=== PATIENT | female | born 1960 | race African-American/Black ===

== ENCOUNTER 2018-02-16 00:44 | Inpatient (IN) ==
--- NOTE | 2018-02-16 01:40 | ED ---
HPI General Chief Complaint: Psychiatric Symptoms Stated Complaint: psych eval Time Seen by Provider: 02/16/18 00:48 Source: patient and police Mode of arrival: ambulatory Limitations: no limitations History of Present Illness HPI Narrative: 57-year-old black female presents emergency department under Summers act by PD. According to the Summers act the patient has not been taking her medications for the past 15 days. The patient allegedly had been laying out in the yard. The patient states that family members had refused to allow her to come back in the house. She did not want to lay on the porch because someone had defecated on the porch earlier as well as there is been history of bedbugs. The patient states that she has received several insect bites to arms and legs from being outside. She states that she has been outside for several days. Patient is very reluctant to answer questions. She is very reserved. She does deny suicidal or homicidal ideation. Patient is uncooperative and refusing to answer other questions. She states that she is angry at her family. Related Data Home Medications Medication Instructions Recorded Confirmed No Known Home Medications 02/16/18 02/16/18 Allergies Allergy/AdvReac Type Severity Reaction Status Date / Time acetaminophen Allergy Severe rash Unverified 01/11/17 15:56 oxycodone Allergy Severe rash Unverified 01/11/17 15:56 aspirin AdvReac Severe SEIZURES Unverified 01/11/17 15:56 codeine AdvReac Severe SEIZURES Unverified 01/11/17 15:56 Review of Systems ROS Unobtainable ROS Unobtainable: unobtainable due to mental status [facility] Medical History Medical History Mitral valve prolapse (Acute) Mitral valve prolapse (Acute) Seizures (Acute) Social History Social History Substance History: Unable to Obtain Smoking Status: Refused to answer How Often Do You Have a Drink Containing Alcohol: Monthly or less Recent Travel in [place] within the Last 8 Weeks: No Recent Out of Country Travel within the Last 8 Weeks: No Immunization History Tetanus Immunization: Unsure Hx Influenza Vaccine This Season: No Exam Narrative Exam Narrative: GENERAL: Well-nourished, well-developed patient. SKIN: Warm and dry. HEAD: Normocephalic and atraumatic. EYES: No scleral icterus. No injection or drainage. ENT: No nasal drainage noted. Mucous membranes pink. Airway patent. NECK: Supple, trachea midline. Moves head freely without obvious discomfort. CARDIOVASCULAR: Regular rate and rhythm without murmurs, gallops, or rubs. RESPIRATORY: Breath sounds equal bilaterally. No accessory muscle use. GASTROINTESTINAL: Abdomen soft, non-tender, nondistended. EXTREMITIES: No cyanosis or edema. BACK: Nontender without obvious deformity. No CVA tenderness. NEURO: Patient is alert and oriented. no sensorimotor deficits. Nonfocal. Normal speech. PSYCH: Patient is uncooperative. Unable to fully assess. No auditory or visual hallucinations. Course Initial Documented Vital Signs Temperature 98.0 F 02/16/18 00:48 Pulse Rate 75 02/16/18 00:48 Respiratory Rate 18 02/16/18 00:48 Blood Pressure 119/60 02/16/18 00:48 Last Documented Vital Signs Temperature 96.1 F L 02/18/18 18:16 Pulse Rate 78 02/18/18 18:16 Respiratory Rate 16 02/18/18 18:16 Blood Pressure 96/62 L 02/18/18 18:16 Pulse Oximetry 98 02/18/18 18:16 Medical Decision Making MDM Narrative Medical decision making narrative: We will perform routine laboratory testing for medical clearance. Patient will be given Zyprexa 10 mg IM and Ativan 2 mg IM. The patient has refused her Zyprexa and Ativan. She has also refused her potassium. Unfortunately I cannot medically clear this patient with a potassium of 2.9. I was advised by the nursing staff that we cannot force the patient to take her medications. The patient will have to be evaluated by a psychiatrist to determine if she has a capacity to refuse. We will determine medical clearance after the patient has been evaluated by the psychiatrist under her Summers act. Medical Screen Exam Complete: Yes Emergency Medical Condition: Yes Differential Diagnosis Differential Diagnosis: MDM: High Differential diagnoses: Schizophrenia, schizoaffective disorder, bipolar, anxiety, depression, adjustment reaction, mood disorder NOS, ODD, depressive disorder NOS, dementia, dementia with agitation, psychosis NOS, substance induced mood disorder, DMDD, Asperger syndrome, infection,electrolyte abnormality, malingering. Mental health screening discussed with the patient. Psychiatric screen ordered. Lab Data Result diagrams: 02/16/18 01:40 02/18/18 06:40 POC Results POC Urine Results Negative Lab Results 02/16/18 02/16/18 02/16/18 Range/Units 01:25 01:40 01:40 WBC 5.7 (4.0-11.0) th/mm3 RBC 4.38 (4.00-5.30) mil/mm3 Hgb 12.3 (11.6-15.3) gm/dL Hct 38.0 (35.0-46.0) % MCV 86.7 (80.0-100.0) fL MCH 28.1 (27.0-34.0) pg MCHC 32.4 (32.0-36.0) % RDW 14.7 (11.6-17.2) % Plt Count 209 (150-450) th/mm3 MPV 7.9 (7.0-11.0) fL Neut % (Auto) 41.2 (16.0-70.0) % Lymph % (Auto) 45.5 H (9.0-44.0) % [place] % (Auto) 8.4 H (0.0-8.0) % Eos % (Auto) 3.8 (0.0-4.0) % Baso % (Auto) 1.1 (0.0-2.0) % Neut # (Auto) 2.4 (1.8-7.7) th/mm3 Lymph # (Auto) 2.6 (1.0-4.8) th/mm3 [place] # (Auto) 0.5 (0.0-0.9) th/mm3 Eos # (Auto) 0.2 (0.0-0.4) th/mm3 Baso # (Auto) 0.1 (0.0-0.2) th/mm3 WBC Differential . Differential Comment Auto diff final Sodium 135 L (136-145) meq/L Potassium 2.9 L* (3.5-5.1) meq/L Chloride 99 (98-107) meq/L Carbon Dioxide 26.2 (21.0-32.0) meq/L Anion Gap 10 (5-15) meq/L BUN 17 (7-18) mg/dL Creatinine 1.52 H (0.50-1.00) mg/dL Estimated GFR 43 L (>89) mL/min Random Glucose 84 (74-106) mg/dL Hemoglobin A1c (4.3-6.0) % Calcium 8.5 (8.5-10.1) mg/dL Phosphorus (2.5-4.9) mg/dL Magnesium (1.5-2.5) mg/dL Total Bilirubin 0.5 (0.2-1.0) mg/dL AST 30 (15-37) U/L ALT 14 (10-53) U/L Alkaline Phosphatase 74 (45-117) U/L Total Protein 6.9 (6.4-8.2) g/dL Albumin 3.4 (3.4-5.0) g/dL Triglycerides (42-150) mg/dL Cholesterol (120-200) mg/dL LDL Cholesterol, Calc (0-99) mg/dL HDL Cholesterol (40.0-60.0) mg/dL Cholesterol/HDL Ratio Ratio TSH 0.647 (0.358-3.740) uIU/mL Free T4 (0.76-1.46) ng/dL Urine Opiates Screen Neg (Neg) Ur Barbiturates Screen Neg (Neg) Phenytoin Less than 0.4 L (10.0-20.0) mcg/mL Valproic Acid Less than 3 L (50-100) mcg/mL Ur Amphetamines Screen Neg (Neg) U Benzodiazepines Scrn Neg (Neg) Urine Cocaine Screen Neg (Neg) U Cannabinoids Screen Neg (Neg) Serum Alcohol Less than 3 (0-5) mg/dL 02/18/18 02/18/18 02/18/18 Range/Units 06:40 06:40 06:40 WBC (4.0-11.0) th/mm3 RBC (4.00-5.30) mil/mm3 Hgb (11.6-15.3) gm/dL Hct (35.0-46.0) % MCV (80.0-100.0) fL MCH (27.0-34.0) pg MCHC (32.0-36.0) % RDW (11.6-17.2) % Plt Count (150-450) th/mm3 MPV (7.0-11.0) fL Neut % (Auto) (16.0-70.0) % Lymph % (Auto) (9.0-44.0) % [place] % (Auto) (0.0-8.0) % Eos % (Auto) (0.0-4.0) % Baso % (Auto) (0.0-2.0) % Neut # (Auto) (1.8-7.7) th/mm3 Lymph # (Auto) (1.0-4.8) th/mm3 [place] # (Auto) (0.0-0.9) th/mm3 Eos # (Auto) (0.0-0.4) th/mm3 Baso # (Auto) (0.0-0.2) th/mm3 WBC Differential Differential Comment Sodium 142 (136-145) meq/L Potassium 3.4 L (3.5-5.1) meq/L Chloride 107 (98-107) meq/L Carbon Dioxide 27.3 (21.0-32.0) meq/L Anion Gap 8 (5-15) meq/L BUN 13 (7-18) mg/dL Creatinine 0.99 (0.50-1.00) mg/dL Estimated GFR 70 L (>89) mL/min Random Glucose 96 (74-106) mg/dL Hemoglobin A1c 6.2 H (4.3-6.0) % Calcium 8.2 L (8.5-10.1) mg/dL Phosphorus 2.3 L (2.5-4.9) mg/dL Magnesium 1.8 (1.5-2.5) mg/dL Total Bilirubin 0.4 (0.2-1.0) mg/dL AST 24 (15-37) U/L ALT 12 (10-53) U/L Alkaline Phosphatase 66 (45-117) U/L Total Protein 6.3 L D (6.4-8.2) g/dL Albumin 3.0 L (3.4-5.0) g/dL Triglycerides 77 (42-150) mg/dL Cholesterol 162 (120-200) mg/dL LDL Cholesterol, Calc 92 (0-99) mg/dL HDL Cholesterol 54.8 (40.0-60.0) mg/dL Cholesterol/HDL Ratio 2.95 Ratio TSH 0.172 L (0.358-3.740) uIU/mL Free T4 1.23 (0.76-1.46) ng/dL Urine Opiates Screen (Neg) Ur Barbiturates Screen (Neg) Phenytoin (10.0-20.0) mcg/mL Valproic Acid (50-100) mcg/mL Ur Amphetamines Screen (Neg) U Benzodiazepines Scrn (Neg) Urine Cocaine Screen (Neg) U Cannabinoids Screen (Neg) Serum Alcohol (0-5) mg/dL Discharge Plan Discharge Disposition Patient Disposition: 30 Still Patient Discharge Condition Condition: Stable Physicians Team ED Provider: Shreya Griffith Primary Care Provider: Primary Care Angie Ferrer Attending Provider: Noel Cespedes Other Providers: Noel Cespedes ; Utilizer,[facility] ; Oj Pleitez Status ED Status: Left Department Discharge Information Discharge Date/Time: 02/16/18 14:47
[2018-02-16 01:55] LABS: Baso # (Auto) 0.1 th/mm3 (0.0-0.2); Baso % (Auto) 1.1 % (0.0-2.0); Eos # (Auto) 0.2 th/mm3 (0.0-0.4); Eos % (Auto) 3.8 % (0.0-4.0); Hemoglobin 12.3 gm/dL (11.6-15.3); Lymph # (Auto) 2.6 th/mm3 (1.0-4.8); Lymph % (Auto) 45.5 % (9.0-44.0); Mean Corpuscular HGB Conc 32.4 % (32.0-36.0); Mean Corpuscular Hemoglobin 28.1 pg (27.0-34.0); Mean Corpuscular Volume 86.7 fL (80.0-100.0); Mean Platelet Volume 7.9 fL (7.0-11.0); Mono # (Auto) 0.5 th/mm3 (0.0-0.9); Mono % (Auto) 8.4 % (0.0-8.0); Neut # (Auto) 2.4 th/mm3 (1.8-7.7); Neut % (Auto) 41.2 % (16.0-70.0); Platelet Count 209 th/mm3 (150-450); Red Blood Count 4.38 mil/mm3 (4.00-5.30); Red Cell Distribution Width 14.7 % (11.6-17.2); White Blood Count 5.7 th/mm3 (4.0-11.0)
[2018-02-16 02:02] LABS: Amphetamine Screen,Urine Neg (Neg); Barbiturate Screen,Urine Neg (Neg); Cannabinoid Screen,Urine Neg (Neg); Cocaine Screen,Urine Neg (Neg)
[2018-02-16 02:03] LABS: Opiate Screen,Urine Neg (Neg)
[2018-02-16 02:27] LABS: Alanine Aminotransferase 14 U/L (10-53); Albumin 3.4 g/dL (3.4-5.0); Alkaline Phosphatase 74 U/L (45-117); Anion Gap 10 meq/L (5-15); Aspartate Aminotransferase 30 U/L (15-37); Blood Urea Nitrogen 17 mg/dL (7-18); Calcium 8.5 mg/dL (8.5-10.1); Carbon Dioxide 26.2 meq/L (21.0-32.0); Chloride 99 meq/L (98-107); Glomerular Filtration Rate 43 mL/min (>89); Glucose,Random 84 mg/dL (74-106); Sodium 135 meq/L (136-145); Thyroid Stimulating Hormone 0.647 uIU/mL (0.358-3.740); Total Protein 6.9 g/dL (6.4-8.2)
[2018-02-16 02:29] LABS: Potassium 2.9 meq/L (3.5-5.1)
[2018-02-16] MEDS ORDERED: Aluminum/Magnesium/Simethacone Susp 30 ML UDC PO PRN (10:53)
[2018-02-16] MEDS ORDERED: Bisacodyl 10 MG Supp RECTAL PRN (10:53)
--- NOTE | 2018-02-16 14:26 | P.HPPSY ---
Provisional Diagnosis Admission Date: February 16, 2018 00:44 [place] I.: Unspecified psychosis Competence Certification of Person's Competence To Provide Express and Informed Consent I have personally examined Marilyn Alberto, a person being served at [facility] on, February 16, 2018 1423. Express and informed consent means consent voluntarily given in writing, by a competent person, after sufficient explanation and disclosure of the subject matter involved to enable the person to make a knowing and willful decision without any element of force, fraud, deceit, duress, or other form of constraint or coercion. This person is 18 years of age or older, is not now known to be incompetent to consent to treatment with a guardian advocate, and does not have a health care surrogate or proxy currently making medical treatment decisions. I have found this person to be one of the following: [] Competent to provide express and informed consent, as defined above, for voluntary admission to this facility and is competent to provide express and informed consent for treatment. He/she has the consistent capacity to make well reasoned, willful, and knowing decisions concerning his or her medical or mental health treatment. The person fully and consistently understands the purpose of the admission for examination/placement and is fully capable of personally exercising all rights [place] [x] Incompetent to provide express and informed consent to voluntary admission, and this is incompetent to provide express and informed consent to treatment. The person must be transferred to involuntary status and a petition for a guardian advocate filed with the Circuit Court. [] Refusing to provide express and informed consent to voluntary admission but is competent to provide express and informed consent for treatment. The person must be discharged or transferred to involuntary status. Form shall be completed within 24 hours of a person's arrival at the receiving facility and filed in the clinical record of each person: 1. Admitted on a voluntary basis 2. Permitted to provide express and informed consent to his/her own treatment 3. Allowed to transfer from involuntary to voluntary status 4. Prior to permitting a person to consent to his or her own treatment after having been previously found incompetent to consent to treatment. History of Present Illness Capacity: Lacks capacity History of Present Illness: The patient is a 57-year-old woman, domiciled alone, , unemployed, past psychiatric history of psychosis, 1 previous psychiatric hospitalization in [place] in 2017, documentation review, also admitted in 2010 under the care of Dr. Medley, both time with a very similar presentation in which the patient refused to eat and to talk, this time she is brought under [place] act by PD. According to the Summers act the patient has not been taking her medications for the past 15 days. The patient allegedly had been laying out in the yard. The patient states that family members had refused to allow her to come back in the house. She did not want to lay on the porch because someone had defecated on the porch earlier as well as there is been history of bedbugs. The patient states that she has received several insect bites to arms and legs from being outside. She states that she has been outside for several days. Patient is very reluctant to answer questions. At some point the patient refuses to talk to me. In spite of my insistence the patient does not open her mouth. The patient has been isolated in the ER, not talking with the nurses, she has refused her food. She also has refused medications. Past psychiatric history: The patient denies any history of psychiatric illness. She denies any history of psychiatric admissions or suicide attempts. Family history: The patient denies any family history of mental illness. Chemical dependency history: The patient denies any history of abuse of drugs or alcohol. Social history: The patient reports that she lives alone. She is . She has 3 sons. She is reportedly college-educated. She does not work and is on disability for epilepsy. She denies any or legal history other than the legal history prior to her presentation here. She denies any access to guns or firearms. [facility] - History History Provided By: Patient - Medical History Medical History: Medical History (Last Reviewed 02/16/18 @ 01:38 by CARLOS Pearl) Mitral valve prolapse Mitral valve prolapse Seizures - Tobacco History Smoking Status: Refused to answer - Alcohol History How Often Do You Have a Drink Containing Alcohol: Monthly or less - Substance Use History Substance History: Unable to Obtain - Travel History Recent Travel in the [facility] Within the Last 8 Weeks: No Recent Travel Out of the Country Within the Last 8 Weeks: No - Immunization History Tetanus Immunization: Unsure Hx Influenza Vaccine This Season: No Medications and Allergies Active Medications: Active Medications Al Hydrox/Mg Hydrox/Simethicone (Mag-Al Plus Susp Liq) 30 ml PO Q6H PRN PRN Reason: DYSPEPSIA Al Hydroxide/Mg Hydroxide (Milk Of Magnesia Liq) 30 ml PO Q12H PRN PRN Reason: Mild Constipation Bisacodyl (Dulcolax Supp) 10 mg RECTAL DAILY PRN PRN Reason: SEVERE CONSITIPATION Lactulose (Lactulose Liq) 30 ml PO DAILY PRN PRN Reason: SEVERE CONSITIPATION Potassium Chloride (K-Dur) 20 meq PO BID MALICK Last Admin: 02/16/18 10:15 Dose: Not Given Senna/Docusate Sodium (Lidia-Colace) 1 tab PO BID [facility] Sennosides (Senokot) 17.2 mg PO Q12H PRN PRN Reason: Moderate Constipation Allergies Allergy/AdvReac Type Severity Reaction Status Date / Time acetaminophen Allergy Severe rash Unverified 01/11/17 15:56 oxycodone Allergy Severe rash Unverified 01/11/17 15:56 aspirin AdvReac Severe SEIZURES Unverified 01/11/17 15:56 codeine AdvReac Severe SEIZURES Unverified 01/11/17 15:56 Home Medications Medication Instructions Recorded Confirmed Type No Known Home Medications 02/16/18 02/16/18 History Results - Labs CBC & Chem 7: 02/16/18 01:40 02/16/18 01:40 Labs: Laboratory Results - last 24 hr 02/16/18 02/16/18 02/16/18 01:25 01:40 01:40 WBC 5.7 RBC 4.38 Hgb 12.3 Hct 38.0 MCV 86.7 MCH 28.1 MCHC 32.4 RDW 14.7 Plt Count 209 MPV 7.9 Neut % (Auto) 41.2 Lymph % (Auto) 45.5 H [place] % (Auto) 8.4 H Eos % (Auto) 3.8 Baso % (Auto) 1.1 Neut # (Auto) 2.4 Lymph # (Auto) 2.6 [place] # (Auto) 0.5 Eos # (Auto) 0.2 Baso # (Auto) 0.1 WBC Differential . Differential Comment Auto diff final Sodium 135 L Potassium 2.9 L* Chloride 99 Carbon Dioxide 26.2 Anion Gap 10 BUN 17 Creatinine 1.52 H Estimated GFR 43 L Random Glucose 84 Calcium 8.5 Total Bilirubin 0.5 AST 30 ALT 14 Alkaline Phosphatase 74 Total Protein 6.9 Albumin 3.4 TSH 0.647 Urine Opiates Screen Neg Ur Barbiturates Screen Neg Phenytoin Less than 0.4 L Valproic Acid Less than 3 L Ur Amphetamines Screen Neg U Benzodiazepines Scrn Neg Urine Cocaine Screen Neg U Cannabinoids Screen Neg Serum Alcohol Less than 3 Exam Vital signs: Vital Signs 02/16/18 00:48 Temperature 98.0 F Pulse Rate 75 Respiratory Rate 18 Blood Pressure 119/60 Intake & Output 02/15/18 02/16/18 02/16/18 18:59 06:59 18:59 Weight 63.503 kg Narrative: Patient is hyperactive, hyperverbal, laying in her bed, refusing to cooperate with examination - Constitutional no acute distress Mental Status Examination Appearance: Disheveled Consciousness: Alert Orientation: Person Speech: Other (Selectively mute) Suicidal Ideation: No Suicidal Plan: No Suicidal Intention: No Homicidal Ideation: No Homicidal Plan: No Homicidal Intention: No (MSE is limited due to lack of cooperation and mutism) Insight: Poor Judgment: Poor Assessment and Plan - Assessment (1) Unspecified psychosis Code(s): F29 - Unspecified psychosis not due to a substance or known physiological condition Status: Acute - Plan Plan: Estimated LOS: [] days The patient is selectively mute, refusing to cooperate with a psychiatric assessment, internally preoccupied, psychosis is likely. He has history of similar behaviors in the past, she has been found psychotic, self neglecting herself. As per police report, the patient was found laying down in the driveway, under disarmed, no responsive reluctant to cooperate. Given the level of self-care impairment, the patient will be admitted in psychiatry for stabilization and safety. I have no starting an antipsychotic at this moment, we will continue the longitudinal observation try to reach collateral information to complete the psychiatric assessment. Transfer the patient to 4 E. patient has low potassium level, as well as low sodium level, I will consult medicine to address this. Justification for Continued Inpatient Stay: Patient is for psychiatric admission
[2018-02-16] MEDS: Senna/Docusate Sodium 8.6/50 MG Tablet PO SCH (21:09)
[2018-02-17] MEDS: Senna/Docusate Sodium 8.6/50 MG Tablet PO SCH (09:45)
--- NOTE | 2018-02-17 12:36 | P.CONPSY ---
Provisional Diagnosis Admission Date: February 16, 2018 14:13 [place] I.: 1. Schizophrenia, paranoid type, acute exacerbation [place] II.: Deferred History of Present Illness Service: Psychiatry Consult date: 02/17/18 Requesting Physician: Santi Rivas Reason for Consult: Second opinion for involuntary psychiatric hospitalization Primary Care Provider: No Primary Care Physician History of Present Illness: From Dr. Rvias's H&P: The patient is a 57-year-old woman, domiciled alone, , unemployed, past psychiatric history of psychosis, 1 previous psychiatric hospitalization in [place] in 2017, documentation review, also admitted in 2009 under the care of Dr. Medley, both time with a very similar presentation in which the patient refused to eat and to talk, this time she is brought under Summers act by PD. According to the Summers act the patient has not been taking her medications for the past 15 days. The patient allegedly had been laying out in the yard. The patient states that family members had refused to allow her to come back in the house. She did not want to lay on the porch because someone had defecated on the porch earlier as well as there is been history of bedbugs. The patient states that she has received several insect bites to arms and legs from being outside. She states that she has been outside for several days. Patient is very reluctant to answer questions. At some point the patient refuses to talk to me. In spite of my insistence the patient does not open her mouth. The patient has been isolated in the ER, not talking with the nurses, she has refused her food. She also has refused medications. Past psychiatric history: The patient denies any history of psychiatric illness. She denies any history of psychiatric admissions or suicide attempts. Family history: The patient denies any family history of mental illness. Chemical dependency history: The patient denies any history of abuse of drugs or alcohol. Social history: The patient reports that she lives alone. She is . She has 3 sons. She is reportedly college-educated. She does not work and is on disability for epilepsy. She denies any or legal history other than the legal history prior to her presentation here. She denies any access to guns or firearms. On my examination today, 02/17: Patient seen and examined with nurse. Chart reviewed. I note that the patient was hospitalized [place] [address] Rivas and was stabilized on a combination of Depakote, Geodon and Celexa. Case discussed with nursing staff who reports patient has been refusing food and has been huddled in her room with her covers over her head. She was reportedly covered with bug bites as she had been found laying in the driveway prior to coming into the hospital per nursing staff. On my examination today, I find the patient in bed with the covers pulled over her head. She refuses to uncover her head and refuses to conduct the interview with her head covered. When we endeavor to uncover her head to conduct the interview, the patient becomes irate and screams "leave me alone!" She then pulls the covers over her head again. She is disheveled and appears internally stimulated and paranoid. She is quite negativistic. Psychiatric interview is limited because of the patient's degree of psychiatric impairment. No acute physical complaints. Her lunch is untouched at her bedside. Given the patient's degree of psychiatric impairment I spoke with her son, Lukas Sewell at [phone]. He is agreeable to serving as healthcare surrogate. He provides consent for medications as detailed below. We discuss possibly switching antipsychotics to an agent with available WAGNER but agree that given patient's food refusal it is better to start with an agent with a history of proven efficacy. Review of Systems unobtainable due to mental condition PMFSH - History History Provided By: Patient - Medical History Medical History: Medical History (Last Reviewed 02/16/18 @ 01:38 by CARLOS Pearl) Mitral valve prolapse Mitral valve prolapse Seizures - Tobacco History Smoking Status: Refused to answer - Alcohol History How Often Do You Have a Drink Containing Alcohol: Monthly or less - Substance Use History Substance History: Unable to Obtain - Travel History Recent Travel in the [place] Within the Last 8 Weeks: No Recent Travel Out of the Country Within the Last 8 Weeks: No - Immunization History Tetanus Immunization: Unsure Hx Influenza Vaccine This Season: No Medications and Allergies Active Medications: Active Medications Al Hydrox/Mg Hydrox/Simethicone (Mag-Al Plus Susp Liq) 30 ml PO Q6H PRN PRN Reason: DYSPEPSIA Al Hydroxide/Mg Hydroxide (Milk Of Magnesia Liq) 30 ml PO Q12H PRN PRN Reason: Mild Constipation Bisacodyl (Dulcolax Supp) 10 mg RECTAL DAILY PRN PRN Reason: SEVERE CONSITIPATION Lactulose (Lactulose Liq) 30 ml PO DAILY PRN PRN Reason: SEVERE CONSITIPATION Potassium Chloride (K-Dur) 20 meq PO BID [facility] Last Admin: 02/17/18 09:45 Dose: Not Given Senna/Docusate Sodium (Lidia-Colace) 1 tab PO BID [facility] Last Admin: 02/17/18 09:45 Dose: Not Given Sennosides (Senokot) 17.2 mg PO Q12H PRN PRN Reason: Moderate Constipation Allergies Allergy/AdvReac Type Severity Reaction Status Date / Time acetaminophen Allergy Severe rash Unverified 01/11/17 15:56 oxycodone Allergy Severe rash Unverified 01/11/17 15:56 aspirin AdvReac Severe SEIZURES Unverified 01/11/17 15:56 codeine AdvReac Severe SEIZURES Unverified 01/11/17 15:56 Home Medications Medication Instructions Recorded Confirmed Type No Known Home Medications 02/16/18 02/16/18 History Exam Vital signs: Intake & Output 02/16/18 02/17/18 02/17/18 18:59 06:59 18:59 Intake Total 0 / 0 Balance 0 / 0 Intake: Oral 0 / 0 Narrative: Physical examination completed by ED provider. On my examination today, the patient appears to be in no acute physical distress. She does appear extremely disheveled and negativistic. No posturing or stereotypies or other signs of catatonia. Labs and vital signs reviewed. Laboratory Tests 02/16/18 02/16/18 02/16/18 01:25 01:40 01:40 WBC 5.7 RBC 4.38 Hgb 12.3 Hct 38.0 MCV 86.7 MCH 28.1 MCHC 32.4 RDW 14.7 Plt Count 209 MPV 7.9 Neut % (Auto) 41.2 Lymph % (Auto) 45.5 H Pettis % (Auto) 8.4 H Eos % (Auto) 3.8 Baso % (Auto) 1.1 Neut # (Auto) 2.4 Lymph # (Auto) 2.6 Pettis # (Auto) 0.5 Eos # (Auto) 0.2 Baso # (Auto) 0.1 WBC Differential . Differential Comment Auto diff final Sodium 135 L Potassium 2.9 L* Chloride 99 Carbon Dioxide 26.2 Anion Gap 10 BUN 17 Creatinine 1.52 H Estimated GFR 43 L Random Glucose 84 Calcium 8.5 Total Bilirubin 0.5 AST 30 ALT 14 Alkaline Phosphatase 74 Total Protein 6.9 Albumin 3.4 TSH 0.647 Urine Opiates Screen Neg Ur Barbiturates Screen Neg Phenytoin Less than 0.4 L Valproic Acid Less than 3 L Ur Amphetamines Screen Neg U Benzodiazepines Scrn Neg Urine Cocaine Screen Neg U Cannabinoids Screen Neg Serum Alcohol Less than 3 Labs reviewed. Patient has been refusing potassium supplement. Mental Status Examination Appearance: Dirty, Disheveled Consciousness: Alert Orientation: Person Motor Activity: Other (Motor exam as above) Speech: Other (Limited sample, selectively mute) Language: Other (Limited sample) Fund of Knowledge: Inadequate Attention and Concentration: Easily distracted Mood: Angry, Oppositional Affect: Irritable, Labile Thought Process & Associations: Other (Limited sample) Thought Content: Delusional Hallucination Type: Other (Appears internally stimulated) Delusion Type: Paranoid Suicidal Ideation: No (No SI voiced) Homicidal Ideation: No (No HI voiced) Insight: Poor Judgment: Poor Assessment and Plan - Assessment (1) Paranoid type schizophrenia, chronic state with acute exacerbation Code(s): F20.0 - Paranoid schizophrenia Status: Acute - Plan Plan: Given the circumstances of the patient's presentation here and her presentation on my examination today, I concur with Dr. Rivas that the patient meets criteria for involuntary psychiatric hospitalization under the Summers act. I have completed the second opinion paperwork. I will be assuming care of the case. I will resume the patient's Geodon 40 mg twice daily with IM backup as well as Depakote 500 mg twice daily with plans to check a level after the appropriate interval. Check EKG for QTC. Dietitian and hospitalist consult secondary to poor oral intake. Physical therapy consultation. Continue to monitor on the medical psychiatric unit. Continue other medications and care as ordered. Justification for Continued Inpatient Stay: Impairment in self-care. Impairment in reality construction. High risk for decompensation in less restrictive environment. Discharge Planning: Pending psychiatric stabilization Request Healthcare Surrogate/Guardian Advocate?: Yes
[2018-02-17] MEDS ORDERED: Sod Chloride 0.9% Inj 1,000 ML IV.CONT SCH (14:15)
--- NOTE | 2018-02-17 16:00 | P.DIET ---
Nutritional Evaluation Type of nutrition evaluation: initial Nutrition consult regarding: Diet Evaluation Nutrition screening: [facility] [place] Screening comments: 02/17/18 [facility] [place] Poor PO Intake Subjective Barriers to Nutrition: Refuses to eat at times Subjective Comments: TIFF Farmer reports pt is refusing po intake, meds and pt care. Pt is known to me from a previous admission here and medical history during that admission included DM and gastric bypass 2002 Objective - Diagnosis Psychosis - Objective [place] body weight: 47.7 kg % IBW: 133 Body Weight Used for Calculations: IBW (47.7kg) Energy Needs - Lower Range (kCal/kg): 28 Energy Needs - Upper Range (kCal/kg): 33 Lower Limit kCal/kg (kCals): 1,336 Upper Limit kCal/kg (kCals): 1,574 Lower Limit Protein Factor (Grams per Kg): 1.2 Upper Limit Protein Factor (Grams per Kg): 1.5 Lower Protein Needs (Protein): 57 Upper Protein Needs (Protein): 72 Dietitian Reviewed in Medical Record: Current diet, Curent medications, Intake & Output, Labs, Medical history Diet Order: Regular Oral Diet Intake Amount: Poor <50% Objective Comments: PMH: MVP, Seizure Glucose 84, Creatinine 1.52, estGFR 43 Meds Include: Álvaro Beck Assessment Assessment: Pt is at nutritional risk r/t refusal to have po intake. Plan to monitor po intake. Send Glucerna Shakes TID(= 220 kcal and 10g Protein per serving). Dietitian will follow. Recommendations: 1. Plan to monitor po intake 2. Send Glucerna Shakes TID 3. Dietitian will follow Dietitian to Monitor: Lab values, Electrolytes, Renal labs, Glucose level, Supplement acceptance, Intake & Output, Diet tolerance, Weight change, PO Intake , Medical course
--- NOTE | 2018-02-17 16:55 | P.CONIM ---
History of Present Illness Service: [facility] Consult date: 02/18/18 Reason for Consult: medical management Primary Care Provider: No Primary Care Physician Chief Complaint: refusal with care/ pt stated "leave me alone" History of Present Illness: This patient is a 57 years old -[place] female with past medical history of mitral valve prolapse, seizure, AKA, hyponatremia, new onset diabetes mellitus, low TSH, paranoid schizophrenia, psychosis and previous psychiatric hospitalization in 2017 with a very similar presentation in which the patient refused to eat, refused to talk and was brought under the Summers act. According to the Summers act patient has been not taking her medication for the past 15 days. Patient was allegedly laying out in the yard and refuses to come back in the house according to the family. In the emergency room patient is refusing to eat or drink refusing blood work and refusing medications. Patient was admitted in the psychiatry for evaluation and treatment of paranoid type schizophrenia in a chronic state with acute exacerbation. Medicine team is consulted for medical management. Patient is seen in his room with a nurse at bedside, however unable to evaluate due to to patient, bring with a blanket and refused to come out of the blanket. Patient also refuses to answer questions and stated does not need anything, patient also stated "leave me alone". Nurse reported patient refused to eat states that that we are trying to poison her. Nurse also reported that the patient is refusing to take her medications. Nurse reported that the patient has been covered with a blanket since she got there and refused undo her blanket. Most of the information from the H&P was obtained from previous records. Unable to examine patient due to patient refusal despite good communication and information given to the patient. Patient very uncooperative. When I tried to under her blanket she finally opened the blanket and screamed "leave me alone" with combativeness. Patient is an -[place] looks like frail, seems malnourished, however strong, and moving all extremities. Patient's nurse present in the room during the examination. Explained to the patient the need for medication for treatment, need to eat and drink, and needs to be treated. Patient had quiet response. Unable to do review of systems due to patient uncooperativeness and refusal to answer questions. PMFSH - History History Provided By: Patient - Medical History Medical History: Medical History (Last Reviewed 02/16/18 @ 01:38 by CARLOS Pearl) Mitral valve prolapse Mitral valve prolapse Seizures - Tobacco History Smoking Status: Refused to answer - Alcohol History How Often Do You Have a Drink Containing Alcohol: Monthly or less - Substance Use History Substance History: Unable to Obtain - Travel History Recent Travel in the [place] Within the Last 8 Weeks: No Recent Travel Out of the Country Within the Last 8 Weeks: No - Immunization History Tetanus Immunization: Unsure Hx Influenza Vaccine This Season: No Medications and Allergies Active Medications: Active Medications Al Hydrox/Mg Hydrox/Simethicone (Mag-Al Plus Susp Liq) 30 ml PO Q6H PRN PRN Reason: DYSPEPSIA Al Hydroxide/Mg Hydroxide (Milk Of Magnesia Liq) 30 ml PO Q12H PRN PRN Reason: Mild Constipation Divalproex Sodium (Depakote Dr) 500 mg PO BID [facility] Hydroxyzine HCl (Atarax) 50 mg PO Q6H PRN PRN Reason: ANXIETY Dextrose/Sodium Chloride (D5w/Normal Saline Inj) 1,000 mls @ 100 mls/hr IV.CONT .Q10H [facility] Melatonin (Melatonin) 5 mg PO HS PRN PRN Reason: INSOMNIA Potassium Chloride (K-Dur) 20 meq PO BID [facility] Last Admin: 02/17/18 09:45 Dose: Not Given Sodium Chloride (Ns Flush) 2 ml IV.FLUSH BID [facility] Sodium Chloride (Ns Flush) 2 ml IV.FLUSH PRN PRN PRN Reason: FLUSH AFTER USING IV ACCESS Ziprasidone (Geodon) 40 mg PO BIDPC [facility] Ziprasidone (Geodon Inj) 10 mg IM BIDPC PRN PRN Reason: Refuses PO Geodon Allergies Allergy/AdvReac Type Severity Reaction Status Date / Time acetaminophen Allergy Severe rash Unverified 01/11/17 15:56 oxycodone Allergy Severe rash Unverified 01/11/17 15:56 aspirin AdvReac Severe SEIZURES Unverified 01/11/17 15:56 codeine AdvReac Severe SEIZURES Unverified 01/11/17 15:56 Home Medications Medication Instructions Recorded Confirmed Type No Known Home Medications 02/16/18 02/16/18 History Exam Vital signs: Intake & Output 02/16/18 02/17/18 02/17/18 18:59 06:59 18:59 Intake Total 600 / 600 Output Total 2 / 2 Balance 598 / 598 Intake: Oral 600 / 600 Output: Urine 2 / 2 Other: # Bowel Movements 0 Narrative: Unable to perform complete examine patient due to patient refusal despite good communication and information given to the patient. Patient very uncooperative. When I tried to under her blanket she finally opened the blanket and screamed "leave me alone" with combativeness. Patient is an -[place] looks like frail, seems malnourished, however strong, and moving all extremities. Patient is very uncooperative. Patient's nurse present in the room during the examination. Results - Labs CBC & Chem 7: 02/16/18 01:40 02/16/18 01:40 Assessment and Plan - Assessment (1) Unspecified psychosis Code(s): F29 - Unspecified psychosis not due to a substance or known physiological condition (2) Paranoid type schizophrenia, chronic state with acute exacerbation Code(s): F20.0 - Paranoid schizophrenia Status: Acute (3) Hypertension Code(s): I10 - Essential (primary) hypertension Status: Acute (4) Seizure disorder Code(s): G40.909 - Epilepsy, unspecified, not intractable, without status epilepticus Status: Acute (5) Diabetes mellitus Code(s): E11.9 - Type 2 diabetes mellitus without complications Status: Acute (6) Acute renal insufficiency Code(s): N28.9 - Disorder of kidney and ureter, unspecified Status: Acute - Plan This patient is a 57 years old -[place] female with past medical history of hypertension, mitral valve prolapse, seizure, AKA, hyponatremia, new onset diabetes mellitus, low TSH, paranoid schizophrenia, psychosis and previous psychiatric hospitalization in 2017 with a very similar presentation in which the patient refused to eat, refused to talk and was brought under the Summers act. According to the Summers act patient has not been taking her medication for the past 15 days. Patient was allegedly laying out in the yard and refuses to come back in the house according to the family. In the emergency room patient is refusing to eat or drink, refusing blood work and refusing medications. Patient was admitted in the psychiatry for evaluation and treatment of paranoid type schizophrenia in a chronic state with acute exacerbation. Medicine team is consulted for medical management. Acute Renal Insufficiency/hypokalemia/hyponatremia -likely secondary to dehydration and patients refusal to eat -Creatinine 1.52, K level 2.9, Na 135 -patient refused IVF and KCL replacements in the ED and currently refusing PO medications, IV start, Food and drinks -IV Fluids for hydration, patient refusing -monitor BMP Possible Metabolic Acidosis -likely due to dehydration -IVF for hydration Hypertension - patient has not been taking medication for the past 15 days per report -patient has been very uncooperative and refusing nursing care -monitor BP Hx Seizure disorder/Epilepsy, unspecified, not intractable, without status epilepticus -patient noncompliance in taking medications -monitor Hx low TSH -current TSH level unremarkable -monitor signs and symptoms Diabetes mellitus/Type 2 diabetes mellitus without complications -recently diagnosed in 2017, however unknown of patients compliance with medication treatment -blood glucose on admission has been unremarkable at 84 -will consider monitor blood sugar with Accu Checks AC and HS and cover with insulin sliding scale, when patient more cooperative -monitor HGB A1C Paranoid type schizophrenia, chronic state with acute exacerbation/unspecified Psychosis -Management with the Psychiatry Team Patient currently non-compliance with treatments, medications, labs, food and drinks. Patient will more likely cooperate with treatment after initial treatment with psychiatric medication. Another option will be to restraint the patient as necessary to Hydrate and replace her electrolytes if continues to be uncooperative. DVT Prophylaxis: Increase ambulation ( Discussed Condition With: patient and nurse
[2018-02-17] MEDS: Dextrose 5%/NaCl 0.9% Inj 1,000 ML IV.CONT SCH (17:15)
[2018-02-17] MEDS: Divalproex 500 MG DR Tablet PO SCH (21:29)
[2018-02-18 08:03] LABS: Alanine Aminotransferase 12 U/L (10-53); Alkaline Phosphatase 66 U/L (45-117); Anion Gap 8 meq/L (5-15); Aspartate Aminotransferase 24 U/L (15-37); Blood Urea Nitrogen 13 mg/dL (7-18); Calcium 8.2 mg/dL (8.5-10.1); Carbon Dioxide 27.3 meq/L (21.0-32.0); Chloride 107 meq/L (98-107); Chol/HDL Ratio 2.95 Ratio; Cholesterol 162 mg/dL (120-200); Free T4 (Free Thyroxine) 1.23 ng/dL (0.76-1.46); Glomerular Filtration Rate 70 mL/min (>89); Glucose,Random 96 mg/dL (74-106); HDL Cholesterol 54.8 mg/dL (40.0-60.0); LDL Cholesterol,Calculated 92 mg/dL (0-99); Magnesium 1.8 mg/dL (1.5-2.5); Phosphorus 2.3 mg/dL (2.5-4.9); Potassium 3.4 meq/L (3.5-5.1); Sodium 142 meq/L (136-145); Total Protein 6.3 g/dL (6.4-8.2); Triglycerides 77 mg/dL (42-150)
[2018-02-18] MEDS: Divalproex 500 MG DR Tablet PO SCH ×2 (09:32→21:34)
[2018-02-18] MEDS: Dextrose 5%/NaCl 0.9% Inj 1,000 ML IV.CONT SCH ×3 (09:46→22:10)
[2018-02-18 11:40] LABS: Hemoglobin A1c 6.2 % (4.3-6.0)
--- NOTE | 2018-02-18 12:20 | P.PNIM ---
Subjective Interval history: Follow-up hypertension, hypokalemia, renal insufficiency, hyponatremia, new onset diabetes mellitus, paranoid schizophrenia, and noncompliance. Patient seen and examined more alert and oriented today and more cooperative. Patient answers to questions appropriately with some irritable illness. Patient complained of left shoulder pain and left wrist pain, stated from people picking her up. Patient rates the pain at 8 out of 10 scale worse with movement relieved with rest. Patient complained of itchiness on left elbow and right arm, patient stated it is from bug bite from her laying outside due to the people and her house does not want to let her inside the house. Nurse reported that she was able to give her a shower last night placed the IV and have the patient take her medication p.o. Patient denies any headache or dizziness dizziness denies any chest pain or shortness of breath, denies any nausea or vomiting, denies any diarrhea or constipation. Patient denies any fever or chills. Physical Exam Vital signs: Vital Signs 02/17/18 20:00 Respiratory Rate 20 Intake & Output 02/17/18 02/18/18 02/18/18 18:59 06:59 18:59 Intake Total 600 / 600 1000 / 1000 Output Total 2 / 2 Balance 598 / 598 1000 / 1000 Intake: IV 1000 / 1000 D5W/Normal Saline Inj 1,000 ML 1000 / 1000 @ 100 mls/hr IV.CONT .Q10H [facility] Rx#:[id number] Oral 600 / 600 0 / 0 Output: Urine 2 / 2 Other: # Voids 1 Date of Last Bowel Movement 02/17/18 # Bowel Movements 0 Narrative: GENERAL: Frail looking -[place] lady, looks malnourished, alert and oriented 3, hard of hearing, with no apparent distress SKIN: Warm and dry. Left elbow with multiple lesion/rash/bug bite-like HEAD: Atraumatic. Normocephalic. EYES: Pupils equal and round. No scleral icterus. No injection or drainage. ENT: No nasal bleeding or discharge. Mucous membranes pink and moist. NECK: Trachea midline. No JVD. CARDIOVASCULAR: Regular rate and rhythm. RESPIRATORY: No accessory muscle use. Clear to auscultation. Breath sounds equal bilaterally. GASTROINTESTINAL: Abdomen flat soft, non-tender, nondistended. Hepatic and splenic margins not palpable. MUSCULOSKELETAL: Extremities without clubbing, cyanosis, or edema. No obvious deformities. NEUROLOGICAL: Awake and alert. No obvious cranial nerve deficits. Motor grossly within normal limits. Five out of 5 muscle strength in the arms and legs. Normal speech. PSYCHIATRIC: Appropriate mood and affect; insight and judgment normal. Results - Labs CBC & Chem 7: 02/16/18 01:40 02/18/18 06:40 Laboratory Results - last 24 hr 02/18/18 02/18/18 06:40 06:40 Sodium 142 Potassium 3.4 L Chloride 107 Carbon Dioxide 27.3 Anion Gap 8 BUN 13 Creatinine 0.99 Estimated GFR 70 L Random Glucose 96 Calcium 8.2 L Phosphorus 2.3 L Magnesium 1.8 Total Bilirubin 0.4 AST 24 ALT 12 Alkaline Phosphatase 66 Total Protein 6.3 L D Albumin 3.0 L Triglycerides 77 Cholesterol 162 LDL Cholesterol, Calc 92 HDL Cholesterol 54.8 Cholesterol/HDL Ratio 2.95 TSH 0.172 L Free T4 1.23 Assessment and Plan - Assessment (1) Unspecified psychosis Code(s): F29 - Unspecified psychosis not due to a substance or known physiological condition (2) Paranoid type schizophrenia, chronic state with acute exacerbation Code(s): F20.0 - Paranoid schizophrenia Status: Acute (3) Hypertension Code(s): I10 - Essential (primary) hypertension Status: Acute (4) Seizure disorder Code(s): G40.909 - Epilepsy, unspecified, not intractable, without status epilepticus Status: Acute (5) Diabetes mellitus Code(s): E11.9 - Type 2 diabetes mellitus without complications Status: Acute (6) Acute renal insufficiency Code(s): N28.9 - Disorder of kidney and ureter, unspecified Status: Acute - Plan This patient is a 57 years old -[place] female with past medical history of hypertension, mitral valve prolapse, seizure, AKA, hyponatremia, new onset diabetes mellitus, low TSH, paranoid schizophrenia, psychosis and previous psychiatric hospitalization in 2017 with a very similar presentation in which the patient refused to eat, refused to talk and was brought under the Summers act. According to the Summers act patient has not been taking her medication for the past 15 days. Patient was allegedly laying out in the yard and refuses to come back in the house according to the family. In the emergency room patient is refusing to eat or drink, refusing blood work and refusing medications. Patient was admitted in the psychiatry for evaluation and treatment of paranoid type schizophrenia in a chronic state with acute exacerbation. Medicine team is consulted for medical management. Acute Renal Insufficiency/hypokalemia/hyponatremia/slight hypocalcemia -likely secondary to dehydration and patients refusal to eat -Creatinine improved to 0.99, Potassium level improved to 3.4, Na improved to 142 -patient receiving IVF and KCL replacements , previously refused in the ED -Continue IV Fluids for hydration, encourage p.o. intake patient is now taking meals, food and drink -monitor BMP, repeat in am labs Possible Metabolic Acidosis -likely due to dehydration -IVF for hydration Hypertension - patient has not been taking medication for the past 15 days per report -patient has been very uncooperative and refusing nursing care -monitor BP Hx Seizure disorder/Epilepsy, unspecified, not intractable, without status epilepticus -patient noncompliance in taking medications -monitor low TSH with previous history of low TSH/patient noncompliance with medication at home -patient with unknown family medical history of hypo-or hyperthyroidism -TSH level 0.647, T4 1.23, -monitor signs and symptoms Diabetes mellitus/Type 2 diabetes mellitus without complications -recently diagnosed in 2017, however unknown of patients compliance with medication treatment -blood glucose has been unremarkable 94 today -will consider monitor blood sugar with Accu Checks AC and HS and cover with insulin sliding scale, when patient more cooperative -monitor HGB A1C Paranoid type schizophrenia, chronic state with acute exacerbation/unspecified Psychosis -Management with the Psychiatry Team Patient is now compliant with the treatment with some selective refusal for nursing care. DVT Prophylaxis: Increase ambulation ( Code Status: Full code Discussed Condition With: patient and nurse
--- NOTE | 2018-02-18 13:23 | P.PNPSY ---
Subjective Remarks: The patient was seen today for psychiatric reevaluation. The case was widely discussed with nurse in charge. On psychiatric evaluation today the patient refused to talk to me. She is very resistant and oppositional. She put her head under the blanket and did not look at me. In spite of multiple attempts, the patient did not answer any of my questions. As per nurse, the patient has been paranoid, a little bit disorganized, but she has been compliant with her medications. No agitation or aggressive behavior present at the moment. Mental Status Examination Appearance: Dirty, Disheveled Consciousness: Alert Orientation: Person Motor Activity: Other (Motor exam as above) Speech: Other (Limited sample, selectively mute) Language: Other (Limited sample) Fund of Knowledge: Inadequate Attention and Concentration: Easily distracted Mood: Angry, Oppositional Affect: Irritable, Labile Thought Process & Associations: Other (Limited sample) Thought Content: Delusional Hallucination Type: Other (Appears internally stimulated) Delusion Type: Paranoid Suicidal Ideation: No (No SI voiced) Suicidal Plan: No Suicidal Intention: No Homicidal Ideation: No (No HI voiced) Homicidal Plan: No Homicidal Intention: No (MSE is limited due to lack of cooperation and mutism) Insight: Poor Judgment: Poor Assessment and Plan - Assessment (1) Paranoid type schizophrenia, chronic state with acute exacerbation Code(s): F20.0 - Paranoid schizophrenia Status: Acute - Plan Plan: Continue current psychotropic regimen. Continue to engage medication and taking her medications, also in talking with staff Justification for Continued Inpatient Stay: She is acutely psychotic. Request Healthcare Surrogate/Guardian Advocate?: Yes
[2018-02-19 08:02] LABS: Hematocrit 40.2 % (35.0-46.0); Hemoglobin 12.9 gm/dL (11.6-15.3); Mean Corpuscular HGB Conc 32.1 % (32.0-36.0); Mean Corpuscular Hemoglobin 27.8 pg (27.0-34.0); Mean Corpuscular Volume 86.7 fL (80.0-100.0); Mean Platelet Volume 8.1 fL (7.0-11.0); Platelet Count 170 th/mm3 (150-450); Red Blood Count 4.64 mil/mm3 (4.00-5.30); Red Cell Distribution Width 14.5 % (11.6-17.2); White Blood Count 4.5 th/mm3 (4.0-11.0)
[2018-02-19] MEDS: Dextrose 5%/NaCl 0.9% Inj 1,000 ML IV.CONT SCH ×2 (08:07→18:00)
[2018-02-19 08:08] LABS: Anion Gap 11 meq/L (5-15); Blood Urea Nitrogen 10 mg/dL (7-18); Calcium 7.4 mg/dL (8.5-10.1); Carbon Dioxide 22.7 meq/L (21.0-32.0); Chloride 112 meq/L (98-107); Glomerular Filtration Rate Greater Than 89 mL/min (>89); Glucose,Random 67 mg/dL (74-106); Potassium 3.6 meq/L (3.5-5.1)
[2018-02-19 08:09] LABS: Sodium 146 meq/L (136-145)
[2018-02-19] MEDS: Divalproex 500 MG DR Tablet PO SCH ×2 (08:09→21:07)
[2018-02-19 08:40] LABS: Calcium-Albumin Corrected 7.8 mg/dL (8.5-10.1); Total Protein 6.3 g/dL (6.4-8.2)
--- NOTE | 2018-02-19 15:11 | P.PNIM ---
Subjective Interval history: Follow-up hypertension, hypokalemia, renal insufficiency, hyponatremia, new onset diabetes mellitus, paranoid schizophrenia, and noncompliance. Patient seen and examined lying in bed under the cover, sleeping, does not want to be bothered. Patient was irritable and uncooperative with assessment. Patient complains of pain on the left shoulder but does not want to rate the pain or does not want to describe it patient does not want to give any verbal response at this time. Patient stated "pain when you touch it." Patient did not respond to any other questions. Nurse reported patient is less cooperative at this time. But states that she is doing better. And denies any other complaints. Physical Exam Vital signs: Vital Signs 02/18/18 18:16 02/18/18 20:00 02/19/18 05:51 Temperature 96.1 F L 98.5 F Pulse Rate 78 65 Respiratory Rate 16 16 16 Blood Pressure 96/62 L 115/74 Pulse Oximetry 98 94 L 02/19/18 09:02 Temperature Pulse Rate Respiratory Rate 16 Blood Pressure Pulse Oximetry Intake & Output 02/18/18 02/19/18 02/19/18 18:59 06:59 18:59 Intake Total 1480 / 1480 3248 / 3248 1000 / 1000 Balance 1480 / 1480 3248 / 3248 1000 / 1000 Intake: IV 1000 / 1000 1000 / 1000 1000 / 1000 D5W/Normal Saline Inj 1,000 ML 1000 / 1000 1000 / 1000 1000 / 1000 @ 100 mls/hr IV.CONT .Q10H [facility] Rx#:[id number] Oral 480 / 480 480 / 480 Other 1768 / 1768 Other: Other Intake Source Saline Solution # Voids 2 Date of Last Bowel Movement 02/17/18 Narrative: GENERAL: Frail looking -[place] lady, looks malnourished, alert and oriented 3, hard of hearing, with no apparent distress SKIN: Warm and dry. Left elbow with multiple lesion/rash/bug bite-like HEAD: Atraumatic. Normocephalic. EYES: Pupils equal and round. No scleral icterus. No injection or drainage. ENT: No nasal bleeding or discharge. Mucous membranes pink and moist. NECK: Trachea midline. No JVD. CARDIOVASCULAR: Regular rate and rhythm. RESPIRATORY: No accessory muscle use. Clear to auscultation. Breath sounds equal bilaterally. GASTROINTESTINAL: Abdomen flat soft, non-tender, nondistended. Hepatic and splenic margins not palpable. MUSCULOSKELETAL: Extremities without clubbing, cyanosis, or edema. No obvious deformities. NEUROLOGICAL: Awake and alert. No obvious cranial nerve deficits. Motor grossly within normal limits. Five out of 5 muscle strength in the arms and legs. Normal speech. PSYCHIATRIC: Irritable mood and affect; insight and judgment unreliable, uncooperative Results - Labs CBC & Chem 7: 02/19/18 07:22 02/19/18 07:22 Laboratory Results - last 24 hr 02/19/18 02/19/18 07:22 07:22 WBC 4.5 RBC 4.64 Hgb 12.9 Hct 40.2 MCV 86.7 MCH 27.8 MCHC 32.1 RDW 14.5 Plt Count 170 MPV 8.1 Hematology Comments Sodium 146 H Potassium 3.6 Chloride 112 H Carbon Dioxide 22.7 Anion Gap 11 BUN 10 Creatinine 0.78 Estimated GFR Greater than 89 Random Glucose 67 L Calcium 7.4 L* D Prot Corrected Calcium 7.8 L Total Protein 6.3 L Assessment and Plan - Assessment (1) Unspecified psychosis Code(s): F29 - Unspecified psychosis not due to a substance or known physiological condition (2) Paranoid type schizophrenia, chronic state with acute exacerbation Code(s): F20.0 - Paranoid schizophrenia Status: Acute (3) Hypertension Code(s): I10 - Essential (primary) hypertension Status: Acute (4) Seizure disorder Code(s): G40.909 - Epilepsy, unspecified, not intractable, without status epilepticus Status: Acute (5) Diabetes mellitus Code(s): E11.9 - Type 2 diabetes mellitus without complications Status: Acute (6) Acute renal insufficiency Code(s): N28.9 - Disorder of kidney and ureter, unspecified Status: Acute - Plan This patient is a 57 years old -[place] female with past medical history of hypertension, mitral valve prolapse, seizure, AKA, hyponatremia, new onset diabetes mellitus, low TSH, paranoid schizophrenia, psychosis and previous psychiatric hospitalization in 2017 with a very similar presentation in which the patient refused to eat, refused to talk and was brought under the Summers act. According to the Summers act patient has not been taking her medication for the past 15 days. Patient was allegedly laying out in the yard and refuses to come back in the house according to the family. In the emergency room patient is refusing to eat or drink, refusing blood work and refusing medications. Patient was admitted in the psychiatry for evaluation and treatment of paranoid type schizophrenia in a chronic state with acute exacerbation. Medicine team is consulted for medical management. Acute Renal Insufficiency/hypokalemia/hyponatremia/ hypocalcemia -likely secondary to dehydration and patients refusal to eat -Creatinine improved, Potassium level improved, Na improved -patient receiving IVF and KCL replacements , previously refused in the ED -Continue IV Fluids for hydration, encourage p.o. intake patient is now taking meals, food and drink -monitor BMP, repeat in am labs Hypocalcemia -likely r/t kidney disease, dehydration/acid base disturbance -check for PTH, Vit D -replace calcium and magnesium -monitor BMP Possible Metabolic Acidosis -likely due to dehydration -IVF for hydration Hypertension - patient has not been taking medication for the past 15 days per report -patient has been very uncooperative and refusing nursing care -monitor BP Hx Seizure disorder/Epilepsy, unspecified, not intractable, without status epilepticus -patient noncompliance in taking medications -monitor Low TSH with previous history of low TSH/patient noncompliance with medication at home -patient with unknown family medical history of hypo-or hyperthyroidism -TSH level 0.172, Free T4 1.23, -monitor signs and symptoms Diabetes mellitus/Type 2 diabetes mellitus without complications -recently diagnosed in 2017, however unknown of patients compliance with medication treatment -Random blood glucose has been unremarkable -will consider monitor blood sugar with Accu Checks AC and HS and cover with insulin sliding scale, when patient more cooperative -HGB A1C 6.2 Paranoid type schizophrenia, chronic state with acute exacerbation/unspecified Psychosis -Management with the Psychiatry Team Patient is now more compliant, but irritable and uncooperative with the treatment and some selective refusal for nursing care. DVT Prophylaxis: Increase ambulation ( Code Status: Full code Discussed Condition With: Patient and nurse
--- NOTE | 2018-02-19 16:33 | P.PNPSY ---
Subjective Remarks: Pt seen and discussed with staff. She was admitted for exacerbation of schizophrenia. She has been refusing care and medications but today she did allow lab draw and had been taking medications today. She has been cooperative with care today and has been interacting with staff and peers today and has been less isolative. Mental Status Examination Appearance: Dirty, Disheveled Consciousness: Alert Orientation: Person Motor Activity: Other (Motor exam as above) Speech: Other (Limited sample, selectively mute) Language: Other (Limited sample) Fund of Knowledge: Inadequate Attention and Concentration: Easily distracted Mood: Other (calm) Affect: Other (constricted) Thought Process & Associations: Other (concrete) Thought Content: Delusional Hallucination Type: Other (Appears internally stimulated) Delusion Type: Paranoid Suicidal Ideation: No (denies) Suicidal Plan: No Suicidal Intention: No Homicidal Ideation: No (denies) Homicidal Plan: No Homicidal Intention: No Insight: Poor Judgment: Poor Assessment and Plan - Assessment (1) Paranoid type schizophrenia, chronic state with acute exacerbation Code(s): F20.0 - Paranoid schizophrenia Status: Acute - Plan Plan: Continue current tx plan. Justification for Continued Inpatient Stay: impairments in reality testing Request Healthcare Surrogate/Guardian Advocate?: Yes
[2018-02-19] MEDS: Calcium Carbonate 500 MG Tablet PO SCH (21:09)
[2018-02-20] MEDS: Magnesium Oxide 400 MG Tablet PO SCH ×3 (01:46→22:00)
[2018-02-20 08:03] LABS: Albumin 3.2 g/dL (3.4-5.0); Anion Gap 6 meq/L (5-15); Aspartate Aminotransferase 25 U/L (15-37); Blood Urea Nitrogen 7 mg/dL (7-18); Calcium 8.2 mg/dL (8.5-10.1); Carbon Dioxide 27.2 meq/L (21.0-32.0); Chloride 108 meq/L (98-107); Glomerular Filtration Rate Greater Than 89 mL/min (>89); Glucose,Random 78 mg/dL (74-106); Potassium 3.9 meq/L (3.5-5.1); Sodium 141 meq/L (136-145)
[2018-02-20 08:04] LABS: Alanine Aminotransferase 13 U/L (10-53)
[2018-02-20 08:06] LABS: Alkaline Phosphatase 75 U/L (45-117); Total Protein 6.8 g/dL (6.4-8.2)
[2018-02-20] MEDS: Calcium Carbonate 500 MG Tablet PO SCH ×2 (08:17→20:32)
[2018-02-20] MEDS: Divalproex 500 MG DR Tablet PO SCH ×2 (08:17→20:32)
--- NOTE | 2018-02-20 12:14 | P.PNPSY ---
Subjective Remarks: Patient seen and examined with nurse. Chart reviewed. Case discussed with nursing staff who reports the patient is considerably more compliant and interactive versus before the weekend. On my examination today, I find the patient sitting in bed. Her head is uncovered today and she is watching television. She does remain somewhat guarded and her eye contact is poor. She denies any SI, HI or AVH. She says that she went off of her psychotropic medications because her doctor told her to stay off of them for a month to see if she really needed them. Although she denies side effects from medications, she does seem somewhat ambivalent about taking them now. No physical complaints. Vital Signs Temp Pulse Resp BP Pulse Ox 02/20/18 05:54 98 F 75 15 139/71 97 02/19/18 20:00 18 02/19/18 17:26 96.7 F L 86 15 128/77 100 Intake and Output 02/20/18 02/20/18 02/20/18 06:59 14:59 22:59 Intake Total 2550 / 2550 1440 / 1440 Balance 2550 / 2550 1440 / 1440 Intake: IV 2190 / 2190 D5W/Normal Saline Inj 1,000 ML 2190 / 2190 @ 100 mls/hr IV.CONT .Q10H [facility] Rx#:[id number] Oral 360 / 360 1440 / 1440 Other: # Voids 1 Weight 58.8 kg Laboratory Tests 02/18/18 02/18/18 02/19/18 06:40 06:40 07:22 WBC 4.5 Hgb 12.9 Plt Count 170 Sodium Potassium Chloride Carbon Dioxide BUN Creatinine Estimated GFR Calcium AST ALT Alkaline Phosphatase TSH 0.172 L Free T4 1.23 Beta HCG, Quant PTH Intact 02/19/18 02/20/18 02/20/18 07:22 07:18 07:18 WBC Hgb Plt Count Sodium 141 Potassium 3.9 Chloride 108 H Carbon Dioxide 27.2 BUN 7 Creatinine 0.77 Estimated GFR Greater than 89 Calcium 8.2 L D AST 25 ALT 13 Alkaline Phosphatase 75 TSH Free T4 Beta HCG, Quant 5 PTH Intact 119.2 H Labs reviewed. Elevated PTH noted. Review of Systems All other systems reviewed negative except as stated in HPI Mental Status Examination Appearance: Disheveled (Improved versus before the weekend) Consciousness: Alert Orientation: Person Motor Activity: Other (No motor abnormalities noted) Speech: Unremarkable Language: Adequate Fund of Knowledge: Inadequate Attention and Concentration: Other (Fair) Mood: Other (calm) Affect: Blunt Thought Process & Associations: Other (concrete) Thought Content: Delusional Hallucination Type: None Delusion Type: Paranoid Suicidal Ideation: No Homicidal Ideation: No Insight: Poor Judgment: Poor Assessment and Plan - Assessment (1) Paranoid type schizophrenia, chronic state with acute exacerbation Code(s): F20.0 - Paranoid schizophrenia Status: Acute - Plan Plan: Titrate Geodon to 60 mg twice a day with meals to target residual psychotic symptoms. Continue Depakote as ordered and plan to check a Depakote level after appropriate interval. Nurse to have hospitalist follow up on laboratory abnormalities. Continue to monitor on the medical psychiatric unit. Continue other medications and care as ordered. Justification for Continued Inpatient Stay: Medication changes. Impairment in reality construction. Complicating conditions, namely hypocalcemia and possible parathyroid abnormality. High risk for decompensation in less restrictive environment. Discharge Planning: Pending psychiatric stabilization. Request Healthcare Surrogate/Guardian Advocate?: Yes
[2018-02-20] MEDS: Dextrose 5%/NaCl 0.9% Inj 1,000 ML IV.CONT SCH (15:00)
--- NOTE | 2018-02-20 16:20 | P.PNIM ---
Subjective Interval history: Follow-up hypertension, hypokalemia, renal insufficiency, hyponatremia, new onset diabetes mellitus, paranoid schizophrenia, and noncompliance. Patient seen and examined awake in bed, smiling, with head uncovered and more cooperative. Patient alert and oriented x3, responds to questions appropriately , however reliable for the information's. Patient complains of right hip pain in the left shoulder pain, patient states that she had a seizure and had a fall at home couple of weeks ago, patient also stated that she was laying in the ground outside the house as her family does not want to let her inside the house. However patient stated was able to move around or walk around. No redness, no edema, no bruising on the side. When asked about the possibility of , patient stated that she is and confirmed that she was 7 months , however patient states that she "had 4 in there". Inquired about her patient stated she was from her a few years ago and never seen him, however he is seeing someone recently for quite a while. Patient states that he has 2 boys with age of 37 and 35. When he inquired about her last. Patient stated he was in 1984, unsure if this is reliable, however she said she got after that. Patient stated she had her tubes tied but it was taken out. So with the conversation I told her if her period stops on 1984 that it is not possible for her to get this time. However she said oh no "I am ". Discussed told her we will get a sample of the urine to check for and if it is positive confirmation we will do an ultrasound, patient agreed with the plan. Discussed the plan with the nurse. Patient denies any headache or dizziness denies any chest pain or shortness of breath denies any nausea or vomiting denies any abdominal pain. constipation, or diarrhea. Patient denies any fever or chills Physical Exam Vital signs: Vital Signs 02/19/18 17:26 02/19/18 20:00 02/20/18 05:54 Temperature 96.7 F L 98 F Pulse Rate 86 75 Respiratory Rate 15 18 15 Blood Pressure 128/77 139/71 Pulse Oximetry 100 97 Intake & Output 02/19/18 02/20/18 02/20/18 18:59 06:59 18:59 Intake Total 3000 / 3000 3390 / 3390 1440 / 1440 Balance 3000 / 3000 3390 / 3390 1440 / 1440 Weight 58.8 kg Intake: IV 1999 D5W/Normal Saline Inj 1,000 ML 1999 @ 100 mls/hr IV.CONT .Q10H [facility] Rx#:[id number] Oral 1000 / 1000 1200 / 1200 1440 / 1440 Other: # Voids 2 1 Narrative: GENERAL: Frail looking -[place] lady, looks malnourished, alert and oriented 3, hard of hearing, with no apparent distress SKIN: Warm and dry. Left elbow with multiple lesion/rash/bug bite-like HEAD: Atraumatic. Normocephalic. EYES: Pupils equal and round. No scleral icterus. No injection or drainage. ENT: No nasal bleeding or discharge. Mucous membranes pink and moist. NECK: Trachea midline. No JVD. CARDIOVASCULAR: Regular rate and rhythm. RESPIRATORY: No accessory muscle use. Clear to auscultation. Breath sounds equal bilaterally. GASTROINTESTINAL: Abdomen flat soft, non-tender, nondistended. Hepatic and splenic margins not palpable. MUSCULOSKELETAL: Extremities without clubbing, cyanosis, or edema. No obvious deformities. NEUROLOGICAL: Awake and alert. No obvious cranial nerve deficits. Motor grossly within normal limits. Five out of 5 muscle strength in the arms and legs. Normal speech. PSYCHIATRIC: Irritable mood and affect; insight and judgment unreliable, uncooperative Results - Labs CBC & Chem 7: 02/19/18 07:22 02/20/18 07:18 Laboratory Results - last 24 hr 02/20/18 02/20/18 07:18 07:18 Sodium 141 Potassium 3.9 Chloride 108 H Carbon Dioxide 27.2 Anion Gap 6 BUN 7 Creatinine 0.77 Estimated GFR Greater than 89 Random Glucose 78 Calcium 8.2 L D Total Bilirubin 0.3 AST 25 ALT 13 Alkaline Phosphatase 75 Total Protein 6.8 Albumin 3.2 L PTH Intact 119.2 H Assessment and Plan - Assessment (1) Unspecified psychosis Code(s): F29 - Unspecified psychosis not due to a substance or known physiological condition (2) Paranoid type schizophrenia, chronic state with acute exacerbation Code(s): F20.0 - Paranoid schizophrenia Status: Acute (3) Hypertension Code(s): I10 - Essential (primary) hypertension Status: Acute (4) Seizure disorder Code(s): G40.909 - Epilepsy, unspecified, not intractable, without status epilepticus Status: Acute (5) Diabetes mellitus Code(s): E11.9 - Type 2 diabetes mellitus without complications Status: Acute (6) Acute renal insufficiency Code(s): N28.9 - Disorder of kidney and ureter, unspecified Status: Acute - Plan This patient is a 57 years old -[place] female with past medical history of hypertension, mitral valve prolapse, seizure, AKA, hyponatremia, new onset diabetes mellitus, low TSH, paranoid schizophrenia, psychosis and previous psychiatric hospitalization in 2017 with a very similar presentation in which the patient refused to eat, refused to talk and was brought under the Summers act. According to the Summers act patient has not been taking her medication for the past 15 days. Patient was allegedly laying out in the yard and refuses to come back in the house according to the family. In the emergency room patient is refusing to eat or drink, refusing blood work and refusing medications. Patient was admitted in the psychiatry for evaluation and treatment of paranoid type schizophrenia in a chronic state with acute exacerbation. Medicine team is consulted for medical management. Acute Renal Insufficiency/hypokalemia/hyponatremia/ hypocalcemia -likely secondary to dehydration and patients refusal to eat -Creatinine improved, Potassium level improved, Na improved -patient receiving IVF and KCL replacements , previously refused in the ED -Continue IV Fluids for hydration, encourage p.o. intake patient is now taking meals, food and drink -monitor BMP, repeat in am labs Hypocalcemia/hypophosphatemia/elevated PTH/ likely primary hyperparathyroidism -likely r/t kidney disease, dehydration/acid base disturbance -PTH elevated likely in response to low calcium level or vice versa - Vit D pending -replace calcium and magnesium -will consider consult nephrology if not corrected with IVF and replacements -monitor BMP Possible Metabolic Acidosis -likely due to dehydration -IVF for hydration Hypertension - patient has not been taking medication for the past 15 days per report -patient has been very uncooperative and refusing nursing care -monitor BP Hx Seizure disorder/Epilepsy, unspecified, not intractable, without status epilepticus -patient noncompliance in taking medications -monitor Low TSH with previous history of low TSH/patient noncompliance with medication at home -patient with unknown family medical history of hypo-or hyperthyroidism -TSH level 0.172, Free T4 1.23, likely subclinical -monitor signs and symptoms Diabetes mellitus/Type 2 diabetes mellitus without complications -recently diagnosed in 2017, however unknown of patients compliance with medication treatment -Random blood glucose has been unremarkable -will consider monitor blood sugar with Accu Checks AC and HS and cover with insulin sliding scale, when patient more cooperative -HGB A1C 6.2 slightly Elevated HCG,Quant/Patient statement that she is -patient presenting with distended round abdomen -recheck HCG Quant, if tested positive then plan to to have a vaginal ultrasound to confirm Paranoid type schizophrenia, chronic state with acute exacerbation/unspecified Psychosis -Management with the Psychiatry Team Patient is now more compliant, but irritable and uncooperative with the treatment and some selective refusal for nursing care. DVT Prophylaxis: Increase ambulation ( Code Status: full code Discussed Condition With: patient and nurse
[2018-02-20 19:02] LABS: CKMB Percent 0.9 % (0.0-4.0); Creatine Kinase MB 1.8 ng/mL (0.5-3.6)
[2018-02-21] MEDS: Dextrose 5%/NaCl 0.9% Inj 1,000 ML IV.CONT SCH ×2 (01:05→11:13)
[2018-02-21 07:32] LABS: Anion Gap 9 meq/L (5-15); Blood Urea Nitrogen 8 mg/dL (7-18); Calcium 8.2 mg/dL (8.5-10.1); Carbon Dioxide 27.2 meq/L (21.0-32.0); Chloride 107 meq/L (98-107); Glomerular Filtration Rate Greater Than 89 mL/min (>89); Glucose,Random 59 mg/dL (74-106); Potassium 4.8 meq/L (3.5-5.1); Sodium 143 meq/L (136-145)
[2018-02-21] MEDS: Calcium Carbonate 500 MG Tablet PO SCH ×2 (08:31→21:13)
[2018-02-21] MEDS: Divalproex 500 MG DR Tablet PO SCH ×2 (08:32→21:13)
[2018-02-21] MEDS: Magnesium Oxide 400 MG Tablet PO SCH (11:13)
--- NOTE | 2018-02-21 11:45 | P.PNPSY ---
Subjective Remarks: Patient seen and examined with nurse. Chart reviewed. Case discussed with nursing staff who reports that the patient has been much more pleasant and cooperative with staff although she has been noted to have its and hanging up on people over the telephone, possibly her family. Case discussed in treatment team. I do see in the hospitalist solar sales consultant note that there was concern for possibility of , but repeat beta hCG is negative and is no longer suspected. On my examination today, the patient insists that she has been for 7 months. She says that she gave to septuplets a year ago. She told nursing that she has not had a menstrual period since 1984. She remains a little bit watchful, although her affect is more reactive. No side effects from medications. No physical complaints. Vital Signs Temp Pulse Resp BP Pulse Ox 02/21/18 06:00 162/81 H 02/21/18 05:24 97.8 F 84 16 100 02/20/18 18:11 97.9 F 88 17 117/68 97 Intake and Output 02/20/18 02/21/18 02/21/18 22:59 06:59 14:59 Intake Total 1680 / 1680 3040 / 3040 1600 / 1600 Balance 1680 / 1680 3040 / 3040 1600 / 1600 Intake: IV 1000 / 1000 1000 / 1000 D5W/Normal Saline Inj 1,000 ML 1000 / 1000 1000 / 1000 @ 100 mls/hr IV.CONT .Q10H [facility] Rx#:[id number] Oral 1680 / 1680 2040 / 2040 600 / 600 Other: # Voids 2 Laboratory Results - last 24 hr 02/20/18 02/20/18 02/21/18 07:18 07:18 06:56 Sodium 143 Potassium 4.8 D Chloride 107 Carbon Dioxide 27.2 Anion Gap 9 BUN 8 Creatinine 0.67 Estimated GFR Greater than 89 Random Glucose 59 L Calcium 8.2 L Total Creatine Kinase 202 H CK-MB (CK-2) 1.8 CK-MB (CK-2) % 0.9 Beta HCG, Quant 4 Labs reviewed. Review of Systems All other systems reviewed negative except as stated in HPI Mental Status Examination Appearance: Appropriate (Fair) Consciousness: Alert Orientation: Person Motor Activity: Other (No motoric abnormalities noted) Speech: Unremarkable Language: Adequate Fund of Knowledge: Inadequate Attention and Concentration: Other (Fair) Mood: Other (calm) Affect: Blunt Thought Process & Associations: Intact Thought Content: Delusional Hallucination Type: None Delusion Type: Somatic (?pseudocyesis), Other (Watchful, guarded) Suicidal Ideation: No Homicidal Ideation: No Insight: Poor Judgment: Poor Assessment and Plan - Assessment (1) Paranoid type schizophrenia, chronic state with acute exacerbation Code(s): F20.0 - Paranoid schizophrenia Status: Acute - Plan Plan: Titrate Geodon to 80mg BIDPC to target residual psychotic symptoms. Continue Depakote as ordered. Plan to check a Depakote level morning. Check EKG to ensure QTc is not prolonging with antipsychotic therapy. Continue to monitor on the inpatient unit. Hospitalist input appreciated. Continue other care as ordered. Justification for Continued Inpatient Stay: Medication changes. Impairment in reality construction. High risk for decompensation in less restrictive environment. Discharge Planning: Pending psychiatric stabilization. Request Healthcare Surrogate/Guardian Advocate?: Yes
--- NOTE | 2018-02-21 13:14 | P.PN ---
Subjective Interval history: awake and alert, oriented x 3 pleasant and cooperative, no complains of pain or diarrhea states ate well up and ambulating Physical Exam Vital signs: Vital Signs 02/20/18 18:11 02/21/18 05:24 02/21/18 06:00 Temperature 97.9 F 97.8 F Pulse Rate 88 84 Respiratory Rate 17 16 Blood Pressure 117/68 162/81 H Pulse Oximetry 97 100 Intake & Output 02/20/18 02/21/18 02/21/18 18:59 06:59 18:59 Intake Total 3120 / 3120 3040 / 3040 1600 / 1600 Balance 3120 / 3120 3040 / 3040 1600 / 1600 Intake: IV 1000 / 1000 1000 / 1000 D5W/Normal Saline Inj 1,000 ML 1000 / 1000 1000 / 1000 @ 100 mls/hr IV.CONT .Q10H [facility] Rx#:[id number] Oral 3120 / 3120 2040 / 2040 600 / 600 Other: # Voids 2 Narrative: GENERAL: alert and oriented 3, hard of hearing, with no apparent distress SKIN: Warm and dry. Left elbow with multiple lesion/rash/bug bite-like HEAD:Normocephalic. EYES: Pupils equal and round. No scleral icterus. No injection or drainage. ENT: No nasal bleeding or discharge. Mucous membranes pink and moist. NECK: Trachea midline. No JVD. CARDIOVASCULAR: Regular rate and rhythm. RESPIRATORY: No accessory muscle use. Clear to auscultation. Breath sounds equal bilaterally. GASTROINTESTINAL: Abdomen flat soft, non-tender,good bowel sounds, no guarding MUSCULOSKELETAL: Extremities without clubbing, cyanosis, or edema. No obvious deformities. NEUROLOGICAL: Awake and alert. No obvious cranial nerve deficits. Motor grossly within normal limits. Five out of 5 muscle strength in the arms and legs. Normal speech. gait steady PSYCHIATRIC: pleasant and cooperative and smiling on exam Results - Labs CBC & Chem 7: 02/19/18 07:22 02/21/18 06:56 Laboratory Results - last 24 hr 02/20/18 02/20/18 02/21/18 07:18 07:18 06:56 Sodium 143 Potassium 4.8 D Chloride 107 Carbon Dioxide 27.2 Anion Gap 9 BUN 8 Creatinine 0.67 Estimated GFR Greater than 89 Random Glucose 59 L Calcium 8.2 L Total Creatine Kinase 202 H CK-MB (CK-2) 1.8 CK-MB (CK-2) % 0.9 Beta HCG, Quant 4 Assessment and Plan - Assessment (1) Unspecified psychosis Code(s): F29 - Unspecified psychosis not due to a substance or known physiological condition (2) Paranoid type schizophrenia, chronic state with acute exacerbation Code(s): F20.0 - Paranoid schizophrenia Status: Acute (3) Hypertension Code(s): I10 - Essential (primary) hypertension Status: Acute (4) Seizure disorder Code(s): G40.909 - Epilepsy, unspecified, not intractable, without status epilepticus Status: Acute (5) Diabetes mellitus Code(s): E11.9 - Type 2 diabetes mellitus without complications Status: Acute (6) Acute renal insufficiency Code(s): N28.9 - Disorder of kidney and ureter, unspecified Status: Acute - Plan This patient is a 57 years old -[place] female with past medical history of hypertension, mitral valve prolapse, seizure, AKA, hyponatremia, new onset diabetes mellitus, low TSH, paranoid schizophrenia, psychosis and previous psychiatric hospitalization in 2017 with a very similar presentation in which the patient refused to eat, refused to talk and was brought under the [employer] act. According to the Summers act patient has not been taking her medication for the past 15 days. Patient was allegedly laying out in the yard and refuses to come back in the house according to the family. In the emergency room patient is refusing to eat or drink, refusing blood work and refusing medications. Patient was admitted in the psychiatry for evaluation and treatment of paranoid type schizophrenia in a chronic state with acute exacerbation. Medicine team is consulted for medical management. Acute Renal Insufficiency/hypokalemia/hyponatremia/ hypocalcemia/Hypomagnesemia= - ResOlved -likely secondary to dehydration and patients - now with good po -Heplock IVF now and monitor labs - continue on KCL - change to once daily 20 meq , Ib7aobl 400 mg po daily - recheck labs in am Hypocalcemia/hypophosphatemia/elevated PTH/ likely primary hyperparathyroidism -likely r/t kidney disease, dehydration/acid base disturbance -PTH elevated likely in response to low calcium level or vice versa - Vit D pending -replace calcium and magnesium -monitor BMP Metabolic Acidosis- resolved -likely due to dehydration -heplock IVF today - ff BMP in am Hypertension - patient has not been taking medication for the past 15 days per report -patient has been very uncooperative and refusing nursing care -monitor BP Hx Seizure disorder/Epilepsy, unspecified, not intractable, without status epilepticus -patient noncompliance in taking medications -monitor Low TSH with previous history of low TSH/patient noncompliance with medication at home -patient with unknown family medical history of hypo-or hyperthyroidism -TSH level 0.172, Free T4 1.23, likely subclinical -monitor signs and symptoms Diabetes mellitus/Type 2 diabetes mellitus without complications -recently diagnosed in 2017, however unknown of patients compliance with medication treatment -Random blood glucose has been unremarkable -will consider monitor blood sugar with Accu Checks AC and HS and cover with insulin sliding scale, when patient more cooperative -HGB A1C 6.2 slightly Elevated HCG,Quant/Patient statement that she is -patient presenting with distended round abdomen -rechecked HCG Quant normal Paranoid type schizophrenia, chronic state with acute exacerbation/unspecified Psychosis -Management with the Psychiatry Team Patient is now more compliant, pleasant and cooperative during exam today DVT Prophylaxis: Increase ambulation ( Code Status:
--- NOTE | 2018-02-21 22:35 | ECG ---
Date Performed: 02/21/2018 Time Performed: 15:50:26 PTAGE: 57 years EKG: Sinus rhythm NORMAL ECG PREVIOUS TRACING : 07/21/2010 23.11 Since the previous tracing, no significant change noted DOCTOR: Mario Membreno Interpretating Date/Time 02/21/2018 22:33:59
[2018-02-22 07:42] LABS: Anion Gap 5 meq/L (5-15); Blood Urea Nitrogen 12 mg/dL (7-18); Calcium 9.2 mg/dL (8.5-10.1); Carbon Dioxide 32.4 meq/L (21.0-32.0); Chloride 101 meq/L (98-107); Glomerular Filtration Rate Greater Than 89 mL/min (>89); Glucose,Random 61 mg/dL (74-106); Magnesium 1.7 mg/dL (1.5-2.5); Potassium 5.1 meq/L (3.5-5.1); Sodium 138 meq/L (136-145)
[2018-02-22] MEDS: Magnesium Oxide 400 MG Tablet PO SCH ×2 (07:46→14:32)
--- NOTE | 2018-02-22 08:02 | P.TTN ---
- Patient Problems Problems: 1. Discharge planning 2. Medication compliance 3. Knowledge deficit 4. Lack of coping skills - Progress Toward Goals Provider Present: Dr. Jeffry Cespedes Provider Input: 02/21/2018; Patient's are being titrated Nurse Input: 02/21/2018; Patient is eating meals and taking medication, require coaching and prompting Psychiatric Counselors Present: Laina Mo [facility] Psychiatric Therapist Input: 02/22/2018; counselor will be contacting patient's NOK to discuss propriate dc planning patient's son Tyson and patient's sister Marla Sewell Group Spec/RT/OT/NAIK Present: Juan Guajardo OT Group Spec/RT/OT/NAIK Input: 02/21/2018; patient has not participate with groups or activities - Documentation Teaching Recipient: Patient
[2018-02-22] MEDS: Calcium Carbonate 500 MG Tablet PO SCH ×2 (10:45→20:50)
[2018-02-22] MEDS: Divalproex 500 MG DR Tablet PO SCH ×2 (10:45→20:50)
--- NOTE | 2018-02-22 11:53 | P.PNPSY ---
Subjective Remarks: Patient seen and examined with nurse. Chart reviewed. Case discussed with nursing staff. Case discussed with counselor who reports that she has been in contact with patient's sister who will be out to visit the patient over the weekend to see if she is improved enough to take back with her to [place] where she might assist the patient and provide housing for her. On my examination today, the patient presents as somewhat irritable. She says that the only reason she came into the hospital is because her aunt and son would not let her in the house and so she slept on the driveway. She wants to be discharged so she can go stay with her research attorney, although she cannot give any address for this. Insight into mental illness is poor and the patient insists that she does not struggle with any sort of mental illness. Denies side effects from medications. No physical complaints. Vital Signs Temp Pulse Resp BP Pulse Ox 02/22/18 04:02 98.2 F 91 H 17 162/91 H 98 02/21/18 17:37 98.2 F 73 16 123/75 100 Intake and Output 02/22/18 02/22/18 02/22/18 06:59 14:59 22:59 Intake Total 2200 / 2200 Balance 2200 / 2200 Intake: IV 1000 / 1000 D5W/Normal Saline Inj 1,000 ML 1000 / 1000 @ 100 mls/hr IV.CONT .Q10H [facility] Rx#:[id number] Oral 1200 / 1200 Other: # Voids 2 # Bowel Movements 0 Laboratory Results - last 24 hr 02/21/18 02/22/18 02/22/18 16:47 06:57 08:07 Sodium 138 Potassium 5.1 Chloride 101 Carbon Dioxide 32.4 H Anion Gap 5 BUN 12 Creatinine 0.76 Estimated GFR Greater than 89 POC Glucose 74 62 L Random Glucose 61 L Calcium 9.2 D Magnesium 1.7 02/22/18 10:33 Sodium Potassium Chloride Carbon Dioxide Anion Gap BUN Creatinine Estimated GFR POC Glucose 98 Random Glucose Calcium Magnesium Labs reviewed. Review of Systems All other systems reviewed negative except as stated in HPI (Limitation: Poor historian) Mental Status Examination Appearance: Appropriate (Fair) Consciousness: Alert Orientation: Person Motor Activity: Other (No abnormal motor movements noted) Speech: Unremarkable Language: Adequate Fund of Knowledge: Inadequate Attention and Concentration: Other (Fair) Mood: Irritable (Mild) Affect: Irritable Thought Process & Associations: Intact Thought Content: Delusional Hallucination Type: None Delusion Type: Somatic (?pseudocyesis), Other (Remains guarded) Suicidal Ideation: No Suicidal Plan: No Suicidal Intention: No Homicidal Ideation: No Homicidal Plan: No Homicidal Intention: No Insight: Poor Judgment: Poor Assessment and Plan - Assessment (1) Paranoid type schizophrenia, chronic state with acute exacerbation Code(s): F20.0 - Paranoid schizophrenia Status: Acute - Plan Plan: Continue current dose of Geodon as ordered but to consider further titration of this agent. Continue Depakote as ordered and plan to obtain a Depakote level tomorrow. Hospitalist input appreciated. Continue other medications and care as ordered. Justification for Continued Inpatient Stay: Risk for decompensation in less restrictive environment. Discharge Planning: Summers act court tomorrow. Request Healthcare Surrogate/Guardian Advocate?: Yes
[2018-02-22] MEDS: Dextrose 5%/NaCl 0.9% Inj 1,000 ML IV.CONT SCH ×3 (14:44→15:34)
--- NOTE | 2018-02-22 16:18 | P.PN ---
Subjective Interval history: The patient is in bed he is she appears sleepy. However not in acute distress. Says she is not eating much she has no appetite. Encourage p.o. intake and ambulation. Patient denies having any chest pain or shortness of breath. No nausea vomiting no abdominal pain. Physical Exam Vital signs: Vital Signs 02/21/18 17:37 02/22/18 04:02 Temperature 98.2 F 98.2 F Pulse Rate 73 91 H Respiratory Rate 16 17 Blood Pressure 123/75 162/91 H Pulse Oximetry 100 98 Intake & Output 02/21/18 02/22/18 02/22/18 18:59 06:59 18:59 Intake Total 2680 / 2680 480 / 480 2200 / 2200 Balance 2680 / 2680 480 / 480 2200 / 2200 Intake: IV 1000 / 1000 1000 / 1000 D5W/Normal Saline Inj 1,000 ML 1000 / 1000 1000 / 1000 @ 100 mls/hr IV.CONT .Q10H [facility]ICK Rx#:[id number] Oral 1680 / 1680 480 / 480 1200 / 1200 Other: # Voids 2 2 2 Date of Last Bowel Movement 02/17/18 # Bowel Movements 0 Narrative: GENERAL: Pleasant AA female, alert and oriented 3, hard of hearing, in no apparent distress SKIN: Warm and dry. Left elbow with multiple lesion/rash/bug bite-like CARDIOVASCULAR: Regular rate and rhythm. RESPIRATORY: No accessory muscle use. Clear to auscultation. Breath sounds equal bilaterally. GASTROINTESTINAL: Abdomen flat soft, non-tender, + bowel sounds, no guarding MUSCULOSKELETAL: Extremities without clubbing, cyanosis, or edema. No obvious deformities. NEUROLOGICAL: Awake and alert. No obvious cranial nerve deficits. Motor grossly within normal limits. Five out of 5 muscle strength in the arms and legs. Normal speech. gait steady PSYCHIATRIC: pleasant and cooperative Results - Labs CBC & Chem 7: 02/19/18 07:22 02/22/18 06:57 Laboratory Results - last 24 hr 02/20/18 02/21/18 02/22/18 07:18 16:47 06:57 Sodium 138 Potassium 5.1 Chloride 101 Carbon Dioxide 32.4 H Anion Gap 5 BUN 12 Creatinine 0.76 Estimated GFR Greater than 89 POC Glucose 74 Random Glucose 61 L Calcium 9.2 D Magnesium 1.7 Vit D 1,25-Dihydroxy 32 02/22/18 02/22/18 08:07 10:33 Sodium Potassium Chloride Carbon Dioxide Anion Gap BUN Creatinine Estimated GFR POC Glucose 62 L 98 Random Glucose Calcium Magnesium Vit D 1,25-Dihydroxy Assessment and Plan - Assessment (1) Unspecified psychosis Code(s): F29 - Unspecified psychosis not due to a substance or known physiological condition (2) Paranoid type schizophrenia, chronic state with acute exacerbation Code(s): F20.0 - Paranoid schizophrenia Status: Acute (3) Hypertension Code(s): I10 - Essential (primary) hypertension Status: Acute (4) Seizure disorder Code(s): G40.909 - Epilepsy, unspecified, not intractable, without status epilepticus Status: Acute (5) Diabetes mellitus Code(s): E11.9 - Type 2 diabetes mellitus without complications Status: Acute (6) Acute renal insufficiency Code(s): N28.9 - Disorder of kidney and ureter, unspecified Status: Acute - Plan This patient is a 57 years old -[place] female with past medical history of hypertension, mitral valve prolapse, seizure, AKA, hyponatremia, new onset diabetes mellitus, low TSH, paranoid schizophrenia, psychosis and previous psychiatric hospitalization in 2017 with a very similar presentation in which the patient refused to eat, refused to talk and was brought under the [employer] act. According to the [employer] act patient has not been taking her medication for the past 15 days. Patient was allegedly laying out in the yard and refuses to come back in the house according to the family. In the emergency room patient is refusing to eat or drink, refusing blood work and refusing medications. Patient was admitted in the psychiatry for evaluation and treatment of paranoid type schizophrenia in a chronic state with acute exacerbation. Medicine team is consulted for medical management. Acute Renal Insufficiency/hypokalemia/hyponatremia/ hypocalcemia/Hypomagnesemia= - Resolved -likely secondary to dehydration and patients - now with good po -Heplock IVF now and monitor labs - continue on KCL - change to once daily 20 meq , [id number] 400 mg po daily - recheck labs in am Hypocalcemia/hypophosphatemia/elevated PTH/ likely primary hyperparathyroidism -likely r/t kidney disease, dehydration/acid base disturbance -PTH elevated likely in response to low calcium level or vice versa - Vit D pending -replace calcium and magnesium -monitor BMP Metabolic Acidosis- resolved -likely due to dehydration -heplock IVF today - ff BMP in am Hypertension - patient has not been taking medication for the past 15 days per report -patient has been very uncooperative and refusing nursing care -monitor BP Hx Seizure disorder/Epilepsy, unspecified, not intractable, without status epilepticus -patient noncompliance in taking medications -monitor Low TSH with previous history of low TSH/patient noncompliance with medication at home -patient with unknown family medical history of hypo-or hyperthyroidism -TSH level 0.172, Free T4 1.23, likely subclinical -monitor signs and symptoms Diabetes mellitus/Type 2 diabetes mellitus without complications -recently diagnosed in 2017, however unknown of patients compliance with medication treatment -Random blood glucose has been unremarkable -will consider monitor blood sugar with Accu Checks AC and HS and cover with insulin sliding scale, when patient more cooperative -HGB A1C 6.2 Slightly Elevated HCG, Quant/Patient statement that she is -patient presenting with distended round abdomen -rechecked HCG Quant normal Paranoid type schizophrenia, chronic state with acute exacerbation/unspecified Psychosis -Management with the Psychiatry Team DVT Prophylaxis: Increase ambulation
[2018-02-23] MEDS: Magnesium Oxide 400 MG Tablet PO SCH ×3 (00:49→23:00)
[2018-02-23] MEDS: Dextrose 5%/NaCl 0.9% Inj 1,000 ML IV.CONT SCH ×3 (00:55→21:46)
[2018-02-23] MEDS: Calcium Carbonate 500 MG Tablet PO SCH ×2 (08:29→21:40)
[2018-02-23] MEDS: Divalproex 500 MG DR Tablet PO SCH (08:29)
--- NOTE | 2018-02-23 10:29 | P.PNPSY ---
Subjective Remarks: Patient seen and case discussed with nursing staff. Chart reviewed. For me today, the patient remained somewhat paranoid. It is emphatically that she does not wish to live with her sister in [place], although alternative disposition location is unclear. She believes that her son Lukas has tried repeatedly to visit her in the hospital and has been turned away by staff, although this is not the case. 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 Affect is somewhat irritable. No side effects from medications. No physical complaints. Vital Signs Temp Pulse Resp BP Pulse Ox 02/23/18 05:37 97.9 F 72 17 161/73 H 98 02/22/18 18:40 99 F 113 H 18 148/82 H 97 Intake and Output 02/23/18 02/23/18 02/23/18 06:59 14:59 22:59 Intake Total 480 / 480 2560 / 2560 Balance 480 / 480 2560 / 2560 Intake: IV 800 / 800 D5W/Normal Saline Inj 1,000 ML 800 / 800 @ 100 mls/hr IV.CONT .Q10H [facility] Rx#:[id number] Oral 480 / 480 960 / 960 Other 800 / 800 Other: Other Intake Source Saline Solution # Voids 3 Date of Last Bowel Movement 02/17/18 Laboratory Results - last 24 hr 02/23/18 02/23/18 07:37 07:37 Ammonia 47 H Valproic Acid Less than 3 L Labs reviewed. Depakote level undetectable suggesting possible covert nonadherence. Ammonia level slightly elevated without signs of hyperammonemic encephalopathy. Review of Systems other (Limited ROS today) Mental Status Examination Appearance: Appropriate (Fair) Consciousness: Alert Orientation: Person Motor Activity: Other (No motoric abnormalities noted) Speech: Unremarkable Language: Adequate Fund of Knowledge: Inadequate Attention and Concentration: Other (Fair) Mood: Irritable Affect: Irritable Thought Process & Associations: Intact Thought Content: Delusional Hallucination Type: None Delusion Type: Paranoid, Other (Grandiose) Suicidal Ideation: No Homicidal Ideation: No Insight: Poor Judgment: Poor Assessment and Plan - Assessment (1) Paranoid type schizophrenia, chronic state with acute exacerbation Code(s): F20.0 - Paranoid schizophrenia Status: Acute - Plan Plan: Change Depakote to Depakene liquid and plan to check a follow-up level over the weekend. I have instructed nursing staff to perform thorough mouth checks. I will continue the patient's Geodon as ordered. Patient's ongoing psychosis would suggest a higher dose might be indicated, but I first want to ensure that the patient has been receiving the current dose and has not been covertly nonadherent to avoid inadvertently overmedicating the patient. Continue to monitor on the inpatient unit. Hospitalist and dietitian input appreciated. Continue other medications and care as ordered. Patient's case was presented to the [employer] act court and placed in continuance for 2 weeks with son to serve as health care surrogate. Justification for Continued Inpatient Stay: Medication changes. Impairment in reality construction. High risk for decompensation in less restrictive environment. Discharge Planning: Pending psychiatric stabilization Request Healthcare Surrogate/Guardian Advocate?: Yes
--- NOTE | 2018-02-23 13:28 | P.PN ---
Subjective Interval history: In bed appears in nad. She is eating very well. Ambulating without any problems. Feels much better. Vital signs are stable. With hyperkalemia. Discontinue potassium supplement as the patient is eating well. Discussed with the nurse and with the patient. Physical Exam Vital signs: Vital Signs 02/22/18 18:40 02/23/18 05:37 Temperature 99 F 97.9 F Pulse Rate 113 H 72 Respiratory Rate 18 17 Blood Pressure 148/82 H 161/73 H Pulse Oximetry 97 98 Intake & Output 02/22/18 02/23/18 02/23/18 18:59 06:59 18:59 Intake Total 3080 / 3080 1440 / 1440 2079 Output Total 0 / 0 Balance 3080 / 3080 1440 / 1440 2079 Intake: IV 1000 / 1000 800 / 800 D5W/Normal Saline Inj 1,000 ML 1000 / 1000 800 / 800 @ 100 mls/hr IV.CONT .Q10H [facility] Rx#:[id number] Oral 1680 / 1680 1440 / 1440 480 / 480 Other 400 / 400 800 / 800 Output: Urine 0 / 0 Other: Other Intake Source Saline Solution Saline Solution # Voids 2 3 Date of Last Bowel Movement 02/17/18 02/17/18 # Bowel Movements 0 Narrative: GENERAL: Pleasant AA female, alert and oriented 3, hard of hearing, in no apparent distress SKIN: Warm and dry. Left elbow with multiple lesion/rash/bug bite-like CARDIOVASCULAR: Regular rate and rhythm. RESPIRATORY: No accessory muscle use. Clear to auscultation. Breath sounds equal bilaterally. GASTROINTESTINAL: Abdomen flat soft, non-tender, + bowel sounds, no guarding MUSCULOSKELETAL: Extremities without clubbing, cyanosis, or edema. No obvious deformities. NEUROLOGICAL: Awake and alert. No obvious cranial nerve deficits. Motor grossly within normal limits. Five out of 5 muscle strength in the arms and legs. Normal speech. gait steady PSYCHIATRIC: pleasant and cooperative Results - Labs CBC & Chem 7: 02/19/18 07:22 02/22/18 06:57 Laboratory Results - last 24 hr 02/20/18 02/23/18 02/23/18 07:18 07:37 07:37 Ammonia 47 H Vit D 1,25-Dihydroxy 32 Valproic Acid Less than 3 L Assessment and Plan - Assessment (1) Unspecified psychosis Code(s): F29 - Unspecified psychosis not due to a substance or known physiological condition (2) Paranoid type schizophrenia, chronic state with acute exacerbation Code(s): F20.0 - Paranoid schizophrenia Status: Acute (3) Hypertension Code(s): I10 - Essential (primary) hypertension Status: Acute (4) Seizure disorder Code(s): G40.909 - Epilepsy, unspecified, not intractable, without status epilepticus Status: Acute (5) Diabetes mellitus Code(s): E11.9 - Type 2 diabetes mellitus without complications Status: Acute (6) Acute renal insufficiency Code(s): N28.9 - Disorder of kidney and ureter, unspecified Status: Acute - Plan This patient is a 57 years old -Citizen Of [place] female with past medical history of hypertension, mitral valve prolapse, seizure, AKA, hyponatremia, new onset diabetes mellitus, low TSH, paranoid schizophrenia, psychosis and previous psychiatric hospitalization in 2017 with a very similar presentation in which the patient refused to eat, refused to talk and was brought under the [employer] act. According to the [employer] act patient has not been taking her medication for the past 15 days. Patient was allegedly laying out in the yard and refuses to come back in the house according to the family. In the emergency room patient is refusing to eat or drink, refusing blood work and refusing medications. Patient was admitted in the psychiatry for evaluation and treatment of paranoid type schizophrenia in a chronic state with acute exacerbation. Medicine team is consulted for medical management. Acute Renal Insufficiency/hypokalemia/hyponatremia/ hypocalcemia/Hypomagnesemia= - Resolved -likely secondary to dehydration and patients - now with good po -Heplock IVF now and monitor labs - continue on KCL - change to once daily 20 meq , [id number] 400 mg po daily - recheck labs in am Hypocalcemia/hypophosphatemia/elevated PTH/ likely primary hyperparathyroidism -likely r/t kidney disease, dehydration/acid base disturbance -PTH elevated likely in response to low calcium level or vice versa - Vit D pending -replace calcium and magnesium -monitor BMP Hyperkalemia. Discontinue potassium supplement. Patient is eating appropriately. Monitor lites. Metabolic Acidosis- resolved -likely due to dehydration -heplock IVF today - ff BMP in am Hypertension - patient has not been taking medication for the past 15 days per report -patient has been very uncooperative and refusing nursing care -monitor BP Hx Seizure disorder/Epilepsy, unspecified, not intractable, without status epilepticus -patient noncompliance in taking medications -monitor Low TSH with previous history of low TSH/patient noncompliance with medication at home -patient with unknown family medical history of hypo-or hyperthyroidism -TSH level 0.172, Free T4 1.23, likely subclinical -monitor signs and symptoms Diabetes mellitus/Type 2 diabetes mellitus without complications -recently diagnosed in 2017, however unknown of patients compliance with medication treatment -Random blood glucose has been unremarkable -will consider monitor blood sugar with Accu Checks AC and HS and cover with insulin sliding scale, when patient more cooperative -HGB A1C 6.2 Slightly Elevated HCG, Quant/Patient statement that she is -patient presenting with distended round abdomen -rechecked HCG Quant normal Paranoid type schizophrenia, chronic state with acute exacerbation/unspecified Psychosis -Management with the Psychiatry Team DVT Prophylaxis: Increase ambulation
--- NOTE | 2018-02-23 14:21 | P.DIET ---
Nutritional Evaluation Type of nutrition evaluation: follow-up Nutrition consult regarding: Diet Evaluation Nutrition screening: [facility] [place] 02/17/18 [facility] [place] Poor PO Intake Subjective Subjective Comments: Pt sleeping and opened her eyes and said "no" when asked if she is drinking the Glucerna Shake; pt fell back to sleep. Nursing staff reports pt w/100% po intake for breakfast and lunch today and pt is drinking the Glucerna Shakes. Previous admission here and medical history during that admission included DM and gastric bypass 2002 Objective - Diagnosis Psychosis - Objective [place] body weight: 47.7 kg % IBW: 133 Body Weight Used for Calculations: IBW (47.7kg) Energy Needs - Lower Range (kCal/kg): 28 Energy Needs - Upper Range (kCal/kg): 33 Lower Limit kCal/kg (kCals): 1,336 Upper Limit kCal/kg (kCals): 1,574 Lower Limit Protein Factor (Grams per Kg): 1.2 Upper Limit Protein Factor (Grams per Kg): 1.5 Lower Protein Needs (Protein): 57 Upper Protein Needs (Protein): 72 Dietitian Reviewed in Medical Record: Current diet, Curent medications, Intake & Output, Labs, Medical history Diet Order: Regular Oral Diet Intake Amount: Poor <50% Objective Comments: PMH: MVP, Seizure Glucose 61(02/22), POC Glucose 98(02/22) Meds Include: Depakote, Geodon, Atarax, Oscal Feeding - Current PO Supplement Current Supplement: Glucerna Shake Current Frequency of Supplement: Three times a day Current kCals Provided by Supplement: 220 Current Protein Provided by Supplement: 10 Assessment Assessment: Nutrition follow-up for pt refusal to have po intake. Pt is tolerating diet w/ Adequate PO intake now 50% and greater for most meals here. Continue Glucerna Shakes TID. Wt changes noted. Dietitian to follow as needed. Recommendations: 1. Continue Glucerna Shakes TID 2. Dietitian to follow as needed
[2018-02-24] MEDS: Dextrose 5%/NaCl 0.9% Inj 1,000 ML IV.CONT SCH ×2 (05:29→17:47)
[2018-02-24 08:12] LABS: Calcium 9.1 mg/dL (8.5-10.1); Carbon Dioxide 30.8 meq/L (21.0-32.0); Potassium 4.9 meq/L (3.5-5.1)
[2018-02-24] MEDS: Calcium Carbonate 500 MG Tablet PO SCH ×2 (08:47→21:04)
[2018-02-24] MEDS: Magnesium Oxide 400 MG Tablet PO SCH ×2 (11:36→21:28)
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
--- NOTE | 2018-02-24 16:23 | P.PN ---
Subjective Interval history: The patient is in bed she complains of rash on her back. Will give Benadryl cream. Otherwise no complaints she says she is eating better. No nausea vomiting no diarrhea constipation. Less depressed. No suicidal ideation. Physical Exam Vital signs: Vital Signs 02/23/18 18:00 02/24/18 06:16 Temperature 98.4 F 98.4 F Pulse Rate 84 72 Respiratory Rate 18 18 Blood Pressure 149/83 H 140/76 Pulse Oximetry 99 99 Intake & Output 02/23/18 02/24/18 02/24/18 18:59 06:59 18:59 Intake Total 4240 / 4240 1320 / 1320 360 / 360 Balance 4240 / 4240 1320 / 1320 360 / 360 Intake: IV 800 / 800 D5W/Normal Saline Inj 1,000 ML 800 / 800 @ 100 mls/hr IV.CONT .Q10H MALICK Rx#:[id number] Oral 2640 / 2640 1320 / 1320 360 / 360 Other 800 / 800 Other: Other Intake Source Saline Solution # Voids 3 2 Date of Last Bowel Movement 02/17/18 02/23/18 Narrative: GENERAL: Pleasant AA female, alert and oriented 3, hard of hearing, in no apparent distress SKIN: Warm and dry. Left elbow with multiple lesion/rash/bug bite-like. Rash on her back CARDIOVASCULAR: Regular rate and rhythm. RESPIRATORY: No accessory muscle use. Clear to auscultation. Breath sounds equal bilaterally. GASTROINTESTINAL: Abdomen flat soft, non-tender, + bowel sounds, no guarding MUSCULOSKELETAL: Extremities without clubbing, cyanosis, or edema. No obvious deformities. NEUROLOGICAL: Awake and alert. No obvious cranial nerve deficits. Motor grossly within normal limits. Five out of 5 muscle strength in the arms and legs. Normal speech. gait steady PSYCHIATRIC: pleasant and cooperative Results - Labs CBC & Chem 7: 02/19/18 07:22 02/24/18 07:34 Laboratory Results - last 24 hr 02/24/18 07:34 Sodium 135 L Potassium 4.9 Chloride 99 Carbon Dioxide 30.8 Anion Gap 5 BUN 13 Creatinine 0.82 Estimated GFR 88 L Random Glucose 70 L Calcium 9.1 Assessment and Plan - Assessment (1) Unspecified psychosis Code(s): F29 - Unspecified psychosis not due to a substance or known physiological condition (2) Paranoid type schizophrenia, chronic state with acute exacerbation Code(s): F20.0 - Paranoid schizophrenia Status: Acute (3) Hypertension Code(s): I10 - Essential (primary) hypertension Status: Acute (4) Seizure disorder Code(s): G40.909 - Epilepsy, unspecified, not intractable, without status epilepticus Status: Acute (5) Diabetes mellitus Code(s): E11.9 - Type 2 diabetes mellitus without complications Status: Acute (6) Acute renal insufficiency Code(s): N28.9 - Disorder of kidney and ureter, unspecified Status: Acute - Plan This patient is a 57 years old -Maldivian female with past medical history of hypertension, mitral valve prolapse, seizure, AKA, hyponatremia, new onset diabetes mellitus, low TSH, paranoid schizophrenia, psychosis and previous psychiatric hospitalization in 2017 with a very similar presentation in which the patient refused to eat, refused to talk and was brought under the [employer] act. According to the [employer] act patient has not been taking her medication for the past 15 days. Patient was allegedly laying out in the yard and refuses to come back in the house according to the family. In the emergency room patient is refusing to eat or drink, refusing blood work and refusing medications. Patient was admitted in the psychiatry for evaluation and treatment of paranoid type schizophrenia in a chronic state with acute exacerbation. Medicine team is consulted for medical management. Acute Renal Insufficiency/hypokalemia/hyponatremia/ hypocalcemia/Hypomagnesemia= - Resolved -likely secondary to dehydration and patients - now with good po -Heplock IVF now and monitor labs - continue on KCL - change to once daily 20 meq , [id number] 400 mg po daily - recheck labs in am Hypocalcemia/hypophosphatemia/elevated PTH/ likely primary hyperparathyroidism -likely r/t kidney disease, dehydration/acid base disturbance -PTH elevated likely in response to low calcium level or vice versa - Vit D pending -replace calcium and magnesium -monitor BMP Hyperkalemia. Discontinue potassium supplement. Patient is eating appropriately. Monitor lites. Metabolic Acidosis- resolved -likely due to dehydration -heplock IVF today - ff BMP in am Hypertension - patient has not been taking medication for the past 15 days per report -patient has been very uncooperative and refusing nursing care -monitor BP Hx Seizure disorder/Epilepsy, unspecified, not intractable, without status epilepticus -patient noncompliance in taking medications -monitor Low TSH with previous history of low TSH/patient noncompliance with medication at home -patient with unknown family medical history of hypo-or hyperthyroidism -TSH level 0.172, Free T4 1.23, likely subclinical -monitor signs and symptoms Diabetes mellitus/Type 2 diabetes mellitus without complications -recently diagnosed in 2017, however unknown of patients compliance with medication treatment -Random blood glucose has been unremarkable -will consider monitor blood sugar with Accu Checks AC and HS and cover with insulin sliding scale, when patient more cooperative -HGB A1C 6.2 Slightly Elevated HCG, Quant/Patient statement that she is -patient presenting with distended round abdomen -rechecked HCG Quant normal Paranoid type schizophrenia, chronic state with acute exacerbation/unspecified Psychosis -Management with the Psychiatry Team Rash: on her back Benadryl cream prn DVT Prophylaxis: Increase ambulation Discussed with the patient, nurse.
[2018-02-24] MEDS: diphenhydrAMINE 2%/Zinc Cream 30 GM Tube TOPICAL PRN (21:13)
[2018-02-25] MEDS: Dextrose 5%/NaCl 0.9% Inj 1,000 ML IV.CONT SCH ×2 (02:30→13:23)
[2018-02-25 08:13] LABS: Calcium 8.9 mg/dL (8.5-10.1); Potassium 5.1 meq/L (3.5-5.1)
[2018-02-25] MEDS: Calcium Carbonate 500 MG Tablet PO SCH (08:30)
[2018-02-25] MEDS: diphenhydrAMINE 2%/Zinc Cream 30 GM Tube TOPICAL PRN ×2 (09:00→17:14)
[2018-02-25] MEDS: Magnesium Oxide 400 MG Tablet PO SCH ×2 (11:04→21:00)
--- NOTE | 2018-02-25 16:17 | P.PNPSY ---
Subjective Remarks: Patient was seen and case discussed with nursing. Patient is pleasant and cooperative with exam. She is compliant with medications and behaving well on the unit. She has not had any outbursts. Insight is poor Mental Status Examination Appearance: Appropriate Consciousness: Alert Orientation: Person, Place Motor Activity: Other (No abnormal motor movements noted) Speech: Unremarkable Language: Adequate Fund of Knowledge: Inadequate Attention and Concentration: Other (Fair) Mood: Appropriate Affect: Blunt Thought Process & Associations: Intact Thought Content: Appropriate Hallucination Type: None Delusion Type: None Suicidal Ideation: No Suicidal Plan: No Suicidal Intention: No Homicidal Ideation: No Homicidal Plan: No Homicidal Intention: No Insight: Poor Judgment: Poor Assessment and Plan - Assessment (1) Paranoid type schizophrenia, chronic state with acute exacerbation Code(s): F20.0 - Paranoid schizophrenia Status: Acute - Plan Plan: Continue current treatment plan Justification for Continued Inpatient Stay: Patient would decompensate in a less restrictive setting Request Healthcare Surrogate/Guardian Advocate?: Yes
--- NOTE | 2018-02-25 16:25 | P.PN ---
Subjective Interval history: Patient in nad Says she has some pain in her hand No fever or chills No n/v/d/c. Physical Exam Vital signs: Vital Signs 02/24/18 18:13 02/25/18 05:38 Temperature 98.5 F 98.2 F Pulse Rate 85 86 Respiratory Rate 17 Blood Pressure 137/75 118/62 Pulse Oximetry 97 97 Intake & Output 02/24/18 02/25/18 02/25/18 18:59 06:59 18:59 Intake Total 720 / 720 1320 / 1320 1440 / 1440 Balance 720 / 720 1320 / 1320 1440 / 1440 Intake: Oral 720 / 720 1320 / 1320 1440 / 1440 Other: # Voids 2 Date of Last Bowel Movement 02/23/18 02/24/18 # Bowel Movements 1 Narrative: GENERAL: Pleasant AA female, alert and oriented 3, hard of hearing, in no apparent distress SKIN: Warm and dry. Left elbow with multiple lesion/rash/bug bite-like. Rash on her back CARDIOVASCULAR: Regular rate and rhythm. RESPIRATORY: No accessory muscle use. Clear to auscultation. Breath sounds equal bilaterally. GASTROINTESTINAL: Abdomen flat soft, non-tender, + bowel sounds, no guarding MUSCULOSKELETAL: Extremities without clubbing, cyanosis, or edema. No obvious deformities. NEUROLOGICAL: Awake and alert. No obvious cranial nerve deficits. Motor grossly within normal limits. Five out of 5 muscle strength in the arms and legs. Normal speech. gait steady PSYCHIATRIC: pleasant and cooperative Results - Labs CBC & Chem 7: 02/19/18 07:22 02/25/18 07:08 Laboratory Results - last 24 hr 02/25/18 07:08 Sodium 138 Potassium 5.1 Chloride 100 Carbon Dioxide 31.0 Anion Gap 7 BUN 17 Creatinine 0.82 Estimated GFR 88 L Random Glucose 84 Calcium 8.9 Assessment and Plan - Assessment (1) Unspecified psychosis Code(s): F29 - Unspecified psychosis not due to a substance or known physiological condition (2) Paranoid type schizophrenia, chronic state with acute exacerbation Code(s): F20.0 - Paranoid schizophrenia Status: Acute (3) Hypertension Code(s): I10 - Essential (primary) hypertension Status: Acute (4) Seizure disorder Code(s): G40.909 - Epilepsy, unspecified, not intractable, without status epilepticus Status: Acute (5) Diabetes mellitus Code(s): E11.9 - Type 2 diabetes mellitus without complications Status: Acute (6) Acute renal insufficiency Code(s): N28.9 - Disorder of kidney and ureter, unspecified Status: Acute - Plan This patient is a 57 years old -[place] female with past medical history of hypertension, mitral valve prolapse, seizure, AKA, hyponatremia, new onset diabetes mellitus, low TSH, paranoid schizophrenia, psychosis and previous psychiatric hospitalization in 2017 with a very similar presentation in which the patient refused to eat, refused to talk and was brought under the Summers act. According to the Summers act patient has not been taking her medication for the past 15 days. Patient was allegedly laying out in the yard and refuses to come back in the house according to the family. In the emergency room patient is refusing to eat or drink, refusing blood work and refusing medications. Patient was admitted in the psychiatry for evaluation and treatment of paranoid type schizophrenia in a chronic state with acute exacerbation. Medicine team is consulted for medical management. Acute Renal Insufficiency/hypokalemia/hyponatremia/ hypocalcemia/Hypomagnesemia= - Resolved -likely secondary to dehydration and patients - now with good po -Heplock IVF now and monitor labs - continue on KCL - change to once daily 20 meq , [id number] 400 mg po daily - recheck labs in am Hypocalcemia/hypophosphatemia/elevated PTH/ likely primary hyperparathyroidism -likely r/t kidney disease, dehydration/acid base disturbance -PTH elevated likely in response to low calcium level or vice versa - Vit D pending -replace calcium and magnesium -monitor BMP Hyperkalemia. Discontinue potassium supplement. Patient is eating appropriately. Monitor lites. Metabolic Acidosis- resolved -likely due to dehydration -heplock IVF today - ff BMP in am Hypertension - patient has not been taking medication for the past 15 days per report -patient has been very uncooperative and refusing nursing care -monitor BP Hx Seizure disorder/Epilepsy, unspecified, not intractable, without status epilepticus -patient noncompliance in taking medications -monitor Low TSH with previous history of low TSH/patient noncompliance with medication at home -patient with unknown family medical history of hypo-or hyperthyroidism -TSH level 0.172, Free T4 1.23, likely subclinical -monitor signs and symptoms Diabetes mellitus/Type 2 diabetes mellitus without complications -recently diagnosed in 2017, however unknown of patients compliance with medication treatment -Random blood glucose has been unremarkable -will consider monitor blood sugar with Accu Checks AC and HS and cover with insulin sliding scale, when patient more cooperative -HGB A1C 6.2 Slightly Elevated HCG, Quant/Patient statement that she is -patient presenting with distended round abdomen -rechecked HCG Quant normal Paranoid type schizophrenia, chronic state with acute exacerbation/unspecified Psychosis -Management with the Psychiatry Team Rash: on her back Benadryl cream prn DVT Prophylaxis: Increase ambulation Discussed with the patient, nurse.
[2018-02-26] MEDS: Dextrose 5%/NaCl 0.9% Inj 1,000 ML IV.CONT SCH ×3 (06:40→18:28)
[2018-02-26] MEDS: Calcium Carbonate 500 MG Tablet PO SCH ×3 (06:42→21:43)
[2018-02-26 07:24] LABS: Anion Gap 8 meq/L (5-15); Blood Urea Nitrogen 16 mg/dL (7-18); Calcium 8.9 mg/dL (8.5-10.1); Carbon Dioxide 28.3 meq/L (21.0-32.0); Chloride 98 meq/L (98-107); Glomerular Filtration Rate Greater Than 89 mL/min (>89); Glucose,Random 72 mg/dL (74-106); Magnesium 2.1 mg/dL (1.5-2.5); Potassium 4.9 meq/L (3.5-5.1); Sodium 134 meq/L (136-145)
[2018-02-26 07:50] LABS: Valproic Acid 96 mcg/mL (50-100); Vitamin B12 1085 pg/mL (193-986)
[2018-02-26] MEDS: diphenhydrAMINE 2%/Zinc Cream 30 GM Tube TOPICAL PRN (09:22)
[2018-02-26] MEDS: Ibuprofen 400 MG Tablet PO PRN ×2 (09:25→21:46)
[2018-02-26] MEDS: Magnesium Oxide 400 MG Tablet PO SCH ×2 (13:38→22:10)
--- NOTE | 2018-02-26 13:59 | P.PNPSY ---
Subjective Remarks: Patient was seen and case discussed with nursing. Today patient is minimally engaged during the interview. She says she feels tired this afternoon after receiving her medication. Per nursing, she has been quite demanding this morning. However, there is been no agitation and she has not needed any. She does deny delusional content Mental Status Examination Appearance: Appropriate Consciousness: Somnolent Orientation: Person, Place Motor Activity: Other (No abnormal motor movements noted) Speech: Unremarkable Language: Adequate Fund of Knowledge: Inadequate Attention and Concentration: Other (Fair) Mood: Appropriate Affect: Flat Thought Process & Associations: Intact Thought Content: Appropriate Hallucination Type: None Delusion Type: None Suicidal Ideation: No Suicidal Plan: No Suicidal Intention: No Homicidal Ideation: No Homicidal Plan: No Homicidal Intention: No Insight: Poor Judgment: Poor Assessment and Plan - Assessment (1) Paranoid type schizophrenia, chronic state with acute exacerbation Code(s): F20.0 - Paranoid schizophrenia Status: Acute - Plan Plan: Continue current treatment plan Justification for Continued Inpatient Stay: Patient would decompensate in a less restrictive setting Request Healthcare Surrogate/Guardian Advocate?: Yes
--- NOTE | 2018-02-26 14:55 | P.PN ---
Subjective Interval history: No events overnight Sleepy. Appears in nad. Physical Exam Vital signs: Vital Signs 02/25/18 18:02 02/26/18 06:00 Temperature 98.5 F 98.6 F Pulse Rate 82 81 Respiratory Rate 16 15 Blood Pressure 137/82 109/76 Pulse Oximetry 100 97 Intake & Output 02/25/18 02/26/18 02/26/18 18:59 06:59 18:59 Intake Total 2400 / 2400 1200 / 1200 720 / 720 Balance 2400 / 2400 1200 / 1200 720 / 720 Intake: Oral 2400 / 2400 1200 / 1200 720 / 720 Other: # Voids 2 2 Date of Last Bowel Movement 02/24/18 Narrative: GENERAL: Pleasant AA female, alert and oriented 3, hard of hearing, in no apparent distress SKIN: Warm and dry. Left elbow with multiple lesion/rash/bug bite-like. Rash on her back CARDIOVASCULAR: Regular rate and rhythm. RESPIRATORY: No accessory muscle use. Clear to auscultation. Breath sounds equal bilaterally. GASTROINTESTINAL: Abdomen flat soft, non-tender, + bowel sounds, no guarding MUSCULOSKELETAL: Extremities without clubbing, cyanosis, or edema. No obvious deformities. NEUROLOGICAL: Awake and alert. No obvious cranial nerve deficits. Motor grossly within normal limits. Five out of 5 muscle strength in the arms and legs. Normal speech. gait steady PSYCHIATRIC: pleasant and cooperative Results - Labs CBC & Chem 7: 02/19/18 07:22 02/26/18 06:40 Laboratory Results - last 24 hr 02/26/18 02/26/18 06:40 06:40 Sodium 134 L Potassium 4.9 Chloride 98 Carbon Dioxide 28.3 Anion Gap 8 BUN 16 Creatinine 0.79 Estimated GFR Greater than 89 Random Glucose 72 L Calcium 8.9 Magnesium 2.1 Ammonia 43 H Vitamin B12 1085 H Valproic Acid 96 Assessment and Plan - Assessment (1) Unspecified psychosis Code(s): F29 - Unspecified psychosis not due to a substance or known physiological condition (2) Paranoid type schizophrenia, chronic state with acute exacerbation Code(s): F20.0 - Paranoid schizophrenia Status: Acute (3) Hypertension Code(s): I10 - Essential (primary) hypertension Status: Acute (4) Seizure disorder Code(s): G40.909 - Epilepsy, unspecified, not intractable, without status epilepticus Status: Acute (5) Diabetes mellitus Code(s): E11.9 - Type 2 diabetes mellitus without complications Status: Acute (6) Acute renal insufficiency Code(s): N28.9 - Disorder of kidney and ureter, unspecified Status: Acute - Plan This patient is a 57 years old -[place] female with past medical history of hypertension, mitral valve prolapse, seizure, AKA, hyponatremia, new onset diabetes mellitus, low TSH, paranoid schizophrenia, psychosis and previous psychiatric hospitalization in 2017 with a very similar presentation in which the patient refused to eat, refused to talk and was brought under the Summers act. According to the Summers act patient has not been taking her medication for the past 15 days. Patient was allegedly laying out in the yard and refuses to come back in the house according to the family. In the emergency room patient is refusing to eat or drink, refusing blood work and refusing medications. Patient was admitted in the psychiatry for evaluation and treatment of paranoid type schizophrenia in a chronic state with acute exacerbation. Medicine team is consulted for medical management. Acute Renal Insufficiency/hypokalemia/hyponatremia/ hypocalcemia/ Hypomagnesemia. Resolved -likely secondary to dehydration and patients - now with good po -Heplock IVF now and monitor labs - continue on KCL - change to once daily 20 meq , [id number] 400 mg po daily - recheck labs in am Hypocalcemia/hypophosphatemia/elevated PTH/ likely primary hyperparathyroidism -likely r/t kidney disease, dehydration/acid base disturbance -PTH elevated likely in response to low calcium level or vice versa - Vit D pending -replace calcium and magnesium -monitor BMP Hyperkalemia. Discontinue potassium supplement. Patient is eating appropriately. Monitor lites. Metabolic Acidosis- resolved -likely due to dehydration -heplock IVF today - ff BMP in am Hypertension - patient has not been taking medication for the past 15 days per report -patient has been very uncooperative and refusing nursing care -monitor BP Hx Seizure disorder/Epilepsy, unspecified, not intractable, without status epilepticus -patient noncompliance in taking medications -monitor Low TSH with previous history of low TSH/patient noncompliance with medication at home -patient with unknown family medical history of hypo-or hyperthyroidism -TSH level 0.172, Free T4 1.23, likely subclinical -monitor signs and symptoms Diabetes mellitus/Type 2 diabetes mellitus without complications -recently diagnosed in 2017, however unknown of patients compliance with medication treatment -Random blood glucose has been unremarkable -will consider monitor blood sugar with Accu Checks AC and HS and cover with insulin sliding scale, when patient more cooperative -HGB A1C 6.2 Slightly Elevated HCG, Quant/Patient statement that she is -patient presenting with distended round abdomen -rechecked HCG Quant normal Paranoid type schizophrenia, chronic state with acute exacerbation/unspecified Psychosis -Management with the Psychiatry Team Rash: on her back Benadryl cream prn DVT Prophylaxis: Increase ambulation Discussed with the patient, nurse.
[2018-02-27] MEDS: Ibuprofen 400 MG Tablet PO PRN ×2 (03:57→12:12)
[2018-02-27 08:36] LABS: Anion Gap 7 meq/L (5-15); Blood Urea Nitrogen 15 mg/dL (7-18); Calcium 8.5 mg/dL (8.5-10.1); Carbon Dioxide 26.9 meq/L (21.0-32.0); Chloride 95 meq/L (98-107); Glomerular Filtration Rate Greater Than 89 mL/min (>89); Glucose,Random 73 mg/dL (74-106); Potassium 4.9 meq/L (3.5-5.1); Sodium 129 meq/L (136-145)
[2018-02-27] MEDS: Calcium Carbonate 500 MG Tablet PO SCH ×2 (08:47→20:53)
--- NOTE | 2018-02-27 10:28 | P.PNPSY ---
Subjective Remarks: Patient seen and examined with nurse. Chart reviewed. Case discussed with nursing staff. Patient noted to be medication compliant and no behavioral problem. Case discussed with counselor who reports that the patient's sister visited over the weekend and reported back that the patient may not stay with sister. On my exam, patient presents as mildly oppositional. She denies SI/ HI. Denies AVH. Reports that she refused visitation from her sister. Denies side effects from medications. No acute physical complaints. Vital Signs Temp Pulse Resp BP Pulse Ox 02/27/18 06:00 97.6 F 71 15 119/71 97 02/26/18 18:05 98.3 F 84 135/82 99 Intake and Output 02/27/18 02/27/18 02/27/18 06:59 14:59 22:59 Intake Total 120 / 120 1320 / 1320 Balance 120 / 120 1320 / 1320 Intake: Oral 120 / 120 1320 / 1320 Other: # Voids 1 2 # Bowel Movements 0 Weight 58.5 kg Laboratory Results - last 24 hr 02/27/18 07:55 Sodium 129 L Potassium 4.9 Chloride 95 L Carbon Dioxide 26.9 Anion Gap 7 BUN 15 Creatinine 0.69 Estimated GFR Greater than 89 Random Glucose 73 L Calcium 8.5 Labs reviewed. Mild hyponatremia noted. Depakote level now therapeutic. Review of Systems All other systems reviewed negative except as stated in HPI Mental Status Examination Appearance: Appropriate Consciousness: Alert Orientation: Person, Place (At least) Motor Activity: Other (No motoric abnormalities noted) Speech: Unremarkable Language: Adequate Fund of Knowledge: Inadequate Attention and Concentration: Other (Fair) Memory: Unremarkable Mood: Oppositional Affect: Blunt Thought Process & Associations: Intact Thought Content: Appropriate Hallucination Type: None Delusion Type: None, Other (Somewhat guarded) Suicidal Ideation: No Suicidal Plan: No Suicidal Intention: No Homicidal Ideation: No Homicidal Plan: No Homicidal Intention: No Insight: Poor Judgment: Poor Assessment and Plan - Assessment (1) Paranoid type schizophrenia, chronic state with acute exacerbation Code(s): F20.0 - Paranoid schizophrenia Status: Acute - Plan Plan: Continue current psychotropic medications as ordered. Hospitalist input noted and appreciated. Check BMP in the morning to follow-up hyponatremia. Continue other medications and care as ordered. Justification for Continued Inpatient Stay: High risk for decompensation in less restrictive environment. Discharge Planning: According to counselor, there is presently no safe discharge plan for this patient. I will initiate a state psychiatric hospital referral in case a safe discharge plan cannot be assembled, although counselor continues to work on this. Request Healthcare Surrogate/Guardian Advocate?: Yes
[2018-02-27] MEDS: Magnesium Oxide 400 MG Tablet PO SCH (11:14)
--- NOTE | 2018-02-27 13:03 | P.PN ---
Subjective Interval history: Pt seen and examined. Only complaint is itching over her back and legs. Denies shortness of breath, abdominal pain, nausea, vomiting. No CP or SOB. Reports feeling tired. Physical Exam Vital signs: Vital Signs 02/26/18 18:05 02/27/18 06:00 Temperature 98.3 F 97.6 F Pulse Rate 84 71 Respiratory Rate 15 Blood Pressure 135/82 119/71 Pulse Oximetry 99 97 Intake & Output 02/26/18 02/27/18 02/27/18 18:59 06:59 18:59 Intake Total 720 / 720 460 / 460 360 / 360 Balance 720 / 720 460 / 460 360 / 360 Weight 58.5 kg Intake: Oral 720 / 720 360 / 360 360 / 360 Oral Supplement 100 / 100 Other: # Voids 2 1 Date of Last Bowel Movement 02/24/18 Narrative: GENERAL: WN, WD AA female resting in bed in NAD. SKIN: Warm and dry. Papular rash over back. HEENT: AT/NC. Pupils equal and round. MMM. HEART: RRR no m/r/g. LUNGS: CTAB without wheezes or crackles. ABDOMEN: +BS, soft, NT, ND. EXTREMITIES: No LE edema. 2+ pedal pulses. No rash over legs. NEURO: Awake and alert. Results - Labs CBC & Chem 7: 02/19/18 07:22 02/27/18 07:55 Laboratory Results - last 24 hr 02/27/18 07:55 Sodium 129 L Potassium 4.9 Chloride 95 L Carbon Dioxide 26.9 Anion Gap 7 BUN 15 Creatinine 0.69 Estimated GFR Greater than 89 Random Glucose 73 L Calcium 8.5 Assessment and Plan - Assessment (1) Unspecified psychosis Code(s): F29 - Unspecified psychosis not due to a substance or known physiological condition (2) Paranoid type schizophrenia, chronic state with acute exacerbation Code(s): F20.0 - Paranoid schizophrenia Status: Acute (3) Hypertension Code(s): I10 - Essential (primary) hypertension Status: Acute (4) Seizure disorder Code(s): G40.909 - Epilepsy, unspecified, not intractable, without status epilepticus Status: Acute (5) Diabetes mellitus Code(s): E11.9 - Type 2 diabetes mellitus without complications Status: Acute (6) Acute renal insufficiency Code(s): N28.9 - Disorder of kidney and ureter, unspecified Status: Acute - Plan 57 year old AA female with history of HTN, MV prolapse, seizure disorder, and schizophrenia admitted under Summers Act for refusal to take her medications and bizarre behavior. Medicine team is consulted for medical management. 1. PILY, resolved Creatinine on admission 1.52 likely secondary to refusal to eat or drink and dehydration Creatinine now remains under 1 Periodically monitor Encourage PO intake 2. Hyponatremia Sodium 129 Patient reportedly with chronic hyponatremia Continue to monitor and if necessary may need to fluid restrict 3. HTN BPs have remained stable despite not being on any antihypertensive therapy Will continue to monitor 4. Seizures Patient has been noncompliant with medications Not on any antiepileptic drugs at this time Continue to closely monitor 5. Diabetes mellitus Supposedly diagnosed in 2017 with questionable compliance to medication treatment Fasting blood glucoses have been unremarkable A1c 6.2 Can be followed as an outpatient 6. Paranoid schizophrenia Management per psychiatry 7. Pruritus, rash of back, xerosis Benadryl PRN Lac-hydrin BID DVT Prophylaxis: encourage ambulation Discharge Planning: Medically clear when psych deems appropriate for discharge
[2018-02-27] MEDS: Lactic Acid (Ammonium Lactate) 12% Lotion 225 GM Bottle TOPICAL SCH (20:53)
[2018-02-28] MEDS: Magnesium Oxide 400 MG Tablet PO SCH ×2 (00:03→11:27)
[2018-02-28] MEDS: Ibuprofen 400 MG Tablet PO PRN ×3 (00:30→17:19)
[2018-02-28] MEDS: Lactic Acid (Ammonium Lactate) 12% Lotion 225 GM Bottle TOPICAL SCH ×2 (08:38→21:20)
[2018-02-28] MEDS: Calcium Carbonate 500 MG Tablet PO SCH ×2 (08:39→21:21)
[2018-02-28 08:40] LABS: Anion Gap 8 meq/L (5-15); Calcium 8.9 mg/dL (8.5-10.1); Carbon Dioxide 27.1 meq/L (21.0-32.0); Chloride 96 meq/L (98-107); Glomerular Filtration Rate Greater Than 89 mL/min (>89); Glucose,Random 162 mg/dL (74-106); Potassium 5.2 meq/L (3.5-5.1); Sodium 131 meq/L (136-145)
[2018-02-28 08:46] LABS: Blood Urea Nitrogen 15 mg/dL (7-18)
[2018-02-28] MEDS: Dextrose 5%/NaCl 0.9% Inj 1,000 ML IV.CONT SCH (09:23)
--- NOTE | 2018-02-28 11:49 | P.PN ---
Subjective Interval history: Pt seen and examined. AFVSS. No acute events. Patient with no concerns. Denies CP, SOB, abdominal pain, N/V. Physical Exam Vital signs: Vital Signs 02/28/18 05:20 Temperature 97.5 F L Pulse Rate 73 Respiratory Rate 16 Blood Pressure 98/71 L Pulse Oximetry 96 Intake & Output 02/27/18 02/28/18 02/28/18 18:59 06:59 18:59 Intake Total 1320 / 1320 1200 / 1200 Balance 1320 / 1320 1200 / 1200 Intake: Oral 1320 / 1320 1200 / 1200 Other: # Voids 2 1 Date of Last Bowel Movement 02/27/18 02/27/18 # Bowel Movements 0 0 Narrative: GENERAL: WN, WD AA female resting in bed in NAD. SKIN: Warm and dry. Papular rash over back. HEENT: AT/NC. Pupils equal and round. MMM. HEART: RRR no m/r/g. LUNGS: CTAB without wheezes or crackles. ABDOMEN: +BS, soft, NT, ND. EXTREMITIES: No LE edema. 2+ pedal pulses. No rash over legs. NEURO: Awake and alert. Results - Labs CBC & Chem 7: 02/19/18 07:22 02/28/18 08:15 Laboratory Results - last 24 hr 02/28/18 08:15 Sodium 131 L Potassium 5.2 H Chloride 96 L Carbon Dioxide 27.1 Anion Gap 8 BUN 15 Creatinine 0.76 Estimated GFR Greater than 89 Random Glucose 162 H Calcium 8.9 Assessment and Plan - Assessment (1) Unspecified psychosis Code(s): F29 - Unspecified psychosis not due to a substance or known physiological condition (2) Paranoid type schizophrenia, chronic state with acute exacerbation Code(s): F20.0 - Paranoid schizophrenia Status: Acute (3) Hypertension Code(s): I10 - Essential (primary) hypertension Status: Acute (4) Seizure disorder Code(s): G40.909 - Epilepsy, unspecified, not intractable, without status epilepticus Status: Acute (5) Diabetes mellitus Code(s): E11.9 - Type 2 diabetes mellitus without complications Status: Acute (6) Acute renal insufficiency Code(s): N28.9 - Disorder of kidney and ureter, unspecified Status: Acute - Plan 57 year old AA female with history of HTN, MV prolapse, seizure disorder, and schizophrenia admitted under Summers Act for refusal to take her medications and bizarre behavior. Medicine team is consulted for medical management. 1. Hyperkalemia - Potassium noted to be mildly elevated at 5.2 this AM - Will recheck again this afternoon - If continues to be high then will treat - Not taking any potassium sparing meds 2. Hyponatremia Sodium 131 this AM, improved from 129 Patient reportedly with chronic hyponatremia Continue to monitor and if necessary may need to fluid restrict 3. PILY, resolved Creatinine on admission 1.52 likely secondary to refusal to eat or drink and dehydration Creatinine now remains under 1 Periodically monitor Encourage PO intake 4. Hyponatremia Sodium 131 this AM, improved from 129 Patient reportedly with chronic hyponatremia Continue to monitor and if necessary may need to fluid restrict 5. HTN BPs have remained stable despite not being on any antihypertensive therapy Will continue to monitor 6. Seizures Patient has been noncompliant with medications Not on any antiepileptic drugs at this time Continue to closely monitor 7. Diabetes mellitus Supposedly diagnosed in 2017 with questionable compliance to medication treatment Fasting blood glucoses have been unremarkable A1c 6.2 Can be followed as an outpatient 8. Paranoid schizophrenia Management per psychiatry 9. Pruritus, rash of back, xerosis Benadryl PRN Lac-hydrin BID DVT Prophylaxis: encourage ambulation Discharge Planning: Rechecking potassium today but otherwise medically stable
--- NOTE | 2018-02-28 12:01 | P.PNPSY ---
Subjective Remarks: Reviewed electronic medical records and discussed case with staff. Follow-up was conducted in the patient's room. Patient was found lying quietly in her bed awake. She states that she feels fine has been sleeping good and has good appetite. VPA level noted to be 96. Mental Status Examination Appearance: Appropriate Consciousness: Alert Orientation: Person, Place (At least) Motor Activity: Other (No motoric abnormalities noted) Speech: Unremarkable Language: Adequate Fund of Knowledge: Inadequate Attention and Concentration: Other (Fair) Memory: Unremarkable Mood: Oppositional Affect: Blunt Thought Process & Associations: Intact Thought Content: Appropriate Hallucination Type: None Delusion Type: None, Other (Somewhat guarded) Suicidal Ideation: No Suicidal Plan: No Suicidal Intention: No Homicidal Ideation: No Homicidal Plan: No Homicidal Intention: No Insight: Poor Judgment: Poor Assessment and Plan - Assessment (1) Paranoid type schizophrenia, chronic state with acute exacerbation Code(s): F20.0 - Paranoid schizophrenia Status: Acute - Plan Plan: Patient will be reevaluated tomorrow by the attending psychiatrist. Continue with current treatment plan. Justification for Continued Inpatient Stay: Moving this patient to a less restrictive environment would likely result in decompensation. Request Healthcare Surrogate/Guardian Advocate?: Yes
[2018-03-01] MEDS: Ibuprofen 400 MG Tablet PO PRN (01:45)
--- NOTE | 2018-03-01 07:48 | P.PN ---
Subjective Interval history: awake and alert, bryan any pain, nausea or vomiting no headaches Physical Exam Vital signs: Vital Signs 02/28/18 18:00 03/01/18 06:00 Temperature 96.8 F L 98.2 F Pulse Rate 86 69 Respiratory Rate 18 16 Blood Pressure 114/66 129/82 Pulse Oximetry 97 Intake & Output 02/28/18 03/01/18 03/01/18 18:59 06:59 18:59 Intake Total 2700 / 2700 480 / 480 Balance 2700 / 2700 480 / 480 Intake: IV 1000 / 1000 Oral 1700 / 1700 480 / 480 Other 0 / 0 Other: Other Intake Source Saline Solution # Voids 4 # Incontinent Voids 2 Date of Last Bowel Movement 02/27/18 Narrative: GENERAL: no acute distress SKIN: Warm and dry. Papular rash over back. HEENT: AT/NC. Pupils equal and round. MMM. HEART: RRR no m/r/g. LUNGS: CTAB without wheezes or crackles. ABDOMEN: +BS, soft, NT, ND. EXTREMITIES: No LE edema. 2+ pedal pulses. No rash over legs. NEURO: Awake and alert. Results - Labs CBC & Chem 7: 02/19/18 07:22 02/28/18 12:52 Laboratory Results - last 24 hr 02/28/18 02/28/18 08:15 12:52 Sodium 131 L Potassium 5.2 H 4.7 Chloride 96 L Carbon Dioxide 27.1 Anion Gap 8 BUN 15 Creatinine 0.76 Estimated GFR Greater than 89 Random Glucose 162 H Calcium 8.9 Assessment and Plan - Assessment (1) Unspecified psychosis Code(s): F29 - Unspecified psychosis not due to a substance or known physiological condition (2) Paranoid type schizophrenia, chronic state with acute exacerbation Code(s): F20.0 - Paranoid schizophrenia Status: Acute (3) Hypertension Code(s): I10 - Essential (primary) hypertension Status: Acute (4) Seizure disorder Code(s): G40.909 - Epilepsy, unspecified, not intractable, without status epilepticus Status: Acute (5) Diabetes mellitus Code(s): E11.9 - Type 2 diabetes mellitus without complications Status: Acute (6) Acute renal insufficiency Code(s): N28.9 - Disorder of kidney and ureter, unspecified Status: Acute - Plan This patient is a 57 years old -[place] female with past medical history of hypertension, mitral valve prolapse, seizure, AKA, hyponatremia, new onset diabetes mellitus, low TSH, paranoid schizophrenia, psychosis and previous psychiatric hospitalization in 2017 with a very similar presentation in which the patient refused to eat, refused to talk and was brought under the Summers act. According to the Summers act patient has not been taking her medication for the past 15 days. Patient was allegedly laying out in the yard and refuses to come back in the house according to the family. In the emergency room patient is refusing to eat or drink, refusing blood work and refusing medications. Patient was admitted in the psychiatry for evaluation and treatment of paranoid type schizophrenia in a chronic state with acute exacerbation. Medicine team is consulted for medical management. Acute Renal Insufficiency/hypokalemia/hyponatremia/ hypocalcemia/Hypomagnesemia= - ResOlved -likely secondary to dehydration and patients - now with good po - continue on KCL - change to once daily 20 meq , Gd7nxhg 400 mg po daily - ff labs Hypocalcemia/hypophosphatemia/elevated PTH/ likely primary hyperparathyroidism -likely r/t kidney disease, dehydration/acid base disturbance -PTH elevated likely in response to low calcium level or vice versa Metabolic Acidosis- resolved -likely due to dehydration -heplock IVF today - ff BMP in am Hypertension - patient has not been taking medication for the past 15 days per report -patient has been very uncooperative and refusing nursing care -monitor BP Hx Seizure disorder/Epilepsy, unspecified, not intractable, without status epilepticus -patient noncompliance in taking medications -monitor Low TSH with previous history of low TSH/patient noncompliance with medication at home -patient with unknown family medical history of hypo-or hyperthyroidism -TSH level 0.172, Free T4 1.23, likely subclinical -monitor signs and symptoms Diabetes mellitus/Type 2 diabetes mellitus without complications -recently diagnosed in 2017, however unknown of patients compliance with medication treatment -Random blood glucose has been unremarkable -will consider monitor blood sugar with Accu Checks AC and HS and cover with insulin sliding scale -HGB A1C 6.2 slightly Elevated HCG,Quant/Patient statement that she is -rechecked HCG Quant normal Paranoid type schizophrenia, chronic state with acute exacerbation/unspecified Psychosis -Management with the Psychiatry Team DVT Prophylaxis: patient up and ambulating ( Code Status:
[2018-03-01] MEDS: Lactic Acid (Ammonium Lactate) 12% Lotion 225 GM Bottle TOPICAL SCH ×2 (08:37→22:49)
[2018-03-01] MEDS: Calcium Carbonate 500 MG Tablet PO SCH ×2 (08:37→21:00)
--- NOTE | 2018-03-01 12:08 | P.PNPSY ---
Subjective Remarks: Patient seen and examined with nurse. Chart reviewed. Case discussed with nursing staff. Case discussed with counselor, with particular focus on discharge planning. On my examination today, patient remains delusional. She believes that staff are keeping people from visiting her, although nurse indicates that besides her sister over the weekend no one has endeavored to visit with patient. She denies SI/HI. Denies AVH. No side effects from medications. No acute physical complaints. Vital Signs Temp Pulse Resp BP Pulse Ox 03/01/18 06:00 98.2 F 69 16 129/82 02/28/18 18:00 96.8 F L 86 18 114/66 97 Intake and Output 02/28/18 03/01/18 03/01/18 22:59 06:59 14:59 Intake Total 1700 / 1700 480 / 480 720 / 720 Balance 1700 / 1700 480 / 480 720 / 720 Intake: Oral 1700 / 1700 480 / 480 720 / 720 Other: # Voids 4 # Incontinent Voids 2 Date of Last Bowel Movement 03/01/18 Labs reviewed. Review of Systems All other systems reviewed negative except as stated in HPI (Limitation: Psychosis) Mental Status Examination Appearance: Appropriate Consciousness: Alert Orientation: Person, Place (At least) Motor Activity: Other (No abnormal motor movements noted) Speech: Unremarkable Language: Adequate Fund of Knowledge: Inadequate Attention and Concentration: Other (Fair) Memory: Unremarkable Mood: Oppositional, Irritable (Mild) Affect: Blunt Thought Process & Associations: Intact Thought Content: Appropriate Hallucination Type: None Delusion Type: Paranoid Suicidal Ideation: No Suicidal Plan: No Suicidal Intention: No Homicidal Ideation: No Homicidal Plan: No Homicidal Intention: No Insight: Poor Judgment: Poor Assessment and Plan - Assessment (1) Paranoid type schizophrenia, chronic state with acute exacerbation Code(s): F20.0 - Paranoid schizophrenia Status: Acute - Plan Plan: Titrate Geodon to 100 mg twice daily to target residual psychotic symptoms. Continue Depakote as ordered. Hospitalist input noted and appreciated. It appears that the patient is medically stabilizing, and I will leave an order for the patient to be transferred to the general psychiatric unit once cleared to do so by the hospitalist. Continue other medications and care as ordered. Justification for Continued Inpatient Stay: Medication changes. Impairment in reality construction. High risk for decompensation in less restrictive environment. Discharge Planning: Per the counselor, no safe discharge plan presently exists since the patient has refused to go stay with her sister. [facility] psychiatric hospital referral has been initiated. Request Healthcare Surrogate/Guardian Advocate?: Yes
[2018-03-02] MEDS: Calcium Carbonate 500 MG Tablet PO SCH ×2 (08:34→21:46)
[2018-03-02] MEDS: Lactic Acid (Ammonium Lactate) 12% Lotion 225 GM Bottle TOPICAL SCH ×2 (08:35→21:46)
--- NOTE | 2018-03-02 12:25 | P.PNPSY ---
Subjective Remarks: Patient seen and examined. Chart reviewed. Case discussed with nursing staff. Patient noted to be somewhat demanding and irritable when wants are not immediately met but otherwise no real behavioral problem. Case discussed with counselor. On my examination today, the patient presents as somewhat irritable and dysphoric. She is not interested in extended interview today. She denies any hallucinations. Complains of some mild tiredness from medications but no other side effects. No acute physical complaints. Vital Signs Temp Pulse Resp BP Pulse Ox 03/02/18 06:00 98.4 F 77 15 121/77 03/01/18 18:00 98.6 F 96 H 16 118/69 96 Intake and Output 03/02/18 03/02/18 03/02/18 06:59 14:59 22:59 Intake Total 480 / 480 360 / 360 980 / 980 Balance 480 / 480 360 / 360 980 / 980 Intake: Oral 480 / 480 360 / 360 980 / 980 Other: # Voids 1 2 Date of Last Bowel Movement 03/01/18 # Bowel Movements 0 Weight 57.1 kg Labs reviewed. No new labs. Review of Systems All other systems reviewed negative except as stated in HPI Mental Status Examination Appearance: Appropriate Consciousness: Alert Orientation: Person, Place (At least) Motor Activity: Other (No motoric abnormalities noted) Speech: Unremarkable Language: Adequate Fund of Knowledge: Inadequate Attention and Concentration: Other (Fair) Memory: Unremarkable Mood: Oppositional, Irritable (Mild) Affect: Blunt Thought Process & Associations: Intact Thought Content: Appropriate Hallucination Type: None Delusion Type: None Suicidal Ideation: No Homicidal Ideation: No Insight: Poor Judgment: Poor Assessment and Plan - Assessment (1) Paranoid type schizophrenia, chronic state with acute exacerbation Code(s): F20.0 - Paranoid schizophrenia Status: Acute - Plan Plan: Continue current psychotropic medications as ordered to allow patient to acclimate to current doses. Continue to monitor on the inpatient unit. Hospitalist input noted and appreciated. Continue other medications and care as ordered. Justification for Continued Inpatient Stay: Risk for decompensation in less restrictive environment. Discharge Planning: Pending safe discharge plan. Case discussed with counselor. State hospitalization is a backup plan. Request Healthcare Surrogate/Guardian Advocate?: Yes
--- NOTE | 2018-03-02 13:36 | P.PN ---
Subjective Interval history: Follow-up for hypertension, diabetes, hyponatremia: Patient awakes to voice, oriented x2. Cooperative. Complains of pain to left wrist, indicates she had an injury several months ago. No chest pain, no shortness of breath, no nausea , no vomiting, no diarrhea. No acute changes overnight. Physical Exam Vital signs: Vital Signs 03/01/18 18:00 03/02/18 06:00 Temperature 98.6 F 98.4 F Pulse Rate 96 H 77 Respiratory Rate 16 15 Blood Pressure 118/69 121/77 Pulse Oximetry 96 Intake & Output 03/01/18 03/02/18 03/02/18 18:59 06:59 18:59 Intake Total 1440 / 1440 1680 / 1680 360 / 360 Balance 1440 / 1440 1680 / 1680 360 / 360 Weight 57.1 kg Intake: Oral 1440 / 1440 1680 / 1680 360 / 360 Other: # Voids 2 1 Date of Last Bowel Movement 03/01/18 03/01/18 # Bowel Movements 0 Narrative: GENERAL: 57-year-old well-developed well-nourished female. No acute distress SKIN: Warm and dry. Papular rash over back. HEENT: AT/NC. Pupils equal and round. MMM. HEART: RRR no m/r/g. LUNGS: CTAB without wheezes or crackles. ABDOMEN: +BS, soft, NT, ND. EXTREMITIES: No LE edema. 2+ pedal pulses. No rash over legs. Mild swelling noted to left wrist. NEURO: Awakes to voice, oriented x2. No focal deficits. Results - Labs CBC & Chem 7: 02/19/18 07:22 02/28/18 12:52 Assessment and Plan - Assessment (1) Unspecified psychosis Code(s): F29 - Unspecified psychosis not due to a substance or known physiological condition (2) Paranoid type schizophrenia, chronic state with acute exacerbation Code(s): F20.0 - Paranoid schizophrenia Status: Acute (3) Hypertension Code(s): I10 - Essential (primary) hypertension Status: Acute (4) Seizure disorder Code(s): G40.909 - Epilepsy, unspecified, not intractable, without status epilepticus Status: Acute (5) Diabetes mellitus Code(s): E11.9 - Type 2 diabetes mellitus without complications Status: Acute (6) Acute renal insufficiency Code(s): N28.9 - Disorder of kidney and ureter, unspecified Status: Acute - Plan This patient is a 57 years old -[place] female with past medical history of hypertension, mitral valve prolapse, seizure, AKA, hyponatremia, new onset diabetes mellitus, low TSH, paranoid schizophrenia, psychosis and previous psychiatric hospitalization in 2017 with a very similar presentation in which the patient refused to eat, refused to talk and was brought under the Summers act. According to the Summers act patient has not been taking her medication for the past 15 days. Patient was allegedly laying out in the yard and refuses to come back in the house according to the family. In the emergency room patient is refusing to eat or drink, refusing blood work and refusing medications. Patient was admitted in the psychiatry for evaluation and treatment of paranoid type schizophrenia in a chronic state with acute exacerbation. Medicine team is consulted for medical management. Acute Renal Insufficiency/hypokalemia/hyponatremia/ hypocalcemia/Hypomagnesemia= - Resolved likely secondary to dehydration - now with good po intake. -BMP in am -K okay 4.7 -Na 131 Hypocalcemia/hypophosphatemia/elevated PTH/ likely primary hyperparathyroidism -likely r/t kidney disease, dehydration/acid base disturbance -PTH elevated likely in response to low calcium level or vice versa Metabolic Acidosis- resolved likely due to dehydration -BMP in am Hypertension - patient has not been taking medication for the past 15 days per report -patient has been very uncooperative and refusing nursing care -monitor BP Hx Seizure disorder/Epilepsy, unspecified, not intractable, without status epilepticus -patient noncompliance in taking medications -monitor Low TSH with previous history of low TSH/patient noncompliance with medication at home -patient with unknown family medical history of hypo-or hyperthyroidism -TSH level 0.172, Free T4 1.23, likely subclinical -monitor signs and symptoms Diabetes mellitus/Type 2 diabetes mellitus without complications -recently diagnosed in 2017, however unknown of patients compliance with medication treatment -Random blood glucose has been unremarkable -will consider monitor blood sugar with Accu Checks AC and HS and cover with insulin sliding scale -HGB A1C 6.2 slightly Elevated HCG,Quant/Patient statement that she is -rechecked HCG Quant --normal Paranoid type schizophrenia, chronic state with acute exacerbation/unspecified Psychosis -Management with the Psychiatry Team DVT Prophylaxis: patient up and ambulating BMP in am Code Status: Full code Discussed Condition With: RN, pt. Discharge Planning: Per psych team
[2018-03-03 08:32] LABS: Anion Gap 7 meq/L (5-15); Blood Urea Nitrogen 15 mg/dL (7-18); Calcium 9.2 mg/dL (8.5-10.1); Chloride 96 meq/L (98-107); Glomerular Filtration Rate Greater Than 89 mL/min (>89); Glucose,Random 72 mg/dL (74-106); Potassium 4.8 meq/L (3.5-5.1); Sodium 133 meq/L (136-145)
[2018-03-03] MEDS: Lactic Acid (Ammonium Lactate) 12% Lotion 225 GM Bottle TOPICAL SCH ×2 (08:35→21:10)
[2018-03-03] MEDS: Calcium Carbonate 500 MG Tablet PO SCH ×2 (08:35→21:10)
--- NOTE | 2018-03-03 11:49 | P.PNPSY ---
Subjective Remarks: Patient seen and examined. Chart reviewed. Case discussed with nursing staff. Case also discussed in treatment team. Counselor notes that patient has no funding and no family willing to accept patient (other than sister, with whom patient has flatly refused to stay). Consequently, state hospitalization is our only discharge plan at present. On my exam, patient remains irritable and dysphoric. She continues to believe that she is . She says that she had a "rough night" last night because the staff refused to bring her any water. In point of fact, I do see several water glasses at her bedside. No side effects from medications. No physical complaints. Vital Signs Temp Pulse Resp BP Pulse Ox 03/03/18 06:00 98.3 F 71 18 129/78 98 03/02/18 18:00 97.9 F 89 18 133/75 99 Intake and Output 03/02/18 03/03/18 03/03/18 22:59 06:59 14:59 Intake Total 1220 / 1220 120 / 120 480 / 480 Balance 1220 / 1220 120 / 120 480 / 480 Intake: Oral 1220 / 1220 120 / 120 480 / 480 Other: # Voids 1 2 Date of Last Bowel Movement 03/02/18 # Bowel Movements 0 Laboratory Results - last 24 hr 03/03/18 07:49 Sodium 133 L Potassium 4.8 Chloride 96 L Carbon Dioxide 30.0 Anion Gap 7 BUN 15 Creatinine 0.73 Estimated GFR Greater than 89 Random Glucose 72 L Calcium 9.2 Labs reviewed. Review of Systems All other systems reviewed negative except as stated in HPI (Limitation: Psychosis) Mental Status Examination Appearance: Appropriate Consciousness: Alert Orientation: Person, Place (At least) Motor Activity: Other (No abnormal motor movements noted) Speech: Unremarkable Language: Adequate Fund of Knowledge: Inadequate Attention and Concentration: Other (Fair) Memory: Unremarkable Mood: Oppositional, Irritable (Mild) Affect: Blunt Thought Process & Associations: Intact Thought Content: Appropriate Hallucination Type: None Delusion Type: Paranoid, Somatic Suicidal Ideation: No Suicidal Plan: No Suicidal Intention: No Homicidal Ideation: No Homicidal Plan: No Homicidal Intention: No Insight: Poor Judgment: Poor Assessment and Plan - Assessment (1) Paranoid type schizophrenia, chronic state with acute exacerbation Code(s): F20.0 - Paranoid schizophrenia Status: Acute - Plan Plan: Continue Geodon and Depakote as ordered. To consider further titration of patient's Geodon to target residual psychotic symptoms. Continue to monitor on the inpatient unit. We will transfer the patient to the general psychiatric unit as the hospitalist has signed off and the patient appears to be medically stable. Continue other medications and care as ordered. Justification for Continued Inpatient Stay: Impairment in reality construction. High risk for decompensation in less restrictive environment. Discharge Planning: State hospitalization seems to be the most likely disposition for reasons noted above. Request Healthcare Surrogate/Guardian Advocate?: Yes
[2018-03-03] MEDS: Lidocaine 5% Patch T-DERMAL SCH (12:27)
--- NOTE | 2018-03-03 12:44 | P.TTN ---
- Patient Problems Problems: 1. Discharge planning 2. Medication compliance 3. Knowledge deficit 4. Lack of coping skills - Progress Toward Goals Provider Present: Dr. Jeffry Cespedes Provider Input: 03/03/18: Pt exhibiting no behaviors, she remains isolative, [facility] 02/21/2018; Patient's are being titrated Nurse Input: 02/21/2018; Patient is eating meals and taking medication, require coaching and prompting Psychiatric Counselors Present: Marbin Clancy Jr., [facility], Laina Mo, [facility] Psychiatric Therapist Input: . As of 03/04/18: counselor is completing state packet is being completed relative limited options for this pt. 02/22/2018; counselor will be contacting patient's NOK to discuss propriate dc planning patient's son Tyson and patient's sister Marla Sewell Group Spec/RT/OT/NAIK Present: GUMARO Burger, Juan Guajardo, OT Group Spec/RT/OT/NAIK Input: 02/21/2018;this is continuing as of 03/03/18; lack of pt attendance or participation. patient has not participate with groups or activities Other Clinican Input: State packet initiated per MD, counselor as this is pt's best option. - Documentation Teaching Recipient: Patient
--- NOTE | 2018-03-03 13:12 | P.PN ---
Subjective Interval history: Follow-up for hypertension, diabetes, hyponatremia: Patient awakes to voice, oriented x2. Cooperative. States she had a rough night, has some pain to the left wrist, states it is an old injury. Eating well, no nausea, no vomiting. Physical Exam Vital signs: Vital Signs 03/02/18 18:00 03/03/18 06:00 Temperature 97.9 F 98.3 F Pulse Rate 89 71 Respiratory Rate 18 18 Blood Pressure 133/75 129/78 Pulse Oximetry 99 98 Intake & Output 03/02/18 03/03/18 03/03/18 18:59 06:59 18:59 Intake Total 1340 / 1340 360 / 360 480 / 480 Balance 1340 / 1340 360 / 360 480 / 480 Intake: Oral 1340 / 1340 360 / 360 480 / 480 Other: # Voids 2 2 Date of Last Bowel Movement 03/01/18 03/02/18 # Bowel Movements 0 Narrative: GENERAL: 57-year-old well-developed well-nourished female. No acute distress SKIN: Warm and dry. Papular rash over back. HEENT: AT/NC. Pupils equal and round. MMM. HEART: RRR no m/r/g. LUNGS: CTAB without wheezes or crackles. ABDOMEN: +BS, soft, NT, ND. EXTREMITIES: No LE edema. 2+ pedal pulses. No rash over legs. Mild swelling noted to left wrist. NEURO: Awakes to voice, oriented x2. No focal deficits. Results - Labs CBC & Chem 7: 02/19/18 07:22 03/03/18 07:49 Laboratory Results - last 24 hr 03/03/18 07:49 Sodium 133 L Potassium 4.8 Chloride 96 L Carbon Dioxide 30.0 Anion Gap 7 BUN 15 Creatinine 0.73 Estimated GFR Greater than 89 Random Glucose 72 L Calcium 9.2 Assessment and Plan - Assessment (1) Unspecified psychosis Code(s): F29 - Unspecified psychosis not due to a substance or known physiological condition (2) Paranoid type schizophrenia, chronic state with acute exacerbation Code(s): F20.0 - Paranoid schizophrenia Status: Acute (3) Hypertension Code(s): I10 - Essential (primary) hypertension Status: Acute (4) Seizure disorder Code(s): G40.909 - Epilepsy, unspecified, not intractable, without status epilepticus Status: Acute (5) Diabetes mellitus Code(s): E11.9 - Type 2 diabetes mellitus without complications Status: Acute (6) Acute renal insufficiency Code(s): N28.9 - Disorder of kidney and ureter, unspecified Status: Acute - Plan This patient is a 57 years old -[place] female with past medical history of hypertension, mitral valve prolapse, seizure, AKA, hyponatremia, new onset diabetes mellitus, low TSH, paranoid schizophrenia, psychosis and previous psychiatric hospitalization in 2017 with a very similar presentation in which the patient refused to eat, refused to talk and was brought under the Summers act. According to the Summers act patient has not been taking her medication for the past 15 days. Patient was allegedly laying out in the yard and refuses to come back in the house according to the family. In the emergency room patient is refusing to eat or drink, refusing blood work and refusing medications. Patient was admitted in the psychiatry for evaluation and treatment of paranoid type schizophrenia in a chronic state with acute exacerbation. Medicine team is consulted for medical management. Acute Renal Insufficiency/hypokalemia/hyponatremia/ hypocalcemia/Hypomagnesemia= - Resolved likely secondary to dehydration - now with good po intake. -Renal function and electrolytes stable, continue to encourage p.o. intake. Hypocalcemia/hypophosphatemia/elevated PTH/ likely primary hyperparathyroidism -likely r/t kidney disease, dehydration/acid base disturbance -PTH elevated likely in response to low calcium level or vice versa Metabolic Acidosis- resolved likely due to dehydration -BMP reviewed, renal function stable. Hypertension - patient has not been taking medication for the past 15 days per report -patient has been very uncooperative and refusing nursing care -monitor BP Hx Seizure disorder/Epilepsy, unspecified, not intractable, without status epilepticus -patient noncompliance in taking medications -monitor Low TSH with previous history of low TSH/patient noncompliance with medication at home -patient with unknown family medical history of hypo-or hyperthyroidism -TSH level 0.172, Free T4 1.23, likely subclinical -monitor signs and symptoms Diabetes mellitus/Type 2 diabetes mellitus without complications -recently diagnosed in 2017, however unknown of patients compliance with medication treatment -Random blood glucose has been unremarkable -will consider monitor blood sugar with Accu Checks AC and HS and cover with insulin sliding scale -HGB A1C 6.2 slightly Elevated HCG,Quant/Patient statement that she is -rechecked HCG Quant --normal Paranoid type schizophrenia, chronic state with acute exacerbation/unspecified Psychosis -Management with the Psychiatry Team Left wrist pain, has an old injury. Intact range of motion -Will order Tylenol as needed DVT Prophylaxis: patient up and ambulating Will sign off for now, reconsult if needed Code Status: Full code Discussed Condition With: Discussed with RN, patient Discharge Planning: Per psych team
[2018-03-04] MEDS: Calcium Carbonate 500 MG Tablet PO SCH ×2 (09:01→21:28)
--- NOTE | 2018-03-04 11:14 | P.PNPSY ---
Subjective Remarks: Reviewed electronic medical records and discussed case with staff. Follow-up was conducted in the day room. Alcon RN reports patient's been alert and oriented x3. He advises that date night caregiver reported patient was bizarre and uncooperative last night. She is so far today she is been okay to somewhat seclusive. Patient states she is sleeping well has good appetite. Reports that she feels "all right". When advised that she would not see the doctor until Tuesday she became somewhat irritated shaking her head mumbling to herself. Mental Status Examination Appearance: Appropriate Consciousness: Alert Orientation: Person, Place (At least) Motor Activity: Other (No abnormal motor movements noted) Speech: Unremarkable Language: Adequate Fund of Knowledge: Inadequate Attention and Concentration: Other (Fair) Memory: Unremarkable Mood: Oppositional, Irritable (Mild) Affect: Blunt Thought Process & Associations: Intact Thought Content: Appropriate Hallucination Type: None Delusion Type: Paranoid, Somatic Suicidal Ideation: No Suicidal Plan: No Suicidal Intention: No Homicidal Ideation: No Homicidal Plan: No Homicidal Intention: No Insight: Poor Judgment: Poor Assessment and Plan - Assessment (1) Paranoid type schizophrenia, chronic state with acute exacerbation Code(s): F20.0 - Paranoid schizophrenia Status: Acute - Plan Plan: Patient will be reevaluated Tuesday by the attending psychiatrist. Continue with current treatment plan. Justification for Continued Inpatient Stay: Moving this patient to a less restrictive environment would likely result in decompensation. Request Healthcare Surrogate/Guardian Advocate?: Yes
[2018-03-04] MEDS: Lidocaine 5% Patch T-DERMAL SCH (11:18)
[2018-03-04] MEDS: Lactic Acid (Ammonium Lactate) 12% Lotion 225 GM Bottle TOPICAL SCH ×2 (11:24→21:31)
[2018-03-05] MEDS: Calcium Carbonate 500 MG Tablet PO SCH ×2 (09:24→21:35)
[2018-03-05 10:07] LABS: Calcium 9.2 mg/dL (8.5-10.1); Carbon Dioxide 25.2 meq/L (21.0-32.0); Potassium 4.3 meq/L (3.5-5.1)
[2018-03-05] MEDS: Lidocaine 5% Patch T-DERMAL SCH (11:47)
[2018-03-05] MEDS: Lactic Acid (Ammonium Lactate) 12% Lotion 225 GM Bottle TOPICAL SCH ×2 (11:48→23:54)
--- NOTE | 2018-03-05 12:30 | P.PNPSY ---
Subjective Remarks: Reviewed electronic medical records and discussed case with staff. Follow-up was conducted in the day room. Patient is irritable this morning after a run in with the [employer]. Apparently, she ran to the food cart and began hoping herself to trays and when asked to wait she became irritable. She reports that she did not sleep well but she has a good appetite. Her nurse reports that she had an altercation with the nighttime nurse as well. Mental Status Examination Appearance: Appropriate Consciousness: Alert Orientation: Person, Place (At least) Motor Activity: Other (No abnormal motor movements noted) Speech: Unremarkable Language: Adequate Fund of Knowledge: Inadequate Attention and Concentration: Other (Fair) Memory: Unremarkable Mood: Oppositional, Irritable (Mild) Affect: Blunt Thought Process & Associations: Intact Thought Content: Appropriate Hallucination Type: None Delusion Type: Paranoid, Somatic Suicidal Ideation: No Suicidal Plan: No Suicidal Intention: No Homicidal Ideation: No Homicidal Plan: No Homicidal Intention: No Insight: Poor Judgment: Poor Assessment and Plan - Assessment (1) Paranoid type schizophrenia, chronic state with acute exacerbation Code(s): F20.0 - Paranoid schizophrenia Status: Acute - Plan Plan: Patient will be reevaluated Tuesday by the attending psychiatrist. Continue with current treatment plan. Justification for Continued Inpatient Stay: Moving this patient to a less restrictive environment would likely result in decompensation. Request Healthcare Surrogate/Guardian Advocate?: Yes
[2018-03-06] MEDS: Calcium Carbonate 500 MG Tablet PO SCH ×2 (08:32→20:19)
[2018-03-06] MEDS: Lidocaine 5% Patch T-DERMAL SCH (08:33)
[2018-03-06] MEDS: Lactic Acid (Ammonium Lactate) 12% Lotion 225 GM Bottle TOPICAL SCH (10:26)
--- NOTE | 2018-03-06 12:32 | P.PNPSY ---
Subjective Remarks: Patient seen and examined with nurse. Chart reviewed. Case discussed with nursing staff who reports patient has periodic episodes of loud verbal outbursts at night but otherwise has presented no behavioral problem. On my examination today, the patient is seclusive to room. She is somewhat irritable and negativistic. She denies any SI or HI. Denies any AVH. Remains somewhat paranoid. She continues to insist that her brush clearing laborer, Ms. Lazo, will take her in and further insists that Ms. Lazo is in the waiting room right now to pick her up. I did go into the waiting room, but there were no females waiting there. Denies side effects from medications. No physical complaints. Vital Signs Temp Pulse Resp BP Pulse Ox 03/06/18 05:57 98.5 F 79 16 148/74 H 93 L 03/05/18 17:51 98.9 F 84 18 132/68 93 L Intake and Output 03/05/18 03/06/18 03/06/18 22:59 06:59 14:59 Intake Total 1540 / 1540 Balance 1540 / 1540 Intake: Oral 1440 / 1440 Oral Supplement 100 / 100 Other: # Voids 3 2 Date of Last Bowel Movement 03/02/18 Weight 56.3 kg Laboratory Results - last 48 hr 03/05/18 08:50 Sodium 133 L Potassium 4.3 Chloride 97 L Carbon Dioxide 25.2 Anion Gap 11 BUN 19 H Creatinine 0.81 Estimated GFR 89 Random Glucose 114 H Calcium 9.2 Labs reviewed. Sodium level steady. Review of Systems All other systems reviewed negative except as stated in HPI (Limitation: Psychosis) Mental Status Examination Appearance: Appropriate Consciousness: Alert Orientation: Person, Place (At least) Motor Activity: Other (No motor abnormalities noted) Speech: Unremarkable Language: Adequate Fund of Knowledge: Inadequate Attention and Concentration: Other (Fair) Memory: Unremarkable Mood: Oppositional, Irritable Affect: Irritable Thought Process & Associations: Intact Thought Content: Appropriate Hallucination Type: None Delusion Type: Paranoid Suicidal Ideation: No Suicidal Plan: No Suicidal Intention: No Homicidal Ideation: No Homicidal Plan: No Homicidal Intention: No Insight: Poor Judgment: Poor Assessment and Plan - Assessment (1) Paranoid type schizophrenia, chronic state with acute exacerbation Code(s): F20.0 - Paranoid schizophrenia Status: Acute - Plan Plan: Titrate Geodon to 120 mg twice daily with meals to target residual psychotic symptoms. If the patient remains symptomatic after dose titration, to consider augmenting with a second antipsychotic versus replacing with a different antipsychotic. Continue Depakote as ordered. Continue to monitor on the inpatient unit. Periodic monitoring of electrolytes to continue. Continue other care as ordered. Justification for Continued Inpatient Stay: Medication changes. Impairment in reality construction. High risk for decompensation in less restrictive environment. Discharge Planning: State hospitalization versus placement. Request Healthcare Surrogate/Guardian Advocate?: Yes
[2018-03-07] MEDS: Lactic Acid (Ammonium Lactate) 12% Lotion 225 GM Bottle TOPICAL SCH ×4 (02:44→20:13)
[2018-03-07] MEDS: Calcium Carbonate 500 MG Tablet PO SCH ×2 (08:42→20:10)
[2018-03-07] MEDS: Lidocaine 5% Patch T-DERMAL SCH ×2 (09:00→09:34)
--- NOTE | 2018-03-07 10:27 | P.PNPSY ---
Subjective Remarks: Reviewed electronic medical records and discussed case with staff. Follow-up was conducted in the patient's room. She was found lying in bed. Her nurse reports that she has been in a bad mood all morning. Patient reports that she is "not doing good". Her affect is extremely irritable that she has seems somewhat depressed. When asked what the problem is she states "they are not feeding the right". She then declines to answer any further questions. Mental Status Examination Appearance: Appropriate Consciousness: Alert Orientation: Person, Place (At least) Motor Activity: Other (No motor abnormalities noted) Speech: Unremarkable Language: Adequate Fund of Knowledge: Inadequate Attention and Concentration: Other (Fair) Memory: Unremarkable Mood: Oppositional, Irritable Affect: Irritable Thought Process & Associations: Intact Thought Content: Appropriate Hallucination Type: None Delusion Type: Paranoid Suicidal Ideation: No Suicidal Plan: No Suicidal Intention: No Homicidal Ideation: No Homicidal Plan: No Homicidal Intention: No Insight: Poor Judgment: Poor Assessment and Plan - Assessment (1) Paranoid type schizophrenia, chronic state with acute exacerbation Code(s): F20.0 - Paranoid schizophrenia Status: Acute - Plan Plan: Patient will be reevaluated Tuesday by the attending psychiatrist. Continue with current treatment plan. Justification for Continued Inpatient Stay: Moving this patient to a less restrictive environment would likely result in decompensation. Request Healthcare Surrogate/Guardian Advocate?: Yes
[2018-03-08] MEDS: Lactic Acid (Ammonium Lactate) 12% Lotion 225 GM Bottle TOPICAL SCH ×2 (09:00→20:18)
[2018-03-08] MEDS: Lidocaine 5% Patch T-DERMAL SCH (09:00)
[2018-03-08] MEDS: Calcium Carbonate 500 MG Tablet PO SCH ×2 (09:04→20:18)
--- NOTE | 2018-03-08 11:47 | P.PNPSY ---
Subjective Remarks: Seen in her room with nurse Chichi, chart reviewed, patient compliant medications. Refusing to make eye contact with me responses are brief somewhat irritable but goal oriented. She denies suicidality or voices with me at this time for delusions persist though she has unwilling to really discuss those. I did share with her her court date for tomorrow with [facility] and appears she is ready to talk to the salt manager related to that. For now continue treatment patient is scheduled for [facility] tomorrow Review of Systems All other systems reviewed negative except as stated in HPI Mental Status Examination Appearance: Appropriate Consciousness: Alert Orientation: Person, Place (At least) Motor Activity: Other (No motor abnormalities noted) Speech: Unremarkable Language: Adequate Fund of Knowledge: Inadequate Attention and Concentration: Other (Fair) Memory: Unremarkable Mood: Oppositional, Irritable Affect: Irritable Thought Process & Associations: Intact Thought Content: Appropriate Hallucination Type: None Delusion Type: Paranoid Suicidal Ideation: No Suicidal Plan: No Suicidal Intention: No Homicidal Ideation: No Homicidal Plan: No Homicidal Intention: No Insight: Poor Judgment: Poor Assessment and Plan - Assessment (1) Paranoid type schizophrenia, chronic state with acute exacerbation Code(s): F20.0 - Paranoid schizophrenia Status: Acute - Plan Plan: Patient remained psychotic and delusional, low compliant medication. Patient no behavior problems with me. Scheduled for [facility] tomorrow Justification for Continued Inpatient Stay: At this time patient would decompensate a place to a lower level of care Discharge Planning: To be determined Request Healthcare Surrogate/Guardian Advocate?: Yes
[2018-03-09] MEDS: Calcium Carbonate 500 MG Tablet PO SCH ×2 (08:48→20:49)
[2018-03-09] MEDS: Lactic Acid (Ammonium Lactate) 12% Lotion 225 GM Bottle TOPICAL SCH ×2 (08:49→21:37)
[2018-03-09] MEDS: Lidocaine 5% Patch T-DERMAL SCH (09:13)
--- NOTE | 2018-03-09 11:40 | P.PNPSY ---
Subjective Remarks: Patient seen and case discussed with nursing staff. Chart reviewed. For me today, patient remains somewhat irritable and oppositional. Ongoing delusional material noted. No side effects from medications. No physical complaints. Vital Signs Temp Pulse Resp BP Pulse Ox 03/09/18 05:26 98.8 F 69 16 104/57 L 92 L 03/08/18 17:46 99.1 F 106 H 17 125/86 92 L Intake and Output 03/09/18 03/09/18 03/09/18 06:59 14:59 22:59 Intake Total 240 / 240 Balance 240 / 240 Intake: Oral 240 / 240 Other: # Voids 2 Labs reviewed. No new labs. Review of Systems other (Limited ROS today) Mental Status Examination Appearance: Appropriate Consciousness: Alert Orientation: Person, Place (At least) Motor Activity: Other (No abnormal motor movements noted) Speech: Unremarkable Language: Adequate Fund of Knowledge: Inadequate Attention and Concentration: Other (Fair) Memory: Unremarkable Mood: Irritable (Mild) Affect: Irritable Thought Process & Associations: Intact Thought Content: Appropriate Hallucination Type: None Delusion Type: Paranoid Suicidal Ideation: No Homicidal Ideation: No Insight: Poor Judgment: Poor Assessment and Plan - Assessment (1) Paranoid type schizophrenia, chronic state with acute exacerbation Code(s): F20.0 - Paranoid schizophrenia Status: Acute - Plan Plan: Continue current psychotropic medications as ordered. Continue to monitor on the inpatient unit. Continue other medications and care as ordered. Patient's case was presented to the [place], and the patient was retained on the unit by the taffy puller with son to serve as guardian advocate. Justification for Continued Inpatient Stay: Impairment in reality construction. High risk for decompensation in less restrictive environment. Discharge Planning: State hospital referral versus placement. Request Healthcare Surrogate/Guardian Advocate?: Yes
[2018-03-10] MEDS: Lidocaine 5% Patch T-DERMAL SCH (09:06)
[2018-03-10] MEDS: Lactic Acid (Ammonium Lactate) 12% Lotion 225 GM Bottle TOPICAL SCH ×2 (09:06→21:12)
[2018-03-10] MEDS: Calcium Carbonate 500 MG Tablet PO SCH ×2 (09:07→21:00)
--- NOTE | 2018-03-10 12:46 | P.PNPSY ---
Subjective Remarks: Patient seen and examined with nurse. Chart reviewed. Case discussed with nursing staff who reports patient was articulating some delusions of but otherwise has been no behavioral issue. Case discussed in treatment team. Counselor reports that patient likely lost her disability benefits secondary to stay in present. On my examination today, the patient presents as somewhat irritable. 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 She denies any SI or HI. Denies any hallucinations. No side effects from medications. Not interested in extended interview today. No physical complaints. Vital Signs Temp Pulse Resp BP Pulse Ox 03/10/18 05:49 99.2 F 77 17 107/53 L 95 03/09/18 18:14 99.1 F 94 H 17 122/78 94 L 03/09/18 16:15 96 Intake and Output 03/09/18 03/10/18 03/10/18 22:59 06:59 14:59 Intake Total 1420 / 1420 Balance 1420 / 1420 Intake: Oral 1320 / 1320 Oral Supplement 100 / 100 Other: # Voids 1 Date of Last Bowel Movement 03/02/18 03/02/18 # Bowel Movements 0 Labs reviewed. No new labs. Review of Systems All other systems reviewed negative except as stated in HPI Mental Status Examination Appearance: Appropriate Consciousness: Alert Orientation: Person, Place (At least) Motor Activity: Other (No motor abnormalities noted) Speech: Unremarkable Language: Adequate Fund of Knowledge: Inadequate Attention and Concentration: Other (Fair) Memory: Unremarkable Mood: Irritable Affect: Irritable Thought Process & Associations: Intact Thought Content: Appropriate Hallucination Type: None Delusion Type: Paranoid Suicidal Ideation: No Suicidal Plan: No Suicidal Intention: No Homicidal Ideation: No Homicidal Plan: No Homicidal Intention: No Insight: Poor Judgment: Poor Assessment and Plan - Assessment (1) Paranoid type schizophrenia, chronic state with acute exacerbation Code(s): F20.0 - Paranoid schizophrenia Status: Acute - Plan Plan: Inadequate response to current therapy. Ongoing psychotic symptoms noted. I have discussed pharmacotherapeutic options with patient's son/guardian advocate at length this afternoon, and we agreed that a cross taper to a different antipsychotic is reasonable at this juncture. I obtain guardian advocate's consent for Risperdal. Initiate Risperdal M tab 0.5 mg twice daily to target psychosis. I will taper the patient's Geodon to 100 mg twice daily with meals. Please consider advancing the cross taper from Geodon to Risperdal over the weekend. Continue to monitor on the inpatient unit. Continue other medications and care as ordered. Justification for Continued Inpatient Stay: Medication changes. High risk for decompensation in less restrictive environment. Impairment in reality construction. Discharge Planning: Pending psychiatric stabilization. Request Healthcare Surrogate/Guardian Advocate?: Yes
[2018-03-10] MEDS: risperiDONE 0.5 MG ODT PO SCH (21:00)
[2018-03-11] MEDS: risperiDONE 0.5 MG ODT PO SCH (08:06)
[2018-03-11] MEDS: Calcium Carbonate 500 MG Tablet PO SCH ×2 (08:06→21:16)
[2018-03-11] MEDS: Lidocaine 5% Patch T-DERMAL SCH (08:07)
[2018-03-11] MEDS: Lactic Acid (Ammonium Lactate) 12% Lotion 225 GM Bottle TOPICAL SCH ×2 (08:08→21:31)
--- NOTE | 2018-03-11 11:05 | P.PNPSY ---
Subjective Remarks: Reviewed electronic medical records and discussed case with staff. Follow-up was conducted in the patient's room where she was found lying in bed sleeping soundly. She woke to physical stimuli. She does seem somewhat brighter today reporting that she feels "all right". States that she did not sleep very well last night that her appetite is been good. She smiled at this provider at one point. Only when the subjective discharge came up did she fall back into her irritability. I continue the cross taper by decreasing her Geodon to 80 mg twice a day and increasing her risperidone to 1 mg twice a day per Dr. Cespedes recommendation. Mental Status Examination Appearance: Appropriate Consciousness: Alert Orientation: Person, Place (At least) Motor Activity: Other (No motor abnormalities noted) Speech: Unremarkable Language: Adequate Fund of Knowledge: Inadequate Attention and Concentration: Other (Fair) Memory: Unremarkable Mood: Irritable Affect: Irritable Thought Process & Associations: Intact Thought Content: Appropriate Hallucination Type: None Delusion Type: Paranoid Suicidal Ideation: No Suicidal Plan: No Suicidal Intention: No Homicidal Ideation: No Homicidal Plan: No Homicidal Intention: No Insight: Poor Judgment: Poor Assessment and Plan - Assessment (1) Paranoid type schizophrenia, chronic state with acute exacerbation Code(s): F20.0 - Paranoid schizophrenia Status: Acute - Plan Plan: Patient will be reevaluated Tuesday by the attending psychiatrist. Continue with current treatment plan. Justification for Continued Inpatient Stay: Moving this patient to a less restrictive environment would likely result in decompensation. Request Healthcare Surrogate/Guardian Advocate?: Yes
[2018-03-11] MEDS: risperiDONE 1 MG ODT PO SCH (21:16)
--- NOTE | 2018-03-12 08:28 | P.PNPSY ---
Subjective Remarks: Reviewed electronic medical records and discussed case with staff. Follow-up was conducted in the day room, patient is eating breakfast. Yesterday Geodon was decreased to 80 mg bid and Risperidone was decreased to 1 mg bid. Patient states that she is feeling better. She denies any auditory or visual hallucinations. States that she slept well and is eating breakfast. She is preoccupied with discharge. She is irritable and states that she is not happy that she is still in the hospital. Review of Systems All other systems reviewed negative except as stated in HPI Mental Status Examination Appearance: Appropriate Consciousness: Alert Orientation: Person, Place (At least) Motor Activity: Other (No motor abnormalities noted) Speech: Unremarkable Language: Adequate Fund of Knowledge: Inadequate Attention and Concentration: Other (Fair) Memory: Unremarkable Mood: Irritable Affect: Irritable Thought Process & Associations: Intact Thought Content: Appropriate Hallucination Type: None Delusion Type: Paranoid Suicidal Ideation: No Suicidal Plan: No Suicidal Intention: No Homicidal Ideation: No Homicidal Plan: No Homicidal Intention: No Insight: Poor Judgment: Poor Assessment and Plan - Assessment (1) Paranoid type schizophrenia, chronic state with acute exacerbation Code(s): F20.0 - Paranoid schizophrenia Status: Acute - Plan Plan: Patient will be reevaluated Tuesday by the attending psychiatrist. Continue with current treatment plan. Justification for Continued Inpatient Stay: Moving patient to a less restrictive environment may result in her decompensation. Request Healthcare Surrogate/Guardian Advocate?: Yes
[2018-03-12] MEDS: Calcium Carbonate 500 MG Tablet PO SCH ×2 (08:38→21:35)
[2018-03-12] MEDS: risperiDONE 1 MG ODT PO SCH ×2 (08:39→21:36)
[2018-03-12] MEDS: Lidocaine 5% Patch T-DERMAL SCH ×3 (08:42→15:07)
[2018-03-12] MEDS: Lactic Acid (Ammonium Lactate) 12% Lotion 225 GM Bottle TOPICAL SCH ×3 (08:42→21:45)
[2018-03-13] MEDS: risperiDONE 1 MG ODT PO SCH ×2 (09:01→21:40)
[2018-03-13] MEDS: Lidocaine 5% Patch T-DERMAL SCH (09:01)
[2018-03-13] MEDS: Calcium Carbonate 500 MG Tablet PO SCH ×2 (09:01→21:40)
[2018-03-13] MEDS: Lactic Acid (Ammonium Lactate) 12% Lotion 225 GM Bottle TOPICAL SCH (09:01)
[2018-03-13] MEDS ORDERED: Benztropine Inj 2 MG/2 ML Ampul IM PRN (10:24)
--- NOTE | 2018-03-13 10:29 | P.PNPSY ---
Subjective Remarks: Patient seen and examined in day area per patient preference. Chart reviewed. Case discussed with nursing staff who reports patient is somewhat irritable and believes that she is with 5 children. On my examination today, the patient is calmer and more conversant than in our previous interactions. She denies any SI, HI or AVH. She does not verbalize any delusional material for me. She does exhibit a mild resting tremor and has some slight cogwheeling on exam. No other side effects from medications. We review medication changes. No physical complaints. Vital Signs Temp Pulse Resp BP Pulse Ox 03/13/18 08:02 67 113/76 03/13/18 06:00 98.9 F 77 16 97/57 L 94 L 03/12/18 17:49 99.0 F 90 17 112/77 94 L Intake and Output 03/12/18 03/13/18 03/13/18 22:59 06:59 14:59 Intake Total 260 / 260 Balance 260 / 260 Intake: Oral 260 / 260 Oral Supplement 0 / 0 Other: # Voids 1 Weight 58.2 kg Labs reviewed. No new labs. Review of Systems All other systems reviewed negative except as stated in HPI Mental Status Examination Appearance: Appropriate Consciousness: Alert Orientation: Person, Place (At least) Motor Activity: Other (Mild resting tremor and mild cogwheeling. No other motor abnormalities.) Speech: Unremarkable Language: Adequate Fund of Knowledge: Inadequate Attention and Concentration: Other (Fair) Memory: Unremarkable Mood: Appropriate Affect: Blunt Thought Process & Associations: Intact Thought Content: Appropriate Hallucination Type: None Delusion Type: Paranoid, Somatic Suicidal Ideation: No Suicidal Plan: No Suicidal Intention: No Homicidal Ideation: No Homicidal Plan: No Homicidal Intention: No Insight: Poor Judgment: Poor Assessment and Plan - Assessment (1) Paranoid type schizophrenia, chronic state with acute exacerbation Code(s): F20.0 - Paranoid schizophrenia Status: Acute - Plan Plan: Patient appears to be having some mild EPS. Prior to further titration of Risperdal to target residual psychiatric symptoms I will taper the Geodon to 60 mg twice daily to try to manage this side effect without adding a scheduled anticholinergic if possible. I will make Cogentin available on an as-needed basis. I will also check a Depakote level to ensure that the tremor is not related to Depakote toxicity, although she has no other signs or symptoms of this. Continue to monitor on the inpatient unit. Continue other medications and care as ordered. Justification for Continued Inpatient Stay: Complicating condition. Medication changes. Impairment in reality construction. High risk for decompensation in less restrictive environment. Discharge Planning: [facility] hospital referral if no alternative placement can be found. Request Healthcare Surrogate/Guardian Advocate?: Yes
[2018-03-14] MEDS: Lactic Acid (Ammonium Lactate) 12% Lotion 225 GM Bottle TOPICAL SCH ×3 (01:31→21:30)
--- NOTE | 2018-03-14 09:53 | P.TTN ---
- Patient Problems Problems: 1. Discharge planning 2. Medication compliance 3. Knowledge deficit 4. Lack of coping skills - Progress Toward Goals Provider Present: Dr. Jeffry Cespedes Provider Input: 03/14/2018; per doctor, although patient is a State referral, her medications are being adjusted to address patient's behavior. 03/03/18: Pt exhibiting no behaviors, she remains isolative, [facility]. 02/21/2018; Patient's are being titrated Nurse(s) Present: RN Nurse Input: 03/14/2018; patient require coaching with medication and redirection with mood due to aggressive behavior, he is taking his meds and eating meals. 02/21/2018; Patient is eating meals and taking medication, require coaching and prompting Psychiatric Counselors Present: Marbin Clancy Jr., [facility], Laina Mo, [facility] Psychiatric Therapist Input: 03/14/2018; counselor will staff transfer to [facility] with cotton gin yard supervisor to continue state wait. As of 03/04/18: counselor is completing state packet is being completed relative limited options for this pt. 2017; counselor will be contacting patient's NOK to discuss propriate dc planning patient's son Tyson and patient's sister Marla Sewell Group Spec/RT/OT/NAIK Present: GUMARO Burger, Juan Guajardo, OT Group Spec/RT/OT/NAIK Input: 03/14/2018; patient lacks the emotional ability to appropriately participate with groups. 02/21/2018;this is continuing as of 03/03; lack of pt attendance or participation. patient has not participate with groups or activities Other Clinican Input: State packet initiated per MD, counselor as this is pt's best option. - Documentation Teaching Recipient: Patient
[2018-03-14] MEDS: Lidocaine 5% Patch T-DERMAL SCH (09:58)
[2018-03-14] MEDS: Calcium Carbonate 500 MG Tablet PO SCH ×2 (09:58→21:07)
[2018-03-14] MEDS: risperiDONE 1 MG ODT PO SCH ×2 (09:58→21:07)
--- NOTE | 2018-03-14 10:52 | P.PNPSY ---
Subjective Remarks: Patient seen and examined in day area per patient preference. Chart reviewed. Case discussed in treatment team. Case discussed with nursing staff who reports that the patient threw a small bottle of shampoo at staff yesterday evening. On my exam, patient presents as irritable. She complains of poor sleep and says that her roommate was talking into the wee hours of the morning. She denies throwing the shampoo at staff, saying that "I was trying to give it to her, and she wouldn't take it back." Patient says that she threw the shampoo but was not aiming at staff. No side effects from medications. I note that resting tremor has been eliminated, and the patient has no cogwheeling or other signs of EPS on exam. No physical complaints. Intake and Output 03/13/18 03/14/18 03/14/18 22:59 06:59 14:59 Intake Total 960 / 960 Balance 960 / 960 Intake: Oral 960 / 960 Oral Supplement 0 / 0 Other: # Voids 4 3 Laboratory Results - last 24 hr 03/14/18 06:01 Valproic Acid 92 Labs reviewed. Depakote level remains within the therapeutic range. Review of Systems All other systems reviewed negative except as stated in HPI (Limitation: Psychosis) Mental Status Examination Appearance: Appropriate Consciousness: Alert Orientation: Person, Place (At least) Motor Activity: Other (No hand tremor, no cogwheeling, no other motor abnormalities noted.) Speech: Unremarkable Language: Adequate Fund of Knowledge: Inadequate Attention and Concentration: Other (Fair) Memory: Unremarkable Mood: Irritable Affect: Irritable Thought Process & Associations: Intact Thought Content: Appropriate Hallucination Type: None Delusion Type: Paranoid Suicidal Ideation: No Homicidal Ideation: No Insight: Poor Judgment: Poor Assessment and Plan - Assessment (1) Paranoid type schizophrenia, chronic state with acute exacerbation Code(s): F20.0 - Paranoid schizophrenia Status: Acute - Plan Plan: Titrate Risperdal to 2 mg twice daily to target residual psychiatric symptoms and taper Geodon to 40 mg twice daily. Continue Depakote as ordered. Continue to monitor on the inpatient unit. Continue other medications and care as ordered. Justification for Continued Inpatient Stay: Medication changes. Impairment in reality construction. Risk for decompensation in less restrictive environment. [facility] Request Healthcare Surrogate/Guardian Advocate?: Yes
[2018-03-15] MEDS: risperiDONE 1 MG ODT PO SCH ×2 (08:50→20:37)
[2018-03-15] MEDS: Calcium Carbonate 500 MG Tablet PO SCH ×2 (08:50→20:37)
[2018-03-15] MEDS: Lactic Acid (Ammonium Lactate) 12% Lotion 225 GM Bottle TOPICAL SCH ×2 (08:51→20:41)
[2018-03-15] MEDS: Lidocaine 5% Patch T-DERMAL SCH (08:51)
--- NOTE | 2018-03-15 12:06 | P.PNPSY ---
Subjective Remarks: Patient seen and examined. Chart reviewed. Case discussed with nursing staff who reports patient is less irritable. She continues to articulate delusions of . Nurse notes scaly rash on back of patient's neck. On my examination today, the patient does indeed seem less irritable. She complains of poor sleep, which she attributes to her roommate making noises. I did discuss with the nurse trying to move the patient to a different room. She does not verbalize any psychotic material for me. She denies side effects from medications. No physical complaints. Intake and Output 03/14/18 03/15/18 03/15/18 22:59 06:59 14:59 Intake Total 240 / 240 1920 / 1920 Balance 240 / 240 192 / 0 Intake: Oral 240 / 240 1919 / 1920 Oral Supplement 0 / 0 Other: # Voids 2 2 Date of Last Bowel Movement 03/02/18 Labs reviewed. No new labs. Review of Systems All other systems reviewed negative except as stated in HPI Mental Status Examination Appearance: Appropriate Consciousness: Alert Orientation: Person, Place (At least) Motor Activity: Other (No abnormal motor movements noted. No signs of EPS.) Speech: Unremarkable Language: Adequate Fund of Knowledge: Inadequate Attention and Concentration: Other (Fair) Memory: Unremarkable Mood: Appropriate Affect: Blunt Thought Process & Associations: Intact Thought Content: Appropriate Hallucination Type: None Delusion Type: None (None for me but delusions of for nurse) Suicidal Ideation: No Suicidal Plan: No Suicidal Intention: No Homicidal Ideation: No Homicidal Plan: No Homicidal Intention: No Insight: Poor Judgment: Poor Assessment and Plan - Assessment (1) Paranoid type schizophrenia, chronic state with acute exacerbation Code(s): F20.0 - Paranoid schizophrenia Status: Acute - Plan Plan: Perhaps some improvement with transition from Geodon to Risperdal. I will continue psychotropics as ordered for now with plan for further cross taper in succeeding days. Continue other psychotropics as ordered. Hospitalist consult for report of rash on neck. Continue other medications and care as ordered. Justification for Continued Inpatient Stay: Risk for decompensation in less restrictive environment. Discharge Planning: [facility] referral Request Healthcare Surrogate/Guardian Advocate?: Yes
[2018-03-16] MEDS: Calcium Carbonate 500 MG Tablet PO SCH ×2 (08:32→20:41)
[2018-03-16] MEDS: risperiDONE 1 MG ODT PO SCH (08:32)
[2018-03-16] MEDS: Lidocaine 5% Patch T-DERMAL SCH (08:33)
[2018-03-16] MEDS: Lactic Acid (Ammonium Lactate) 12% Lotion 225 GM Bottle TOPICAL SCH ×2 (08:33→20:44)
--- NOTE | 2018-03-16 09:28 | P.PNPSY ---
Subjective Remarks: Patient seen and examined in day area. Chart reviewed. Case discussed with nursing staff. Patient remains somewhat irritable and psychotic. She denies SI or HI. Denies AVH. Denies side effects from medications. No acute physical complaints. Plaque rash noted on back of neck, and we are awaiting hospitalist consultation for this. Vital Signs Temp Pulse Resp BP Pulse Ox 03/16/18 06:53 98.6 F 16 94/50 L 03/15/18 18:17 97.4 F L 100 H 16 116/73 98 03/15/18 17:43 97.4 F L 100 H 16 116/73 98 Intake and Output 03/16/18 03/16/18 03/16/18 06:59 14:59 22:59 Intake Total 0 / 0 720 / 720 Balance 0 / 0 720 / 720 Intake: Oral 0 / 0 720 / 720 Oral Supplement 0 / 0 Other: # Voids 1 # Bowel Movements 0 Weight 59.1 kg Labs reviewed. Review of Systems All other systems reviewed negative except as stated in HPI Mental Status Examination Appearance: Appropriate Consciousness: Alert Orientation: Person, Place (At least) Motor Activity: Other (No motor abnormalities noted) Speech: Unremarkable Language: Adequate Fund of Knowledge: Inadequate Attention and Concentration: Other (Fair) Memory: Unremarkable Mood: Irritable (Mild) Affect: Irritable Thought Process & Associations: Intact Thought Content: Appropriate Hallucination Type: None Delusion Type: Paranoid Suicidal Ideation: No Suicidal Plan: No Suicidal Intention: No Homicidal Ideation: No Homicidal Plan: No Homicidal Intention: No Insight: Poor Judgment: Poor Assessment and Plan - Assessment (1) Paranoid type schizophrenia, chronic state with acute exacerbation Code(s): F20.0 - Paranoid schizophrenia Status: Acute - Plan Plan: Complete cross taper from Geodon to Risperdal by discontinuing the Geodon and titrating the Risperdal to 3 mg twice daily. Continue Depakote as ordered. Continue to monitor on the inpatient unit. Continue other medications and care as ordered. Justification for Continued Inpatient Stay: Medication changes. Impairment in reality construction. High risk for decompensation in less restrictive environment. Discharge Planning: [facility] referral. Request Healthcare Surrogate/Guardian Advocate?: Yes
--- NOTE | 2018-03-16 17:51 | P.PNIM ---
Subjective Interval history: Follow-up for skin rash hypertension, diabetes, hyponatremia. Medicine team was reconsulted for the complaint of skin rash on the back of her neck. Patient seen and examined laying in bed, complaint of rash on her back, complaint is getting worse. Patient stated there was a "cream applied but is not getting better. Patient complains of slight itchiness, dry scaliness of the skin. Patient also complained of rash on both back of the knees. Denies any rash on any part of the body. Patient denies any pain, chest pain, or shortness of breath. Denies any abdominal pain, nausea or vomiting, diarrhea or constipation. Patient denies any fever or chills. Patient stated eating well and sleeping well. Patient stated wanted to go home. Physical Exam Vital signs: Vital Signs 03/15/18 17:43 03/15/18 18:17 03/16/18 06:53 Temperature 97.4 F L 97.4 F L 98.6 F Pulse Rate 100 H 100 H Respiratory Rate 16 16 16 Blood Pressure 116/73 116/73 94/50 L Pulse Oximetry 98 98 Intake & Output 03/15/18 03/16/18 03/16/18 18:59 06:59 18:59 Intake Total 2640 / 2640 0 / 0 720 / 720 Balance 2640 / 2640 0 / 0 720 / 720 Weight 59.1 kg Intake: Oral 2640 / 2640 0 / 0 720 / 720 Oral Supplement 0 / 0 Other: # Voids 1 Date of Last Bowel Movement 03/02/18 03/02/18 # Bowel Movements 0 Narrative: GENERAL: Well-developed, well-nourished, -Indian female in no acute distress SKIN: Warm and dry. Dry scaly skin on the back of the neck, and upper back. Bilateral back of the knee rash with skin peeling HEAD: Atraumatic. Normocephalic. EYES: Pupils equal and round. No scleral icterus. No injection or drainage. ENT: No nasal bleeding or discharge. Mucous membranes pink and moist. NECK: Trachea midline. No JVD. CARDIOVASCULAR: Regular rate and rhythm. RESPIRATORY: No accessory muscle use. Clear to auscultation. Breath sounds equal bilaterally. GASTROINTESTINAL: Abdomen round soft, non-tender, nondistended. Hepatic and splenic margins not palpable. MUSCULOSKELETAL: Extremities without clubbing, cyanosis, or edema. No obvious deformities. NEUROLOGICAL: Awake and alert. No obvious cranial nerve deficits. Motor grossly within normal limits. Five out of 5 muscle strength in the arms and legs. Normal speech. PSYCHIATRIC: Appropriate mood and affect; insight and judgment unreliable Results - Labs CBC & Chem 7: 02/19/18 07:22 03/05/18 08:50 Assessment and Plan - Assessment (1) Unspecified psychosis Code(s): F29 - Unspecified psychosis not due to a substance or known physiological condition (2) Paranoid type schizophrenia, chronic state with acute exacerbation Code(s): F20.0 - Paranoid schizophrenia Status: Acute (3) Hypertension Code(s): I10 - Essential (primary) hypertension Status: Acute (4) Seizure disorder Code(s): G40.909 - Epilepsy, unspecified, not intractable, without status epilepticus Status: Acute (5) Diabetes mellitus Code(s): E11.9 - Type 2 diabetes mellitus without complications Status: Acute (6) Acute renal insufficiency Code(s): N28.9 - Disorder of kidney and ureter, unspecified Status: Acute - Plan This patient is a 57 years old -Indian female with past medical history of hypertension, mitral valve prolapse, seizure, AKA, hyponatremia, new onset diabetes mellitus, low TSH, paranoid schizophrenia, psychosis and previous psychiatric hospitalization in 2017 with a very similar presentation in which the patient refused to eat, refused to talk and was brought under the [employer] act. According to the [employer] act patient has not been taking her medication for the past 15 days. Patient was allegedly laying out in the yard and refuses to come back in the house according to the family. In the emergency room patient is refusing to eat or drink, refusing blood work and refusing medications. Patient was admitted in the psychiatry for evaluation and treatment of paranoid type schizophrenia in a chronic state with acute exacerbation. Medicine team is consulted for medical management. Acute Renal Insufficiency/hypokalemia/hyponatremia/ hypocalcemia likely secondary to dehydration and patients refusal to eat on admission -Status post IV fluid administration -Patient have better p.o. intake this time -Monitor renal function Hypocalcemia/hypophosphatemia/elevated PTH/ likely primary hyperparathyroidism -likely r/t kidney disease, dehydration/acid base disturbance -PTH elevated likely in response to low calcium level or vice versa - Vit D unremarkable -replaced calcium and magnesium -monitor BMP Hypertension -Blood pressure in the low side -Not on any blood pressure medications -Encourage increase fluid intake -Asymptomatic Hx Seizure disorder/Epilepsy, unspecified, not intractable, without status epilepticus -patient previously noncompliance in taking medications -Continue valproic acid -monitor valproic level, monitor signs and symptoms Low TSH with previous history of low TSH/patient noncompliance with medication at home -patient with unknown family medical history of hypo-or hyperthyroidism -TSH level 0.172, Free T4 1.23, likely subclinical -monitor signs and symptoms Diabetes mellitus/Type 2 diabetes mellitus without complications -recently diagnosed in 2017, however unknown of patients compliance with medication treatment -Random blood glucose has been unremarkable -will consider monitor blood sugar with Accu Checks AC and HS and cover with insulin sliding scale if needed -HGB A1C 6.2 Paranoid type schizophrenia, chronic state with acute exacerbation unspecified Psychosis -Management with the Psychiatry Team Skin rash/dry scaly skin Likely fungus -Start clotrimazole/betamethasone cream -Monitor response Patient is now more compliant, and cooperative with the treatment DVT Prophylaxis: Patient ambulatory Code Status: Full code Discussed Condition With: Patient and nurse
[2018-03-16] MEDS: risperiDONE 3 MG ODT PO SCH (20:42)
[2018-03-17] MEDS: Lidocaine 5% Patch T-DERMAL SCH (08:12)
[2018-03-17] MEDS: Calcium Carbonate 500 MG Tablet PO SCH ×2 (08:13→21:15)
[2018-03-17] MEDS: risperiDONE 3 MG ODT PO SCH ×2 (08:14→21:15)
[2018-03-17] MEDS: Lactic Acid (Ammonium Lactate) 12% Lotion 225 GM Bottle TOPICAL SCH ×2 (08:14→21:15)
[2018-03-17 09:04] LABS: Anion Gap 7 meq/L (5-15); Blood Urea Nitrogen 19 mg/dL (7-18); Calcium 9.1 mg/dL (8.5-10.1); Carbon Dioxide 30.1 meq/L (21.0-32.0); Chloride 95 meq/L (98-107); Glomerular Filtration Rate Greater Than 89 mL/min (>89); Glucose,Random 101 mg/dL (74-106); Potassium 4.5 meq/L (3.5-5.1); Sodium 132 meq/L (136-145)
--- NOTE | 2018-03-17 09:43 | P.PNPSY ---
Subjective Remarks: Patient seen and examined. Chart reviewed. Case discussed with nursing staff who reports patient slept well but remains somewhat irritable. Case discussed in treatment team. On my examination today, the patient says that she slept poorly. She believes that the night nurse slipped something in her drink to make her sleep poorly. She denies any SI or HI. Eye contact is poor, and the patient seems more interested in doing the [employer] in the newspaper. Denies side effects from medications. No physical complaints. Vital Signs Temp Pulse Resp BP Pulse Ox 03/17/18 05:34 98.3 F 75 18 102/68 92 L Intake and Output 03/16/18 03/17/18 03/17/18 22:59 06:59 14:59 Intake Total 0 / 0 Balance 0 / 0 Intake: Oral 0 / 0 Other: # Voids 1 Date of Last Bowel Movement 03/02/18 Laboratory Results - last 24 hr 03/17/18 07:44 Sodium 132 L Potassium 4.5 Chloride 95 L Carbon Dioxide 30.1 Anion Gap 7 BUN 19 H Creatinine 0.68 Estimated GFR Greater than 89 Random Glucose 101 Calcium 9.1 Labs reviewed. Review of Systems All other systems reviewed negative except as stated in HPI Mental Status Examination Appearance: Appropriate Consciousness: Alert Orientation: Person, Place (At least) Motor Activity: Other (No abnormal motor movements noted) Speech: Unremarkable Language: Adequate Fund of Knowledge: Inadequate Attention and Concentration: Other (Fair) Memory: Unremarkable Mood: Irritable (Mild) Affect: Irritable Thought Process & Associations: Intact Thought Content: Appropriate Hallucination Type: None Delusion Type: Paranoid Suicidal Ideation: No Homicidal Ideation: No Insight: Poor Judgment: Poor Assessment and Plan - Assessment (1) Paranoid type schizophrenia, chronic state with acute exacerbation Code(s): F20.0 - Paranoid schizophrenia Status: Acute - Plan Plan: Continue Risperdal and Depakote as ordered. Continue to monitor on the inpatient unit. Hospitalist input appreciated. Continue other medications and care as ordered. Justification for Continued Inpatient Stay: Impairment in reality construction. High risk for decompensation in less restrictive environment. Discharge Planning: [facility] referral. Request Healthcare Surrogate/Guardian Advocate?: Yes
--- NOTE | 2018-03-17 13:38 | P.PNIM ---
Subjective Interval history: Follow-up for skin rash hypertension, diabetes, hyponatremia. Patient seen and examined, witting in the day room, eating her lunch, doing well. Patient stated rash feels a lot better and she is getting the cream. Patient stated itchiness improved, denies any burning or pain on the rash. Patient denies any pain, chest pain or SOB. Denies any abdominal pain, nausea, vomiting, diarrhea or constipation. Denies any fever or chills. Physical Exam Vital signs: Vital Signs 03/17/18 05:34 Temperature 98.3 F Pulse Rate 75 Respiratory Rate 18 Blood Pressure 102/68 Pulse Oximetry 92 L Intake & Output 03/16/18 03/17/18 03/17/18 18:59 06:59 18:59 Intake Total 720 / 720 0 / 0 Balance 720 / 720 0 / 0 Intake: Oral 720 / 720 0 / 0 Other: # Voids 1 Date of Last Bowel Movement 03/02/18 Narrative: GENERAL: Well-developed, well-nourished, -French female in no acute distress SKIN: Warm and dry. improving-Dry scaly skin on the back of the neck, and upper back. Bilateral back of the knee rash with skin peeling HEAD: Atraumatic. Normocephalic. EYES: Pupils equal and round. No scleral icterus. No injection or drainage. ENT: No nasal bleeding or discharge. Mucous membranes pink and moist. NECK: Trachea midline. No JVD. CARDIOVASCULAR: Regular rate and rhythm. RESPIRATORY: No accessory muscle use. Clear to auscultation. Breath sounds equal bilaterally. GASTROINTESTINAL: Abdomen round soft, non-tender, nondistended. Hepatic and splenic margins not palpable. MUSCULOSKELETAL: Extremities without clubbing, cyanosis, or edema. No obvious deformities. NEUROLOGICAL: Awake and alert. No obvious cranial nerve deficits. Motor grossly within normal limits. Five out of 5 muscle strength in the arms and legs. Normal speech. PSYCHIATRIC: Appropriate mood and affect; insight and judgment unreliable/poor. Results - Labs CBC & Chem 7: 02/19/18 07:22 03/17/18 07:44 Laboratory Results - last 24 hr 03/17/18 07:44 Sodium 132 L Potassium 4.5 Chloride 95 L Carbon Dioxide 30.1 Anion Gap 7 BUN 19 H Creatinine 0.68 Estimated GFR Greater than 89 Random Glucose 101 Calcium 9.1 Assessment and Plan - Assessment (1) Unspecified psychosis Code(s): F29 - Unspecified psychosis not due to a substance or known physiological condition (2) Paranoid type schizophrenia, chronic state with acute exacerbation Code(s): F20.0 - Paranoid schizophrenia Status: Acute (3) Hypertension Code(s): I10 - Essential (primary) hypertension Status: Acute (4) Seizure disorder Code(s): G40.909 - Epilepsy, unspecified, not intractable, without status epilepticus Status: Acute (5) Diabetes mellitus Code(s): E11.9 - Type 2 diabetes mellitus without complications Status: Acute (6) Acute renal insufficiency Code(s): N28.9 - Disorder of kidney and ureter, unspecified Status: Acute - Plan This patient is a 57 years old -French female with past medical history of hypertension, mitral valve prolapse, seizure, AKA, hyponatremia, new onset diabetes mellitus, low TSH, paranoid schizophrenia, psychosis and previous psychiatric hospitalization in 2017 with a very similar presentation in which the patient refused to eat, refused to talk and was brought under the [employer] act. According to the [employer] act patient has not been taking her medication for the past 15 days. Patient was allegedly laying out in the yard and refuses to come back in the house according to the family. In the emergency room patient is refusing to eat or drink, refusing blood work and refusing medications. Patient was admitted in the psychiatry for evaluation and treatment of paranoid type schizophrenia in a chronic state with acute exacerbation. Medicine team is consulted for medical management. Acute Renal Insufficiency/hypokalemia/hyponatremia/ hypocalcemia likely secondary to dehydration and patients refusal to eat on admission -Status post IV fluid administration -Patient have better p.o. intake this time -Creatinine 0.68 at baseline -Na in the low side 132, Add Na tabl -Monitor renal function Hypocalcemia/hypophosphatemia/elevated PTH/ likely primary hyperparathyroidism -likely r/t kidney disease, dehydration/acid base disturbance -PTH elevated likely in response to low calcium level or vice versa - Vit D unremarkable -replaced calcium and magnesium -monitor BMP Hypertension -Blood pressure in the low side -Not on any blood pressure medications -Encourage increase fluid intake -Asymptomatic Hx Seizure disorder/Epilepsy, unspecified, not intractable, without status epilepticus -patient previously noncompliance in taking medications -Continue valproic acid -monitor valproic level, monitor signs and symptoms Low TSH with previous history of low TSH/patient noncompliance with medication at home -patient with unknown family medical history of hypo-or hyperthyroidism -TSH level 0.172, Free T4 1.23, likely subclinical -monitor signs and symptoms Diabetes mellitus/Type 2 diabetes mellitus without complications -recently diagnosed in 2017, however unknown of patients compliance with medication treatment -Random blood glucose has been unremarkable -will consider monitor blood sugar with Accu Checks AC and HS and cover with insulin sliding scale if needed -HGB A1C 6.2 Paranoid type schizophrenia, chronic state with acute exacerbation unspecified Psychosis -Management with the Psychiatry Team Skin rash/dry scaly skin Likely fungus -improving dry scaly rash on the back of the neck area, now with lesser scales -continue clotrimazole/betamethasone cream -Monitor response Patient is now more compliant, and cooperative with the treatment DVT Prophylaxis: Patient ambulatory Code Status: full code Discussed Condition With: patient and nurse
[2018-03-17] MEDS: Sodium Chloride 1 GM Tablet PO SCH (16:46)
[2018-03-18] MEDS: Sodium Chloride 1 GM Tablet PO SCH (09:02)
[2018-03-18] MEDS: Lidocaine 5% Patch T-DERMAL SCH (09:02)
[2018-03-18] MEDS: risperiDONE 3 MG ODT PO SCH ×2 (09:02→21:00)
[2018-03-18] MEDS: Calcium Carbonate 500 MG Tablet PO SCH ×2 (09:02→21:00)
[2018-03-18] MEDS: Lactic Acid (Ammonium Lactate) 12% Lotion 225 GM Bottle TOPICAL SCH ×2 (09:03→21:00)
--- NOTE | 2018-03-18 11:19 | P.PNPSY ---
Subjective Remarks: Pt seen and discussed with staff. Chart reviewed. She was admitted for psychosis and paranoia and self-care deficits. 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 She has been irritable with nurses and staff. She refused medications last night, but was compliant today. Mental Status Examination Appearance: Appropriate Consciousness: Alert Orientation: Person, Place (At least) Motor Activity: Other (No abnormal motor movements noted) Speech: Unremarkable Language: Adequate Fund of Knowledge: Inadequate Attention and Concentration: Other (Fair) Memory: Unremarkable Mood: Irritable Affect: Irritable Thought Process & Associations: Intact Thought Content: Appropriate Hallucination Type: None Delusion Type: Paranoid Suicidal Ideation: No Suicidal Plan: No Suicidal Intention: No Homicidal Ideation: No Homicidal Plan: No Homicidal Intention: No Insight: Poor Judgment: Poor Assessment and Plan - Assessment (1) Paranoid type schizophrenia, chronic state with acute exacerbation Code(s): F20.0 - Paranoid schizophrenia Status: Acute - Plan Plan: Continue current tx plan Justification for Continued Inpatient Stay: psychosis Request Healthcare Surrogate/Guardian Advocate?: Yes
--- NOTE | 2018-03-18 15:55 | P.PNIM ---
Subjective Interval history: Follow-up for skin rash hypertension, diabetes, hyponatremia. Patient seen and examined today laying in bed stated doing well, stated her rash is a lot better. Patient denies any headache or dizziness, denies any pain, chest pain, or shortness of breath. Patient denies abdominal pain, nausea, vomiting, diarrhea or constipation. Patient denies any fever or chills. Physical Exam Vital signs: Vital Signs 03/17/18 17:34 03/18/18 06:00 Temperature 98.7 F 98.0 F Pulse Rate 70 72 Respiratory Rate 18 18 Blood Pressure 104/70 109/58 L Pulse Oximetry 94 L 94 L Intake & Output 03/17/18 03/18/18 03/18/18 18:59 06:59 18:59 Intake Total 480 / 480 Balance 480 / 480 Intake: Oral 480 / 480 Other: Date of Last Bowel Movement 03/02/18 Narrative: GENERAL: Well-developed, well-nourished, -[place]ian female in no acute distress SKIN: Warm and dry. improving skin on the back of the neck and upper back, no dryness, no scaliness. Bilateral back of the knee rash with, skin rash improving HEAD: Atraumatic. Normocephalic. EYES: Pupils equal and round. No scleral icterus. No injection or drainage. ENT: No nasal bleeding or discharge. Mucous membranes pink and moist. NECK: Trachea midline. No JVD. CARDIOVASCULAR: Regular rate and rhythm. RESPIRATORY: No accessory muscle use. Clear to auscultation. Breath sounds equal bilaterally. GASTROINTESTINAL: Abdomen round soft, non-tender, nondistended. Hepatic and splenic margins not palpable. MUSCULOSKELETAL: Extremities without clubbing, cyanosis, or edema. No obvious deformities. NEUROLOGICAL: Awake and alert. No obvious cranial nerve deficits. Motor grossly within normal limits. Five out of 5 muscle strength in the arms and legs. Normal speech. PSYCHIATRIC: Appropriate mood and affect; insight and judgment unreliable/poor. Results - Labs CBC & Chem 7: 02/19/18 07:22 03/17/18 07:44 Assessment and Plan - Assessment (1) Unspecified psychosis Code(s): F29 - Unspecified psychosis not due to a substance or known physiological condition (2) Paranoid type schizophrenia, chronic state with acute exacerbation Code(s): F20.0 - Paranoid schizophrenia Status: Acute (3) Hypertension Code(s): I10 - Essential (primary) hypertension Status: Acute (4) Seizure disorder Code(s): G40.909 - Epilepsy, unspecified, not intractable, without status epilepticus Status: Acute (5) Diabetes mellitus Code(s): E11.9 - Type 2 diabetes mellitus without complications Status: Acute (6) Acute renal insufficiency Code(s): N28.9 - Disorder of kidney and ureter, unspecified Status: Acute - Plan This patient is a 57 years old -[place] female with past medical history of hypertension, mitral valve prolapse, seizure, AKA, hyponatremia, new onset diabetes mellitus, low TSH, paranoid schizophrenia, psychosis and previous psychiatric hospitalization in 2017 with a very similar presentation in which the patient refused to eat, refused to talk and was brought under the [employer] act. According to the [place] act patient has not been taking her medication for the past 15 days. Patient was allegedly laying out in the yard and refuses to come back in the house according to the family. In the emergency room patient is refusing to eat or drink, refusing blood work and refusing medications. Patient was admitted in the psychiatry for evaluation and treatment of paranoid type schizophrenia in a chronic state with acute exacerbation. Medicine team is consulted for medical management. Acute Renal Insufficiency/hypokalemia/hyponatremia/ hypocalcemia likely secondary to dehydration and patients refusal to eat on admission -Status post IV fluid administration -Patient have better p.o. intake this time -Creatinine 0.68 at baseline -Na in the low side 132, Add Na tabs -Monitor sodium level, BMP Hypocalcemia/hypophosphatemia/elevated PTH/ likely primary hyperparathyroidism -likely r/t kidney disease, dehydration/acid base disturbance -PTH elevated likely in response to low calcium level or vice versa - Vit D unremarkable -replaced calcium and magnesium -monitor BMP Hypertension -Blood pressure in the low side -Not on any blood pressure medications -Encourage increase fluid intake -Asymptomatic Hx Seizure disorder/Epilepsy, unspecified, not intractable, without status epilepticus -patient previously noncompliance in taking medications -Continue valproic acid -monitor valproic level, monitor signs and symptoms Low TSH with previous history of low TSH/patient noncompliance with medication at home -patient with unknown family medical history of hypo-or hyperthyroidism -TSH level 0.172, Free T4 1.23, likely subclinical -monitor signs and symptoms Diabetes mellitus/Type 2 diabetes mellitus without complications -recently diagnosed in 2017, however unknown of patients compliance with medication treatment -Random blood glucose has been unremarkable -will consider monitor blood sugar with Accu Checks AC and HS and cover with insulin sliding scale if needed -HGB A1C 6.2 Paranoid type schizophrenia, chronic state with acute exacerbation unspecified Psychosis -Management with the Psychiatry Team Skin rash/dry scaly skin Likely fungus -improving dry scaly rash on the back of the neck area, now with lesser scales -continue clotrimazole/betamethasone cream -Monitor response Patient is now more compliant, and cooperative with the treatment DVT Prophylaxis: Patient ambulatory Patient is made medically stable at this time, will sign off. Medicine team will be available as necessary. Thank you for your consultation Code Status: Full code Discussed Condition With: Patient, and nurse
--- NOTE | 2018-03-19 08:18 | P.PNPSY ---
Subjective Remarks: Chart reviewed and discussed with nursing staff. Patient in common area eating breakfast. She is very irritable this morning. States, " I don't want to talk to anyone , I just want to go home." Staff report that she continues to be bizzare. She has a fixed delusion that she is five months and she has five babies to worry about. Sleep is poor. She is selective regarding who she will interact with. She will only take medications from female nurses and refuses medications from the male nurses. Review of Systems All other systems reviewed negative except as stated in HPI Mental Status Examination Appearance: Appropriate Consciousness: Alert Orientation: Person, Place (At least) Motor Activity: Other (No abnormal motor movements noted) Speech: Unremarkable Language: Adequate Fund of Knowledge: Inadequate Attention and Concentration: Other (Fair) Memory: Unremarkable Mood: Irritable Affect: Irritable Thought Process & Associations: Intact Thought Content: Appropriate Hallucination Type: None Delusion Type: Paranoid Suicidal Ideation: No Suicidal Plan: No Suicidal Intention: No Homicidal Ideation: No Homicidal Plan: No Homicidal Intention: No Insight: Poor Judgment: Poor Assessment and Plan - Assessment (1) Paranoid type schizophrenia, chronic state with acute exacerbation Code(s): F20.0 - Paranoid schizophrenia Status: Acute - Plan Plan: Continue current tx plan Justification for Continued Inpatient Stay: Moving patient to a less restrictive environment may result in her decompensation. Request Healthcare Surrogate/Guardian Advocate?: Yes
[2018-03-19] MEDS: Calcium Carbonate 500 MG Tablet PO SCH ×2 (09:25→21:08)
[2018-03-19] MEDS: Sodium Chloride 1 GM Tablet PO SCH (09:25)
[2018-03-19] MEDS: Lidocaine 5% Patch T-DERMAL SCH (09:25)
[2018-03-19] MEDS: risperiDONE 3 MG ODT PO SCH ×2 (09:25→21:08)
[2018-03-19] MEDS: Lactic Acid (Ammonium Lactate) 12% Lotion 225 GM Bottle TOPICAL SCH ×2 (09:25→21:08)
[2018-03-19 11:22] LABS: Anion Gap 9 meq/L (5-15); Blood Urea Nitrogen 16 mg/dL (7-18); Calcium 8.7 mg/dL (8.5-10.1); Chloride 100 meq/L (98-107); Glomerular Filtration Rate Greater Than 89 mL/min (>89); Glucose,Random 151 mg/dL (74-106); Potassium 4.6 meq/L (3.5-5.1); Sodium 135 meq/L (136-145)
[2018-03-20] MEDS: Calcium Carbonate 500 MG Tablet PO SCH ×2 (08:25→21:08)
[2018-03-20] MEDS: Sodium Chloride 1 GM Tablet PO SCH (08:25)
[2018-03-20] MEDS: risperiDONE 3 MG ODT PO SCH ×2 (08:25→21:08)
[2018-03-20] MEDS: Lactic Acid (Ammonium Lactate) 12% Lotion 225 GM Bottle TOPICAL SCH ×2 (08:27→23:18)
[2018-03-20] MEDS: Lidocaine 5% Patch T-DERMAL SCH (08:27)
--- NOTE | 2018-03-20 11:13 | P.PNPSY ---
Subjective Remarks: Patient seen and examined with nurse. Chart reviewed. Case discussed with nursing staff who reports patient is focused on discharge. Case discussed with counselor who reports that she has tried to assist the patient with some sort of discharge plan but has been rebuffed by the patient whenever she has attempted this. On my examination today, the patient tells me that her temperature this morning was 101 F, although in fact I see it was 98.6 F. She also insists that her "whole family" as well as others are "outside waiting on me" to pick her up, although there is no indication that this is in fact the case. She denies SI, HI or AVH. In the setting of her belief that she was febrile this morning, she does complain of feeling somewhat subjectively feverish but otherwise has no associated physical complaints or other physical complaints. She does not feel warm to the touch. Vital Signs Temp Pulse Resp BP Pulse Ox 03/20/18 05:37 98.6 F 70 16 97/55 L 92 L Intake and Output 03/19/18 03/20/18 03/20/18 22:59 06:59 14:59 Intake Total 480 / 480 0 / 0 Balance 480 / 480 0 / 0 Intake: Oral 480 / 480 0 / 0 Other: # Voids 2 # Urine Diapers 2 Weight 57.4 kg Labs reviewed. BMP from Tuesday noted. Review of Systems All other systems reviewed negative except as stated in HPI Mental Status Examination Appearance: Appropriate Consciousness: Alert Orientation: Person, Place (At least) Motor Activity: Other (No motoric abnormalities noted. No hand tremor, no cogwheeling, no dystonias, no dyskinesias noted.) Speech: Unremarkable Language: Adequate Fund of Knowledge: Inadequate Attention and Concentration: Other (Fair) Memory: Unremarkable Mood: Irritable Affect: Irritable (Somewhat blunted and irritable) Thought Process & Associations: Intact Thought Content: Appropriate Hallucination Type: None Delusion Type: Paranoid Suicidal Ideation: No Suicidal Plan: No Suicidal Intention: No Homicidal Ideation: No Homicidal Plan: No Homicidal Intention: No Insight: Poor Judgment: Poor Assessment and Plan - Assessment (1) Paranoid type schizophrenia, chronic state with acute exacerbation Code(s): F20.0 - Paranoid schizophrenia Status: Acute - Plan Plan: Continue Risperdal and Depakote as ordered. Patient has ongoing psychosis. If we do not see significant symptomatic improvement in relatively short order, may need to consider switching to yet another antipsychotic, perhaps a typical or clozapine. Hospitalist input noted and appreciated. Continue to monitor on the inpatient unit. Continue other medications and care as ordered. Justification for Continued Inpatient Stay: Impairment in reality construction. Risk for decompensation in less restrictive environment. Discharge Planning: [facility] psychiatric reading hospital referral Request Healthcare Surrogate/Guardian Advocate?: Yes
[2018-03-21] MEDS: Lactic Acid (Ammonium Lactate) 12% Lotion 225 GM Bottle TOPICAL SCH ×2 (09:14→21:17)
[2018-03-21] MEDS: risperiDONE 3 MG ODT PO SCH ×2 (09:14→20:39)
[2018-03-21] MEDS: Sodium Chloride 1 GM Tablet PO SCH (09:15)
[2018-03-21] MEDS: Calcium Carbonate 500 MG Tablet PO SCH ×2 (09:15→20:39)
[2018-03-21] MEDS: Lidocaine 5% Patch T-DERMAL SCH (09:15)
--- NOTE | 2018-03-21 14:33 | P.PNPSY ---
Subjective Remarks: Patient seen and examined with nurse. Chart reviewed. Case discussed with nursing staff who reports patient has been somewhat angry and seclusive to room today. She reportedly had an episode of emesis this morning, although nursing staff wonders if this could be related to an attempt at covert medication nonadherence. On my examination today, the patient reports that she had an episode of emesis this morning. She denies any associated physical symptoms and reports no ongoing nausea now. Her eye contact is poor. She is somewhat gruff and irritable. She denies side effects from medications. Case also discussed in treatment team. Vital Signs Temp Pulse Resp BP Pulse Ox 03/21/18 09:00 98.7 F 03/20/18 18:18 99.6 F 86 16 118/56 L 92 L Intake and Output 03/20/18 03/21/18 03/21/18 22:59 06:59 14:59 Intake Total 700 / 700 480 / 480 Balance 700 / 700 480 / 480 Intake: Oral 600 / 600 480 / 480 Oral Supplement 100 / 100 Other: Post Void Residual 2 # Voids 2 # Bowel Movements 0 Labs reviewed. Review of Systems All other systems reviewed negative except as stated in HPI Mental Status Examination Appearance: Appropriate Consciousness: Alert Orientation: Person, Place (At least) Motor Activity: Other (No abnormal motor movements noted) Speech: Unremarkable Language: Adequate Fund of Knowledge: Inadequate Attention and Concentration: Other (Fair) Memory: Unremarkable Mood: Irritable Affect: Irritable, Blunt Thought Process & Associations: Intact Thought Content: Appropriate Hallucination Type: None Delusion Type: Paranoid Suicidal Ideation: No Homicidal Ideation: No Insight: Poor Judgment: Poor Assessment and Plan - Assessment (1) Paranoid type schizophrenia, chronic state with acute exacerbation Code(s): F20.0 - Paranoid schizophrenia Status: Acute - Plan Plan: Continue current psychiatric medications as ordered. I will check an updated set of basic laboratories as well as a Depakote/ammonia level and we will monitor for any further emesis or associated symptoms. Continue to monitor on the inpatient unit. Continue other medications and care as ordered. Justification for Continued Inpatient Stay: High risk for decompensation in less restrictive environment. Discharge Planning: Barring some alternative safe discharge plan coming available, plan is for state psychiatric hospitalization. Request Healthcare Surrogate/Guardian Advocate?: Yes
--- NOTE | 2018-03-21 15:23 | P.TTN ---
- Patient Problems Problems: 1. Discharge planning 2. Medication compliance 3. Knowledge deficit 4. Lack of coping skills - Progress Toward Goals Provider Present: Dr. Jeffry Cespedes Provider Input: 03/21/2018; patient is stable on current med dosage, [facility] 03/14/2018; per doctor, although patient is a State referral, her medications are being adjusted to address patient's behavior. 03/03/18: Pt exhibiting no behaviors, she remains isolative , awaiting [facility] acceptance. 02/21/2018; Patient's are being titrated Nurse(s) Present: RN Nurse Input: 03/21/2018 patient requires coaching with mood, she is eating and taking her meds. 03/14/2018; patient require coaching with medication and redirection with mood due to aggressive behavior, she is taking her meds and eating meals. 02/21/2018; Patient is eating meals and taking medication, require coaching and prompting Psychiatric Counselors Present: Marbin Clancy Jr., [facility], Laian Mo, [facility] Psychiatric Therapist Input: 03/14/2018; counselor will revisit patient's contact to see if she is placeable with family or friends. 03/14/2018; counselor will staff transfer to [facility] with mechanical supervisor to continue state wait. As of 03/04/18: counselor is completing state packet is being completed relative limited options for this pt. 02/22/2018; counselor will be contacting patient' s [facility] to discuss propriate dc planning patient's son Tyson and patient's sister Marla Sewell Group Spec/RT/OT/NAIK Present: GUMARO Burger, Juan Guajardo, OT, GUMARO Villalobos Group Spec/RT/OT/NAIK Input: 03/21/2018; patient lacks motivation to participate with groups. 03/14/2018; patient lacks the emotional ability to appropriately participate with groups. 02/21/2018;this is continuing as of 03/03; lack of pt attendance or participation. patient has not participate with groups or activities Other Clinican Input: State packet initiated per MD, counselor as this is pt's best option. - Documentation Teaching Recipient: Patient
[2018-03-21 17:25] LABS: Baso % (Auto) 0.6 % (0.0-2.0); Eos # (Auto) 0.4 th/mm3 (0.0-0.4); Eos % (Auto) 5.3 % (0.0-4.0); Hematocrit 34.8 % (35.0-46.0); Hemoglobin 11.5 gm/dL (11.6-15.3); Lymph # (Auto) 2.4 th/mm3 (1.0-4.8); Lymph % (Auto) 29.8 % (9.0-44.0); Mean Corpuscular HGB Conc 33.1 % (32.0-36.0); Mean Corpuscular Hemoglobin 28.9 pg (27.0-34.0); Mean Corpuscular Volume 87.4 fL (80.0-100.0); Mean Platelet Volume 8.1 fL (7.0-11.0); Mono # (Auto) 0.7 th/mm3 (0.0-0.9); Mono % (Auto) 8.2 % (0.0-8.0); Neut # (Auto) 4.5 th/mm3 (1.8-7.7); Neut % (Auto) 56.1 % (16.0-70.0); Platelet Count 170 th/mm3 (150-450); Red Blood Count 3.98 mil/mm3 (4.00-5.30); Red Cell Distribution Width 15.1 % (11.6-17.2)
[2018-03-21 19:39] LABS: Alanine Aminotransferase 16 U/L (10-53); Albumin 3.3 g/dL (3.4-5.0); Anion Gap 10 meq/L (5-15); Aspartate Aminotransferase 15 U/L (15-37); Blood Urea Nitrogen 15 mg/dL (7-18); Calcium 8.2 mg/dL (8.5-10.1); Carbon Dioxide 25.5 meq/L (21.0-32.0); Chloride 94 meq/L (98-107); Glomerular Filtration Rate 82 mL/min (>89); Glucose,Random 192 mg/dL (74-106); Potassium 4.5 meq/L (3.5-5.1); Sodium 129 meq/L (136-145)
[2018-03-21 19:42] LABS: Alkaline Phosphatase 66 U/L (45-117); Total Protein 7.1 g/dL (6.4-8.2); Valproic Acid 84 mcg/mL (50-100)
[2018-03-22] MEDS: Sodium Chloride 1 GM Tablet PO SCH (09:07)
[2018-03-22] MEDS: risperiDONE 3 MG ODT PO SCH ×2 (09:07→20:48)
[2018-03-22] MEDS: Calcium Carbonate 500 MG Tablet PO SCH ×2 (09:07→20:49)
[2018-03-22] MEDS: Lactic Acid (Ammonium Lactate) 12% Lotion 225 GM Bottle TOPICAL SCH ×3 (09:09→20:49)
[2018-03-22] MEDS: Lidocaine 5% Patch T-DERMAL SCH (09:10)
--- NOTE | 2018-03-22 15:57 | P.PNPSY ---
Subjective Remarks: Patient seen and examined with nurse. Chart reviewed. Case discussed with nursing staff. Patient noted to be medication compliant with no further episodes of emesis. On my examination today, the patient presents as somewhat irritable and dysphoric. She denies SI, HI or AVH. Denies side effects from medications. No physical complaints. No reports of further emesis or GI distress. Vital Signs Temp Pulse Resp BP Pulse Ox 03/22/18 08:26 103 H 03/22/18 08:21 98.7 F 108 H 16 104/67 94 L 03/21/18 17:25 98.3 F 68 16 118/61 96 Intake and Output 03/22/18 03/22/18 03/22/18 06:59 14:59 22:59 Intake Total 340 / 340 360 / 360 Balance 340 / 340 360 / 360 Intake: Oral 240 / 240 360 / 360 Oral Supplement 100 / 100 Other: # Voids 2 Date of Last Bowel Movement 03/21/18 # Bowel Movements 0 Laboratory Results - last 24 hr 03/21/18 03/21/18 03/21/18 17:09 17:09 17:09 WBC 8.0 RBC 3.98 L Hgb 11.5 L Hct 34.8 L MCV 87.4 MCH 28.9 MCHC 33.1 RDW 15.1 Plt Count 170 MPV 8.1 Neut % (Auto) 56.1 Lymph % (Auto) 29.8 [place] % (Auto) 8.2 H Eos % (Auto) 5.3 H Baso % (Auto) 0.6 Neut # (Auto) 4.5 Lymph # (Auto) 2.4 [place] # (Auto) 0.7 Eos # (Auto) 0.4 Baso # (Auto) 0.0 WBC Differential . Differential Comment Auto diff final Sodium 129 L Potassium 4.5 Chloride 94 L Carbon Dioxide 25.5 Anion Gap 10 BUN 15 Creatinine 0.87 Estimated GFR 82 L Random Glucose 192 H Calcium 8.2 L Total Bilirubin 0.1 L AST 15 ALT 16 Alkaline Phosphatase 66 Ammonia 22 Total Protein 7.1 Albumin 3.3 L Valproic Acid 84 Labs reviewed. Mild normocytic anemia noted. Hyponatremia noted. Depakote level within the therapeutic range and ammonia level not elevated. Review of Systems All other systems reviewed negative except as stated in HPI Mental Status Examination Appearance: Appropriate Consciousness: Alert Orientation: Person, Place (At least) Motor Activity: Other (No motoric abnormalities noted) Speech: Unremarkable Language: Adequate Fund of Knowledge: Inadequate Attention and Concentration: Other (Fair) Memory: Unremarkable Mood: Irritable Affect: Irritable, Blunt Thought Process & Associations: Intact Thought Content: Appropriate Hallucination Type: None Delusion Type: Paranoid (Mild, ongoing) Suicidal Ideation: No Suicidal Plan: No Suicidal Intention: No Homicidal Ideation: No Homicidal Plan: No Homicidal Intention: No Insight: Poor Judgment: Poor Assessment and Plan - Assessment (1) Paranoid type schizophrenia, chronic state with acute exacerbation Code(s): F20.0 - Paranoid schizophrenia Status: Acute - Plan Plan: Continue current psychotropic medications as ordered. Check a BMP and CBC in the morning to follow-up hyponatremia and anemia, respectively. I will request the hospitalist to follow-up on these issues as well. Continue to monitor on the inpatient unit. Continue other medications and care as ordered. Justification for Continued Inpatient Stay: Risk for decompensation in less restrictive environment. Impairment in reality construction. Discharge Planning: [facility] hospital referral. Request Healthcare Surrogate/Guardian Advocate?: Yes
[2018-03-22 17:54] LABS: Baso % (Auto) 0.4 % (0.0-2.0); Eos # (Auto) 0.4 th/mm3 (0.0-0.4); Hematocrit 32.7 % (35.0-46.0); Hemoglobin 10.7 gm/dL (11.6-15.3); Lymph # (Auto) 2.1 th/mm3 (1.0-4.8); Lymph % (Auto) 27.6 % (9.0-44.0); Mean Corpuscular HGB Conc 32.7 % (32.0-36.0); Mean Corpuscular Hemoglobin 28.7 pg (27.0-34.0); Mean Corpuscular Volume 87.8 fL (80.0-100.0); Mean Platelet Volume 8.2 fL (7.0-11.0); Mono # (Auto) 0.8 th/mm3 (0.0-0.9); Mono % (Auto) 10.1 % (0.0-8.0); Neut # (Auto) 4.4 th/mm3 (1.8-7.7); Neut % (Auto) 56.9 % (16.0-70.0); Platelet Count 172 th/mm3 (150-450); Red Blood Count 3.73 mil/mm3 (4.00-5.30); Red Cell Distribution Width 15.1 % (11.6-17.2); White Blood Count 7.7 th/mm3 (4.0-11.0)
[2018-03-22 18:06] LABS: Calcium 7.8 mg/dL (8.5-10.1); Carbon Dioxide 25.2 meq/L (21.0-32.0); Potassium 4.3 meq/L (3.5-5.1)
--- NOTE | 2018-03-22 18:53 | P.PNIM ---
Subjective Interval history: Pt seen today for reevaluation of mild worsening hyponatremia. Patient herself denies any new complaints.. Physical Exam Vital signs: Vital Signs 03/22/18 08:21 03/22/18 08:26 Temperature 98.7 F Pulse Rate 108 H 103 H Respiratory Rate 16 Blood Pressure 104/67 Pulse Oximetry 94 L Intake & Output 03/21/18 03/22/18 03/22/18 18:59 06:59 18:59 Intake Total 960 / 960 340 / 340 1680 / 1680 Balance 960 / 960 340 / 340 1680 / 1680 Intake: Oral 960 / 960 240 / 240 1680 / 1680 Oral Supplement 100 / 100 Other: # Voids 1 2 Date of Last Bowel Movement 03/21/18 03/21/18 # Bowel Movements 0 Narrative: Eating at the table at this time Awake and alert No acute distress Unlabored breathing Clear lungs bilaterally heart sounds regular rate rhythm no murmurs No lower extremity edema Results - Labs CBC & Chem 7: 03/23/18 08:33 03/23/18 08:33 Laboratory Results - last 24 hr 03/21/18 03/22/18 03/22/18 17:09 17:34 17:34 WBC 7.7 RBC 3.73 L Hgb 10.7 L Hct 32.7 L MCV 87.8 MCH 28.7 MCHC 32.7 RDW 15.1 Plt Count 172 MPV 8.2 Neut % (Auto) 56.9 Lymph % (Auto) 27.6 [place] % (Auto) 10.1 H Eos % (Auto) 5.0 H Baso % (Auto) 0.4 Neut # (Auto) 4.4 Lymph # (Auto) 2.1 [place] # (Auto) 0.8 Eos # (Auto) 0.4 Baso # (Auto) 0.0 WBC Differential . Differential Comment Auto diff final Sodium 129 L 131 L Potassium 4.5 4.3 Chloride 94 L 97 L Carbon Dioxide 25.5 25.2 Anion Gap 10 9 BUN 15 16 Creatinine 0.87 0.96 Estimated GFR 82 L 73 L Random Glucose 192 H 185 H Calcium 8.2 L 7.8 L Total Bilirubin 0.1 L AST 15 ALT 16 Alkaline Phosphatase 66 Total Protein 7.1 Albumin 3.3 L Valproic Acid 84 Assessment and Plan - Assessment (1) Unspecified psychosis Code(s): F29 - Unspecified psychosis not due to a substance or known physiological condition (2) Paranoid type schizophrenia, chronic state with acute exacerbation Code(s): F20.0 - Paranoid schizophrenia Status: Acute (3) Hypertension Code(s): I10 - Essential (primary) hypertension Status: Acute (4) Seizure disorder Code(s): G40.909 - Epilepsy, unspecified, not intractable, without status epilepticus Status: Acute (5) Diabetes mellitus Code(s): E11.9 - Type 2 diabetes mellitus without complications Status: Acute (6) Acute renal insufficiency Code(s): N28.9 - Disorder of kidney and ureter, unspecified Status: Acute - Plan This patient is a 57 years old -[place] female with past medical history of hypertension, mitral valve prolapse, seizure, AKA, hyponatremia, new onset diabetes mellitus, low TSH, paranoid schizophrenia, psychosis and previous psychiatric hospitalization in 2017 with a very similar presentation in which the patient refused to eat, refused to talk and was brought under the [employer] act. According to the [employer] act patient has not been taking her medication for the past 15 days. Patient was allegedly laying out in the yard and refuses to come back in the house according to the family. In the emergency room patient is refusing to eat or drink, refusing blood work and refusing medications. Patient was admitted in the psychiatry for evaluation and treatment of paranoid type schizophrenia in a chronic state with acute exacerbation. Medicine is now following peripherally for electrolyte abnormalities hyponatremia -likely secondary to dehydration and patients refusal to eat on admission, rechecked Na level today shows fluctuations -Is likely going to be mild and chronic with some fluctuations -Na tabs Hypocalcemia/hypophosphatemia/elevated PTH/ likely primary hyperparathyroidism -likely r/t kidney disease, dehydration/acid base disturbance -PTH elevated likely in response to low calcium level or vice versa - Vit D unremarkable -replaced calcium and magnesium Hx Seizure disorder/ -patient previously noncompliance in taking medications -Continue valproic acid Low TSH with previous history of low TSH/patient noncompliance with medication at home -patient with unknown family medical history of hypo-or hyperthyroidism -TSH level 0.172, Free T4 1.23, likely subclinical -monitor signs and symptoms Diabetes mellitus/Type 2 diabetes mellitus without complications -recently diagnosed in 2017, however unknown of patients compliance with medication treatment -Random blood glucose has been unremarkable -will consider monitor blood sugar with Accu Checks AC and HS and cover with insulin sliding scale if needed -HGB A1C 6.2 Paranoid type schizophrenia, chronic state with acute exacerbation unspecified Psychosis -Management with the Psychiatry Team Skin rash/dry scaly skin Likely fungus -continue clotrimazole/betamethasone cream
[2018-03-22] MEDS: Melatonin 5 MG Tablet PO PRN (20:54)
[2018-03-23] MEDS: Calcium Carbonate 500 MG Tablet PO SCH ×2 (09:14→21:27)
[2018-03-23] MEDS: Sodium Chloride 1 GM Tablet PO SCH (09:14)
[2018-03-23] MEDS: risperiDONE 3 MG ODT PO SCH ×2 (09:14→21:27)
[2018-03-23] MEDS: Lactic Acid (Ammonium Lactate) 12% Lotion 225 GM Bottle TOPICAL SCH ×2 (09:15→21:28)
[2018-03-23] MEDS: Lidocaine 5% Patch T-DERMAL SCH (09:15)
[2018-03-23 09:44] LABS: Anion Gap 9 meq/L (5-15); Blood Urea Nitrogen 15 mg/dL (7-18); Calcium 8.9 mg/dL (8.5-10.1); Carbon Dioxide 27.9 meq/L (21.0-32.0); Chloride 95 meq/L (98-107); Glomerular Filtration Rate Greater Than 89 mL/min (>89); Glucose,Random 78 mg/dL (74-106); Potassium 4.3 meq/L (3.5-5.1); Sodium 132 meq/L (136-145)
[2018-03-23 09:53] LABS: Baso % (Auto) 0.5 % (0.0-2.0); Eos # (Auto) 0.3 th/mm3 (0.0-0.4); Hematocrit 37.5 % (35.0-46.0); Lymph # (Auto) 2.1 th/mm3 (1.0-4.8); Lymph % (Auto) 30.9 % (9.0-44.0); Mean Corpuscular Hemoglobin 28.2 pg (27.0-34.0); Mean Corpuscular Volume 88.2 fL (80.0-100.0); Mean Platelet Volume 9.4 fL (7.0-11.0); Mono # (Auto) 0.6 th/mm3 (0.0-0.9); Neut # (Auto) 3.7 th/mm3 (1.8-7.7); Neut % (Auto) 54.6 % (16.0-70.0); Platelet Count 147 th/mm3 (150-450); Red Blood Count 4.25 mil/mm3 (4.00-5.30); Red Cell Distribution Width 15.5 % (11.6-17.2); White Blood Count 6.8 th/mm3 (4.0-11.0)
--- NOTE | 2018-03-23 12:04 | P.PNPSY ---
Subjective Remarks: Patient seen and examined with nurse. Chart reviewed. Case discussed with nursing staff. No behavioral issues noted overnight. On my examination today, the patient remains somewhat irritable. She continues to insist that her gun mechanic, Ms. Meza, is waiting for her to be discharged so she can go stay with Ms. Meza. She says "she's been out there waiting for me for the longest time." However, there is no indication that this has basis in reality. She denies any nausea or other physical symptoms. She denies any side effects from medications. Vital Signs Temp Pulse Resp BP Pulse Ox 03/23/18 05:40 98.3 F 65 18 113/58 L 93 L Intake and Output 03/22/18 03/23/18 03/23/18 22:59 06:59 14:59 Intake Total 1320 / 1320 0 / 0 Balance 1320 / 1320 0 / 0 Intake: Oral 1320 / 1320 0 / 0 Other: # Voids 1 Date of Last Bowel Movement 03/23/18 Weight 60.2 kg Laboratory Results - last 24 hr 03/22/18 03/22/18 03/23/18 17:34 17:34 08:33 WBC 7.7 6.8 RBC 3.73 L 4.25 Hgb 10.7 L 12.0 Hct 32.7 L 37.5 MCV 87.8 88.2 MCH 28.7 28.2 MCHC 32.7 32.0 RDW 15.1 15.5 Plt Count 172 147 L MPV 8.2 9.4 Neut % (Auto) 56.9 54.6 Lymph % (Auto) 27.6 30.9 [place] % (Auto) 10.1 H 9.0 H Eos % (Auto) 5.0 H 5.0 H Baso % (Auto) 0.4 0.5 Neut # (Auto) 4.4 3.7 Lymph # (Auto) 2.1 2.1 [place] # (Auto) 0.8 0.6 Eos # (Auto) 0.4 0.3 Baso # (Auto) 0.0 0.0 WBC Differential . . Differential Comment Auto diff final Auto diff final Sodium 131 L Potassium 4.3 Chloride 97 L Carbon Dioxide 25.2 Anion Gap 9 BUN 16 Creatinine 0.96 Estimated GFR 73 L Random Glucose 185 H Calcium 7.8 L 03/23/18 08:33 WBC RBC Hgb Hct MCV MCH MCHC RDW Plt Count MPV Neut % (Auto) Lymph % (Auto) [place] % (Auto) Eos % (Auto) Baso % (Auto) Neut # (Auto) Lymph # (Auto) [place] # (Auto) Eos # (Auto) Baso # (Auto) WBC Differential Differential Comment Sodium 132 L Potassium 4.3 Chloride 95 L Carbon Dioxide 27.9 Anion Gap 9 BUN 15 Creatinine 0.75 Estimated GFR Greater than 89 Random Glucose 78 D Calcium 8.9 D Labs reviewed. Ongoing mild hyponatremia noted. Anemia improved today. Microbiology 03/23/18 08:26 Stool Occult Blood (MEHDI) - Final Stool Hemoccult negative Review of Systems All other systems reviewed negative except as stated in HPI Mental Status Examination Appearance: Appropriate Consciousness: Alert Orientation: Person, Place (At least) Motor Activity: Other (No abnormal motor movements noted) Speech: Unremarkable Language: Adequate Fund of Knowledge: Inadequate Attention and Concentration: Other (Fair) Memory: Unremarkable Mood: Irritable Affect: Irritable (Mild), Blunt Thought Process & Associations: Intact Thought Content: Appropriate Hallucination Type: None Delusion Type: Paranoid (Mild) Suicidal Ideation: No Homicidal Ideation: No Insight: Poor Judgment: Poor Assessment and Plan - Assessment (1) Paranoid type schizophrenia, chronic state with acute exacerbation Code(s): F20.0 - Paranoid schizophrenia Status: Acute - Plan Plan: Continue current psychiatric medications as ordered. Hospitalist input noted and appreciated. Continue other medications and care as ordered. Continue to monitor on the inpatient unit. Justification for Continued Inpatient Stay: Risk for decompensation in less restrictive environment. Discharge Planning: [facility] referral. Request Healthcare Surrogate/Guardian Advocate?: Yes
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
[2018-03-24] MEDS: Calcium Carbonate 500 MG Tablet PO SCH ×2 (10:50→21:58)
[2018-03-24] MEDS: risperiDONE 3 MG ODT PO SCH ×2 (10:50→21:58)
[2018-03-24] MEDS: Sodium Chloride 1 GM Tablet PO SCH (10:50)
[2018-03-24] MEDS: Lidocaine 5% Patch T-DERMAL SCH (10:51)
[2018-03-24] MEDS: Lactic Acid (Ammonium Lactate) 12% Lotion 225 GM Bottle TOPICAL SCH ×2 (10:53→21:59)
--- NOTE | 2018-03-24 12:54 | P.TTN ---
- Patient Problems Problems: 1. Discharge planning 2. Medication compliance 3. Knowledge deficit 4. Lack of coping skills - Progress Toward Goals Provider Present: Dr. Jeffry Cespedes Provider Input: 03/24/2018; patient has no med adjustment, continues to be a state wait, counselor will look into family placement options. 03/21/2018; patient is stable on current med dosage, [facility] 03/14/2018; per doctor, although patient is a State referral, her medications are being adjusted to address patient's behavior. 03/03/18: Pt exhibiting no behaviors, she remains isolative, [facility]. 02/21/2018; Patient's are being titrated Nurse(s) Present: RN Nurse Input: 03/24/2018; patient is taking her meds, eating meals and attending groups/activities. 03/21/2018 patient requires coaching with mood, she is eating and taking her meds. 03/14/2018; patient require coaching with medication and redirection with mood due to aggressive behavior, she is taking her meds and eating meals. 02/21/2018; Patient is eating meals and taking medication, require coaching and prompting Psychiatric Counselors Present: Marbin Clancy Jr., [facility], Laina Mo, [facility] Psychiatric Therapist Input: 03/24/2018; counselor continues to make contact with family members for possible state hospital diversion. Thus far the contact numbers provided by patient has been not been good, (no family return or answer calls). 03/14/2018; counselor will revisit patient's contact to see if she is placeable with family or friends. 03/14/2018; counselor will staff transfer to [facility] with cabin equipment supervisor to continue state wait. As of 03/04/18: counselor is completing state packet is being completed relative limited options for this pt. 02/22/2018; counselor will be contacting patient's NOK to discuss propriate dc planning patient's son Tyson and patient' s sister Marla Sewell Group Spec/RT/OT/NAIK Present: GUMARO Burger, Juan Guajardo, OT, GUMARO Villalobos Group Spec/RT/OT/NAIK Input: 03/24/2018; patient has been participatting with groups and appears to be enaging with peers with positive interaction,. 2017; patient lacks motivation to participate with groups. 03/14/2018; patient lacks the emotional ability to appropriately participate with groups. 2017;this is continuing as of 03/03/18; lack of pt attendance or participation. patient has not participate with groups or activities Other Clinican Input: State packet initiated per MD, counselor as this is pt's best option. - Documentation Teaching Recipient: Patient
--- NOTE | 2018-03-24 13:02 | P.PNPSY ---
Subjective Remarks: Patient seen and examined. Chart reviewed. Case discussed with staff. Case discussed in treatment team. Therapists note that the patient is out in the milieu somewhat more and is social with a select peer. On my examination today , the patient remains somewhat delusional on paranoid themes. She is more pleasant and cooperative overall. She says that she might be able to stay with her son Mulugeta and provides a number, , which I have forwarded to the counselor. No side effects from medications. No physical complaints. Vital Signs Temp Pulse Resp BP Pulse Ox 03/24/18 06:00 97.6 F 84 17 117/65 93 L 03/23/18 17:19 98.7 F 72 18 123/65 98 Intake and Output 03/24/18 03/24/18 03/24/18 06:59 14:59 22:59 Intake Total 0 / 0 Balance 0 / 0 Intake: Oral 0 / 0 Other: # Voids 2 Labs reviewed Review of Systems All other systems reviewed negative except as stated in HPI Mental Status Examination Appearance: Appropriate Consciousness: Alert Orientation: Person, Place (At least) Motor Activity: Other (No abnormal motor movements noted) Speech: Unremarkable Language: Adequate Fund of Knowledge: Inadequate Attention and Concentration: Other (Fair) Memory: Unremarkable Mood: Other (Calm) Affect: Blunt Thought Process & Associations: Intact Thought Content: Appropriate Hallucination Type: None Delusion Type: Paranoid (Mild) Suicidal Ideation: No Homicidal Ideation: No Insight: Poor Judgment: Poor Assessment and Plan - Assessment (1) Paranoid type schizophrenia, chronic state with acute exacerbation Code(s): F20.0 - Paranoid schizophrenia Status: Acute - Plan Plan: Continue current psychiatric medications as ordered. Continue to monitor on the inpatient unit. Hospitalist input noted and appreciated. Continue other medications and care as ordered. Justification for Continued Inpatient Stay: High risk for decompensation in less restrictive environment. Discharge Planning: Counselor informs me that patient is #[phone] on the [facility] wait list. Request Healthcare Surrogate/Guardian Advocate?: Yes
--- NOTE | 2018-03-24 14:10 | P.PN ---
Subjective Interval history: Patient is seen lying in bed. She tells me that she continues to be very thirsty. Nursing reports no adverse events. Physical Exam Vital signs: Vital Signs 03/23/18 17:19 03/24/18 06:00 Temperature 98.7 F 97.6 F Pulse Rate 72 84 Respiratory Rate 18 17 Blood Pressure 123/65 117/65 Pulse Oximetry 98 93 L Intake & Output 03/23/18 03/24/18 03/24/18 18:59 06:59 18:59 Intake Total 1200 / 1200 960 / 960 Balance 1200 / 1200 960 / 960 Intake: Oral 1200 / 1200 960 / 960 Other: # Voids 3 2 Date of Last Bowel Movement 03/23/18 # Bowel Movements 1 Narrative: GENERAL: Well-nourished, well-developed adult female in no obvious distress. SKIN: Warm and dry. HEAD: Atraumatic. Normocephalic. CARDIOVASCULAR: Regular rate and rhythm. RESPIRATORY: No accessory muscle use. Clear to auscultation. Breath sounds equal bilaterally. GASTROINTESTINAL: Abdomen soft, non-tender, non- distended. Positive bowel sounds. MUSCULOSKELETAL: Extremities without clubbing, cyanosis, or edema. No obvious deformities. NEUROLOGICAL: Awake and alert. No obvious cranial nerve deficits. Motor grossly within normal limits. Normal speech. Results - Labs CBC & Chem 7: 03/23/18 08:33 03/23/18 08:33 Microbiology 03/23/18 08:26 Stool Stool Occult Blood (MEHDI) - Final Hemoccult negative Assessment and Plan - Assessment (1) Unspecified psychosis Code(s): F29 - Unspecified psychosis not due to a substance or known physiological condition (2) Paranoid type schizophrenia, chronic state with acute exacerbation Code(s): F20.0 - Paranoid schizophrenia Status: Acute (3) Hypertension Code(s): I10 - Essential (primary) hypertension Status: Acute (4) Seizure disorder Code(s): G40.909 - Epilepsy, unspecified, not intractable, without status epilepticus Status: Acute (5) Diabetes mellitus Code(s): E11.9 - Type 2 diabetes mellitus without complications Status: Acute (6) Acute renal insufficiency Code(s): N28.9 - Disorder of kidney and ureter, unspecified Status: Acute - Plan This patient is a 57 years old -[place]ov[place] female with past medical history of hypertension, mitral valve prolapse, seizure, AKA, hyponatremia, new onset diabetes mellitus, low TSH, paranoid schizophrenia, psychosis and previous psychiatric hospitalization in 2017 with a very similar presentation in which the patient refused to eat, refused to talk and was brought under the Summers act. According to the Summers act patient has not been taking her medication for the past 15 days. Patient was allegedly laying out in the yard and refuses to come back in the house according to the family. In the emergency room patient is refusing to eat or drink, refusing blood work and refusing medications. Patient was admitted in the psychiatry for evaluation and treatment of paranoid type schizophrenia in a chronic state with acute exacerbation. Medicine is now following peripherally for electrolyte abnormalities hyponatremia -likely secondary to dehydration and patients refusal to eat on admission, rechecked Na level today shows fluctuations -Is likely going to be mild and chronic with some fluctuations due to mental condition/medications -Na tabs; avoid open access to water Hypocalcemia/hypophosphatemia/elevated PTH/ likely primary hyperparathyroidism -likely r/t kidney disease, dehydration/acid base disturbance -PTH elevated likely in response to low calcium level or vice versa - Vit D unremarkable -replaced calcium and magnesium Hx Seizure disorder/ -patient previously noncompliance in taking medications -Continue valproic acid Low TSH with previous history of low TSH/patient noncompliance with medication at home -patient with unknown family medical history of hypo-or hyperthyroidism -TSH level 0.172, Free T4 1.23, likely subclinical -monitor signs and symptoms Diabetes mellitus/Type 2 diabetes mellitus without complications -recently diagnosed in 2017, however unknown of patients compliance with medication treatment -Random blood glucose has been unremarkable -will consider monitor blood sugar with Accu Checks AC and HS and cover with insulin sliding scale if needed -HGB A1C 6.2 Paranoid type schizophrenia, chronic state with acute exacerbation unspecified Psychosis -Management with the Psychiatry Team Skin rash/dry scaly skin Likely fungus -continue clotrimazole/betamethasone cream Patient is medically stable. Hospitalist service will sign off at this time. Please reconsult if needed.
[2018-03-25 07:38] LABS: Anion Gap 5 meq/L (5-15); Blood Urea Nitrogen 15 mg/dL (7-18); Calcium 8.4 mg/dL (8.5-10.1); Carbon Dioxide 31.7 meq/L (21.0-32.0); Chloride 94 meq/L (98-107); Glomerular Filtration Rate Greater Than 89 mL/min (>89); Glucose,Random 68 mg/dL (74-106); Potassium 4.6 meq/L (3.5-5.1); Sodium 131 meq/L (136-145)
[2018-03-25] MEDS: risperiDONE 3 MG ODT PO SCH ×2 (08:26→20:24)
[2018-03-25] MEDS: Sodium Chloride 1 GM Tablet PO SCH (08:26)
[2018-03-25] MEDS: Calcium Carbonate 500 MG Tablet PO SCH ×2 (08:26→20:24)
[2018-03-25] MEDS: Lidocaine 5% Patch T-DERMAL SCH (08:27)
[2018-03-25] MEDS: Lactic Acid (Ammonium Lactate) 12% Lotion 225 GM Bottle TOPICAL SCH ×2 (08:28→22:30)
--- NOTE | 2018-03-25 12:45 | P.PNPSY ---
Subjective Remarks: Patient seen and examined with nurse. Chart reviewed. Case discussed with nursing staff who reports patient's mood is improved and she is compliant with therapy. On my examination today, I find the patient sitting in the day area. She wishes to conduct the interview there. Affect is brighter and less irritable, and she even smiles at one point on my evaluation today. She denies any audiovisual hallucinations. No psychotic material. No SI or HI. Denies side effects from medications. No physical complaints. Vital Signs Temp Pulse Resp BP Pulse Ox 03/24/18 18:15 99.2 F 106 H 15 132/73 96 Intake and Output 03/24/18 03/25/18 03/25/18 22:59 06:59 14:59 Intake Total 1800 / 1800 360 / 360 Balance 1800 / 1800 360 / 360 Intake: Oral 1800 / 1800 360 / 360 Other: # Voids 3 Laboratory Results - last 24 hr 03/25/18 05:19 Sodium 131 L Potassium 4.6 Chloride 94 L Carbon Dioxide 31.7 Anion Gap 5 BUN 15 Creatinine 0.55 Estimated GFR Greater than 89 Random Glucose 68 L Calcium 8.4 L Labs reviewed. Sodium oscillating within recent range. Review of Systems All other systems reviewed negative except as stated in HPI Mental Status Examination Appearance: Appropriate Consciousness: Alert Orientation: Person, Place (At least) Motor Activity: Other (No motor abnormalities noted.) Speech: Unremarkable Language: Adequate Fund of Knowledge: Inadequate Attention and Concentration: Other (Fair) Memory: Unremarkable Mood: Appropriate Affect: Appropriate Thought Process & Associations: Intact Thought Content: Appropriate Hallucination Type: None Delusion Type: None Suicidal Ideation: No Suicidal Plan: No Suicidal Intention: No Homicidal Ideation: No Homicidal Plan: No Homicidal Intention: No Insight: Poor Judgment: Poor Assessment and Plan - Assessment (1) Paranoid type schizophrenia, chronic state with acute exacerbation Code(s): F20.0 - Paranoid schizophrenia Status: Acute - Plan Plan: Continue current psychiatric medications as ordered. Patient does seem improved today. Continue to monitor on the inpatient unit. Continue other meds and care as ordered. Justification for Continued Inpatient Stay: Risk for decompensation in less restrictive setting. Discharge Planning: [facility] hospital referral unless other safe discharge plan can be arranged. Request Healthcare Surrogate/Guardian Advocate?: Yes
--- NOTE | 2018-03-25 16:35 | P.PN ---
Subjective Interval history: Hospitalist service reconsulted due to patient complaint of nausea, vomiting and diarrhea. Patient seen in room where she has an emesis basin with a small amount of [id number] in color. She also reports that she has had several episodes of diarrhea. Is very nauseous. She is also complaining of some fevers and chills. Physical Exam Vital signs: Vital Signs 03/24/18 18:15 Temperature 99.2 F Pulse Rate 106 H Respiratory Rate 15 Blood Pressure 132/73 Pulse Oximetry 96 Intake & Output 03/24/18 03/25/18 03/25/18 18:59 06:59 18:59 Intake Total 1800 / 1800 360 / 360 Balance 1800 / 1800 360 / 360 Intake: Oral 1800 / 1800 360 / 360 Other: # Voids 3 Narrative: GENERAL: Well-nourished, well-developed adult female in no obvious distress. SKIN: Warm and dry. HEAD: Atraumatic. Normocephalic. CARDIOVASCULAR: Regular rate and rhythm. RESPIRATORY: No accessory muscle use. Clear to auscultation. Breath sounds equal bilaterally. GASTROINTESTINAL: Abdomen soft, non-tender, non- distended. Positive bowel sounds. MUSCULOSKELETAL: Extremities without clubbing, cyanosis, or edema. No obvious deformities. NEUROLOGICAL: Awake and alert. No obvious cranial nerve deficits. Motor grossly within normal limits. Normal speech. Results - Labs CBC & Chem 7: 03/23/18 08:33 03/25/18 05:19 Laboratory Results - last 24 hr 03/25/18 05:19 Sodium 131 L Potassium 4.6 Chloride 94 L Carbon Dioxide 31.7 Anion Gap 5 BUN 15 Creatinine 0.55 Estimated GFR Greater than 89 Random Glucose 68 L Calcium 8.4 L Assessment and Plan - Assessment (1) Unspecified psychosis Code(s): F29 - Unspecified psychosis not due to a substance or known physiological condition (2) Paranoid type schizophrenia, chronic state with acute exacerbation Code(s): F20.0 - Paranoid schizophrenia Status: Acute (3) Hypertension Code(s): I10 - Essential (primary) hypertension Status: Acute (4) Seizure disorder Code(s): G40.909 - Epilepsy, unspecified, not intractable, without status epilepticus Status: Acute (5) Diabetes mellitus Code(s): E11.9 - Type 2 diabetes mellitus without complications Status: Acute (6) Acute renal insufficiency Code(s): N28.9 - Disorder of kidney and ureter, unspecified Status: Acute - Plan This patient is a 57 years old -[place] female with past medical history of hypertension, mitral valve prolapse, seizure, AKA, hyponatremia, new onset diabetes mellitus, low TSH, paranoid schizophrenia, psychosis and previous psychiatric hospitalization in 2017 with a very similar presentation in which the patient refused to eat, refused to talk and was brought under the Summers act. According to the Summers act patient has not been taking her medication for the past 15 days. Patient was allegedly laying out in the yard and refuses to come back in the house according to the family. In the emergency room patient is refusing to eat or drink, refusing blood work and refusing medications. Patient was admitted in the psychiatry for evaluation and treatment of paranoid type schizophrenia in a chronic state with acute exacerbation. Medicine is now following peripherally for N/V Acute problems: Paranoid type schizophrenia, chronic state with acute exacerbation unspecified Psychosis -Management with the Psychiatry Team Nausea and vomiting with diarrhea -Slight temperature 99. Likely viral in nature. -Zofran for nausea -Supportive care; fluids and rest -Monitor BMP due to history of hyponatremia and for hypokalemia Prior and chronic problems: hyponatremia -likely secondary to dehydration and patients refusal to eat on admission, rechecked Na level today shows fluctuations -Is likely going to be mild and chronic with some fluctuations due to mental condition/medications -Na tabs; avoid open access to water Diabetes mellitus/Type 2 diabetes mellitus without complications -recently diagnosed in 2017, however unknown of patients compliance with medication treatment -Random blood glucose has been unremarkable -will consider monitor blood sugar with Accu Checks AC and HS and cover with insulin sliding scale if needed -HGB A1C 6.2 DVT prophylaxis: Patient is ambulatory Thank you for this consult. We look forward to assisting with the medical management of this patient.
--- NOTE | 2018-03-25 23:15 | ECG ---
Date Performed: 03/25/2018 Time Performed: 16:39:07 PTAGE: 57 years EKG: Sinus rhythm WITH SHORT ME INTERVAL BORDERLINE ECG PREVIOUS TRACING : 02/21/2018 15.50 Since the previous tracing, no significant change noted DOCTOR: Emery Mahoney Interpretating Date/Time 03/25/2018 23:15:20
--- NOTE | 2018-03-26 08:10 | P.PNPSY ---
Subjective Remarks: Chart reviewed and discussed with nursing staff. Patient is in the day room eating breakfast. Yesterday she was vomiting and had diarrhea. Patient states that the diarrhea has subsided and her appetite has returned. She denies any auditory or visual hallucinations. Affect is little brighter as she even smiled when during the our interaction. No SI/HI. Review of Systems All other systems reviewed negative except as stated in HPI Mental Status Examination Appearance: Appropriate Consciousness: Alert Orientation: Person, Place (At least) Motor Activity: Other (No motor abnormalities noted.) Speech: Unremarkable Language: Adequate Fund of Knowledge: Inadequate Attention and Concentration: Other (Fair) Memory: Unremarkable Mood: Appropriate Affect: Appropriate Thought Process & Associations: Intact Thought Content: Appropriate Hallucination Type: None Delusion Type: None Suicidal Ideation: No Suicidal Plan: No Suicidal Intention: No Homicidal Ideation: No Homicidal Plan: No Homicidal Intention: No Insight: Poor Judgment: Poor Assessment and Plan - Assessment (1) Paranoid type schizophrenia, chronic state with acute exacerbation Code(s): F20.0 - Paranoid schizophrenia Status: Acute - Plan Plan: Continue current psychiatric medications as ordered. Continue current treatment plan. Justification for Continued Inpatient Stay: Moving patient to a less restrictive environment may result in her decompensation. Request Healthcare Surrogate/Guardian Advocate?: Yes
[2018-03-26] MEDS: Calcium Carbonate 500 MG Tablet PO SCH ×2 (08:37→20:41)
[2018-03-26] MEDS: Lactic Acid (Ammonium Lactate) 12% Lotion 225 GM Bottle TOPICAL SCH ×2 (08:37→23:14)
[2018-03-26] MEDS: risperiDONE 3 MG ODT PO SCH ×2 (08:38→20:42)
[2018-03-26] MEDS: Lidocaine 5% Patch T-DERMAL SCH (08:38)
[2018-03-26] MEDS: Sodium Chloride 1 GM Tablet PO SCH (08:39)
[2018-03-26 10:31] LABS: Calcium 8.7 mg/dL (8.5-10.1); Carbon Dioxide 26.1 meq/L (21.0-32.0); Potassium 4.6 meq/L (3.5-5.1)
--- NOTE | 2018-03-26 15:18 | P.PN ---
Subjective Interval history: Patient is seen lying in bed. She is still nauseated but has not vomited today. Diarrhea has improved. Still feeling very weak with some chills. No chest pain or shortness of breath. Physical Exam Vital signs: Vital Signs 03/25/18 16:35 03/26/18 06:00 Temperature 98.7 F 98.7 F Pulse Rate 102 H 70 Respiratory Rate 14 16 Blood Pressure 113/55 L 111/56 L Pulse Oximetry 93 L 94 L Intake & Output 03/25/18 03/26/18 03/26/18 18:59 06:59 18:59 Intake Total 360 / 360 240 / 240 Balance 360 / 360 240 / 240 Intake: Oral 360 / 360 240 / 240 Other: # Voids 1 Narrative: GENERAL: Well-nourished, well-developed adult female in no obvious distress. SKIN: Warm and dry. HEAD: Atraumatic. Normocephalic. CARDIOVASCULAR: Regular rate and rhythm. RESPIRATORY: No accessory muscle use. Clear to auscultation. Breath sounds equal bilaterally. GASTROINTESTINAL: Abdomen soft, non-tender, non- distended. Positive bowel sounds. MUSCULOSKELETAL: Extremities without clubbing, cyanosis, or edema. No obvious deformities. NEUROLOGICAL: Awake and alert. No obvious cranial nerve deficits. Motor grossly within normal limits. Normal speech. Results - Labs CBC & Chem 7: 03/23/18 08:33 03/26/18 08:30 Laboratory Results - last 24 hr 03/26/18 08:30 Sodium 131 L Potassium 4.6 Chloride 93 L Carbon Dioxide 26.1 Anion Gap 12 BUN 15 Creatinine 0.87 Estimated GFR 82 L Random Glucose 152 H Calcium 8.7 Assessment and Plan - Assessment (1) Unspecified psychosis Code(s): F29 - Unspecified psychosis not due to a substance or known physiological condition (2) Paranoid type schizophrenia, chronic state with acute exacerbation Code(s): F20.0 - Paranoid schizophrenia Status: Acute (3) Hypertension Code(s): I10 - Essential (primary) hypertension Status: Acute (4) Seizure disorder Code(s): G40.909 - Epilepsy, unspecified, not intractable, without status epilepticus Status: Acute (5) Diabetes mellitus Code(s): E11.9 - Type 2 diabetes mellitus without complications Status: Acute (6) Acute renal insufficiency Code(s): N28.9 - Disorder of kidney and ureter, unspecified Status: Acute (7) Nausea & vomiting Code(s): R11.2 - Nausea with vomiting, unspecified Status: Acute (8) Viral gastroenteritis Code(s): A08.4 - Viral intestinal infection, unspecified Status: Acute - Plan This patient is a 57 years old -[place] Islander female with past medical history of hypertension, mitral valve prolapse, seizure, AKA, hyponatremia, new onset diabetes mellitus, low TSH, paranoid schizophrenia, psychosis and previous psychiatric hospitalization in 2017 with a very similar presentation in which the patient refused to eat, refused to talk and was brought under the Summers act. According to the Summers act patient has not been taking her medication for the past 15 days. Patient was allegedly laying out in the yard and refuses to come back in the house according to the family. In the emergency room patient is refusing to eat or drink, refusing blood work and refusing medications. Patient was admitted in the psychiatry for evaluation and treatment of paranoid type schizophrenia in a chronic state with acute exacerbation. Medicine is now following peripherally for N/V Acute problems: Paranoid type schizophrenia, chronic state with acute exacerbation unspecified Psychosis -Management with the Psychiatry Team Nausea and vomiting with diarrhea/viral gastroenteritis -Slight temperature 99. Likely viral in nature. -Zofran for nausea -Supportive care; fluids and rest -Monitor BMP due to history of hyponatremia and for hypokalemia Prior and chronic problems: hyponatremia -likely secondary to dehydration and patients refusal to eat on admission, rechecked Na level today shows fluctuations -Is likely going to be mild and chronic with some fluctuations due to mental condition/medications -Na tabs; avoid open access to water Diabetes mellitus/Type 2 diabetes mellitus without complications -recently diagnosed in 2017, however unknown of patients compliance with medication treatment -Random blood glucose has been unremarkable -will consider monitor blood sugar with Accu Checks AC and HS and cover with insulin sliding scale if needed -HGB A1C 6.2 DVT prophylaxis: Patient is ambulatory Thank you for this consult. We look forward to assisting with the medical management of this patient.
[2018-03-27 07:20] LABS: Anion Gap 8 meq/L (5-15); Blood Urea Nitrogen 16 mg/dL (7-18); Calcium 8.2 mg/dL (8.5-10.1); Chloride 96 meq/L (98-107); Glomerular Filtration Rate Greater Than 89 mL/min (>89); Glucose,Random 67 mg/dL (74-106); Potassium 4.3 meq/L (3.5-5.1); Sodium 134 meq/L (136-145)
[2018-03-27] MEDS: Lactic Acid (Ammonium Lactate) 12% Lotion 225 GM Bottle TOPICAL SCH ×2 (08:30→22:56)
[2018-03-27] MEDS: risperiDONE 3 MG ODT PO SCH ×2 (08:31→20:54)
[2018-03-27] MEDS: Lidocaine 5% Patch T-DERMAL SCH (08:31)
[2018-03-27] MEDS: Sodium Chloride 1 GM Tablet PO SCH (08:32)
[2018-03-27] MEDS: Calcium Carbonate 500 MG Tablet PO SCH ×2 (08:32→20:54)
--- NOTE | 2018-03-27 10:04 | P.PNPSY ---
Subjective Remarks: Patient seen and examined with nurse. Chart reviewed. Case discussed with nursing staff. No behavioral issues noted. On my examination today, the patient denies any SI or HI. Denies any AVH. Affect seems somewhat brighter today and the patient does smile at intervals. She denies any side effects from medications. Denies any nausea/vomiting, bowel or bladder issues. No other physical complaints. Vital Signs Temp Pulse Resp BP Pulse Ox 03/27/18 05:25 98.1 F 70 17 97/55 L 97 03/26/18 17:35 97.7 F 92 H 18 103/57 L 95 Intake and Output 03/26/18 03/27/18 03/27/18 22:59 06:59 14:59 Intake Total 900 / 900 Balance 900 / 900 Intake: Oral 900 / 900 Other: # Voids 3 Laboratory Results - last 12 hr 03/27/18 05:00 Sodium 134 L Potassium 4.3 Chloride 96 L Carbon Dioxide 30.0 Anion Gap 8 BUN 16 Creatinine 0.61 Estimated GFR Greater than 89 Random Glucose 67 L Calcium 8.2 L Labs reviewed. 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 Continue to monitor on the inpatient unit. Continue other medications and care as ordered. Hospitalist input noted and appreciated. Justification for Continued Inpatient Stay: Risk for decompensation in less restrictive environment. Discharge Planning: [facility] referral Request Healthcare Surrogate/Guardian Advocate?: Yes
--- NOTE | 2018-03-27 11:27 | P.PN ---
Subjective Interval history: Patient is seen in day room. Nausea vomiting and diarrhea have resolved. She is tolerating her meals with no difficulty. No fevers or chills. Physical Exam Vital signs: Vital Signs 03/26/18 17:35 03/27/18 05:25 Temperature 97.7 F 98.1 F Pulse Rate 92 H 70 Respiratory Rate 18 17 Blood Pressure 103/57 L 97/55 L Pulse Oximetry 95 97 Intake & Output 03/26/18 03/27/18 03/27/18 18:59 06:59 18:59 Intake Total 900 / 900 Balance 900 / 900 Intake: Oral 900 / 900 Other: # Voids 3 Narrative: GENERAL: Well-nourished, well-developed adult female in no obvious distress. SKIN: Warm and dry. HEAD: Atraumatic. Normocephalic. CARDIOVASCULAR: Regular rate and rhythm. RESPIRATORY: No accessory muscle use. Clear to auscultation. Breath sounds equal bilaterally. GASTROINTESTINAL: Abdomen soft, non-tender, non- distended. Positive bowel sounds. MUSCULOSKELETAL: Extremities without clubbing, cyanosis, or edema. No obvious deformities. NEUROLOGICAL: Awake and alert. No obvious cranial nerve deficits. Motor grossly within normal limits. Normal speech. Results - Labs CBC & Chem 7: 03/23/18 08:33 03/27/18 05:00 Laboratory Results - last 24 hr 03/27/18 05:00 Sodium 134 L Potassium 4.3 Chloride 96 L Carbon Dioxide 30.0 Anion Gap 8 BUN 16 Creatinine 0.61 Estimated GFR Greater than 89 Random Glucose 67 L Calcium 8.2 L Assessment and Plan - Assessment (1) Unspecified psychosis Code(s): F29 - Unspecified psychosis not due to a substance or known physiological condition (2) Paranoid type schizophrenia, chronic state with acute exacerbation Code(s): F20.0 - Paranoid schizophrenia Status: Acute (3) Hypertension Code(s): I10 - Essential (primary) hypertension Status: Acute (4) Seizure disorder Code(s): G40.909 - Epilepsy, unspecified, not intractable, without status epilepticus Status: Acute (5) Diabetes mellitus Code(s): E11.9 - Type 2 diabetes mellitus without complications Status: Acute (6) Acute renal insufficiency Code(s): N28.9 - Disorder of kidney and ureter, unspecified Status: Acute (7) Nausea & vomiting Code(s): R11.2 - Nausea with vomiting, unspecified Status: Acute (8) Viral gastroenteritis Code(s): A08.4 - Viral intestinal infection, unspecified Status: Acute - Plan This patient is a 57 years old -[place] female with past medical history of hypertension, mitral valve prolapse, seizure, AKA, hyponatremia, new onset diabetes mellitus, low TSH, paranoid schizophrenia, psychosis and previous psychiatric hospitalization in 2017 with a very similar presentation in which the patient refused to eat, refused to talk and was brought under the Summers act. According to the Summers act patient has not been taking her medication for the past 15 days. Patient was allegedly laying out in the yard and refuses to come back in the house according to the family. In the emergency room patient is refusing to eat or drink, refusing blood work and refusing medications. Patient was admitted in the psychiatry for evaluation and treatment of paranoid type schizophrenia in a chronic state with acute exacerbation. Medicine is now following peripherally for N/V Acute problems: Paranoid type schizophrenia, chronic state with acute exacerbation unspecified Psychosis -Management with the Psychiatry Team Nausea and vomiting with diarrhea/viral gastroenteritis; resolved -Slight temperature 99. Likely viral in nature. -Zofran for nausea -Supportive care; fluids and rest -Monitor BMP due to history of hyponatremia and for hypokalemia Prior and chronic problems: hyponatremia -likely secondary to dehydration and patients refusal to eat on admission, rechecked Na level today shows fluctuations -Is likely going to be mild and chronic with some fluctuations due to mental condition/medications -Na tabs; avoid open access to water Diabetes mellitus/Type 2 diabetes mellitus without complications -recently diagnosed in 2017, however unknown of patients compliance with medication treatment -Random blood glucose has been unremarkable -will consider monitor blood sugar with Accu Checks AC and HS and cover with insulin sliding scale if needed -HGB A1C 6.2 DVT prophylaxis: Patient is ambulatory Patient appears to be medically stable at this time. Hospital service will sign off. Please reconsult if needed.
[2018-03-28] MEDS: Lactic Acid (Ammonium Lactate) 12% Lotion 225 GM Bottle TOPICAL SCH ×2 (09:45→20:43)
[2018-03-28] MEDS: risperiDONE 3 MG ODT PO SCH ×2 (09:45→20:40)
[2018-03-28] MEDS: Sodium Chloride 1 GM Tablet PO SCH (09:45)
[2018-03-28] MEDS: Calcium Carbonate 500 MG Tablet PO SCH ×2 (09:45→20:40)
[2018-03-28] MEDS: Lidocaine 5% Patch T-DERMAL SCH (09:47)
--- NOTE | 2018-03-28 15:01 | P.PNPSY ---
Subjective Remarks: Patient seen and examined with nurse. Chart reviewed. Case discussed with nursing staff who notes patient is more social. Case discussed in treatment team. On my examination today, the patient is sitting in the day area, where she prefers to conduct the interview. She is calm and cooperative. We discuss her television preferences. No psychotic material. No side effects from medications. She does complain of a mild rash in the area where her Lidoderm patch is placed, and we have discussed rotating placement of the patch and monitoring. No other physical complaints. Vital Signs Temp Pulse Resp BP Pulse Ox 03/28/18 05:53 98.7 F 72 16 111/54 L 90 L 03/27/18 18:11 98.6 F 75 18 130/69 96 Intake and Output 03/28/18 03/28/18 03/28/18 06:59 14:59 22:59 Intake Total 460 / 460 Balance 460 / 460 Intake: Oral 360 / 360 Oral Supplement 100 / 100 Other: # Voids 2 # Bowel Movements 0 Labs reviewed. Review of Systems All other systems reviewed negative except as stated in HPI Mental Status Examination Appearance: Appropriate Consciousness: Alert Orientation: Person, Place (At least) Motor Activity: Other (No abnormal motor activity noted) Speech: Unremarkable Language: Adequate Fund of Knowledge: Inadequate Attention and Concentration: Other (Fair) Memory: Unremarkable Mood: Appropriate Affect: Appropriate Thought Process & Associations: Intact Thought Content: Appropriate Hallucination Type: None Delusion Type: None Suicidal Ideation: No Suicidal Plan: No Suicidal Intention: No Homicidal Ideation: No Homicidal Plan: No Homicidal Intention: No Insight: Poor Judgment: Poor Mental Status Exam Remarks: Subtle, slightly erythematous rash on the posterior aspect of the left wrist. Assessment and Plan - Assessment (1) Paranoid type schizophrenia, chronic state with acute exacerbation Code(s): F20.0 - Paranoid schizophrenia Status: Acute - Plan Plan: Continue current psychiatric medications as ordered. Hospitalist input noted and appreciated. I will check a BMP in the morning to follow-up electrolytes. Continue to monitor on the inpatient unit. Continue other medications and care as ordered. Justification for Continued Inpatient Stay: Risk for decompensation in less restrictive environment. Discharge Planning: [facility] referral. Request Healthcare Surrogate/Guardian Advocate?: Yes
[2018-03-29] MEDS: Sodium Chloride 1 GM Tablet PO SCH (09:23)
[2018-03-29] MEDS: Calcium Carbonate 500 MG Tablet PO SCH ×2 (09:23→21:17)
[2018-03-29] MEDS: risperiDONE 3 MG ODT PO SCH ×2 (09:23→21:17)
[2018-03-29] MEDS: Lactic Acid (Ammonium Lactate) 12% Lotion 225 GM Bottle TOPICAL SCH ×2 (09:24→21:55)
[2018-03-29] MEDS: Lidocaine 5% Patch T-DERMAL SCH (09:25)
--- NOTE | 2018-03-29 09:59 | P.PNPSY ---
Subjective Remarks: Patient seen and examined with nurse. Chart reviewed. Case discussed with nursing staff. Case discussed with counselor. On my examination today, the patient is sitting in the day area reading the paper. She is somewhat standoffish today and does not take her eyes off of the newspaper during the extent of our conversation. She denies any psychiatric symptoms. Denies any side effects from medications. No physical complaints. Vital Signs Temp Pulse Resp BP Pulse Ox 03/28/18 17:34 98.4 F 88 18 143/73 H 99 Intake and Output 03/28/18 03/29/18 03/29/18 22:59 06:59 14:59 Intake Total 1440 / 1440 480 / 480 Balance 1440 / 1440 480 / 480 Intake: Oral 1440 / 1440 480 / 480 Oral Supplement 0 / 0 Other: # Voids 3 1 Date of Last Bowel Movement 03/28/18 # Bowel Movements 0 Laboratory Results - last 24 hr 03/29/18 09:20 Sodium 131 L Potassium 4.4 Chloride 95 L Carbon Dioxide 27.0 Anion Gap 9 BUN 14 Creatinine 0.71 Estimated GFR Greater than 89 Random Glucose 91 Calcium 9.2 Labs reviewed. Sodium level is oscillating within recent range. Mental Status Examination Appearance: Appropriate Consciousness: Alert Orientation: Person, Place (At least) Motor Activity: Other (No motoric abnormalities noted) Speech: Unremarkable Language: Adequate Fund of Knowledge: Inadequate Attention and Concentration: Other (Fair) Memory: Unremarkable Mood: Appropriate Affect: Blunt Thought Process & Associations: Intact Thought Content: Appropriate Hallucination Type: None Delusion Type: None Suicidal Ideation: No Homicidal Ideation: No Insight: Poor Judgment: Poor Assessment and Plan - Assessment (1) Paranoid type schizophrenia, chronic state with acute exacerbation Code(s): F20.0 - Paranoid schizophrenia Status: Acute - Plan Plan: Continue current psychiatric medications as ordered. Continue intermittent BMP monitoring of electrolytes. Continue to monitor on the inpatient unit. Continue other care as ordered. Justification for Continued Inpatient Stay: Risk for decompensation in less restrictive environment. Discharge Planning: [facility] referral Request Healthcare Surrogate/Guardian Advocate?: Yes
[2018-03-29 10:25] LABS: Anion Gap 9 meq/L (5-15); Blood Urea Nitrogen 14 mg/dL (7-18); Calcium 9.2 mg/dL (8.5-10.1); Chloride 95 meq/L (98-107); Glomerular Filtration Rate Greater Than 89 mL/min (>89); Glucose,Random 91 mg/dL (74-106); Potassium 4.4 meq/L (3.5-5.1); Sodium 131 meq/L (136-145)
[2018-03-30] MEDS: Sodium Chloride 1 GM Tablet PO SCH (08:09)
[2018-03-30] MEDS: risperiDONE 3 MG ODT PO SCH ×2 (08:10→20:24)
[2018-03-30] MEDS: Calcium Carbonate 500 MG Tablet PO SCH ×2 (08:10→20:24)
[2018-03-30] MEDS: Lidocaine 5% Patch T-DERMAL SCH (08:14)
[2018-03-30] MEDS: Lactic Acid (Ammonium Lactate) 12% Lotion 225 GM Bottle TOPICAL SCH ×2 (08:14→22:36)
--- NOTE | 2018-03-30 14:14 | P.PNPSY ---
Subjective Remarks: Reviewed electronic medical records and discussed case with staff. Follow-up was conducted in the patient's room. Her nurse reports that she has been more pleasant but still maintains some paranoia about her medications. Patient is found lying in bed and reports that she has been sleeping well and has a good appetite. When asked if she has been interacting with the other patients or participating in groups she states that she does enjoy bingo. She reports her mood as "fine". Mental Status Examination Appearance: Appropriate Consciousness: Alert Orientation: Person, Place (At least) Motor Activity: Other (No motoric abnormalities noted) Speech: Unremarkable Language: Adequate Fund of Knowledge: Inadequate Attention and Concentration: Other (Fair) Memory: Unremarkable Mood: Appropriate Affect: Blunt Thought Process & Associations: Intact Thought Content: Appropriate Hallucination Type: None Delusion Type: None Suicidal Ideation: No Suicidal Plan: No Suicidal Intention: No Homicidal Ideation: No Homicidal Plan: No Homicidal Intention: No Insight: Poor Judgment: Poor Assessment and Plan - Assessment (1) Paranoid type schizophrenia, chronic state with acute exacerbation Code(s): F20.0 - Paranoid schizophrenia Status: Acute - Plan Plan: Patient will be reevaluated by the attending psychiatrist. Continue with current treatment plan. Justification for Continued Inpatient Stay: Moving this patient to a less restrictive environment would likely result in decompensation. Request Healthcare Surrogate/Guardian Advocate?: Yes
[2018-03-31] MEDS: Calcium Carbonate 500 MG Tablet PO SCH ×2 (07:59→22:19)
[2018-03-31] MEDS: risperiDONE 3 MG ODT PO SCH ×2 (07:59→22:19)
[2018-03-31] MEDS: Lidocaine 5% Patch T-DERMAL SCH (08:00)
[2018-03-31] MEDS: Lactic Acid (Ammonium Lactate) 12% Lotion 225 GM Bottle TOPICAL SCH ×2 (08:00→22:18)
--- NOTE | 2018-03-31 11:11 | P.PNPSY ---
Subjective Remarks: Patient seen and examined with nurse. Chart reviewed. Case discussed with nursing staff. Case discussed in treatment team. Patient is seclusive to room at the time of my evaluation. She tells me "I'm fine." She is mildly irritable. Denies SI/HI/AVH. Denies side effects from medications. No acute physical complaints. Vital Signs Temp Pulse Resp BP Pulse Ox 03/31/18 06:00 97.6 F 65 18 110/52 L 94 L 03/30/18 17:51 97.6 F 95 H 18 93 L Intake and Output 03/30/18 03/31/18 03/31/18 22:59 06:59 14:59 Intake Total 960 / 960 0 / 0 Balance 960 / 960 0 / 0 Intake: Oral 960 / 960 0 / 0 Other: # Voids 3 1 Labs reviewed. No new labs. Review of Systems All other systems reviewed negative except as stated in HPI Mental Status Examination Appearance: Appropriate Consciousness: Alert Orientation: Person, Place (At least) Motor Activity: Other (No motor abnormalities noted.) Speech: Unremarkable Language: Adequate Fund of Knowledge: Inadequate Attention and Concentration: Other (Fair) Memory: Unremarkable Mood: Appropriate Affect: Irritable (mild), Blunt Thought Process & Associations: Intact Thought Content: Appropriate Hallucination Type: None Delusion Type: None Suicidal Ideation: No Homicidal Ideation: No Insight: Poor Judgment: Poor Assessment and Plan - Assessment (1) Paranoid type schizophrenia, chronic state with acute exacerbation Code(s): F20.0 - Paranoid schizophrenia Status: Acute - Plan Plan: Continue Risperdal and Depakote as ordered. Continue to monitor on inpatient unit. Continue other care as ordered. Justification for Continued Inpatient Stay: Risk for decompensation in less restrictive setting. Discharge Planning: [facility] hospital referral. Request Healthcare Surrogate/Guardian Advocate?: Yes
[2018-03-31] MEDS: Sodium Chloride 1 GM Tablet PO SCH (11:15)
[2018-04-01] MEDS: risperiDONE 3 MG ODT PO SCH ×2 (08:53→21:08)
[2018-04-01] MEDS: Sodium Chloride 1 GM Tablet PO SCH (08:53)
[2018-04-01] MEDS: Calcium Carbonate 500 MG Tablet PO SCH ×2 (08:59→21:08)
[2018-04-01] MEDS: Lidocaine 5% Patch T-DERMAL SCH (09:02)
[2018-04-01] MEDS: Lactic Acid (Ammonium Lactate) 12% Lotion 225 GM Bottle TOPICAL SCH (09:02)
--- NOTE | 2018-04-01 13:44 | P.PNPSY ---
Subjective Remarks: Reviewed electronic medical records and discussed case with staff. Follow-up was conducted in the patient's room with TIFF Palma present. Patient was once again found lying in bed sleeping. She woke to verbal stimuli. Her nurse reports that she has been "irritable and seclusive". States that she still believe she is . The patient advises that she had difficulty with sleeping at night due to the other residents "making a lot of noise". She denies being suicidal or homicidal or experiencing auditory or visual hallucinations. She denies any side effects from the medications. Mental Status Examination Appearance: Appropriate Consciousness: Alert Orientation: Person, Place (At least) Motor Activity: Other (No motor abnormalities noted.) Speech: Unremarkable Language: Adequate Fund of Knowledge: Inadequate Attention and Concentration: Other (Fair) Memory: Unremarkable Mood: Appropriate Affect: Irritable (mild), Blunt Thought Process & Associations: Intact Thought Content: Appropriate Hallucination Type: None Delusion Type: None Suicidal Ideation: No Suicidal Plan: No Suicidal Intention: No Homicidal Ideation: No Homicidal Plan: No Homicidal Intention: No Insight: Poor Judgment: Poor Assessment and Plan - Assessment (1) Paranoid type schizophrenia, chronic state with acute exacerbation Code(s): F20.0 - Paranoid schizophrenia Status: Acute - Plan Plan: Patient will be reevaluated by the attending psychiatrist. Continue with current treatment plan. Justification for Continued Inpatient Stay: Moving this patient to a less restrictive environment would likely result in decompensation. Request Healthcare Surrogate/Guardian Advocate?: Yes
[2018-04-02] MEDS: Lactic Acid (Ammonium Lactate) 12% Lotion 225 GM Bottle TOPICAL SCH ×3 (04:35→20:24)
--- NOTE | 2018-04-02 08:20 | P.PNPSY ---
Subjective Remarks: Reviewed electronic medical records and discussed case with staff. Follow-up was conducted in the patient's room with RN present. Patient is lying on her bed and states, " I am not eating enough because I am ." She is preoccupied with being . Medication compliant. No behavioral concerns. Denies SI/HI. Denies AVH. Review of Systems All other systems reviewed negative except as stated in HPI Mental Status Examination Appearance: Appropriate Consciousness: Alert Orientation: Person, Place (At least) Motor Activity: Other (No motor abnormalities noted.) Speech: Unremarkable Language: Adequate Fund of Knowledge: Inadequate Attention and Concentration: Other (Fair) Memory: Unremarkable Mood: Sad Affect: Irritable (mild), Blunt Thought Process & Associations: Intact Thought Content: Appropriate Hallucination Type: None Delusion Type: None Suicidal Ideation: No Suicidal Plan: No Suicidal Intention: No Homicidal Ideation: No Homicidal Plan: No Homicidal Intention: No Insight: Poor Judgment: Poor Assessment and Plan - Assessment (1) Paranoid type schizophrenia, chronic state with acute exacerbation Code(s): F20.0 - Paranoid schizophrenia Status: Acute - Plan Plan: Patient will be reevaluated by the attending psychiatrist. Continue with current treatment plan. Justification for Continued Inpatient Stay: Moving patient to a less restrictive environment may result in her decompensation. Request Healthcare Surrogate/Guardian Advocate?: Yes
[2018-04-02] MEDS: risperiDONE 3 MG ODT PO SCH ×2 (10:28→20:21)
[2018-04-02] MEDS: Calcium Carbonate 500 MG Tablet PO SCH ×2 (10:28→20:20)
[2018-04-02] MEDS: Sodium Chloride 1 GM Tablet PO SCH (10:28)
[2018-04-02] MEDS: Lidocaine 5% Patch T-DERMAL SCH (11:14)
[2018-04-03] MEDS: risperiDONE 3 MG ODT PO SCH ×2 (08:00→21:40)
[2018-04-03] MEDS: Sodium Chloride 1 GM Tablet PO SCH (08:00)
[2018-04-03] MEDS: Calcium Carbonate 500 MG Tablet PO SCH ×2 (08:00→21:40)
[2018-04-03] MEDS: Lidocaine 5% Patch T-DERMAL SCH (08:01)
[2018-04-03] MEDS: Lactic Acid (Ammonium Lactate) 12% Lotion 225 GM Bottle TOPICAL SCH ×2 (08:01→23:20)
--- NOTE | 2018-04-03 10:26 | P.PNPSY ---
Subjective Remarks: Patient seen and examined with nurse. Chart reviewed. Case discussed with nursing staff. Patient noted to be somewhat guarded and blunted. She is somewhat paranoid regarding medications. Case discussed with counselor. On my examination today, the patient is seclusive to room. She remains insistent that she can stay with family members or friends, even though the counselor has had no success with finding anyone who can care for the patient. No side effects from medications. No physical complaints. Vital Signs Temp Pulse Resp BP Pulse Ox 04/03/18 05:34 98 F 66 17 98/52 L 97 04/02/18 17:54 97.5 F L 67 16 100/50 L 96 Intake and Output 04/02/18 04/03/18 04/03/18 22:59 06:59 14:59 Intake Total 960 / 960 480 / 480 Balance 960 / 960 480 / 480 Intake: Oral 960 / 960 480 / 480 Other: # Voids 2 2 Date of Last Bowel Movement 03/31/18 Weight 59.9 kg Labs reviewed. No new labs. Review of Systems All other systems reviewed negative except as stated in HPI Mental Status Examination Appearance: Appropriate Consciousness: Alert Orientation: Person, Place (At least) Motor Activity: Other (No abnormal motor movements noted) Speech: Unremarkable Language: Adequate Fund of Knowledge: Inadequate Attention and Concentration: Other (Fair) Memory: Unremarkable Mood: Irritable Affect: Irritable (Remains mild), Blunt Thought Process & Associations: Intact Thought Content: Appropriate Hallucination Type: None Delusion Type: None Suicidal Ideation: No Homicidal Ideation: No Insight: Poor Judgment: Poor Assessment and Plan - Assessment (1) Paranoid type schizophrenia, chronic state with acute exacerbation Code(s): F20.0 - Paranoid schizophrenia Status: Acute - Plan Plan: Continue Risperdal and Depakote as ordered. Continue to monitor on the inpatient unit. Continue other care as ordered. Justification for Continued Inpatient Stay: High risk for decompensation in less restrictive environment. Discharge Planning: [facility] psychiatric [facility]. Request Healthcare Surrogate/Guardian Advocate?: Yes
[2018-04-04] MEDS: Sodium Chloride 1 GM Tablet PO SCH (08:16)
[2018-04-04] MEDS: Calcium Carbonate 500 MG Tablet PO SCH ×2 (08:16→21:33)
[2018-04-04] MEDS: risperiDONE 3 MG ODT PO SCH ×2 (08:16→21:33)
[2018-04-04] MEDS: Lactic Acid (Ammonium Lactate) 12% Lotion 225 GM Bottle TOPICAL SCH ×2 (08:17→22:58)
[2018-04-04] MEDS: Lidocaine 5% Patch T-DERMAL SCH (08:18)
--- NOTE | 2018-04-04 11:31 | P.PNPSY ---
Subjective Remarks: Reviewed electronic medical records and discussed case with staff. Follow-up was conducted in the patient's room where she was found sleeping in bed. She woke to light physical touch. She reports that she has difficulty sleeping at night due to all of the noise on the unit. States she has had a good appetite and her moods been good. She actually laughs during the follow-up interview. Mental Status Examination Appearance: Appropriate Consciousness: Alert Orientation: Person, Place (At least) Motor Activity: Other (No abnormal motor movements noted) Speech: Unremarkable Language: Adequate Fund of Knowledge: Inadequate Attention and Concentration: Other (Fair) Memory: Unremarkable Mood: Irritable Affect: Irritable (Remains mild), Blunt Thought Process & Associations: Intact Thought Content: Appropriate Hallucination Type: None Delusion Type: None Suicidal Ideation: No Suicidal Plan: No Suicidal Intention: No Homicidal Ideation: No Homicidal Plan: No Homicidal Intention: No Insight: Poor Judgment: Poor Assessment and Plan - Assessment (1) Paranoid type schizophrenia, chronic state with acute exacerbation Code(s): F20.0 - Paranoid schizophrenia Status: Acute - Plan Plan: Patient will be reevaluated by the attending psychiatrist. Continue with current treatment plan. Patient is currently waiting state placement. Justification for Continued Inpatient Stay: Moving this patient to a less restrictive environment would likely result in decompensation. Request Healthcare Surrogate/Guardian Advocate?: Yes
--- NOTE | 2018-04-05 08:44 | P.PNPSY ---
Subjective Remarks: Patient seen and examined with nurse. Chart reviewed. Case discussed with nursing staff. Patient noted to have slept well overnight. Mood is noted to be improved. Case discussed with counselor who reports that she has been in communication with patient's family, and there is a possibility that family may now be willing to assume care of the patient. Family does reportedly have concerns about medication adherence, and so I will reach out to the patient's son to discuss the possibility of initiating long-acting injectable antipsychotic. On my examination today, the patient is calm and pleasant. She has no particular complaints. No psychotic material. No SI or HI. Affect does indeed seem brighter. She denies side effects from medications. No physical complaints. Reached out to patient's son/guardian advocate Lukas Sewell. I have discussed with Mr. Sewell patient's options vis--vis long-acting injectable antipsychotics. Mr. Sewell provides consent for initiation of Invega Sustenna. Vital Signs Temp Pulse Resp BP Pulse Ox 04/05/18 05:55 98.5 F 76 16 119/59 L 92 L 04/04/18 17:18 98.6 F 86 16 108/68 96 Intake and Output 04/05/18 04/05/18 04/05/18 06:59 14:59 22:59 Intake Total 0 / 0 Balance 0 / 0 Intake: Oral 0 / 0 Oral Supplement 0 / 0 Other: # Voids 2 # Bowel Movements 0 Labs reviewed. No new labs. GFR was within normal limits when last checked. Review of Systems All other systems reviewed negative except as stated in HPI Mental Status Examination Appearance: Appropriate Consciousness: Alert Orientation: Person, Place (At least) Motor Activity: Other (No motoric abnormalities noted) Speech: Unremarkable Language: Adequate Fund of Knowledge: Inadequate Attention and Concentration: Adequate Memory: Unremarkable Mood: Appropriate Affect: Appropriate Thought Process & Associations: Intact Thought Content: Appropriate Hallucination Type: None Delusion Type: None Suicidal Ideation: No Suicidal Plan: No Suicidal Intention: No Homicidal Ideation: No Homicidal Plan: No Homicidal Intention: No Insight: Poor Judgment: Poor Assessment and Plan - Assessment (1) Paranoid type schizophrenia, chronic state with acute exacerbation Code(s): F20.0 - Paranoid schizophrenia Status: Acute - Plan Plan: Initiate Invega Sustenna 234 mg IM today with plans for booster dose in 4-7 days. I will plan to continue oral Risperdal supplementation briefly until the booster dose is administered with plans for relatively rapid taper/ discontinuation thereafter. Continue Depakote as ordered. Check BMP in the morning to follow-up on sodium level. Continue to monitor on the inpatient unit. Continue other medications and care as ordered. Justification for Continued Inpatient Stay: Medication changes. High risk for decompensation in less restrictive environment. Discharge Planning: Home with family versus state psychiatric hospitalization. Counselor is working on home-going plan. Request Healthcare Surrogate/Guardian Advocate?: Yes
[2018-04-05] MEDS: risperiDONE 3 MG ODT PO SCH ×2 (09:03→20:58)
[2018-04-05] MEDS: Sodium Chloride 1 GM Tablet PO SCH (09:03)
[2018-04-05] MEDS: Calcium Carbonate 500 MG Tablet PO SCH ×2 (09:03→20:58)
[2018-04-05] MEDS: Lidocaine 5% Patch T-DERMAL SCH (09:06)
[2018-04-05] MEDS: Lactic Acid (Ammonium Lactate) 12% Lotion 225 GM Bottle TOPICAL SCH ×2 (09:06→20:58)
[2018-04-05] MEDS ORDERED: Paliperidone Inj 234 MG/1.5 ML Syringe IM ONE (17:00)
[2018-04-06 07:39] LABS: Anion Gap 10 meq/L (5-15); Blood Urea Nitrogen 13 mg/dL (7-18); Calcium 9.2 mg/dL (8.5-10.1); Carbon Dioxide 29.1 meq/L (21.0-32.0); Chloride 96 meq/L (98-107); Glomerular Filtration Rate Greater Than 89 mL/min (>89); Glucose,Random 68 mg/dL (74-106); Potassium 4.3 meq/L (3.5-5.1); Sodium 135 meq/L (136-145)
[2018-04-06] MEDS: risperiDONE 3 MG ODT PO SCH ×2 (09:25→20:10)
[2018-04-06] MEDS: Calcium Carbonate 500 MG Tablet PO SCH ×2 (09:25→20:10)
--- NOTE | 2018-04-06 09:26 | P.PNPSY ---
Subjective Remarks: Patient seen and examined with nurse. Chart reviewed. I note that patient received Invega Sustenna injection yesterday without incident. Case discussed with nursing staff. Case discussed with counselor who reports that son will be coming from out of state beginning of next week to visit with the patient to see if she is able to return home with him. On my examination today, the patient is seclusive to room. We discuss her medication regimen and also discussed the discharge plan. She denies any SI, HI or AVH. Denies any side effects from medications. No physical complaints. Vital Signs Temp Pulse Resp BP Pulse Ox 04/06/18 06:05 98.4 F 70 18 132/61 93 L Intake and Output 04/05/18 04/06/18 04/06/18 22:59 06:59 14:59 Intake Total 840 / 840 360 / 360 Balance 840 / 840 360 / 360 Intake: Oral 840 / 840 360 / 360 Other: # Voids 4 1 Laboratory Results - last 24 hr 04/06/18 06:10 Sodium 135 L Potassium 4.3 Chloride 96 L Carbon Dioxide 29.1 Anion Gap 10 BUN 13 Creatinine 0.61 Estimated GFR Greater than 89 Random Glucose 68 L Calcium 9.2 Labs reviewed. Sodium stable. Review of Systems All other systems reviewed negative except as stated in HPI Mental Status Examination Appearance: Appropriate Consciousness: Alert Orientation: Person, Place Motor Activity: Other (No abnormal motor movements noted) Speech: Unremarkable Language: Adequate Fund of Knowledge: Inadequate Attention and Concentration: Adequate Memory: Unremarkable Mood: Appropriate Affect: Blunt Thought Process & Associations: Intact Thought Content: Appropriate Hallucination Type: None Delusion Type: None Suicidal Ideation: No Suicidal Plan: No Suicidal Intention: No Homicidal Ideation: No Homicidal Plan: No Homicidal Intention: No Insight: Poor Judgment: Poor Assessment and Plan - Assessment (1) Paranoid type schizophrenia, chronic state with acute exacerbation Code(s): F20.0 - Paranoid schizophrenia Status: Acute - Plan Plan: Continue oral Risperdal temporarily supplementing Invega Sustenna. Plan for booster dose of Invega Sustenna after appropriate interval. Continue other psychotropic medications as ordered. Continue other medications and care as ordered. Justification for Continued Inpatient Stay: Medication changes planned. Risk for decompensation in less restrictive environment. Discharge Planning: Possible discharge home with family next week. Request Healthcare Surrogate/Guardian Advocate?: Yes
[2018-04-06] MEDS: Lactic Acid (Ammonium Lactate) 12% Lotion 225 GM Bottle TOPICAL SCH ×2 (10:18→20:07)
[2018-04-06] MEDS: Lidocaine 5% Patch T-DERMAL SCH (10:18)
[2018-04-06] MEDS: Sodium Chloride 1 GM Tablet PO SCH (10:19)
[2018-04-07] MEDS: Calcium Carbonate 500 MG Tablet PO SCH ×2 (09:11→20:11)
[2018-04-07] MEDS: Sodium Chloride 1 GM Tablet PO SCH (09:11)
[2018-04-07] MEDS: risperiDONE 3 MG ODT PO SCH ×2 (09:11→20:16)
[2018-04-07] MEDS: Lactic Acid (Ammonium Lactate) 12% Lotion 225 GM Bottle TOPICAL SCH ×2 (10:45→20:10)
[2018-04-07] MEDS: Lidocaine 5% Patch T-DERMAL SCH (10:45)
--- NOTE | 2018-04-07 13:11 | P.PNPSY ---
Subjective Remarks: Patient seen and examined. Chart reviewed. Case discussed with nursing staff who reports patient had an episode of emesis this morning. This episode of vomiting appears to be tied into the patient's delusions of . Case discussed in treatment team. Counselor notes that patient's son will be visiting patient next week to assess for possible return to son's home. On my examination today, the patient is calm and cooperative. Affect is a little blunted. We discuss plan for possible return to [place] with son following his visit. No delusional material on my evaluation. Denies side effects from medications. No physical complaints. Vital Signs Temp Pulse Resp BP Pulse Ox 04/07/18 05:58 98.5 F 65 18 94/50 L 90 L 04/06/18 17:58 16 L 147/63 H Intake and Output 04/06/18 04/07/18 04/07/18 22:59 06:59 14:59 Intake Total 1320 / 1320 360 / 360 Balance 1320 / 1320 360 / 360 Intake: Oral 1320 / 1320 360 / 360 Other: Date of Last Bowel Movement 03/31/18 Labs reviewed. No new labs. Review of Systems All other systems reviewed negative except as stated in HPI Mental Status Examination Appearance: Appropriate Consciousness: Alert Orientation: Person, Place Motor Activity: Other (No motoric abnormalities noted) Speech: Unremarkable Language: Adequate Fund of Knowledge: Inadequate Attention and Concentration: Adequate Memory: Unremarkable Mood: Appropriate Affect: Blunt Thought Process & Associations: Intact Thought Content: Appropriate Hallucination Type: None Delusion Type: None Suicidal Ideation: No Homicidal Ideation: No Insight: Poor Judgment: Poor Assessment and Plan - Assessment (1) Paranoid type schizophrenia, chronic state with acute exacerbation Code(s): F20.0 - Paranoid schizophrenia Status: Acute - Plan Plan: Plan for administration of booster dose of Invega Sustenna after the weekend. Continue oral Risperdal supplementing Invega Sustenna as ordered. Continue Depakote as ordered. Continue to monitor on the inpatient unit. Monitor for ongoing GI issues. Continue other care as ordered. Justification for Continued Inpatient Stay: Risk for decompensation in less restrictive environment. Discharge Planning: Possible return with family next week. State hospitalization remains backup option. Request Healthcare Surrogate/Guardian Advocate?: Yes
[2018-04-08] MEDS: Sodium Chloride 1 GM Tablet PO SCH (08:34)
[2018-04-08] MEDS: Calcium Carbonate 500 MG Tablet PO SCH ×2 (08:34→21:38)
[2018-04-08] MEDS: risperiDONE 3 MG ODT PO SCH ×2 (08:34→21:37)
[2018-04-08] MEDS: Lactic Acid (Ammonium Lactate) 12% Lotion 225 GM Bottle TOPICAL SCH ×2 (08:35→21:38)
[2018-04-08] MEDS: Lidocaine 5% Patch T-DERMAL SCH (08:35)
--- NOTE | 2018-04-08 14:05 | P.PNPSY ---
Subjective Remarks: Patient was seen and case discussed with nursing. Patient is seclusive to her room. Affect is blunted. Per nursing she has been very irritable but for my interview she is pleasant and cooperative. Compliant with medications. Goal oriented for discharge Mental Status Examination Appearance: Appropriate Consciousness: Alert Orientation: Person, Place Motor Activity: Other (No motoric abnormalities noted) Speech: Unremarkable Language: Adequate Fund of Knowledge: Inadequate Attention and Concentration: Adequate Memory: Unremarkable Mood: Appropriate Affect: Blunt Thought Process & Associations: Intact Thought Content: Appropriate Hallucination Type: None Delusion Type: None Suicidal Ideation: No Suicidal Plan: No Suicidal Intention: No Homicidal Ideation: No Homicidal Plan: No Homicidal Intention: No Insight: Poor Judgment: Poor Assessment and Plan - Assessment (1) Paranoid type schizophrenia, chronic state with acute exacerbation Code(s): F20.0 - Paranoid schizophrenia Status: Acute - Plan Plan: Continue current treatment plan Justification for Continued Inpatient Stay: Patient would decompensate in a less restrictive setting Request Healthcare Surrogate/Guardian Advocate?: Yes
--- NOTE | 2018-04-09 07:52 | P.PNPSY ---
Subjective Remarks: Medical record reviewed and discussed with nursing staff. Patient in common area eating breakfast. Rounded with TIFF Ignacio. Patient does not want to engage in any conversation. Her affect is flat and blunted. Nursing reports that the plan is for patient to be discharged to her son in [place]. Patient continues to think that she is . Medication compliant. No behavioral concerns. Review of Systems All other systems reviewed negative except as stated in HPI Mental Status Examination Appearance: Appropriate Consciousness: Alert Orientation: Person, Place Motor Activity: Other (No motoric abnormalities noted) Speech: Unremarkable Language: Adequate Fund of Knowledge: Inadequate Attention and Concentration: Adequate Memory: Unremarkable Mood: Appropriate Affect: Blunt Thought Process & Associations: Intact Thought Content: Appropriate Hallucination Type: None Delusion Type: None Suicidal Ideation: No Suicidal Plan: No Suicidal Intention: No Homicidal Ideation: No Homicidal Plan: No Homicidal Intention: No Insight: Poor Judgment: Poor Assessment and Plan - Assessment (1) Paranoid type schizophrenia, chronic state with acute exacerbation Code(s): F20.0 - Paranoid schizophrenia Status: Acute - Plan Plan: Continue current treatment plan Justification for Continued Inpatient Stay: Moving patient to a less restrictive environment may result in her decompensation. Request Healthcare Surrogate/Guardian Advocate?: Yes
[2018-04-09] MEDS: Calcium Carbonate 500 MG Tablet PO SCH ×2 (08:14→20:03)
[2018-04-09] MEDS: risperiDONE 3 MG ODT PO SCH ×2 (08:14→20:04)
[2018-04-09] MEDS: Lactic Acid (Ammonium Lactate) 12% Lotion 225 GM Bottle TOPICAL SCH ×2 (08:17→20:03)
[2018-04-09] MEDS: Lidocaine 5% Patch T-DERMAL SCH (08:17)
[2018-04-09] MEDS: Sodium Chloride 1 GM Tablet PO SCH (08:18)
[2018-04-10] MEDS: Sodium Chloride 1 GM Tablet PO SCH (09:49)
[2018-04-10] MEDS: Calcium Carbonate 500 MG Tablet PO SCH ×2 (09:49→20:36)
[2018-04-10] MEDS: risperiDONE 3 MG ODT PO SCH (09:49)
[2018-04-10] MEDS: Lidocaine 5% Patch T-DERMAL SCH (09:52)
[2018-04-10] MEDS: Lactic Acid (Ammonium Lactate) 12% Lotion 225 GM Bottle TOPICAL SCH ×2 (09:54→20:35)
--- NOTE | 2018-04-10 11:42 | P.PNPSY ---
Subjective Remarks: Patient seen and examined in day area per patient preference. Chart reviewed. Case discussed with nursing staff. No behavioral issues noted. Patient was somewhat seclusive to room earlier today per report but is out in the milieu now. On my exam, patient is calm and cooperative. We discuss plan for patient' s son to come visit later in the week to assess for possible discharge into his care. Affect is brighter and less irritable. No psychotic material. No side effects from medications. We discuss plan for booster dose of Invega Sustenna today. No physical complaints. Vital Signs Temp Pulse Resp BP Pulse Ox 04/10/18 05:31 98.1 F 66 16 91/60 L 98 04/09/18 18:47 98.4 F 75 18 96 Intake and Output 04/09/18 04/10/18 04/10/18 22:59 06:59 14:59 Intake Total 1440 / 1440 Balance 1440 / 1440 Intake: Oral 1440 / 1440 Other: # Voids 3 Labs reviewed. No new labs. Review of Systems All other systems reviewed negative except as stated in HPI Mental Status Examination Appearance: Appropriate Consciousness: Alert Orientation: Person, Place (At least) Motor Activity: Other (No hand tremor, no dystonia, no dyskinesia, no other motor abnormalities noted.) Speech: Unremarkable Language: Adequate Attention and Concentration: Adequate Memory: Unremarkable Mood: Appropriate Affect: Appropriate Thought Process & Associations: Intact Thought Content: Appropriate Hallucination Type: None Delusion Type: None Suicidal Ideation: No Homicidal Ideation: No Insight: Poor Judgment: Poor Assessment and Plan - Assessment (1) Paranoid type schizophrenia, chronic state with acute exacerbation Code(s): F20.0 - Paranoid schizophrenia Status: Acute - Plan Plan: Administer booster dose of Invega Sustenna 156 mg IM today. Discontinue oral Risperdal. Continue Depakote as ordered. Continue to monitor on the inpatient unit. Continue other medications and care as ordered. Justification for Continued Inpatient Stay: Medication changes. Risk for decompensation in less restrictive environment. Discharge Planning: Possible discharge home with son versus state psychiatric hospitalization. Request Healthcare Surrogate/Guardian Advocate?: Yes
[2018-04-10] MEDS ORDERED: Paliperidone Inj 156 MG/ML Syringe IM SCH (12:00)
[2018-04-11] MEDS: Sodium Chloride 1 GM Tablet PO SCH (08:57)
[2018-04-11] MEDS: Lidocaine 5% Patch T-DERMAL SCH (08:57)
[2018-04-11] MEDS: Calcium Carbonate 500 MG Tablet PO SCH ×3 (08:57→21:53)
[2018-04-11] MEDS: Lactic Acid (Ammonium Lactate) 12% Lotion 225 GM Bottle TOPICAL SCH ×2 (08:57→21:55)
--- NOTE | 2018-04-11 12:57 | P.PNPSY ---
Subjective Remarks: Patient seen and examined with nurse. Chart reviewed. Case discussed with nursing staff who reports patient refused medications this morning, although I do note that the patient subsequently accepted them. Case discussed in treatment team. Plan remains for patient's son to visit with her at the end of the week to determine if she may return with him to [place]. On my examination today, the patient is secluding in her room. She is calm and cooperative, if somewhat standoffish. She says that she refused her medications this morning because she had not eaten anything for breakfast. She plans to take them later when she has lunch. She denies any hallucinations. Denies any side effects from medications. She received Invega Sustenna injection yesterday without incident. No EPS on exam. No physical complaints otherwise. Vital Signs Temp Pulse Resp BP Pulse Ox 04/11/18 06:00 98.5 F 65 16 97/56 L 93 L 04/10/18 17:55 99.3 F 86 18 117/68 94 L Intake and Output 04/10/18 04/11/18 04/11/18 22:59 06:59 14:59 Intake Total 1080 / 1080 Balance 1080 / 1080 Intake: Oral 1080 / 1080 Oral Supplement 0 / 0 Other: # Voids 1 # Bowel Movements 0 Weight 60.2 kg Labs reviewed. No new labs. Review of Systems All other systems reviewed negative except as stated in HPI Mental Status Examination Appearance: Appropriate Consciousness: Alert Orientation: Person, Place (At least) Motor Activity: Other (No motor abnormalities noted.) Speech: Unremarkable Language: Adequate Fund of Knowledge: Inadequate Attention and Concentration: Adequate Memory: Unremarkable Mood: Appropriate Affect: Blunt Thought Process & Associations: Intact Thought Content: Appropriate Hallucination Type: None Delusion Type: None Suicidal Ideation: No Homicidal Ideation: No Insight: Poor Judgment: Poor Assessment and Plan - Assessment (1) Paranoid type schizophrenia, chronic state with acute exacerbation Code(s): F20.0 - Paranoid schizophrenia Status: Acute - Plan Plan: Continue Depakote as ordered. Continue Invega Sustenna q month. Continue to monitor on inpatient unit. Continue other medications and care as ordered. Justification for Continued Inpatient Stay: High risk for decompensation in less restrictive environment. Discharge Planning: Home with family versus state psychiatric hospitalization. Request Healthcare Surrogate/Guardian Advocate?: Yes
[2018-04-12] MEDS: Lactic Acid (Ammonium Lactate) 12% Lotion 225 GM Bottle TOPICAL SCH ×2 (09:26→21:17)
[2018-04-12] MEDS: Calcium Carbonate 500 MG Tablet PO SCH ×3 (09:27→21:16)
[2018-04-12] MEDS: Lidocaine 5% Patch T-DERMAL SCH (09:27)
[2018-04-12] MEDS: Sodium Chloride 1 GM Tablet PO SCH (09:27)
--- NOTE | 2018-04-12 10:13 | P.PNPSY ---
Subjective Remarks: Pt seen and examined. Chart reviewed. Case discussed with RN. Pt has been refusing sodium tablets telling nursing that they make her feel nauseated. Case discussed with counselor. On my exam, patient is calm and cooperative. She is seclusive to room. Denies SI/HI/AVH. She is convinced that son Lukas has already come down from [place] to retrieve her, although counselor assures me this is not the case. Unclear if this represents delusion or wishful thinking. No side effects from meds. No physical complaints. Vital Signs Temp Pulse Resp BP Pulse Ox 04/12/18 06:23 98.5 F 99 H 16 100/64 95 04/11/18 17:35 98.2 F 75 16 91/62 L 91 L Intake and Output 04/11/18 04/12/18 04/12/18 22:59 06:59 14:59 Intake Total 1420 / 1420 Balance 1420 / 1420 Intake: Oral 1320 / 1320 Oral Supplement 100 / 100 Other: # Voids 2 # Bowel Movements 1 Labs reviewed. No new labs. Review of Systems All other systems reviewed negative except as stated in HPI Mental Status Examination Appearance: Appropriate Consciousness: Alert Orientation: Person, Place (At least) Motor Activity: Other (No abnormal motor movements noted.) Speech: Unremarkable Language: Adequate Fund of Knowledge: Inadequate Attention and Concentration: Adequate Memory: Unremarkable Mood: Other (calm) Affect: Blunt Thought Process & Associations: Intact Thought Content: Appropriate Hallucination Type: None Delusion Type: None Suicidal Ideation: No Suicidal Plan: No Suicidal Intention: No Homicidal Ideation: No Homicidal Plan: No Homicidal Intention: No Insight: Poor Judgment: Poor Assessment and Plan - Assessment (1) Paranoid type schizophrenia, chronic state with acute exacerbation Code(s): F20.0 - Paranoid schizophrenia Status: Acute - Plan Plan: Check BMP. If sodium is stable, could consider discontinuing sodium tabs and monitoring. Continue other medications and care as ordered. Continue to monitor on inpatient unit. Justification for Continued Inpatient Stay: Risk for decompensation in less restrictive setting. Discharge Planning: Home with family vs. state hospital. Request Healthcare Surrogate/Guardian Advocate?: Yes
--- NOTE | 2018-04-12 12:30 | P.TTN ---
- Patient Problems Problems: 1. Discharge planning 2. Medication compliance 3. Knowledge deficit 4. Lack of coping skills - Progress Toward Goals Provider Present: Dr. Jeffry Cespedes Provider Input: 04/11/18: pt has been administered booster of invega sustaina, Risperdal has been discontinued. Pt continues on Depakote. Laina to follow-up with Carolyn, pt's son and with pt's sister in [place] as potential discharge options. Carolyn remains the better of these 2 options. 03/28/2018; patient remains on state waiting list, at this time no medication changes, patient has reportedly not been participating in activities. 03/24/2018; patient has no med adjustment, continues to be a state wait, counselor will look into family placement options. 03/21/2018; patient is stable on current med dosage, [facility] 03/14/2018; per doctor, although patient is a State referral, her medications are being adjusted to address patient's behavior. 03/03/18: Pt exhibiting no behaviors, she remains isolative , [facility] 02/21/2018; Patient's are being titrated Nurse(s) Present: RN Nurse Input: 03/28/2018; at this time patient is reportedly continuing to take medication, no further reports of nausea, vomiting and diarrhea, patient continuing to eat and drink well. 03/24/2018; patient is taking her meds, eating meals and attending groups/activities. 03/21/2018 patient requires coaching with mood, she is eating and taking her meds. 03/14/2018; patient require coaching with medication and redirection with mood due to aggressive behavior, she is taking her meds and eating meals. 02/21/2018; Patient is eating meals and taking medication, require coaching and prompting Psychiatric Counselors Present: Marbin Clancy Jr., [facility], Laina Mo, [facility] Psychiatric Therapist Input: 03/28/2008; counselor continues to maintain contact with family, counselor monitoring state wait list for estimated time patient to transfer to state hospital. 03/24/2018; counselor continues to make contact with family members for possible state hospital diversion. Thus far the contact numbers provided by patient has been not been good, (no family return or answer calls). 03/14/2018; counselor will revisit patient's contact to see if she is placeable with family or friends. 03/14/2018; counselor will staff transfer to [facility] with supervisor grove to continue state wait. As of 03/04/18: counselor is completing state packet is being completed relative limited options for this pt. 02/22/2018; counselor will be contacting patient's NOK to discuss propriate dc planning patient's son (Lukas and patient' s sister Marla Sewell Group Spec/RT/OT/NAIK Present: Marnie Cifuentes, GUMARO, Juan Guajardo, OT, Cayetano Baugh, NAIK Group Spec/RT/OT/NAIK Input: 04/11/18: Pt attends few groups, she is largely unable to tolerate group activities`. 03/24/2018; patient has been participatting with groups and appears to be enaging with peers with positive interaction,. 03/21/2018; patient lacks motivation to participate with groups. 03/14/2018; patient lacks the emotional ability to appropriately participate with groups. 02/21/2018;this is continuing as of 03/03/18; lack of pt attendance or participation. patient has not participate with groups or activities Other Clinican Input: State packet initiated per MD, counselor as this is pt's best option. Additional Input: 04/11/18: Laina to follow-up with Carolyn, pt's son and with pt's sister in [place] as potential discharge options. Jamarie remains the better of these 2 options. - Discharge Plan 04/11/18:Laina to follow-up with Lukase, pt's son and with pt's sister in [place] as potential discharge options. Jamarie remains the better of these 2 options. - Documentation Teaching Recipient: Patient
[2018-04-13] MEDS: Lactic Acid (Ammonium Lactate) 12% Lotion 225 GM Bottle TOPICAL SCH ×2 (08:14→23:24)
[2018-04-13] MEDS: Calcium Carbonate 500 MG Tablet PO SCH ×2 (08:15→23:24)
[2018-04-13] MEDS: Sodium Chloride 1 GM Tablet PO SCH (08:15)
[2018-04-13] MEDS: Lidocaine 5% Patch T-DERMAL SCH (08:15)
[2018-04-13 08:19] LABS: Anion Gap 6 meq/L (5-15); Blood Urea Nitrogen 12 mg/dL (7-18); Calcium 8.8 mg/dL (8.5-10.1); Carbon Dioxide 32.4 meq/L (21.0-32.0); Chloride 96 meq/L (98-107); Glomerular Filtration Rate Greater Than 89 mL/min (>89); Glucose,Random 67 mg/dL (74-106); Potassium 4.1 meq/L (3.5-5.1); Sodium 134 meq/L (136-145)
--- NOTE | 2018-04-13 09:43 | P.PNPSY ---
Subjective Remarks: Patient seen and examined. Chart reviewed. Case discussed with staff. On my examination today, the patient says that she slept poorly secondary to noise. Patient says that she is hearing voices, which she interprets as staff members, talking bad about her. She notes that these voices "just started 2 days ago." Oral Risperdal was discontinued 3 days ago after patient received booster dose of Invega Sustenna. No SI or HI. Denies side effects from medications. No physical complaints. Vital Signs Temp Pulse Resp BP Pulse Ox 04/13/18 05:49 97.8 F 58 L 16 100/62 94 L 04/12/18 17:50 98.4 F 78 16 98 Intake and Output 04/12/18 04/13/18 04/13/18 22:59 06:59 14:59 Intake Total 0 / 0 Balance 0 / 0 Intake: Oral 0 / 0 Other: # Voids 1 Laboratory Results - last 24 hr 04/13/18 06:53 Sodium 134 L Potassium 4.1 Chloride 96 L Carbon Dioxide 32.4 H Anion Gap 6 BUN 12 Creatinine 0.58 Estimated GFR Greater than 89 Random Glucose 67 L Calcium 8.8 Labs reviewed. Sodium level stable. Review of Systems All other systems reviewed negative except as stated in HPI Mental Status Examination Appearance: Appropriate Consciousness: Alert Orientation: Person, Place (At least) Motor Activity: Other (No motoric abnormalities noted) Speech: Unremarkable Language: Adequate Fund of Knowledge: Inadequate Attention and Concentration: Adequate Memory: Unremarkable Mood: Other (calm) Affect: Blunt Thought Process & Associations: Intact Thought Content: Hallucinations Hallucination Type: Auditory Delusion Type: Paranoid (Mild) Suicidal Ideation: No Suicidal Plan: No Suicidal Intention: No Homicidal Ideation: No Homicidal Plan: No Homicidal Intention: No Insight: Poor Judgment: Poor Assessment and Plan - Assessment (1) Paranoid type schizophrenia, chronic state with acute exacerbation Code(s): F20.0 - Paranoid schizophrenia Status: Acute - Plan Plan: Suspect recrudescence of psychotic symptoms following discontinuation of oral Risperdal. Although Invega Sustenna does not typically require oral supplementation, I do believe the patient would benefit from reintroduction of a low dose of oral Risperdal for the time being. Add back Risperdal 0.5 mg twice daily. Continue to monitor on the inpatient unit. Continue other medications and care as ordered. Justification for Continued Inpatient Stay: Medication changes. Impairment in reality construction. Risk for decompensation in less restrictive environment. Discharge Planning: Possible discharge home with family versus state psychiatric hospitalization. Request Healthcare Surrogate/Guardian Advocate?: Yes
[2018-04-13] MEDS: risperiDONE 0.5 MG ODT PO SCH (23:24)
[2018-04-14] MEDS: risperiDONE 0.5 MG ODT PO SCH ×2 (08:32→21:15)
[2018-04-14] MEDS: Calcium Carbonate 500 MG Tablet PO SCH ×2 (08:32→21:15)
[2018-04-14] MEDS: Lactic Acid (Ammonium Lactate) 12% Lotion 225 GM Bottle TOPICAL SCH ×2 (08:34→21:05)
[2018-04-14] MEDS: Lidocaine 5% Patch T-DERMAL SCH (08:38)
--- NOTE | 2018-04-14 11:36 | P.PNPSY ---
Subjective Remarks: Patient seen and examined with nurse. Chart reviewed. I note that patient refused her medications yesterday evening but accepted them this morning. Case discussed in treatment team. Counselor relates that patient's son is to visit with the patient over the weekend. On my examination today, the patient is calm and cooperative. Affect is more euthymic and reactive. She is sitting in the day area and appears to be socializing appropriately with peers. No psychotic material today. No side effects from medications. No physical complaints. Vital Signs Temp Pulse Resp BP Pulse Ox 04/14/18 06:43 97.9 F 64 16 104/58 L 94 L 04/14/18 06:00 98.7 F 69 18 110/71 95 Intake and Output 04/13/18 04/14/18 04/14/18 22:59 06:59 14:59 Intake Total 480 / 480 240 / 240 Balance 480 / 480 240 / 240 Intake: Oral 480 / 480 240 / 240 Other: # Voids 2 Date of Last Bowel Movement 03/31/18 Labs reviewed. No new labs. Review of Systems All other systems reviewed negative except as stated in HPI Mental Status Examination Appearance: Appropriate Consciousness: Alert Orientation: Person, Place (At least) Motor Activity: Other (No motoric abnormalities appreciated) Speech: Unremarkable Language: Adequate Fund of Knowledge: Inadequate Attention and Concentration: Adequate Memory: Unremarkable Mood: Appropriate Affect: Appropriate, Euthymic Thought Process & Associations: Intact Thought Content: Appropriate Hallucination Type: None Delusion Type: None Suicidal Ideation: No Homicidal Ideation: No Insight: Poor Judgment: Poor Assessment and Plan - Assessment (1) Paranoid type schizophrenia, chronic state with acute exacerbation Code(s): F20.0 - Paranoid schizophrenia Status: Acute - Plan Plan: Continue oral Risperdal supplementing Invega Sustenna. Continue Depakote as ordered. Continue to monitor on the inpatient unit. Continue other medications and care as ordered. Justification for Continued Inpatient Stay: Risk for decompensation in less restrictive environment Discharge Planning: Possible discharge home with family versus [facility] referral Request Healthcare Surrogate/Guardian Advocate?: Yes
[2018-04-14] MEDS: Sodium Chloride 1 GM Tablet PO SCH (16:27)
[2018-04-15] MEDS: Calcium Carbonate 500 MG Tablet PO SCH ×2 (09:54→21:14)
[2018-04-15] MEDS: risperiDONE 0.5 MG ODT PO SCH ×2 (09:55→21:29)
[2018-04-15] MEDS: Lactic Acid (Ammonium Lactate) 12% Lotion 225 GM Bottle TOPICAL SCH ×2 (09:57→21:17)
[2018-04-15] MEDS: Lidocaine 5% Patch T-DERMAL SCH (09:57)
[2018-04-15] MEDS: Sodium Chloride 1 GM Tablet PO SCH (09:59)
--- NOTE | 2018-04-15 15:13 | P.PNPSY ---
Subjective Remarks: Reviewed electronic medical records and discussed case with staff. Follow-up was conducted in the [facility] with TIFF Boucher present. Patient is pleasant and cooperative today. Although, her nurse reports that she was irritable and seclusive this morning. She she also states that she was very selective with which medication she would take in the order she would take them in. However, patient presents to me as pleasant and cooperative. She reports that she slept well a well and is hopeful for discharge to her son soon. Mental Status Examination Appearance: Appropriate Consciousness: Alert Orientation: Person, Place (At least) Motor Activity: Other (No motoric abnormalities appreciated) Speech: Unremarkable Language: Adequate Fund of Knowledge: Inadequate Attention and Concentration: Adequate Memory: Unremarkable Mood: Appropriate Affect: Appropriate, Euthymic Thought Process & Associations: Intact Thought Content: Appropriate Hallucination Type: None Delusion Type: None Suicidal Ideation: No Suicidal Plan: No Suicidal Intention: No Homicidal Ideation: No Homicidal Plan: No Homicidal Intention: No Insight: Poor Judgment: Poor Assessment and Plan - Assessment (1) Paranoid type schizophrenia, chronic state with acute exacerbation Code(s): F20.0 - Paranoid schizophrenia Status: Acute - Plan Plan: Patient will be reevaluated by the attending psychiatrist. Continue with current treatment plan. Justification for Continued Inpatient Stay: Moving this patient to a less restrictive environment would likely result in decompensation. Request Healthcare Surrogate/Guardian Advocate?: Yes
--- NOTE | 2018-04-16 08:13 | P.PNPSY ---
Subjective Remarks: Reviewed electronic medical record and discussed with nursing staff. Rounded with TIFF Mann. Patient is in bed a sleeping. Nursing staff report that she has been seclusive, oppositional and continues to believe that she is . Per nursing plan is for patient to relocate with her son at the time of discharge. Review of Systems All other systems reviewed negative except as stated in HPI Mental Status Examination Appearance: Appropriate Consciousness: Alert Orientation: Person, Place (At least) Motor Activity: Other (No motoric abnormalities appreciated) Speech: Unremarkable Language: Adequate Fund of Knowledge: Inadequate Attention and Concentration: Adequate Memory: Unremarkable Mood: Appropriate Affect: Appropriate, Euthymic Thought Process & Associations: Intact Thought Content: Appropriate Hallucination Type: None Delusion Type: None Suicidal Ideation: No Suicidal Plan: No Suicidal Intention: No Homicidal Ideation: No Homicidal Plan: No Homicidal Intention: No Insight: Poor Judgment: Poor Assessment and Plan - Assessment (1) Paranoid type schizophrenia, chronic state with acute exacerbation Code(s): F20.0 - Paranoid schizophrenia Status: Acute - Plan Plan: Patient will be reevaluated by the attending psychiatrist. Continue with current treatment plan. Justification for Continued Inpatient Stay: Moving patient to a less restrictive environment will may result in her decompensation. Request Healthcare Surrogate/Guardian Advocate?: Yes
[2018-04-16] MEDS: Lactic Acid (Ammonium Lactate) 12% Lotion 225 GM Bottle TOPICAL SCH ×2 (12:20→20:51)
[2018-04-16] MEDS: Lidocaine 5% Patch T-DERMAL SCH (12:20)
[2018-04-16] MEDS: Calcium Carbonate 500 MG Tablet PO SCH ×2 (12:20→20:51)
[2018-04-16] MEDS: Sodium Chloride 1 GM Tablet PO SCH (12:21)
[2018-04-16] MEDS: risperiDONE 0.5 MG ODT PO SCH ×2 (12:21→20:51)
[2018-04-17] MEDS: Sodium Chloride 1 GM Tablet PO SCH (08:35)
[2018-04-17] MEDS: Calcium Carbonate 500 MG Tablet PO SCH ×2 (08:35→20:39)
[2018-04-17] MEDS: risperiDONE 0.5 MG ODT PO SCH ×2 (08:35→20:39)
[2018-04-17] MEDS: Lactic Acid (Ammonium Lactate) 12% Lotion 225 GM Bottle TOPICAL SCH ×3 (08:39→22:08)
[2018-04-17] MEDS: Lidocaine 5% Patch T-DERMAL SCH (08:39)
--- NOTE | 2018-04-17 12:23 | P.PNPSY ---
Subjective Remarks: Patient seen and examined with nurse. Chart reviewed. Case discussed with nursing staff. No behavioral issues noted overnight. Case discussed with counselor who has not yet heard back from sign regarding visit that was scheduled for over the weekend. Counselor will reach out to son today. On my examination today, patient is calm and cooperative. She denies SI or HI. Denies AVH. Denies side effects from medications. No physical complaints. Vital Signs Temp Pulse Resp BP Pulse Ox 04/17/18 06:00 98.5 F 59 L 18 100/51 L 90 L 04/16/18 17:24 98 F 74 16 124/71 97 Intake and Output 04/16/18 04/17/18 04/17/18 22:59 06:59 14:59 Intake Total 0 / 0 Balance 0 / 0 Intake: Oral 0 / 0 Oral Supplement 0 / 0 Other: # Voids 2 Date of Last Bowel Movement 03/31/18 # Bowel Movements 0 Weight 61.1 kg Labs reviewed. No new labs. Review of Systems All other systems reviewed negative except as stated in HPI Mental Status Examination Appearance: Appropriate Consciousness: Alert Orientation: Person, Place (At least) Motor Activity: Other (No motor abnormalities appreciated) Speech: Unremarkable Language: Adequate Fund of Knowledge: Inadequate Attention and Concentration: Adequate Memory: Unremarkable Mood: Appropriate Affect: Appropriate Thought Process & Associations: Intact Thought Content: Appropriate Hallucination Type: None Delusion Type: None Suicidal Ideation: No Suicidal Plan: No Suicidal Intention: No Homicidal Ideation: No Homicidal Plan: No Homicidal Intention: No Insight: Poor Judgment: Poor Assessment and Plan - Assessment (1) Paranoid type schizophrenia, chronic state with acute exacerbation Code(s): F20.0 - Paranoid schizophrenia Status: Acute - Plan Plan: Continue oral Risperdal supplementing Invega Sustenna. Check BMP in the morning to ensure sodium remains stable. Continue to monitor on the inpatient unit. Continue other medications and care as ordered. Justification for Continued Inpatient Stay: Risk for decompensation in less restrictive setting. Discharge Planning: Home with family versus state hospital referral Request Healthcare Surrogate/Guardian Advocate?: Yes
[2018-04-18] MEDS: Calcium Carbonate 500 MG Tablet PO SCH (09:04)
[2018-04-18] MEDS: risperiDONE 0.5 MG ODT PO SCH (09:04)
[2018-04-18] MEDS: Lactic Acid (Ammonium Lactate) 12% Lotion 225 GM Bottle TOPICAL SCH (09:04)
[2018-04-18] MEDS: Sodium Chloride 1 GM Tablet PO SCH (09:04)
[2018-04-18] MEDS: Lidocaine 5% Patch T-DERMAL SCH (09:18)
--- NOTE | 2018-04-18 09:28 | P.TTN ---
- Patient Problems Problems: 1. Discharge planning 2. Medication compliance 3. Knowledge deficit 4. Lack of coping skills - Progress Toward Goals Provider Present: Dr. Jeffry Cespedes Provider Input: 04/18/18: No changes to medications. [facility] 04/11/18: pt has been administered booster of invega sustaina, Risperdal has been discontinued. Pt continues on Depakote. Laina to follow-up with Carolyn, pt's son and with pt's sister in [place] as potential discharge options. Carolyn remains the better of these 2 options. 03/28/2018; patient remains on state waiting list, at this time no medication changes, patient has reportedly not been participating in activities. 03/24/2018; patient has no med adjustment, continues to be a state wait, counselor will look into family placement options. 03/21/2018; patient is stable on current med dosage, [facility]. 03/14/2018; per doctor, although patient is a State referral, her medications are being adjusted to address patient's behavior. 03/03/18: Pt exhibiting no behaviors, she remains isolative, [facility]. 02/21/2018; Patient' s are being titrated Nurse(s) Present: RN Nurse Input: 03/28/2018; at this time patient is reportedly continuing to take medication, no further reports of nausea, vomiting and diarrhea, patient continuing to eat and drink well. 03/24/2018; patient is taking her meds, eating meals and attending groups/activities. 03/21/2018 patient requires coaching with mood, she is eating and taking her meds. 03/14/2018; patient require coaching with medication and redirection with mood due to aggressive behavior, she is taking her meds and eating meals. 02/21/2018; Patient is eating meals and taking medication, require coaching and prompting Psychiatric Counselors Present: Marbin Clancy Jr., [facility], Laina Mo, [facility] Psychiatric Therapist Input: 03/28/2008; counselor continues to maintain contact with family, counselor monitoring state wait list for estimated time patient to transfer to [facility] hospital. 03/24/2018; counselor continues to make contact with family members for possible state hospital diversion. Thus far the contact numbers provided by patient has been not been good, (no family return or answer calls). 03/14/2018; counselor will revisit patient's contact to see if she is placeable with family or friends. 03/14/2018; counselor will staff transfer to [facility] with picking crew supervisor to continue state wait. As of 03/04/18: counselor is completing state packet is being completed relative limited options for this pt. 02/22/2018; counselor will be contacting patient's NOK to discuss propriate dc planning patient's son (Lukas and patient' s sister Marla Sewell Group Spec/RT/OT/NAIK Present: GUMARO Burger, Juan Guajardo, OT, GUMARO Villalobos Group Spec/RT/OT/NAIK Input: 04/18/18: Pt attends groups occasionally, sporatically. 04/11/18: Pt attends few groups, she is largely unable to tolerate group activities`. 03/24/2018; patient has been participatting with groups and appears to be enaging with peers with positive interaction,. 2017; patient lacks motivation to participate with groups. 03/14/2018; patient lacks the emotional ability to appropriately participate with groups. 2017;this is continuing as of 03/03/18; lack of pt attendance or participation. patient has not participate with groups or activities Other Clinican Input: State packet initiated per MD, counselor as this is pt's best option. Additional Input: 04/11/18: Laina to follow-up with Carolyn, pt's son and with pt's sister in [place] as potential discharge options. Jamarie remains the better of these 2 options. - Discharge Plan 04/18/18: Pt [facility] to be [facility]. 04/11/18:Laina to follow-up with Carolyn, pt's son and with pt's sister in [place] as potential discharge options. Jamarie remains the better of these 2 options. - Documentation Teaching Recipient: Patient
[2018-04-18 09:30] LABS: Anion Gap 10 meq/L (5-15); Blood Urea Nitrogen 13 mg/dL (7-18); Carbon Dioxide 25.4 meq/L (21.0-32.0); Chloride 94 meq/L (98-107); Glomerular Filtration Rate Greater Than 89 mL/min (>89); Glucose,Random 166 mg/dL (74-106); Potassium 4.2 meq/L (3.5-5.1); Sodium 129 meq/L (136-145)
--- NOTE | 2018-04-18 09:41 | P.PNPSY ---
Subjective Remarks: Patient seen and examined. Chart reviewed. Case discussed with nursing staff. No behavioral issues noted overnight. Case discussed with counselor. Family including son reportedly visited with patient last evening. Counselor has spoken with patient's son who reportedly needs to see if he can enlist help from family to care for patient. If he is able to do so, son may be able to take patient in. On my exam, patient is calm and cooperative. She denies SI/ HI. Denies AVH. Denies issues with mood. Denies side effects from medications. No physical complaints. Vital Signs Temp Pulse Resp BP Pulse Ox 04/18/18 09:03 110 H 110/57 L 04/18/18 05:41 98.7 F 64 16 92 L 04/17/18 16:15 98.2 F 70 18 106/73 96 Intake and Output 04/17/18 04/18/18 04/18/18 22:59 06:59 14:59 Intake Total 1440 / 1440 340 / 340 Balance 1440 / 1440 340 / 340 Intake: Oral 1440 / 1440 240 / 240 Oral Supplement 100 / 100 Other: # Voids 5 2 # Bowel Movements 0 Laboratory Results - last 24 hr 04/18/18 08:30 Sodium 129 L Potassium 4.2 Chloride 94 L Carbon Dioxide 25.4 Anion Gap 10 BUN 13 Creatinine 0.78 Estimated GFR Greater than 89 Random Glucose 166 H Calcium 9.0 Labs reviewed. Ongoing mild hyponatremia; patient continues to refuse salt tablets. Mild hyperglycemia. Review of Systems All other systems reviewed negative except as stated in HPI Mental Status Examination Appearance: Appropriate Consciousness: Alert Orientation: Person, Place (At least) Motor Activity: Other (No motoric abnormalities noted) Speech: Unremarkable Language: Adequate Fund of Knowledge: Inadequate Attention and Concentration: Adequate Memory: Unremarkable Mood: Appropriate Affect: Blunt Thought Process & Associations: Intact Thought Content: Appropriate Hallucination Type: None Delusion Type: None Suicidal Ideation: No Homicidal Ideation: No Insight: Poor Judgment: Poor Assessment and Plan - Assessment (1) Paranoid type schizophrenia, chronic state with acute exacerbation Code(s): F20.0 - Paranoid schizophrenia Status: Acute - Plan Plan: Check BMP tomorrow morning to follow-up on laboratory abnormalities identified today. Continue current psychotropics as ordered. Continue to monitor on the inpatient unit. Continue other medications and care as ordered. Justification for Continued Inpatient Stay: Risk for decompensation in less restrictive environment Discharge Planning: Possible discharge home with family versus state psychiatric hospitalization. Request Healthcare Surrogate/Guardian Advocate?: Yes
[2018-04-19] MEDS: Lactic Acid (Ammonium Lactate) 12% Lotion 225 GM Bottle TOPICAL SCH ×3 (00:10→20:26)
[2018-04-19] MEDS: risperiDONE 0.5 MG ODT PO SCH ×3 (00:11→20:28)
[2018-04-19] MEDS: Calcium Carbonate 500 MG Tablet PO SCH ×3 (00:11→20:28)
[2018-04-19] MEDS: Lidocaine 5% Patch T-DERMAL SCH ×2 (09:06→17:37)
[2018-04-19] MEDS: Sodium Chloride 1 GM Tablet PO SCH (09:06)
--- NOTE | 2018-04-19 10:33 | P.PNPSY ---
Subjective Remarks: Patient seen and examined with nurse. Chart reviewed. Case discussed with nursing staff. Patient somewhat more irritable today. She reportedly vociferously refused laboratories ordered for this morning. On my exam, mood is "so-so" and affect is indeed a little more dysphoric. She complains of poor sleep because a peer was "hollering and screaming" overnight. No SI/HI. No psychotic material. No side effects from medications. No physical complaints. We discussed discharge plan; patient seems disappointed that son will not be retrieving her today. Vital Signs Temp Pulse Resp BP Pulse Ox 04/18/18 18:19 98.5 F 74 16 107/67 98 Intake and Output 04/18/18 04/19/18 04/19/18 22:59 06:59 14:59 Intake Total 960 / 960 0 / 0 Balance 960 / 960 0 / 0 Intake: Oral 960 / 960 0 / 0 Oral Supplement 0 / 0 Other: # Voids 2 2 # Bowel Movements 0 Patient refused laboratories this morning. I have discussed with patient the importance of monitoring her sodium especially since she is refusing salt tablets. Review of Systems All other systems reviewed negative except as stated in HPI Mental Status Examination Appearance: Appropriate Consciousness: Alert Orientation: Person, Place (At least) Motor Activity: Other (No abnormal motor movements noted) Speech: Unremarkable Language: Adequate Fund of Knowledge: Inadequate Attention and Concentration: Adequate Memory: Unremarkable Mood: Other ("So-so") Affect: Other (Somewhat more dysphoric today) Thought Process & Associations: Intact Thought Content: Appropriate Hallucination Type: None Delusion Type: None Suicidal Ideation: No Homicidal Ideation: No Insight: Poor Judgment: Poor Assessment and Plan - Assessment (1) Paranoid type schizophrenia, chronic state with acute exacerbation Code(s): F20.0 - Paranoid schizophrenia Status: Acute - Plan Plan: Continue current psychiatric medications as ordered. Continue to monitor on the inpatient unit. Continue other care as ordered. Justification for Continued Inpatient Stay: Risk for decompensation and less restrictive environment. Discharge Planning: Home with family versus state psychiatric hospitalization. Patient is #21 on the [facility] wait list per counselor. Request Healthcare Surrogate/Guardian Advocate?: Yes
[2018-04-20] MEDS: Calcium Carbonate 500 MG Tablet PO SCH ×2 (09:30→22:00)
[2018-04-20] MEDS: Sodium Chloride 1 GM Tablet PO SCH ×2 (09:30→11:23)
[2018-04-20 09:31] LABS: Calcium 8.4 mg/dL (8.5-10.1); Carbon Dioxide 26.3 meq/L (21.0-32.0); Potassium 3.8 meq/L (3.5-5.1)
[2018-04-20] MEDS: Lidocaine 5% Patch T-DERMAL SCH (09:31)
[2018-04-20] MEDS: risperiDONE 0.5 MG ODT PO SCH ×2 (09:31→22:00)
--- NOTE | 2018-04-20 10:55 | P.PNPSY ---
Subjective Remarks: Patient seen and examined. Chart reviewed. Case discussed with nursing staff. No behavioral issues noted overnight. On my examination today, the patient reports that she slept well. Affect is somewhat more reactive and less dysphoric. She denies audiovisual hallucinations or paranoia. Denies side effects from medications. No physical complaints. Vital Signs Temp Pulse Resp BP Pulse Ox 04/20/18 06:00 98.7 F 64 15 91/55 L 92 L 04/19/18 16:32 99 F 93 H 16 118/75 93 L Intake and Output 04/19/18 04/20/18 04/20/18 22:59 06:59 14:59 Intake Total 1560 / 1560 Balance 1560 / 1560 Intake: Oral 1560 / 1560 Other: # Voids 1 Date of Last Bowel Movement 03/31/18 Laboratory Results - last 24 hr 04/20/18 08:47 Sodium 134 L Potassium 3.8 Chloride 97 L Carbon Dioxide 26.3 Anion Gap 11 BUN 12 Creatinine 0.81 Estimated GFR 89 Random Glucose 127 H Calcium 8.4 L Labs reviewed. Sodium level improved. Review of Systems All other systems reviewed negative except as stated in HPI Mental Status Examination Appearance: Appropriate Consciousness: Alert Orientation: Person, Place (At least) Motor Activity: Other (No motoric abnormalities noted) Speech: Unremarkable Language: Adequate Fund of Knowledge: Inadequate Attention and Concentration: Adequate Memory: Unremarkable Mood: Appropriate Affect: Appropriate (More euthymic today) Thought Process & Associations: Intact Thought Content: Appropriate Hallucination Type: None Delusion Type: None Suicidal Ideation: No (No SI voiced) Homicidal Ideation: No (No HI voiced) Insight: Poor Judgment: Poor Assessment and Plan - Assessment (1) Paranoid type schizophrenia, chronic state with acute exacerbation Code(s): F20.0 - Paranoid schizophrenia Status: Acute - Plan Plan: Continue oral Risperdal supplementing Invega Sustenna. Continue Depakote as ordered. Continue to monitor on the inpatient unit. Continue other care as ordered. Justification for Continued Inpatient Stay: Risk for decompensation in less restrictive environment. Discharge Planning: Home with family versus [facility] psychiatric hospital referral. Request Healthcare Surrogate/Guardian Advocate?: Yes
[2018-04-20] MEDS: Lactic Acid (Ammonium Lactate) 12% Lotion 225 GM Bottle TOPICAL SCH ×2 (11:22→22:00)
[2018-04-21] MEDS: risperiDONE 0.5 MG ODT PO SCH ×2 (08:40→22:38)
[2018-04-21] MEDS: Calcium Carbonate 500 MG Tablet PO SCH ×2 (08:40→22:37)
[2018-04-21] MEDS: Sodium Chloride 1 GM Tablet PO SCH (08:41)
[2018-04-21] MEDS: Lactic Acid (Ammonium Lactate) 12% Lotion 225 GM Bottle TOPICAL SCH ×2 (08:41→22:31)
[2018-04-21] MEDS: Lidocaine 5% Patch T-DERMAL SCH (08:41)
--- NOTE | 2018-04-21 10:03 | P.PNPSY ---
Subjective Remarks: Patient seen and examined. Chart reviewed. Case discussed with nursing. Case discussed in treatment team. Counselor to try to reach out to son to see if he has been able to jesusita requisite family support to take patient home. On my examination today, the patient is sitting in the day area. She is calm and cooperative. Affect is fairly euthymic. She complains of somewhat poor sleep. No psychotic material. No side effects from medications. No physical complaints. Vital Signs Temp Pulse Resp BP Pulse Ox 04/21/18 06:25 97.9 F 61 16 91 L 04/21/18 06:00 93/58 L 04/20/18 17:02 97.5 F L 100 H 16 93/60 L 96 Intake and Output 04/20/18 04/21/18 04/21/18 22:59 06:59 14:59 Intake Total 950 / 950 1200 / 1200 Balance 950 / 950 1200 / 1200 Intake: Oral 950 / 950 1200 / 1200 Other: # Voids 2 1 Labs reviewed. No new labs. Review of Systems All other systems reviewed negative except as stated in HPI Mental Status Examination Appearance: Appropriate Consciousness: Alert Orientation: Person, Place (At least) Motor Activity: Other (No abnormal motor movements noted) Speech: Unremarkable Language: Adequate Fund of Knowledge: Inadequate Attention and Concentration: Adequate Memory: Unremarkable Mood: Appropriate Affect: Appropriate, Euthymic Thought Process & Associations: Intact Thought Content: Appropriate Hallucination Type: None Delusion Type: None Suicidal Ideation: No Homicidal Ideation: No Insight: Poor Judgment: Poor Assessment and Plan - Assessment (1) Paranoid type schizophrenia, chronic state with acute exacerbation Code(s): F20.0 - Paranoid schizophrenia Status: Acute - Plan Plan: Recheck pulse ox; this was likely obtained while patient was sleeping or still in bed. Continue current psychiatric medications as ordered. Continue to monitor on the inpatient psychiatric unit. Continue other medications and care as ordered. Justification for Continued Inpatient Stay: Risk for decompensation and less restrictive environment. Discharge Planning: Home with family versus state psychiatric hospitalization. Request Healthcare Surrogate/Guardian Advocate?: Yes
--- NOTE | 2018-04-21 11:51 | P.TTN ---
- Patient Problems Problems: 1. Discharge planning 2. Medication compliance 3. Knowledge deficit 4. Lack of coping skills - Progress Toward Goals Provider Present: Dr. Jeffry Cespedes Provider Input: 04/21/18: No changes to medications. [facility] Dorothy, counselor, has been requested to make further attempts to contact pt's son (Lukas Sewell) with goal of determining if there are other options to state hosp. 04/18/18: No changes to medications. [facility] 04/11/18: pt has been administered booster of invega sustaina, Risperdal has been discontinued. Pt continues on Depakote. Laina to follow-up with Carolyn, pt's son and with pt's sister in [place] as potential discharge options. Carolyn remains the better of these 2 options. 03/28/2018; patient remains on state waiting list, at this time no medication changes, patient has reportedly not been participating in activities. 03/24/2018; patient has no med adjustment, continues to be a state wait, counselor will look into family placement options. 03/21/2018; patient is stable on current med dosage, [facility]. 03/14/2018; per doctor, although patient is a State referral, her medications are being adjusted to address patient's behavior. 03/03/18: Pt exhibiting no behaviors, she remains [facility]; Patient's are being titrated Nurse(s) Present: RN Nurse Input: 03/28/2018; at this time patient is reportedly continuing to take medication, no further reports of nausea, vomiting and diarrhea, patient continuing to eat and drink well. 03/24/2018; patient is taking her meds, eating meals and attending groups/activities. 03/21/2018 patient requires coaching with mood, she is eating and taking her meds. 03/14/2018; patient require coaching with medication and redirection with mood due to aggressive behavior, she is taking her meds and eating meals. 02/21/2018; Patient is eating meals and taking medication, require coaching and prompting Psychiatric Counselors Present: Marbin Clancy Jr., [facility], Laina Mo, [facility] Psychiatric Therapist Input: 04/21/18: [facility]. Dorothy counselor, has been requested to make further attempts to contact pt 's son (Lukas Sewell) with goal of determining if there are other options to state hosp. 03/28/2008; counselor continues to maintain contact with family, counselor monitoring state wait list for estimated time [facility]. 03/24/2018; counselor continues to make contact with family members for possible state hospital diversion. Thus far the contact numbers provided by patient has been not been good, (no family return or answer calls) . 03/14/2018; counselor will revisit patient's contact to see if she is placeable with family or friends. 03/14/2018; counselor will staff transfer to [facility] with supervisor bleach [employer] to continue state wait. As of 03/04/18: counselor is completing state packet is being completed relative limited options for this pt. 02/22/2018; counselor will be contacting patient's NOK to discuss propriate dc planning patient's son (Lukas and patient's sister Marla Sewell Group Spec/RT/OT/NAIK Present: Marnie Cifuentes, NAIK, Juan Guajardo, OT, Cayetano Baugh, GUMARO Group Spec/RT/OT/NAIK Input: 04/21/18: Pt attends groups occasionally, sporatically. 04/18/18: Pt attends groups occasionally, sporatically. 04/11/18 : Pt attends few groups, she is largely unable to tolerate group activities`. 03/24/2018; patient has been participatting with groups and appears to be enaging with peers with positive interaction,. 03/21/2018; patient lacks motivation to participate with groups. 03/14/2018; patient lacks the emotional ability to appropriately participate with groups. 02/21/2018;this is continuing as of 03/03/18; lack of pt attendance or participation. patient has not participate with groups or activities Other Clinican Input: State packet initiated per , counselor as this is pt's best option. Additional Input: 04/21/18: Pt continues to be [facility] wait list. luz marina De La Cruzor, has been requested to make further attempts to contact pt's son (Lukas Sewell) with goal of determining if there are other options to state hosp. 04/11/18: Laina to follow-up with Asifrie, pt's son and with pt's sister in [place] as potential discharge options. Jamarie remains the better of these 2 options. - Discharge Plan 04/18/18: [facility] be [facility]. 04/11/18:Laina to follow-up with Asifrie, pt's son and with pt's sister in [place] as potential discharge options. Asifrie remains the better of these 2 options. - Documentation Teaching Recipient: Patient
[2018-04-22] MEDS: risperiDONE 0.5 MG ODT PO SCH ×2 (08:07→20:09)
[2018-04-22] MEDS: Calcium Carbonate 500 MG Tablet PO SCH ×2 (08:07→20:09)
[2018-04-22] MEDS: Sodium Chloride 1 GM Tablet PO SCH (08:08)
[2018-04-22] MEDS: Lactic Acid (Ammonium Lactate) 12% Lotion 225 GM Bottle TOPICAL SCH (08:08)
[2018-04-22] MEDS: Lidocaine 5% Patch T-DERMAL SCH (08:54)
--- NOTE | 2018-04-22 13:12 | P.PNPSY ---
Subjective Remarks: Reviewed electronic medical records and discussed case with staff. Follow-up was conducted in the day room. Her nurse advises the patient's son came from [place] but the visitation did not go well and now her post hospital placement is still up in the ER. When asked how she slept last night the patient states "kind of messed up because of time". She is very suspicious over male staff members. She reports that her appetite's been good and her mood has been good. However her confusion quickly becomes evident when asked about her discharge she states, "Laina said that my son from [place] is going to let me stay with him ". Apparently she does not have much recollection of events. Mental Status Examination Appearance: Appropriate Consciousness: Alert Orientation: Person, Place (At least) Motor Activity: Other (No abnormal motor movements noted) Speech: Unremarkable Language: Adequate Fund of Knowledge: Inadequate Attention and Concentration: Adequate Memory: Unremarkable Mood: Appropriate Affect: Appropriate, Euthymic Thought Process & Associations: Intact Thought Content: Appropriate Hallucination Type: None Delusion Type: None Suicidal Ideation: No Suicidal Plan: No Suicidal Intention: No Homicidal Ideation: No Homicidal Plan: No Homicidal Intention: No Insight: Poor Judgment: Poor Assessment and Plan - Assessment (1) Paranoid type schizophrenia, chronic state with acute exacerbation Code(s): F20.0 - Paranoid schizophrenia Status: Acute - Plan Plan: Patient will be reevaluated by the attending psychiatrist. Continue with current treatment plan. A safe placement post discharge is being sought. Justification for Continued Inpatient Stay: Moving this patient to a less restrictive environment would likely result in decompensation. Request Healthcare Surrogate/Guardian Advocate?: Yes
[2018-04-23] MEDS: Lactic Acid (Ammonium Lactate) 12% Lotion 225 GM Bottle TOPICAL SCH ×3 (00:59→21:21)
--- NOTE | 2018-04-23 08:10 | P.PNPSY ---
Subjective Remarks: Reviewed electronic medical records and discussed case with staff. Follow-up was conducted in the day room with nurse present. Patient is eating breakfast. When asked about her son's visit, she is angry. States , "he came all this way, but did not spend much time with me. " She is unwilling to answer any questions. She remain angry and does not desire to engage in conversation. Review of Systems All other systems reviewed negative except as stated in HPI Mental Status Examination Appearance: Appropriate Consciousness: Alert Orientation: Person, Place (At least) Motor Activity: Other (No abnormal motor movements noted) Speech: Unremarkable Language: Adequate Fund of Knowledge: Inadequate Attention and Concentration: Adequate Memory: Unremarkable Mood: Angry Affect: Sad Thought Process & Associations: Intact Thought Content: Appropriate Hallucination Type: None Delusion Type: None Suicidal Ideation: No Suicidal Plan: No Suicidal Intention: No Homicidal Ideation: No Homicidal Plan: No Homicidal Intention: No Insight: Poor Judgment: Poor Assessment and Plan - Assessment (1) Paranoid type schizophrenia, chronic state with acute exacerbation Code(s): F20.0 - Paranoid schizophrenia Status: Acute - Plan Plan: Patient will be reevaluated by the attending psychiatrist. Continue with current treatment plan. A safe placement post discharge is being sought. Justification for Continued Inpatient Stay: Moving patient to a less restrictive environment may result in her decompensation. Request Healthcare Surrogate/Guardian Advocate?: Yes
[2018-04-23] MEDS: Calcium Carbonate 500 MG Tablet PO SCH ×2 (08:15→21:21)
[2018-04-23] MEDS: Sodium Chloride 1 GM Tablet PO SCH (08:15)
[2018-04-23] MEDS: risperiDONE 0.5 MG ODT PO SCH ×2 (08:15→21:22)
[2018-04-23] MEDS: Lidocaine 5% Patch T-DERMAL SCH (09:23)
[2018-04-24] MEDS: risperiDONE 0.5 MG ODT PO SCH ×2 (08:18→20:00)
[2018-04-24] MEDS: Calcium Carbonate 500 MG Tablet PO SCH ×2 (08:18→20:00)
[2018-04-24] MEDS: Sodium Chloride 1 GM Tablet PO SCH (08:18)
[2018-04-24] MEDS: Lactic Acid (Ammonium Lactate) 12% Lotion 225 GM Bottle TOPICAL SCH ×2 (08:19→20:00)
[2018-04-24] MEDS: Lidocaine 5% Patch T-DERMAL SCH (08:19)
--- NOTE | 2018-04-24 12:12 | P.PNPSY ---
Subjective Remarks: Patient seen and examined. Chart reviewed. Case discussed with nursing staff who reports patient has been somewhat more irritable today but no aggressive behavior noted. On my examination today, the patient is fairly pleasant. No psychotic material verbalized. She does seem to be disappointed that family has not called or visited. I have asked the counselor to reach out to son to clarify discharge plan. No side effects from medications. No physical complaints. Vital Signs Temp Pulse Resp BP Pulse Ox 04/24/18 05:23 98.2 F 65 18 95/55 L 91 L 04/23/18 16:35 98.4 F 86 17 105/54 L 96 Intake and Output 04/23/18 04/24/18 04/24/18 22:59 06:59 14:59 Intake Total 1080 / 1080 460 / 460 Balance 1080 / 1080 460 / 460 Intake: Oral 1080 / 1080 360 / 360 Oral Supplement 100 / 100 Other: # Voids 4 2 # Bowel Movements 0 Weight 62.7 kg Labs reviewed. No new labs. Review of Systems All other systems reviewed negative except as stated in HPI Mental Status Examination Appearance: Appropriate Consciousness: Alert Orientation: Person, Place (At least) Motor Activity: Other (No motoric abnormalities noted) Speech: Unremarkable Language: Adequate Fund of Knowledge: Inadequate Attention and Concentration: Adequate Memory: Unremarkable Mood: Appropriate Affect: Appropriate Thought Process & Associations: Intact Thought Content: Appropriate Hallucination Type: None Delusion Type: None Suicidal Ideation: No Homicidal Ideation: No Insight: Poor Judgment: Poor Assessment and Plan - Assessment (1) Paranoid type schizophrenia, chronic state with acute exacerbation Code(s): F20.0 - Paranoid schizophrenia Status: Acute - Plan Plan: Continue oral Risperdal as ordered. This is supplementing Invega Sustenna. Continue Depakote as ordered. Check updated set of basic labs including VPA level in the morning. Continue to monitor on the inpatient unit. Continue other medications and care as ordered. Justification for Continued Inpatient Stay: Risk for decompensation in less restrictive setting. Discharge Planning: Home with family versus state hospitalization. Request Healthcare Surrogate/Guardian Advocate?: Yes
[2018-04-25 07:55] LABS: Baso # (Auto) 0.1 th/mm3 (0.0-0.2); Baso % (Auto) 0.9 % (0.0-2.0); Eos # (Auto) 0.2 th/mm3 (0.0-0.4); Eos % (Auto) 2.4 % (0.0-4.0); Hematocrit 37.2 % (35.0-46.0); Hemoglobin 12.1 gm/dL (11.6-15.3); Lymph # (Auto) 2.6 th/mm3 (1.0-4.8); Lymph % (Auto) 42.3 % (9.0-44.0); Mean Corpuscular HGB Conc 32.6 % (32.0-36.0); Mean Corpuscular Hemoglobin 29.1 pg (27.0-34.0); Mean Corpuscular Volume 89.2 fL (80.0-100.0); Mean Platelet Volume 8.1 fL (7.0-11.0); Mono # (Auto) 0.8 th/mm3 (0.0-0.9); Mono % (Auto) 12.8 % (0.0-8.0); Neut # (Auto) 2.6 th/mm3 (1.8-7.7); Neut % (Auto) 41.6 % (16.0-70.0); Platelet Count 185 th/mm3 (150-450); Red Blood Count 4.17 mil/mm3 (4.00-5.30); Red Cell Distribution Width 15.8 % (11.6-17.2); White Blood Count 6.3 th/mm3 (4.0-11.0)
[2018-04-25] MEDS: risperiDONE 0.5 MG ODT PO SCH ×2 (08:16→20:13)
[2018-04-25] MEDS: Calcium Carbonate 500 MG Tablet PO SCH ×2 (08:16→20:14)
[2018-04-25] MEDS: Sodium Chloride 1 GM Tablet PO SCH (08:16)
[2018-04-25] MEDS: Lidocaine 5% Patch T-DERMAL SCH (08:17)
[2018-04-25] MEDS: Lactic Acid (Ammonium Lactate) 12% Lotion 225 GM Bottle TOPICAL SCH ×2 (08:17→20:11)
[2018-04-25 08:26] LABS: Albumin 3.5 g/dL (3.4-5.0); Anion Gap 7 meq/L (5-15); Aspartate Aminotransferase 22 U/L (15-37); Blood Urea Nitrogen 17 mg/dL (7-18); Calcium 9.5 mg/dL (8.5-10.1); Carbon Dioxide 31.5 meq/L (21.0-32.0); Chloride 91 meq/L (98-107); Glomerular Filtration Rate Greater Than 89 mL/min (>89); Glucose,Random 68 mg/dL (74-106); Potassium 4.4 meq/L (3.5-5.1); Sodium 129 meq/L (136-145)
[2018-04-25 08:27] LABS: Alanine Aminotransferase 14 U/L (10-53)
[2018-04-25 08:29] LABS: Alkaline Phosphatase 60 U/L (45-117); Total Protein 7.1 g/dL (6.4-8.2); Valproic Acid 91 mcg/mL (50-100)
--- NOTE | 2018-04-25 12:23 | P.TTN ---
- Patient Problems Problems: 1. Discharge planning 2. Medication compliance 3. Knowledge deficit 4. Lack of coping skills - Progress Toward Goals Provider Present: Dr. Jeffry Cespedes Provider Input: 04/25/2018; no medication change at this time; patient continues to be approprate for State. 04/21/18: No changes to medications. [facility] Dorothy, counselor, has been requested to make further attempts to contact pt's son (Lukas Sewell) with goal of determining if there are other options to state hosp. 04/18/18: No changes to medications. [facility]. 04/11/18: pt has been administered booster of invega sustaina, Risperdal has been discontinued. Pt continues on Depakote. Laina to follow-up with Carolyn, pt's son and with pt 's sister in [place] as potential discharge options. Carolyn remains the better of these 2 options. 03/28/2018; patient remains on state waiting list, at this time no medication changes, patient has reportedly not been participating in activities. 03/24/2018; patient has no med adjustment, continues to be a state wait, counselor will look into family placement options. 03/21/2018; patient is stable on current med dosage, [facility]. 03/14/2018; per doctor, although patient is a State referral, her medications are being adjusted to address patient's behavior. 03/03/18: Pt exhibiting no behaviors, she remains isolative, [facility] 2017; Patient's are being titrated Nurse(s) Present: RN Nurse Input: 04/25/2018; per nurse patient is eating meals and taking medication no behavior; however patient is observed responding to internal stimuli, derail thought process. 03/28/2018; at this time patient is reportedly continuing to take medication, no further reports of nausea, vomiting and diarrhea, patient continuing to eat and drink well. 03/24/2018; patient is taking her meds, eating meals and attending groups/activities. 03/21 patient requires coaching with mood, she is eating and taking her meds. 03/14/2018; patient require coaching with medication and redirection with mood due to aggressive behavior, she is taking her meds and eating meals. 02/21/2018 ; Patient is eating meals and taking medication, require coaching and prompting Psychiatric Counselors Present: Marbin Clancy Jr., [facility], Laina Mo, [facility] Psychiatric Therapist Input: 04/25/2018; Patient is a state wait, patient's son continues to be indecisive with whether or not he is willing to accept patient in his home. 04/21/18: [facility] be [facility]. Dorothy, counselor, has been requested to make further attempts to contact pt's son ( Lukas Sewell) with goal of determining if there are other options to state hosp. 03/28/2008; counselor continues to maintain contact with family, counselor monitoring state wait list for estimated time patient to transfer to state hospital. 03/24/2018; counselor continues to make contact with family members for possible state hospital diversion. Thus far the contact numbers provided by patient has been not been good, (no family return or answer calls) . 03/14/2018; counselor will revisit patient's contact to see if she is placeable with family or friends. 03/14/2018; counselor will staff transfer to [facility] with broadcast supervisor to continue state wait. As of 03/04/18: counselor is completing state packet is being completed relative limited options for this pt. 02/22/2018; counselor will be contacting patient's NOK to discuss propriate dc planning patient's son (Lukas and patient's sister Marla Sewell Group Spec/RT/OT/NAIK Present: GUMARO Burger, Juan Guajardo, OT, GUMARO Villalobos Group Spec/RT/OT/NAIK Input: 04/25/2018; patient attends some groups with no participation. 04/21/18: Pt attends groups occasionally, sporatically. : Pt attends groups occasionally, sporatically. 04/11/18: Pt attends few groups, she is largely unable to tolerate group activities`. 03/24/2018; patient has been participatting with groups and appears to be enaging with peers with positive interaction,. 03/21/2018; patient lacks motivation to participate with groups. 03/14/2018; patient lacks the emotional ability to appropriately participate with groups. 02/21/2018;this is continuing as of 03/03; lack of pt attendance or participation. patient has not participate with groups or activities Other Clinican Input: State packet initiated per MD counselor as this is pt's best option. Additional Input: 04/21/18: Pt continues to be [facility] wait list. Dorothy, counselor, has been requested to make further attempts to contact pt's son (Lukas Sewell) with goal of determining if there are other options to state hosp. 04/11/18: Laina to follow-up with Carolyn, pt's son and with pt's sister in [place] as potential discharge options. Jamarie remains the better of these 2 options. - Discharge Plan 04/18/18: Pt continues to be [facility] wait list. 04/11/18:Laina to follow-up with Carolyn, pt's son and with pt's sister in [place] as potential discharge options. Jamarie remains the better of these 2 options. - Documentation Teaching Recipient: Patient
--- NOTE | 2018-04-25 14:21 | P.PNPSY ---
Subjective Remarks: Patient seen and examined. Chart reviewed. Case discussed in treatment team. Therapist notes that patient is participating in more activities. Counselor is pessimistic that family will be willing to take the patient in. On my examination today, the patient is somewhat dysphoric. No SI or HI. She believes that the staff is trying to give her opiates. Unclear if this represents paranoia or misunderstanding of her medication regimen. Reassurance provided and will monitor. No side effects from medications. No physical complaints. Vital Signs Temp Pulse Resp BP Pulse Ox 04/25/18 05:25 98.7 F 71 17 101/58 L 93 L 04/24/18 17:09 95 H 18 128/80 95 Intake and Output 04/24/18 04/25/18 04/25/18 22:59 06:59 14:59 Intake Total 1200 / 1200 580 / 580 Balance 1200 / 1200 580 / 580 Intake: Oral 1200 / 1200 480 / 480 Oral Supplement 100 / 100 Other: # Voids 4 2 # Bowel Movements 0 Laboratory Results - last 24 hr 04/25/18 04/25/18 04/25/18 07:21 07:21 07:21 WBC 6.3 RBC 4.17 Hgb 12.1 Hct 37.2 MCV 89.2 MCH 29.1 MCHC 32.6 RDW 15.8 Plt Count 185 MPV 8.1 Neut % (Auto) 41.6 Lymph % (Auto) 42.3 [place] % (Auto) 12.8 H Eos % (Auto) 2.4 Baso % (Auto) 0.9 Neut # (Auto) 2.6 Lymph # (Auto) 2.6 [place] # (Auto) 0.8 Eos # (Auto) 0.2 Baso # (Auto) 0.1 WBC Differential . Differential Comment Auto diff final Sodium 129 L Potassium 4.4 Chloride 91 L Carbon Dioxide 31.5 Anion Gap 7 BUN 17 Creatinine 0.61 Estimated GFR Greater than 89 Random Glucose 68 L Calcium 9.5 Total Bilirubin 0.2 AST 22 ALT 14 Alkaline Phosphatase 60 Ammonia 36 H Total Protein 7.1 Albumin 3.5 Valproic Acid 91 Labs reviewed. CBC unremarkable. CMP reveals sodium level within recent range. Ammonia level slightly elevated without evidence of hyperammonemic encephalopathy. Depakote level within the therapeutic range. Review of Systems All other systems reviewed negative except as stated in HPI (Limitation: Poor historian) Mental Status Examination Appearance: Appropriate Consciousness: Alert Orientation: Person, Place (At least) Motor Activity: Other (No abnormal motor movements noted) Speech: Unremarkable Language: Adequate Fund of Knowledge: Inadequate Attention and Concentration: Adequate Memory: Unremarkable Mood: Irritable (Slightly irritable) Affect: Irritable Thought Process & Associations: Intact Thought Content: Appropriate Hallucination Type: None Delusion Type: None (Possibly some mild paranoia, see above) Suicidal Ideation: No Homicidal Ideation: No Insight: Poor Judgment: Poor Assessment and Plan - Assessment (1) Paranoid type schizophrenia, chronic state with acute exacerbation Code(s): F20.0 - Paranoid schizophrenia Status: Acute - Plan Plan: Continue current psychotropics as ordered for now. If further examination does suggest paranoia, to consider further titration of patient's oral Risperdal supplementing Invega Sustenna. Continue other psychotropics as ordered. Plan for ongoing intermittent monitoring of sodium and ammonia levels. Continue to monitor on the inpatient unit. Continue other medications and care as ordered. Justification for Continued Inpatient Stay: High risk for decompensation in less restrictive environment. Discharge Planning: Home with family versus state psychiatric hospitalization. Request Healthcare Surrogate/Guardian Advocate?: Yes
[2018-04-26] MEDS: risperiDONE 0.5 MG ODT PO SCH ×2 (08:55→20:32)
[2018-04-26] MEDS: Calcium Carbonate 500 MG Tablet PO SCH ×2 (08:55→20:32)
[2018-04-26] MEDS: Lidocaine 5% Patch T-DERMAL SCH (08:55)
[2018-04-26] MEDS: Lactic Acid (Ammonium Lactate) 12% Lotion 225 GM Bottle TOPICAL SCH ×2 (08:55→21:00)
[2018-04-26] MEDS: Sodium Chloride 1 GM Tablet PO SCH (08:56)
--- NOTE | 2018-04-26 09:49 | P.PNPSY ---
Subjective Remarks: Patient seen and examined. Chart reviewed. Case discussed with nursing staff reports patient is flat and essentially unchanged. When I initially called around to evaluate the patient she is sleeping. I returned somewhat later and find her more awake. She complains of a mild headache without any visual changes or other red flag symptoms. She is not interested in extended interview today. No medication side effects. No physical complaints otherwise. Vital Signs Temp Pulse BP Pulse Ox 04/26/18 05:52 98.8 F 68 98/51 L 92 L Intake and Output 04/25/18 04/26/18 04/26/18 22:59 06:59 14:59 Intake Total 720 / 720 460 / 460 Balance 720 / 720 460 / 460 Intake: Oral 720 / 720 360 / 360 Oral Supplement 100 / 100 Other: # Voids 2 2 # Bowel Movements 0 Labs reviewed. No new labs. Review of Systems other (Limited ROS today) Mental Status Examination Appearance: Appropriate Consciousness: Alert Orientation: Person, Place (At least) Motor Activity: Other (No motor abnormalities noted) Speech: Unremarkable Language: Adequate Fund of Knowledge: Inadequate Attention and Concentration: Adequate Memory: Unremarkable Mood: Other (Calm) Affect: Blunt Thought Process & Associations: Intact Thought Content: Appropriate Hallucination Type: None Delusion Type: None Suicidal Ideation: No Homicidal Ideation: No Insight: Poor Judgment: Poor Assessment and Plan - Assessment (1) Paranoid type schizophrenia, chronic state with acute exacerbation Code(s): F20.0 - Paranoid schizophrenia Status: Acute - Plan Plan: Continue current psychotropics as ordered. Patient declines any symptomatic treatment for headache; will monitor. Continue to monitor on the inpatient unit. Continue other medications and care as ordered. Justification for Continued Inpatient Stay: I risk for decompensation and less restrictive environment. Discharge Planning: Counselor indicates that patient is #16 on the [facility] wait list. Request Healthcare Surrogate/Guardian Advocate?: Yes
[2018-04-27] MEDS: Calcium Carbonate 500 MG Tablet PO SCH ×2 (09:18→20:17)
[2018-04-27] MEDS: risperiDONE 0.5 MG ODT PO SCH ×2 (09:18→20:17)
[2018-04-27] MEDS: Sodium Chloride 1 GM Tablet PO SCH (09:18)
[2018-04-27] MEDS: Lidocaine 5% Patch T-DERMAL SCH (09:21)
[2018-04-27] MEDS: Lactic Acid (Ammonium Lactate) 12% Lotion 225 GM Bottle TOPICAL SCH ×2 (09:22→21:30)
--- NOTE | 2018-04-27 11:01 | P.PNPSY ---
Subjective Remarks: Patient seen and examined. Chart reviewed. Case discussed with staff. On my exam, patient is seclusive to room. She has no SI/HI, no AVH. Affect is a little dysphoric. No medication side effects. Continues to complain of mild headache. I note patient is allergic to several analgesic agents and try to inquire of patient if there is an agent that she can tolerate, but she is unable to provide me with one. No other physical complaints. Vital Signs Temp Pulse Resp BP Pulse Ox 04/27/18 06:00 98.7 F 75 16 94/50 L 91 L 04/26/18 17:47 98.4 F 78 18 108/67 96 Intake and Output 04/26/18 04/27/18 04/27/18 22:59 06:59 14:59 Intake Total 1080 / 1080 720 / 720 Balance 1080 / 1080 720 / 720 Intake: Oral 1080 / 1080 720 / 720 Other: # Voids 3 Date of Last Bowel Movement 03/31/18 Labs reviewed. Review of Systems All other systems reviewed negative except as stated in HPI (Limitation: Poor historian) Mental Status Examination Appearance: Appropriate Consciousness: Alert Orientation: Person, Place (At least) Motor Activity: Other (No motor abnormalities appreciated) Speech: Unremarkable Language: Adequate Fund of Knowledge: Inadequate Attention and Concentration: Adequate Memory: Unremarkable Mood: Other (Somewhat dysphoric) Affect: Other (Dysphoric) Thought Process & Associations: Intact Thought Content: Appropriate Hallucination Type: None Delusion Type: None Suicidal Ideation: No Homicidal Ideation: No Insight: Poor Judgment: Poor Assessment and Plan - Assessment (1) Paranoid type schizophrenia, chronic state with acute exacerbation Code(s): F20.0 - Paranoid schizophrenia Status: Acute - Plan Plan: Continue current psychotropic medications as ordered. Continue to monitor on inpatient unit. Continue other care and medications as ordered. Justification for Continued Inpatient Stay: Risk for decompensation in less restrictive environment. Discharge Planning: [facility] psychiatric hospital referral Request Healthcare Surrogate/Guardian Advocate?: Yes
[2018-04-28] MEDS: Calcium Carbonate 500 MG Tablet PO SCH ×2 (10:24→21:20)
[2018-04-28] MEDS: risperiDONE 0.5 MG ODT PO SCH (10:24)
[2018-04-28] MEDS: Lactic Acid (Ammonium Lactate) 12% Lotion 225 GM Bottle TOPICAL SCH ×2 (10:25→21:20)
[2018-04-28] MEDS: Sodium Chloride 1 GM Tablet PO SCH (10:25)
[2018-04-28] MEDS: Lidocaine 5% Patch T-DERMAL SCH (10:25)
--- NOTE | 2018-04-28 12:07 | P.PNPSY ---
Subjective Remarks: Patient seen and examined. Chart reviewed. Case discussed with nurse. Case discussed in treatment team. Family still has not responded to counselor regarding ability to accept patient home. On my exam, patient is somewhat paranoid regarding the nursing staff. She has her head buried under the covers and her eye contact is poor. Affect is somewhat irritable. No reported medication side effects. No physical complaints. Vital Signs Temp Pulse Resp BP Pulse Ox 04/28/18 08:10 98.4 F 95 H 108/59 L 04/28/18 05:17 98 F 68 16 79/52 L 94 L 04/27/18 18:00 98.9 F 78 18 114/67 96 Intake and Output 04/27/18 04/28/18 04/28/18 22:59 06:59 14:59 Intake Total 1560 / 1560 Balance 1560 / 1560 Intake: Oral 1560 / 1560 Other: # Voids 3 1 Date of Last Bowel Movement 03/31/18 Labs reviewed. No new labs. Review of Systems All other systems reviewed negative except as stated in HPI Mental Status Examination Appearance: Appropriate Consciousness: Alert Orientation: Person, Place (At least) Motor Activity: Other (No abnormal motor movements noted) Speech: Unremarkable Language: Adequate Fund of Knowledge: Inadequate Attention and Concentration: Adequate Memory: Unremarkable Mood: Other (Dysphoric) Affect: Irritable Thought Process & Associations: Intact Thought Content: Appropriate Hallucination Type: None Delusion Type: Paranoid Suicidal Ideation: No Homicidal Ideation: No Insight: Poor Judgment: Poor Assessment and Plan - Assessment (1) Paranoid type schizophrenia, chronic state with acute exacerbation Code(s): F20.0 - Paranoid schizophrenia Status: Acute - Plan Plan: Titrate Risperdal to 1mg BID to target paranoia. To consider titrating Sustenna dose when this is next due on 05/08/18. Continue to monitor on the inpatient unit. Continue other medication and care as ordered. Justification for Continued Inpatient Stay: Medication changes. Impairment in reality construction. High risk for decompensation in less restrictive environment. Discharge Planning: State hospital referral. Request Healthcare Surrogate/Guardian Advocate?: Yes
[2018-04-28] MEDS: risperiDONE 1 MG ODT PO SCH (21:20)
[2018-04-29] MEDS: Calcium Carbonate 500 MG Tablet PO SCH ×2 (08:36→20:27)
[2018-04-29] MEDS: risperiDONE 1 MG ODT PO SCH ×2 (08:37→20:27)
[2018-04-29] MEDS: Lidocaine 5% Patch T-DERMAL SCH (08:39)
[2018-04-29] MEDS: Sodium Chloride 1 GM Tablet PO SCH (08:40)
[2018-04-29] MEDS: Lactic Acid (Ammonium Lactate) 12% Lotion 225 GM Bottle TOPICAL SCH ×2 (08:40→20:27)
--- NOTE | 2018-04-29 13:17 | P.PNPSY ---
Subjective Remarks: Reviewed electronic medical records and discussed case with staff. Follow-up was conducted in her room with TIFF Mcmahon present. Her nurse reports she has been compliant with her medications and selectively pleasant with staff. Patient reports that she feels "all right". States she slept good and is had a good appetite. She then lunges into a tangent about her meals stating "I only get some me and potatoes, and they know I am ". She is cooperative and interacts appropriately with his provider. Mental Status Examination Appearance: Appropriate Consciousness: Alert Orientation: Person, Place (At least) Motor Activity: Other (No abnormal motor movements noted) Speech: Unremarkable Language: Adequate Fund of Knowledge: Inadequate Attention and Concentration: Adequate Memory: Unremarkable Mood: Other (Dysphoric) Affect: Irritable Thought Process & Associations: Intact Thought Content: Appropriate Hallucination Type: None Delusion Type: Paranoid Suicidal Ideation: No Suicidal Plan: No Suicidal Intention: No Homicidal Ideation: No Homicidal Plan: No Homicidal Intention: No Insight: Poor Judgment: Poor Assessment and Plan - Assessment (1) Paranoid type schizophrenia, chronic state with acute exacerbation Code(s): F20.0 - Paranoid schizophrenia Status: Acute - Plan Plan: Patient will be reevaluated by the attending psychiatrist. Continue with current treatment plan. Justification for Continued Inpatient Stay: Moving this patient to a less restrictive environment would likely result in decompensation. Request Healthcare Surrogate/Guardian Advocate?: Yes
[2018-04-30] MEDS: risperiDONE 1 MG ODT PO SCH (08:30)
[2018-04-30] MEDS: Calcium Carbonate 500 MG Tablet PO SCH (08:30)
[2018-04-30] MEDS: Lactic Acid (Ammonium Lactate) 12% Lotion 225 GM Bottle TOPICAL SCH (08:35)
[2018-04-30] MEDS: Lidocaine 5% Patch T-DERMAL SCH (08:35)
[2018-04-30] MEDS: Sodium Chloride 1 GM Tablet PO SCH (08:36)
--- NOTE | 2018-04-30 09:07 | P.PNPSY ---
Subjective Remarks: Reviewed electronic medical records and discussed case with staff. Follow-up was conducted in the day room with ZAIN Argueta present. Patient is angry because she did not get salt and pepper on her breakfast tray. She is sitting to the side away from other patients. She states that she is frustrated and does not know why her son did not take her out of the hospital. She is medication compliant. Denies SI/HI. Review of Systems All other systems reviewed negative except as stated in HPI Mental Status Examination Appearance: Appropriate Consciousness: Alert Orientation: Person, Place (At least) Motor Activity: Other (No abnormal motor movements noted) Speech: Unremarkable Language: Adequate Fund of Knowledge: Inadequate Attention and Concentration: Adequate Memory: Unremarkable Mood: Other (Dysphoric) Affect: Irritable Thought Process & Associations: Intact Thought Content: Appropriate Hallucination Type: None Delusion Type: Paranoid Suicidal Ideation: No Suicidal Plan: No Suicidal Intention: No Homicidal Ideation: No Homicidal Plan: No Homicidal Intention: No Insight: Poor Judgment: Poor Assessment and Plan - Assessment (1) Paranoid type schizophrenia, chronic state with acute exacerbation Code(s): F20.0 - Paranoid schizophrenia Status: Acute - Plan Plan: Patient will be reevaluated by the attending psychiatrist. Continue with current treatment plan. Justification for Continued Inpatient Stay: Moving patient to a less restrictive environment may result in her decompensation. Request Healthcare Surrogate/Guardian Advocate?: Yes
[2018-05-01] MEDS: risperiDONE 1 MG ODT PO SCH ×2 (08:41→20:18)
[2018-05-01] MEDS: Calcium Carbonate 500 MG Tablet PO SCH ×2 (08:42→20:18)
[2018-05-01] MEDS: Lactic Acid (Ammonium Lactate) 12% Lotion 225 GM Bottle TOPICAL SCH ×2 (08:43→21:35)
[2018-05-01] MEDS: Lidocaine 5% Patch T-DERMAL SCH (08:44)
[2018-05-01] MEDS: Sodium Chloride 1 GM Tablet PO SCH (08:46)
--- NOTE | 2018-05-01 13:25 | P.PNPSY ---
Subjective Remarks: Patient seen and examined with nurse. Chart reviewed. Case discussed with nursing staff. No behavioral issues noted overnight. On my examination today, I find the patient sitting in the day area. She is calm and pleasant. She does express some distress at peers with dementia who are reportedly wandering into her room and rifling through her belongings. Her room is now locked to prevent this. I did offer to move patient to a different unit, but she declines. No side effects from medications. No physical complaints. Vital Signs Temp Pulse Resp BP Pulse Ox 04/30/18 17:46 98.7 F 78 16 121/69 97 Intake and Output 04/30/18 05/01/18 05/01/18 22:59 06:59 14:59 Intake Total 1779 / 1780 1919 Balance 178 / 1780 1919 Intake: Oral 0 / 1680 1919 Oral Supplement 100 / 100 Other: # Voids 2 Date of Last Bowel Movement 03/31/18 03/31/18 Labs reviewed. No new labs. Review of Systems All other systems reviewed negative except as stated in HPI Mental Status Examination Appearance: Appropriate Consciousness: Alert Orientation: Person, Place Motor Activity: Other (No motoric abnormalities noted) Speech: Unremarkable Language: Adequate Fund of Knowledge: Inadequate Attention and Concentration: Adequate Memory: Unremarkable Mood: Appropriate Affect: Appropriate Thought Process & Associations: Intact Thought Content: Appropriate Hallucination Type: None Delusion Type: None Suicidal Ideation: No Homicidal Ideation: No Insight: Poor Judgment: Poor Assessment and Plan - Assessment (1) Paranoid type schizophrenia, chronic state with acute exacerbation Code(s): F20.0 - Paranoid schizophrenia Status: Acute - Plan Plan: Continue oral Risperdal supplementing Invega Sustenna. To consider larger dose of Invega Sustenna when this medication is next due at the beginning of next week. Continue Depakote as ordered. Continue to monitor on the inpatient unit. Continue other medications and care as ordered. Justification for Continued Inpatient Stay: High risk for decompensation and less restrictive environment. Discharge Planning: [facility] referral Request Healthcare Surrogate/Guardian Advocate?: Yes
--- NOTE | 2018-05-02 10:01 | P.PNPSY ---
Subjective Remarks: Patient seen and examined. Chart reviewed. Case discussed with nursing staff. No behavioral issues noted. Case discussed in treatment team. On my evaluation today, patient is secluding in her room. She denies any issues with mood. Denies any suicidal ideation. Denies any hallucinations. Denies any side effects from medications. No physical complaints. I have spoken this morning with patient's guardian advocate, son Lukas. He notes that he is presently unable to take patient into his home, nor are there other family members willing to do so. He does plan to visit patient after the New Year and might reconsider housing patient at that time. We discuss plan for state hospitalization if no appropriate alternative housing can be arranged. Vital Signs Temp Pulse Resp BP Pulse Ox 05/01/18 17:08 99.1 F 73 17 122/88 95 Intake and Output 05/01/18 05/02/18 05/02/18 22:59 06:59 14:59 Intake Total 1540 / 1540 360 / 360 Balance 1540 / 1540 360 / 360 Intake: Oral 1440 / 1440 360 / 360 Oral Supplement 100 / 100 Other: # Voids 2 # Bowel Movements 1 Labs reviewed. Review of Systems All other systems reviewed negative except as stated in HPI Mental Status Examination Appearance: Appropriate Consciousness: Alert Orientation: Person, Place Motor Activity: Other (No abnormal motor movements noted.) Speech: Unremarkable Language: Adequate Fund of Knowledge: Inadequate Attention and Concentration: Adequate Memory: Unremarkable Mood: Appropriate Affect: Blunt Thought Process & Associations: Intact Thought Content: Appropriate Hallucination Type: None Delusion Type: None Suicidal Ideation: No Homicidal Ideation: No Insight: Poor Judgment: Poor Assessment and Plan - Assessment (1) Paranoid type schizophrenia, chronic state with acute exacerbation Code(s): F20.0 - Paranoid schizophrenia Status: Acute - Plan Plan: Continue current psychotropic medications as ordered. Continue to monitor on the inpatient unit. Continue other care as ordered. Justification for Continued Inpatient Stay: High risk for decompensation in less restrictive environment. Discharge Planning: [facility] referral Request Healthcare Surrogate/Guardian Advocate?: Yes
[2018-05-02] MEDS: Lactic Acid (Ammonium Lactate) 12% Lotion 225 GM Bottle TOPICAL SCH (10:02)
[2018-05-02] MEDS: Lidocaine 5% Patch T-DERMAL SCH (10:02)
[2018-05-02] MEDS: Sodium Chloride 1 GM Tablet PO SCH (10:05)
[2018-05-02] MEDS: Calcium Carbonate 500 MG Tablet PO SCH ×3 (10:05→20:32)
[2018-05-02] MEDS: risperiDONE 1 MG ODT PO SCH ×3 (10:05→20:32)
[2018-05-03] MEDS: Lactic Acid (Ammonium Lactate) 12% Lotion 225 GM Bottle TOPICAL SCH ×4 (01:56→20:40)
[2018-05-03] MEDS: Calcium Carbonate 500 MG Tablet PO SCH ×2 (08:39→20:39)
[2018-05-03] MEDS: risperiDONE 1 MG ODT PO SCH ×2 (08:39→20:39)
[2018-05-03] MEDS: Sodium Chloride 1 GM Tablet PO SCH (08:39)
[2018-05-03] MEDS: Lidocaine 5% Patch T-DERMAL SCH (08:40)
--- NOTE | 2018-05-03 10:30 | P.PNPSY ---
Subjective Remarks: Patient seen and examined. Chart reviewed. Case discussed with nursing staff. No behavioral issues noted. On my exam, patient remained seclusive to room. No psychotic material verbalized. Says that she slept somewhat poorly overnight secondary to noise on the unit. Denies side effects from medications. No acute physical complaints. Case discussed also with counselor. Vital Signs Temp Pulse Resp BP Pulse Ox 05/02/18 17:53 99.0 F 118 H 17 102/58 L 93 L Intake and Output 05/02/18 05/03/18 05/03/18 22:59 06:59 14:59 Intake Total 1755 / 1755 580 / 580 480 / 480 Balance 1755 / 1755 580 / 580 480 / 480 Intake: Oral 1755 / 1755 480 / 480 480 / 480 Oral Supplement 100 / 100 Other: # Voids 3 2 Labs reviewed. No new labs. Review of Systems other (Limited ROS today) Mental Status Examination Appearance: Appropriate Consciousness: Alert Orientation: Person, Place Motor Activity: Other (No motor abnormalities noted) Speech: Unremarkable Language: Adequate Fund of Knowledge: Inadequate Attention and Concentration: Adequate Memory: Unremarkable Mood: Other (Calm) Affect: Blunt (Tending towards flat) Thought Process & Associations: Intact Thought Content: Appropriate Hallucination Type: None Delusion Type: None Suicidal Ideation: No Homicidal Ideation: No Insight: Poor Judgment: Poor Assessment and Plan - Assessment (1) Paranoid type schizophrenia, chronic state with acute exacerbation Code(s): F20.0 - Paranoid schizophrenia Status: Acute - Plan Plan: Continue current psychotropic medications as ordered. To consider larger dose of Invega Sustenna when this medication is next due at the beginning of next week. To need to monitor on the inpatient unit. Continue other medications and care as ordered. Justification for Continued Inpatient Stay: High risk for decompensation and less restrictive environment. Discharge Planning: State hospital referral. Request Healthcare Surrogate/Guardian Advocate?: Yes
[2018-05-04] MEDS: Calcium Carbonate 500 MG Tablet PO SCH ×2 (09:02→21:03)
[2018-05-04] MEDS: Sodium Chloride 1 GM Tablet PO SCH (09:02)
[2018-05-04] MEDS: risperiDONE 1 MG ODT PO SCH ×2 (09:02→21:03)
[2018-05-04] MEDS: Lidocaine 5% Patch T-DERMAL SCH (09:03)
[2018-05-04] MEDS: Lactic Acid (Ammonium Lactate) 12% Lotion 225 GM Bottle TOPICAL SCH ×2 (09:03→21:10)
--- NOTE | 2018-05-04 11:46 | P.PNPSY ---
Subjective Remarks: Patient seen and examined with nurse. Chart reviewed. Case discussed with nursing staff who reports patient has been seclusive to room. On my examination today, the patient says that she has been secluding because she has not been feeling well physically. She complains of right hip pain and says that she had a seizure, fell out of bed and struck her hip overnight on 05/02. She insists that she reported this to staff, although I see no indication of fall at that time. Patient believes that she took a seizure because she has been given the "wrong medicines" and that staff are mixing her up with another Marilyn on the unit. There is not, in fact, another patient by that name on the unit presently, and in context her report seems more likely to be reflective of paranoia. Out of an abundance of caution, I will check a hip x- ray and VPA level. No medication side effects. No other physical complaints. Vital Signs Temp Pulse Resp BP Pulse Ox 05/04/18 05:49 98.5 F 62 16 117/64 98 05/03/18 17:38 99.3 F 84 17 113/73 95 Intake and Output 05/03/18 05/04/18 05/04/18 22:59 06:59 14:59 Intake Total 960 / 960 240 / 240 Balance 960 / 960 240 / 240 Intake: Oral 960 / 960 240 / 240 Other: # Voids 1 Date of Last Bowel Movement 03/31/18 Labs reviewed. Review of Systems All other systems reviewed negative except as stated in HPI (Limitation: Psychosis) Mental Status Examination Appearance: Appropriate Consciousness: Alert Orientation: Person, Place Motor Activity: Other (No abnormal motor movements noted) Speech: Unremarkable Language: Adequate Fund of Knowledge: Inadequate Attention and Concentration: Adequate Memory: Unremarkable Mood: Irritable Affect: Irritable Thought Process & Associations: Intact Thought Content: Delusional Hallucination Type: None Delusion Type: Paranoid Suicidal Ideation: No Homicidal Ideation: No Insight: Poor Judgment: Poor Assessment and Plan - Assessment (1) Paranoid type schizophrenia, chronic state with acute exacerbation Code(s): F20.0 - Paranoid schizophrenia Status: Acute - Plan Plan: Check R hip x-ray and VPA level. Titrate Risperdal to 1.5mg BID to target psychotic symptoms and increase Invega Sustenna dose to 234mg when next due on 05/08. Plan will be to try to taper Risperdal back down after larger dose of Sustenna takes effect. Continue to monitor on the inpatient unit. Continue other medications and care as ordered. Justification for Continued Inpatient Stay: Risk for decompensation and less restrictive environment. Medication changes. Impairment in reality construction. Discharge Planning: [facility] psychiatric [facility] Request Healthcare Surrogate/Guardian Advocate?: Yes
[2018-05-05] MEDS: risperiDONE 1 MG ODT PO SCH (08:52)
[2018-05-05] MEDS: Calcium Carbonate 500 MG Tablet PO SCH ×2 (08:53→20:59)
[2018-05-05] MEDS: Sodium Chloride 1 GM Tablet PO SCH (08:53)
[2018-05-05] MEDS: Lactic Acid (Ammonium Lactate) 12% Lotion 225 GM Bottle TOPICAL SCH ×2 (08:57→20:26)
[2018-05-05] MEDS: Lidocaine 5% Patch T-DERMAL SCH (08:58)
--- NOTE | 2018-05-05 11:48 | P.PNPSY ---
Subjective Remarks: Patient seen and examined with nurse. Chart reviewed. Case discussed with nursing staff. Patient noted to be fairly oppositional today. She refused hip x-ray yesterday evening and refused VPA level. I have asked RN to try to obtain hip x-ray this afternoon. On my exam, patient presents as quite oppositional. I have discussed rationale for x-ray and labs, but she remains steadfastly opposed to having these done. She refuses any further blood draws because "I don't have no more blood! I need a blood transfusion!" She complains that increased dose of Risperdal is too sedating, although she is still of the belief also that she is being given the wrong meds. She says that her hip no longer hurts and has no physical complaints otherwise. Refused VS. Intake and Output 05/04/18 05/05/18 05/05/18 22:59 06:59 14:59 Intake Total 720 / 720 480 / 480 Balance 720 / 720 480 / 480 Intake: Oral 720 / 720 480 / 480 Other: # Voids 4 1 Refused labs. Refused x-ray. Review of Systems other (Limitation: uncooperative.) Mental Status Examination Appearance: Appropriate Consciousness: Alert Orientation: Person, Place Motor Activity: Other (No motor abnormalities noted) Speech: Unremarkable Language: Adequate Fund of Knowledge: Inadequate Attention and Concentration: Adequate Memory: Unremarkable Mood: Oppositional, Irritable Affect: Irritable Thought Process & Associations: Intact Thought Content: Delusional Hallucination Type: None Delusion Type: Paranoid Suicidal Ideation: No Homicidal Ideation: No Insight: Poor Judgment: Poor Assessment and Plan - Assessment (1) Paranoid type schizophrenia, chronic state with acute exacerbation Code(s): F20.0 - Paranoid schizophrenia Status: Acute - Plan Plan: I suspect increasing psychosis as we reach the end of the Sustenna dosing interval. I have ordered larger booster dose of Sustenna when due on Tuesday. In the meantime, I will adjust Risperdal dosing to 1mg qAM and 2mg qHS to try and address patient's complaints regarding sedation from this medication. I have encouraged compliance with labs and studies. Continue to monitor on the inpatient unit. Continue other medications and care as ordered. Justification for Continued Inpatient Stay: Medication adjustments. Impairment in reality construction. High risk for decompensation in less restrictive environment. Discharge Planning: State hospital referral. Request Healthcare Surrogate/Guardian Advocate?: Yes
[2018-05-05] MEDS: Melatonin 5 MG Tablet PO PRN (20:58)
[2018-05-05] MEDS: risperiDONE 2 MG ODT PO SCH (20:59)
[2018-05-06] MEDS: Sodium Chloride 1 GM Tablet PO SCH (08:48)
[2018-05-06] MEDS: risperiDONE 1 MG ODT PO SCH (08:48)
[2018-05-06] MEDS: Lactic Acid (Ammonium Lactate) 12% Lotion 225 GM Bottle TOPICAL SCH ×2 (08:49→21:14)
[2018-05-06] MEDS: Lidocaine 5% Patch T-DERMAL SCH (08:50)
[2018-05-06] MEDS: Calcium Carbonate 500 MG Tablet PO SCH ×2 (08:51→21:31)
--- NOTE | 2018-05-06 12:25 | P.PNPSY ---
Subjective Remarks: Pt seen and discussed with staff. She has been irritable and angry intermittently on unit. She is paranoid and accuses staff of giving her extra medications. VPA was 126 but was not done as a trough and instead was drawn about 2 hours after pt took morning depakote dose. She has no signs of toxicity. She continues to refuse any imaging stating that staff are trying to trick her. No SI/HI Mental Status Examination Appearance: Appropriate Consciousness: Alert Orientation: Person, Place Motor Activity: Other (No motor abnormalities noted) Speech: Unremarkable Language: Adequate Fund of Knowledge: Inadequate Attention and Concentration: Adequate Memory: Unremarkable Mood: Oppositional, Irritable Affect: Irritable Thought Process & Associations: Intact Thought Content: Delusional Hallucination Type: None Delusion Type: Paranoid Suicidal Ideation: No Suicidal Plan: No Suicidal Intention: No Homicidal Ideation: No Homicidal Plan: No Homicidal Intention: No Insight: Poor Judgment: Poor Assessment and Plan - Assessment (1) Paranoid type schizophrenia, chronic state with acute exacerbation Code(s): F20.0 - Paranoid schizophrenia Status: Acute - Plan Plan: VPA re-ordered for the morning. Discussed with staff to not give morning depakote until after lab is drawn. Continue current tx plan Justification for Continued Inpatient Stay: psychosis Request Healthcare Surrogate/Guardian Advocate?: Yes
[2018-05-06] MEDS: risperiDONE 2 MG ODT PO SCH (21:31)
--- NOTE | 2018-05-07 09:02 | P.PNPSY ---
Subjective Remarks: Reviewed electronic record and discussed with nursing staff. Rounded with TIFF Hendrickson. Patient in her bed. She has a fixed belief that she is . Nursing staff report that she refused medications because she feels this is going to hurt her unborn child. She is currently on Invega Sustenna [place]. She is oppositional and irritable. Today she is asking for a list of medications. Valporic acid on 05/06/18 was 126. Labs drawn this morning. Depakene on hold. Review of Systems All other systems reviewed negative except as stated in HPI Mental Status Examination Appearance: Appropriate Consciousness: Alert Orientation: Person, Place Motor Activity: Other (No motor abnormalities noted) Speech: Unremarkable Language: Adequate Fund of Knowledge: Inadequate Attention and Concentration: Adequate Memory: Unremarkable Mood: Oppositional, Irritable Affect: Irritable Thought Process & Associations: Intact Thought Content: Delusional Hallucination Type: None Delusion Type: Paranoid Suicidal Ideation: No Suicidal Plan: No Suicidal Intention: No Homicidal Ideation: No Homicidal Plan: No Homicidal Intention: No Insight: Poor Judgment: Poor Assessment and Plan - Assessment (1) Paranoid type schizophrenia, chronic state with acute exacerbation Code(s): F20.0 - Paranoid schizophrenia Status: Acute - Plan Plan: Continue current treatment plan. Hold Depakene due to Valporic Acid level on 05/06/18 was 126. Labs drawn this morning. Justification for Continued Inpatient Stay: Moving patient to a less restrictive environment may result in her decompensation. Request Healthcare Surrogate/Guardian Advocate?: Yes
[2018-05-07] MEDS: Lactic Acid (Ammonium Lactate) 12% Lotion 225 GM Bottle TOPICAL SCH ×2 (09:47→20:48)
[2018-05-07] MEDS: Lidocaine 5% Patch T-DERMAL SCH (09:47)
[2018-05-07] MEDS: risperiDONE 1 MG ODT PO SCH (09:51)
[2018-05-07] MEDS: Calcium Carbonate 500 MG Tablet PO SCH ×2 (09:52→20:34)
[2018-05-07] MEDS: Sodium Chloride 1 GM Tablet PO SCH (09:52)
[2018-05-07] MEDS: risperiDONE 2 MG ODT PO SCH (20:34)
[2018-05-08] MEDS: Sodium Chloride 1 GM Tablet PO SCH (09:24)
[2018-05-08] MEDS: risperiDONE 1 MG ODT PO SCH (09:24)
[2018-05-08] MEDS: Calcium Carbonate 500 MG Tablet PO SCH ×2 (09:24→20:20)
[2018-05-08] MEDS: Paliperidone Inj 234 MG/1.5 ML Syringe IM SCH (09:24)
[2018-05-08] MEDS: Lactic Acid (Ammonium Lactate) 12% Lotion 225 GM Bottle TOPICAL SCH ×2 (09:25→20:19)
[2018-05-08] MEDS: Lidocaine 5% Patch T-DERMAL SCH (09:25)
--- NOTE | 2018-05-08 11:40 | P.PNPSY ---
Subjective Remarks: Patient seen and examined with nurse. Chart reviewed. I note that VPA level was briefly held over weekend secondary to probably spuriously elevated VPA level. Repeat pre-dose VPA level within the therapeutic range. Case discussed with nursing staff who reports patient accepted booster dose of Sustenna today as ordered, albeit somewhat reluctantly. She remains seclusive in her room but does come out for meals. On my exam, patient is found in her room with covers pulled over head. She is somewhat oppositional and irritable. She remains paranoid, particularly regarding staff. She expresses frustration at having to remain in the hospital with some mobilization of affect on this point. Support provided. I have offered once again to move her to the lower acuity unit for a change of scene, but she declines again. No side effects from medications. No physical complaints. Vital Signs Temp Pulse Resp BP Pulse Ox 05/08/18 06:00 97.6 F 63 18 112/55 L 93 L 05/07/18 18:37 97 H 19 110/64 Intake and Output 05/07/18 05/08/18 05/08/18 22:59 06:59 14:59 Intake Total 2114 120 / 120 Balance 2114 120 / 120 Intake: Oral 2114 120 / 120 Other: # Voids 3 2 Weight 63.1 kg Labs reviewed. Review of Systems All other systems reviewed negative except as stated in HPI (Limitation: Poor historian.) Mental Status Examination Appearance: Appropriate Consciousness: Alert Orientation: Person, Place (At least) Motor Activity: Other (No abnormal motor movements noted) Speech: Unremarkable Language: Adequate Fund of Knowledge: Inadequate Attention and Concentration: Adequate Memory: Unremarkable Mood: Oppositional Affect: Irritable Thought Process & Associations: Intact Thought Content: Delusional Hallucination Type: None Delusion Type: Paranoid Suicidal Ideation: No Homicidal Ideation: No Insight: Poor Judgment: Poor Assessment and Plan - Assessment (1) Paranoid type schizophrenia, chronic state with acute exacerbation Code(s): F20.0 - Paranoid schizophrenia Status: Acute - Plan Plan: Booster dose of Invega Sustenna ordered today. Continue oral Risperdal supplementation, although we may endeavor to taper and again discontinue oral Risperdal if psychotic symptoms rola now that the patient is receiving a larger scheduled dose of Invega Sustenna. Continue Depakote as ordered. A follow-up Depakote level has been ordered by the nurse practitioner for tomorrow morning. I have reviewed medication regimen with the patient. Continue to monitor on the inpatient unit. Continue other care as ordered. Justification for Continued Inpatient Stay: High risk for decompensation in less restrictive environment. Discharge Planning: Pending alternate discharge plan (e.g. home with family, [facility] following resumption of disability benefits if able), state psychiatric hospitalization. Request Healthcare Surrogate/Guardian Advocate?: Yes
[2018-05-08] MEDS: risperiDONE 2 MG ODT PO SCH (20:20)
--- NOTE | 2018-05-09 11:13 | P.PNPSY ---
Subjective Remarks: Patient seen and examined with nurse. Chart reviewed. Case discussed with nursing staff who reports that the patient yelled at the hourly team members who came to draw her blood this morning and refused laboratories. She also refused vital signs. Case discussed in treatment team. Counselor has not yet heard any response from financial team regarding status of patient's disability. Therapists note that the patient is starting to participate more extensively in groups. On my examination today, the patient presents as somewhat oppositional and irritable. She refused the blood draw this morning because she is of the belief that she is anemic and in need of a blood transfusion. She believes that whenever phlebotomists come to draw her blood "it comes out clear" and takes this as evidence that she is anemic. No side effects from medications. No other acute physical complaints. Vital Signs Temp Pulse Resp BP Pulse Ox 05/08/18 17:43 97.7 F 75 18 130/87 100 Intake and Output 05/08/18 05/09/18 05/09/18 22:59 06:59 14:59 Intake Total 580 / 580 360 / 360 Balance 580 / 580 360 / 360 Intake: Oral 580 / 580 360 / 360 Other: # Voids 3 Laboratory Results - last 24 hr 05/09/18 11:50 Valproic Acid 85 Labs reviewed. Depakote level 85, within the therapeutic range. Although obtained somewhat later in the morning, this level was indeed pre-dose as the patient had refused her Depakote this morning. Review of Systems All other systems reviewed negative except as stated in HPI (Limitation: Poor historian) Mental Status Examination Appearance: Appropriate Consciousness: Alert Orientation: Person, Place (At least) Motor Activity: Other (No motor abnormalities noted) Speech: Unremarkable Language: Adequate Fund of Knowledge: Inadequate Attention and Concentration: Adequate Memory: Unremarkable Mood: Oppositional Affect: Irritable (Ongoing) Thought Process & Associations: Intact Thought Content: Delusional Hallucination Type: None Delusion Type: Paranoid, Somatic Suicidal Ideation: No Homicidal Ideation: No Insight: Poor Judgment: Poor Assessment and Plan - Assessment (1) Paranoid type schizophrenia, chronic state with acute exacerbation Code(s): F20.0 - Paranoid schizophrenia Status: Acute - Plan Plan: Continue oral Risperdal supplementing Invega Sustenna. Monitor for improvement in patient's psychotic symptoms now that she has received larger booster dose of Invega Sustenna. Continue Depakote as ordered. Check a CBC, although CBC obtained at end of last month did not reveal anemia. Continue to monitor on the inpatient unit. Continue other medications and care as ordered. Justification for Continued Inpatient Stay: Impairment in reality construction. High risk for decompensation in less restrictive environment. Discharge Planning: State psychiatric hospitalization. Request Healthcare Surrogate/Guardian Advocate?: Yes
[2018-05-09] MEDS: Lactic Acid (Ammonium Lactate) 12% Lotion 225 GM Bottle TOPICAL SCH ×2 (11:20→20:08)
[2018-05-09] MEDS: Lidocaine 5% Patch T-DERMAL SCH (11:20)
[2018-05-09] MEDS: Sodium Chloride 1 GM Tablet PO SCH (11:20)
[2018-05-09] MEDS: Calcium Carbonate 500 MG Tablet PO SCH ×2 (11:48→20:09)
[2018-05-09] MEDS: risperiDONE 1 MG ODT PO SCH (11:48)
--- NOTE | 2018-05-09 12:27 | P.TTN ---
- Patient Problems Problems: 1. Discharge planning 2. Medication compliance 3. Knowledge deficit 4. Lack of coping skills - Progress Toward Goals Provider Present: Dr. Jeffry Cespedes Provider Input: 05/09/2018; per psychiatrist patient has unpredictable mood, no med change at this time, no aggressive or violent issues. 04/25/2018; no medication change at this time; patient continues to be approprate for State. 04/21/18: No changes to medications. [facility] be [facility]. Dorothy, counselor, has been requested to make further attempts to contact pt 's son (Lukas Sewell) with goal of determining if there are other options to state hosp. 04/18/18: No changes to medications. Pt [facility] to be [facility]. 04/11/18: pt has been administered booster of invega sustaina, Risperdal has been discontinued. Pt continues on Depakote. Laina to follow-up with Carolyn, pt's son and with pt's sister in [place] as potential discharge options. Carolyn remains the better of these 2 options. 03/28/2018; patient remains on state waiting list, at this time no medication changes, patient has reportedly not been participating in activities. 03/24/2018; patient has no med adjustment, continues to be a state wait, counselor will look into family placement options. 03/21/2018; patient is stable on current med dosage, she has been [facility]. 03/14/2018; per doctor, although patient is a State referral, her medications are being adjusted to address patient's behavior. 03/03/18: Pt exhibiting no behaviors, she remains isolative, awaiting [facility]. 02/21/2018; Patient' s are being titrated Nurse(s) Present: RN Nurse Input: 05/09/2018; per RN patient is eating meals and taking medication, no behavior at this time. 04/25/2018; per nurse patient is eating meals and taking medication no behavior; however patient is observed responding to internal stimuli, derail thought process. 03/28/2018; at this time patient is reportedly continuing to take medication, no further reports of nausea, vomiting and diarrhea, patient continuing to eat and drink well. 03/24/2018; patient is taking her meds, eating meals and attending groups/activities. 03/21 patient requires coaching with mood, she is eating and taking her meds. 03/14/2018; patient require coaching with medication and redirection with mood due to aggressive behavior, she is taking her meds and eating meals. 02/21/2018 ; Patient is eating meals and taking medication, require coaching and prompting Psychiatric Counselors Present: Marbin Clancy Jr., [facility], Laina Mo, [facility] Psychiatric Therapist Input: 05/09/2018; patient is a state wait pending acceptance. 04/25/2018; Patient is a state wait, patient's son continues to be indecisive with whether or not he is willing to accept patient in his home. : [facility] be [facility]. Dorothy, counselor, has been requested to make further attempts to contact pt's son (Lukas Sewell) with goal of determining if there are other options to state hosp. 03/28/2008; counselor continues to maintain contact with family, counselor monitoring state wait list for estimated time patient to transfer to [facility]. 03/24/2018 ; counselor continues to make contact with family members for possible state hospital diversion. Thus far the contact numbers provided by patient has been not been good, (no family return or answer calls). 03/14/2018; counselor will revisit patient's contact to see if she is placeable with family or friends. ; counselor will staff transfer to [facility] with rigging supervisor to continue state wait. As of 03/04/18: counselor is completing state packet is being completed relative limited options for this pt. 02/22/2018; counselor will be contacting patient's NOK to discuss propriate dc planning patient's son (Lukas and patient's sister Marla Sewell Group Spec/RT/OT/NAIK Present: GUMARO Burger, Juan Guajardo OT, GMUARO Villalobos Group Spec/RT/OT/NAIK Input: 05/09/2018 patient participate with some groups with limited interaction with peers. 04/25/2018; patient attends some groups with no participation. 04/21/18: Pt attends groups occasionally, sporatically. 04/18/18: Pt attends groups occasionally, sporatically. 04/11/18: Pt attends few groups, she is largely unable to tolerate group activities`. 03/24/2018; patient has been participatting with groups and appears to be enaging with peers with positive interaction,. 03/21/2018; patient lacks motivation to participate with groups. 03/14/2018; patient lacks the emotional ability to appropriately participate with groups. 02/21/2018;this is continuing as of 03/03; lack of pt attendance or participation. patient has not participate with groups or activities Other Clinican Input: State packet initiated per , counselor as this is pt's best option. Additional Input: 04/21/18: Pt continues to be [facility] wait list. Dorothy, counselor, has been requested to make further attempts to contact pt's son (Lukas Sewell) with goal of determining if there are other options to state hosp. 04/11/18: Laina to follow-up with Carolyn, pt's son and with pt's sister in [place] as potential discharge options. [place] remains the better of these 2 options. - Discharge Plan 04/18/18: Pt continues to be [facility]. 04/11/18:Laina to follow-up with Carolyn, pt's son and with pt's sister in [place] as potential discharge options. [place] remains the better of these 2 options. - Documentation Teaching Recipient: Patient
[2018-05-09 15:29] LABS: Baso % (Auto) 0.8 % (0.0-2.0); Eos # (Auto) 0.2 th/mm3 (0.0-0.4); Eos % (Auto) 2.6 % (0.0-4.0); Hematocrit 37.5 % (35.0-46.0); Hemoglobin 12.5 gm/dL (11.6-15.3); Lymph # (Auto) 2.2 th/mm3 (1.0-4.8); Lymph % (Auto) 36.7 % (9.0-44.0); Mean Corpuscular HGB Conc 33.5 % (32.0-36.0); Mean Corpuscular Volume 89.6 fL (80.0-100.0); Mean Platelet Volume 7.5 fL (7.0-11.0); Mono # (Auto) 0.9 th/mm3 (0.0-0.9); Mono % (Auto) 14.2 % (0.0-8.0); Neut # (Auto) 2.8 th/mm3 (1.8-7.7); Neut % (Auto) 45.7 % (16.0-70.0); Platelet Count 223 th/mm3 (150-450); Red Blood Count 4.18 mil/mm3 (4.00-5.30); Red Cell Distribution Width 15.7 % (11.6-17.2); White Blood Count 6.1 th/mm3 (4.0-11.0)
[2018-05-09] MEDS: risperiDONE 2 MG ODT PO SCH (20:09)
[2018-05-10] MEDS: Lactic Acid (Ammonium Lactate) 12% Lotion 225 GM Bottle TOPICAL SCH (08:41)
[2018-05-10] MEDS: Sodium Chloride 1 GM Tablet PO SCH (08:42)
[2018-05-10] MEDS: Calcium Carbonate 500 MG Tablet PO SCH ×2 (08:42→21:09)
[2018-05-10] MEDS: risperiDONE 1 MG ODT PO SCH (08:42)
[2018-05-10] MEDS: Lidocaine 5% Patch T-DERMAL SCH (08:42)
--- NOTE | 2018-05-10 11:08 | P.PNPSY ---
Subjective Remarks: Patient seen and examined. Chart reviewed. Case discussed with nurse. On my exam, patient seems somewhat less irritable. She seems less paranoid and is no longer as concerned that she is being given the wrong medications. Affect is less dysphoric. Results of CBC (which does not reveal anemia) shared with patient, and she seems to be reassured by this. No side effects from medications. No physical complaints. Vital Signs Temp Pulse Resp BP Pulse Ox 05/09/18 16:33 98.9 F 98 H 16 129/76 96 Intake and Output 05/09/18 05/10/18 05/10/18 22:59 06:59 14:59 Intake Total 1320 / 1320 740 / 740 Balance 1320 / 1320 740 / 740 Intake: Oral 1320 / 1320 740 / 740 Other: # Voids 4 2 Date of Last Bowel Movement 03/31/18 Laboratory Results - last 24 hr 05/09/18 05/09/18 11:50 15:13 WBC 6.1 RBC 4.18 Hgb 12.5 Hct 37.5 MCV 89.6 MCH 30.0 MCHC 33.5 RDW 15.7 Plt Count 223 MPV 7.5 Neut % (Auto) 45.7 Lymph % (Auto) 36.7 [place] % (Auto) 14.2 H Eos % (Auto) 2.6 Baso % (Auto) 0.8 Neut # (Auto) 2.8 Lymph # (Auto) 2.2 [place] # (Auto) 0.9 Eos # (Auto) 0.2 Baso # (Auto) 0.0 WBC Differential . Differential Comment Auto diff final Valproic Acid 85 Labs reviewed. CBC unremarkable, no anemia. Review of Systems All other systems reviewed negative except as stated in HPI Mental Status Examination Appearance: Appropriate Consciousness: Alert Orientation: Person, Place (At least) Motor Activity: Other (No abnormal motor movements noted.) Speech: Unremarkable Language: Adequate Fund of Knowledge: Inadequate Attention and Concentration: Adequate Memory: Unremarkable Mood: Appropriate Affect: Irritable (decreasing. Less dysphoric.) Thought Process & Associations: Intact Thought Content: Delusional Hallucination Type: None Delusion Type: Paranoid (decreasing) Suicidal Ideation: No Homicidal Ideation: No Insight: Poor Judgment: Poor Assessment and Plan - Assessment (1) Paranoid type schizophrenia, chronic state with acute exacerbation Code(s): F20.0 - Paranoid schizophrenia Status: Acute - Plan Plan: Continue Risperdal supplementing Invega Sustenna. Patient seems improved today , and this may reflect early response to increased dose of Sustenna. Continue Depakote as ordered. Continue other medications and care as ordered. Continue to monitor on the inpatient unit. Began termination/transition of care discussion with patient in advance of this provider's departure on 05/16. Justification for Continued Inpatient Stay: High risk for decompensation in less restrictive setting. Discharge Planning: [facility] referral. Request Healthcare Surrogate/Guardian Advocate?: Yes
[2018-05-10] MEDS: risperiDONE 2 MG ODT PO SCH (21:09)
[2018-05-10] MEDS: Melatonin 5 MG Tablet PO PRN (21:09)
[2018-05-11] MEDS: Calcium Carbonate 500 MG Tablet PO SCH ×2 (08:16→22:58)
[2018-05-11] MEDS: risperiDONE 1 MG ODT PO SCH (08:16)
[2018-05-11] MEDS: Sodium Chloride 1 GM Tablet PO SCH (08:16)
[2018-05-11] MEDS ORDERED: guaiFENesin/Dextromethorphan 200 MG/20 MG 10 ML UDC PO PRN (09:15)
--- NOTE | 2018-05-11 09:15 | P.PNPSY ---
Subjective Remarks: Patient seen and examined. Chart reviewed. Case discussed with nursing staff. No behavioral issues noted overnight. On my examination today, the patient seems less irritable and affect is less dysphoric. She does smile at intervals. She seems less paranoid. She denies side effects from medications. Complains of some mild URI symptoms but otherwise no acute physical complaints. She is agreeable to hip x-ray today. Vital Signs Temp Pulse Resp BP Pulse Ox 05/11/18 05:39 98.2 F 65 16 113/59 L 05/10/18 18:26 98.6 F 105 H 18 98/71 L 94 L Intake and Output 05/10/18 05/11/18 05/11/18 22:59 06:59 14:59 Intake Total 720 / 720 360 / 360 Balance 720 / 720 360 / 360 Intake: Oral 720 / 720 360 / 360 Other: # Voids 3 Labs reviewed. Review of Systems All other systems reviewed negative except as stated in HPI Mental Status Examination Appearance: Appropriate Consciousness: Alert Orientation: Person, Place (At least) Motor Activity: Other (No motor abnormalities noted) Speech: Unremarkable Language: Adequate Fund of Knowledge: Inadequate Attention and Concentration: Adequate Memory: Unremarkable Mood: Appropriate Affect: Appropriate Thought Process & Associations: Intact Thought Content: Delusional Hallucination Type: None Delusion Type: Paranoid (Continues to decrease) Suicidal Ideation: No Homicidal Ideation: No Insight: Poor Judgment: Poor Assessment and Plan - Assessment (1) Paranoid type schizophrenia, chronic state with acute exacerbation Code(s): F20.0 - Paranoid schizophrenia Status: Acute - Plan Plan: Patient seems to be experiencing reduction in psychotic symptoms following administration of booster dose of Invega Sustenna. I will continue current regimen of oral Risperdal and Depakote supplementing Invega Sustenna for now although we might consider tapering oral Risperdal in a few days in order to return the patient antipsychotic monotherapy. I have ordered some Robitussin as needed for patient's complaints of URI symptoms. I will reorder the hip x- ray today as patient is now agreeable to this. Continue to monitor on the inpatient unit. Continue other care as ordered. Justification for Continued Inpatient Stay: High risk for decompensation and less restrictive environment. Discharge Planning: [facility]. Counselor continues to investigate whether patient' s disability payments can be resumed to support assisted living placement in order to divert from plan for state psychiatric hospitalization. Request Healthcare Surrogate/Guardian Advocate?: Yes
--- NOTE | 2018-05-11 15:22 | XR ---
EXAM DATE: 05/11/2018 3:16 PM EST AGE/SEX: 57 years / Female INDICATIONS: Right hip pain after fall off bed. CLINICAL DATA: This is the patient's initial encounter. Patient reports that signs and symptoms have been present for 1 week and indicates a pain score of 9/10. MEDICAL/SURGICAL HISTORY: None. None. COMPARISON: No prior exams available for comparison. FINDINGS: Bony structures are intact and in normal alignment. Joints are intact without dislocation or signifi cant arthropathy. Osseous density is normal. Soft tissues are unremarkable. No radiopaque foreign bodies seen. CONCLUSION: No evidence of recent bony injury. Electronically signed by: Keshav Christianson MD Board Certified Radiologist 05/11/2018 3:21 PM EST
[2018-05-11] MEDS: risperiDONE 2 MG ODT PO SCH (22:58)
[2018-05-12] MEDS: Calcium Carbonate 500 MG Tablet PO SCH ×2 (08:19→21:50)
[2018-05-12] MEDS: risperiDONE 1 MG ODT PO SCH (08:19)
[2018-05-12] MEDS: Sodium Chloride 1 GM Tablet PO SCH (08:19)
--- NOTE | 2018-05-12 10:14 | P.PNPSY ---
Subjective Remarks: Patient seen and examined. Chart reviewed. Case discussed with nursing staff. Case discussed in treatment team. Counselor has endeavored 3 times to get a hold of benefits representative who would assist with restarting patient's disability payments. She will try again today. Therapists note patient is somewhat more interactive on the unit. On my exam, the patient complains of poor sleep and says that nursing and other patients were "bothering me." She does not describe any specific way in which people were bothering her, and some ongoing paranoia is suspected. Despite feeling that she is being bothered, she is resistant to moving to a different unit. She denies AVH. Denies side effects from medications. Reports emesis x 1 this morning and denies ongoing nausea or any other physical symptoms. Vital Signs Temp Pulse Resp BP Pulse Ox 05/12/18 07:56 98.6 F 82 16 108/63 05/11/18 18:08 98.8 F 91 H 18 130/91 H 95 Intake and Output 05/11/18 05/12/18 05/12/18 22:59 06:59 14:59 Intake Total 1919 Balance 1919 Intake: Oral 1919 Other: # Voids 3 1 Labs reviewed. Impressions Hip X-Ray 05/11/18 00:00 CONCLUSION: No evidence of recent bony injury. Review of Systems All other systems reviewed negative except as stated in HPI Mental Status Examination Appearance: Appropriate Consciousness: Alert Orientation: Person, Place (At least) Motor Activity: Other (No abnormal motor movements noted) Speech: Unremarkable Language: Adequate Fund of Knowledge: Inadequate Attention and Concentration: Adequate Memory: Unremarkable Mood: Appropriate Affect: Blunt Thought Process & Associations: Intact Thought Content: Delusional Hallucination Type: None Delusion Type: Paranoid Suicidal Ideation: No Homicidal Ideation: No Insight: Poor Judgment: Poor Assessment and Plan - Assessment (1) Paranoid type schizophrenia, chronic state with acute exacerbation Code(s): F20.0 - Paranoid schizophrenia Status: Acute - Plan Plan: Continue oral Risperdal supplementing Invega Sustenna. It is still my hope that patient's paranoia will subside, allowing us to taper and discontinue oral Risperdal. Monitor for recurrence of nausea/emesis. Continue to monitor on the inpatient unit. Continue other care as ordered. Justification for Continued Inpatient Stay: High risk for decompensation in less restrictive environment. Discharge Planning: Unless alternative disposition planning can be arranged (e.g. placement following resumption of disability benefits), state psychiatric hospitalization. Request Healthcare Surrogate/Guardian Advocate?: Yes
--- NOTE | 2018-05-12 14:51 | P.TTN ---
- Patient Problems Problems: 1. Discharge planning 2. Medication compliance 3. Knowledge deficit 4. Lack of coping skills - Progress Toward Goals Provider Present: Dr. Jeffry Cespedes Provider Input: 05/12/2018; per psychiatrist no med change; doctor would like counselor to follow-up with patient's SSI. 05/09/2018; per psychiatrist patient has unpredictable mood, no med change at this time, no aggressive or violent issues. 04/25/2018; no medication change at this time; patient continues to be approprate for State. 04/21/18: No changes to medications. [facility]. Dorothy, counselor, has been requested to make further attempts to contact pt's son (Lukas Sewell) with goal of determining if there are other options to state hosp. 04/18/18: No changes to medications. Pt [facility] to be [facility]. 04/11/18: pt has been administered booster of invega sustaina, Risperdal has been discontinued. Pt continues on Depakote. Laina to follow-up with Carolyn, pt's son and with pt 's sister in [place] as potential discharge options. Carolyn remains the better of these 2 options. 03/28/2018; patient remains on state waiting list, at this time no medication changes, patient has reportedly not been participating in activities. 03/24/2018; patient has no med adjustment, continues to be a state wait, counselor will look into family placement options. 03/21/2018; patient is stable on current med dosage, she has been [facility]. 03/14/2018; per doctor, although patient is a State referral, her medications are being adjusted to address patient's behavior. 03/03/18: Pt exhibiting no behaviors, she remains isolative, awaiting [facility]. 2017; Patient's are being titrated Nurse(s) Present: RN Nurse Input: 05/12/2018; per RN patient is eating meals and taking medication with no notificable behavior. 05/09/2018; per RN patient is eating meals and taking medication, no behavior at this time. 04/25/2018; per nurse patient is eating meals and taking medication no behavior; however patient is observed responding to internal stimuli, derail thought process. 03/28/2018; at this time patient is reportedly continuing to take medication, no further reports of nausea, vomiting and diarrhea, patient continuing to eat and drink well. 2017; patient is taking her meds, eating meals and attending groups/activities. 03/21/2018 patient requires coaching with mood, she is eating and taking her meds. 03/14/2018; patient require coaching with medication and redirection with mood due to aggressive behavior, she is taking her meds and eating meals. 02/21/2018; Patient is eating meals and taking medication, require coaching and prompting Psychiatric Counselors Present: Marbin Clancy Jr., [facility], Laina Mo, [facility] Psychiatric Therapist Input: 05/12/2018; counselor will follow-up with Janeth with [facility] to inquire about SSI income outcome. 05/09/2018; patient is a state wait pending acceptance. 04/25/2018; Patient is a state wait, patient' s son continues to be indecisive with whether or not he is willing to accept patient in his home. 04/21/18: Pt [facility] to be [facility]. Dorothy, counselor, has been requested to make further attempts to contact pt's son (Lukas Sewell) with goal of determining if there are other options to state hosp. 03/28/2008; counselor continues to maintain contact with family, counselor monitoring state wait list for estimated time patient to transfer to state hospital. 03/24/2018; counselor continues to make contact with family members for possible state hospital diversion. Thus far the contact numbers provided by patient has been not been good, (no family return or answer calls) . 03/14/2018; counselor will revisit patient's contact to see if she is placeable with family or friends. 03/14/2018; counselor will staff transfer to [facility] with roving department supervisor to continue state wait. As of 03/04/18: counselor is completing state packet is being completed relative limited options for this pt. 02/22/2018; counselor will be contacting patient's NOK to discuss propriate dc planning patient's son (Lukas and patient's sister Marla Sewell Group Spec/RT/OT/NAIK Present: GUMARO Burger, Juan Guajardo, OT, GUMARO Villalobos Group Spec/RT/OT/NAIK Input: 05/12/2018; patient has some group participation. 05/09/2018 patient participate with some groups with limited interaction with peers. 04/25/2018; patient attends some groups with no participation. 04/21/18 : Pt attends groups occasionally, sporatically. 04/18/18: Pt attends groups occasionally, sporatically. 04/11/18: Pt attends few groups, she is largely unable to tolerate group activities`. 03/24/2018; patient has been participatting with groups and appears to be enaging with peers with positive interaction,. 03/21/2018; patient lacks motivation to participate with groups. 03/14/2018; patient lacks the emotional ability to appropriately participate with groups. 02/21/2018;this is continuing as of 03/03/18; lack of pt attendance or participation. patient has not participate with groups or activities Other Clinican Input: State packet initiated per , counselor as this is pt's best option. Additional Input: 04/21/18: Pt [facility] to be [facility]. Dorothy, counselor, has been requested to make further attempts to contact pt's son (Lukas Sewell) with goal of determining if there are other options to state hosp. 04/11/18: Laina to follow-up with Carolyn, pt's son and with pt's sister in [place] as potential discharge options. Jamarie remains the better of these 2 options. - Discharge Plan 04/18/18: Pt continues to be [facility]. 04/11/18:Laina to follow-up with Carolyn, pt's son and with pt's sister in [place] as potential discharge options. Jamarie remains the better of these 2 options. - Documentation Teaching Recipient: Patient
[2018-05-12] MEDS: risperiDONE 2 MG ODT PO SCH (21:50)
[2018-05-13] MEDS: Sodium Chloride 1 GM Tablet PO SCH (08:45)
[2018-05-13] MEDS: Calcium Carbonate 500 MG Tablet PO SCH ×2 (08:45→21:02)
[2018-05-13] MEDS: risperiDONE 1 MG ODT PO SCH (08:45)
--- NOTE | 2018-05-13 12:10 | P.PNPSY ---
Subjective Remarks: Reviewed electronic medical records and discussed case with staff. Follow-up was conducted in the day room with TIFF Norwood present. Her nurse reports that she has been more visible today and compliant with her medications. She remains waiting on the state list. Patient is pleasant and cooperative with the follow-up today. States that she is sleeping and eating well. No complaints of side effects from the medications. Mental Status Examination Appearance: Appropriate Consciousness: Alert Orientation: Person, Place (At least) Motor Activity: Other (No abnormal motor movements noted) Speech: Unremarkable Language: Adequate Fund of Knowledge: Inadequate Attention and Concentration: Adequate Memory: Unremarkable Mood: Appropriate Affect: Blunt Thought Process & Associations: Intact Thought Content: Delusional Hallucination Type: None Delusion Type: Paranoid Suicidal Ideation: No Suicidal Plan: No Suicidal Intention: No Homicidal Ideation: No Homicidal Plan: No Homicidal Intention: No Insight: Poor Judgment: Poor Assessment and Plan - Assessment (1) Paranoid type schizophrenia, chronic state with acute exacerbation Code(s): F20.0 - Paranoid schizophrenia Status: Acute - Plan Plan: Patient will be reevaluated by the attending psychiatrist. Continue with current treatment plan. Justification for Continued Inpatient Stay: Moving this patient to a less restrictive environment would likely result in decompensation. Request Healthcare Surrogate/Guardian Advocate?: Yes
[2018-05-13] MEDS: risperiDONE 2 MG ODT PO SCH (21:02)
[2018-05-14] MEDS: Sodium Chloride 1 GM Tablet PO SCH (09:10)
[2018-05-14] MEDS: risperiDONE 1 MG ODT PO SCH (09:10)
[2018-05-14] MEDS: Calcium Carbonate 500 MG Tablet PO SCH ×2 (09:10→20:54)
--- NOTE | 2018-05-14 14:05 | P.PN ---
Subjective Interval history: Reconsult due to possible seizure overnight, pt. found postictal, had urinated. Pt. examined with RN. Doesn't feel well today, appears tired. States she had seizure but can't recall. Feels stressed and anxious. States she used to be on Keppra, however she is not reliable historian. No medication list from home. Has hx of chronic hyponatremia, has been taking salt tabs intermittently. Currently on Depakote, last level therapeutic. Pt. has been compliant taking medication. Pt. has been in hospital since waiting for [facility]. Mood has improved, has been more compliant. She has been eating well and put on some weight. Denies any pain, no cp, no sob. No fever. Physical Exam Vital signs: Vital Signs 05/13/18 18:04 05/13/18 18:05 05/14/18 03:00 Temperature 98.9 F Pulse Rate 78 100 H Respiratory Rate 18 14 Blood Pressure 108/67 101/62 Pulse Oximetry 78 L 94 L 95 05/14/18 07:50 05/14/18 13:13 Temperature 97.7 F 97.9 F Pulse Rate 75 78 Respiratory Rate 18 18 Blood Pressure 116/64 110/70 Pulse Oximetry 97 94 L Intake & Output 05/13/18 05/14/18 05/14/18 18:59 06:59 18:59 Intake Total 480 / 480 0 / 0 Balance 480 / 480 0 / 0 Intake: Oral 480 / 480 0 / 0 Other: Date of Last Bowel Movement 05/13/18 05/13/18 Narrative: GENERAL: Well-nourished, well-developed adult female in no obvious distress. SKIN: Warm and dry. HEAD: Atraumatic. Normocephalic. CARDIOVASCULAR: Regular rate and rhythm. RESPIRATORY: No accessory muscle use. Clear to auscultation. Breath sounds equal bilaterally. GASTROINTESTINAL: Abdomen soft, non-tender, non- distended. Positive bowel sounds. MUSCULOSKELETAL: Extremities without clubbing, cyanosis, or edema. No obvious deformities. NEUROLOGICAL: Awakes to voice, appears tired. Oriented x 3. Following commands. Mild left hand finger tremor noted. Results - Labs CBC & Chem 7: 05/09/18 15:13 05/14/18 15:08 Assessment and Plan - Assessment (1) Unspecified psychosis Code(s): F29 - Unspecified psychosis not due to a substance or known physiological condition (2) Paranoid type schizophrenia, chronic state with acute exacerbation Code(s): F20.0 - Paranoid schizophrenia Status: Acute (3) Hypertension Code(s): I10 - Essential (primary) hypertension Status: Acute (4) Seizure disorder Code(s): G40.909 - Epilepsy, unspecified, not intractable, without status epilepticus Status: Acute (5) Diabetes mellitus Code(s): E11.9 - Type 2 diabetes mellitus without complications Status: Acute (6) Acute renal insufficiency Code(s): N28.9 - Disorder of kidney and ureter, unspecified Status: Acute (7) Nausea & vomiting Code(s): R11.2 - Nausea with vomiting, unspecified Status: Acute (8) Viral gastroenteritis Code(s): A08.4 - Viral intestinal infection, unspecified Status: Acute - Plan This patient is a 57 years old -[place] female with past medical history of hypertension, mitral valve prolapse, seizure, AKA, hyponatremia, new onset diabetes mellitus, low TSH, paranoid schizophrenia, psychosis and previous psychiatric hospitalization in 2017 with a very similar presentation in which the patient refused to eat, refused to talk and was brought under the Summers act. According to the Summers act patient has not been taking her medication for the past 15 days. Patient was allegedly laying out in the yard and refused to come back in the house according to the family. In the emergency room patient is refusing to eat or drink, refusing blood work and refusing medications. Patient was admitted in the psychiatry for evaluation and treatment of paranoid type schizophrenia in a chronic state with acute exacerbation. [facility] has seen her intermittently through hospitalization for dehydration, PILY, hyponatremia, hypocalcemia, metabolic acidosis. Reconsult for poss recurrent seizure, was found postictal, loss of bladder function. Recurrent seizure, hx of epilepsy and seizure since age 14. Used to follow with Dr. Rose. Had EEG and CT head in 2009 no significant findings. Used to be on mutliple meds including Keppra, Gabapentin, Clonazepam, Depakote and Topamax. During this admission, no home medication list available and pt. had been non- compliant at home -currently on Depakote 500 mg po BID, last level -EEG completed, results pending -will order CMP, ammonia, CBC -will check Na level, hx of chronic hyponatremia. Has been taking sodium tabs intermittently -Ativan PRN for seizures -seizure precautions. Hyponatremia, likely chronic Pt. initially refusing to eat, was dehydrated. -Na levels fluctuating -continue with sodium tabs daily, has not been taking consistently. -avoid open access to water. -CMP ordered. Recent Hypocalcemia/hypophosphatemia/elevated PTH/ likely primary hyperparathyroidism -likely r/t kidney disease, dehydration/acid base disturbance -PTH elevated likely in response to low calcium level or vice versa -Continue [place] Hx of HTN, non compliant taking meds. BP has been stable, no medications started -continue to monitor BP Diabetes mellitus/Type 2 diabetes mellitus without complications -recently diagnosed in 2016, however unknown of patients compliance with medication treatment -HGB A1C 6.2 -currently diet controlled. Paranoid type schizophrenia, chronic state with acute exacerbation/unspecified Psychosis -Management with the Psychiatry Team Will follow up on lab/EEG and CT head results. Thank you for this consultation, we will follow. Code Status: Full code Discussed Condition With: RN, pt. Dr. Cespedes Discharge Planning: Per psych team
--- NOTE | 2018-05-14 15:52 | P.PNPSY ---
Subjective Remarks: Patient seen and examined with nurse. Chart reviewed. I was contacted by the nurse overnight ~3am this morning to report that patient was found altered by staff. She was noted to be incontinent of urine by nurse. No ictal activity was noted by staff. At the time of his call to me, nurse reported that patient was back to her baseline, except that she was somewhat aphasic. I instructed nurse to consult the hospitalist for AMS, perform q4h neuro checks, check EEG, and I gave an order for IM Ativan p.r.n. seizure. Per nurse today, patient has been a little sluggish today but neuro checks have been unremarkable. There has been no further aphasia. On my evaluation, the patient is speaking clearly and appears to be at her recent mental status baseline. She has no recollection of the events of last night. No SI or HI. No psychotic material. No medication side effects. No physical complaints. Vital Signs Temp Pulse Resp BP Pulse Ox 05/14/18 13:13 97.9 F 78 18 110/70 94 L 05/14/18 07:50 97.7 F 75 18 116/64 97 05/14/18 03:00 100 H 14 101/62 95 05/13/18 18:05 94 L 05/13/18 18:04 98.9 F 78 18 108/67 78 L Intake and Output 05/14/18 05/14/18 05/14/18 06:59 14:59 22:59 Intake Total 0 / 0 Balance 0 / 0 Intake: Oral 0 / 0 Other: Date of Last Bowel Movement 05/13/18 Labs reviewed. No new labs. Review of Systems All other systems reviewed negative except as stated in HPI Mental Status Examination Appearance: Appropriate Consciousness: Alert Orientation: Person, Place (At least) Motor Activity: Other (No motor abnormalities noted. No ictal activity noted.) Speech: Unremarkable Language: Adequate Fund of Knowledge: Inadequate Attention and Concentration: Adequate Memory: Unremarkable Mood: Appropriate Affect: Blunt Thought Process & Associations: Intact Thought Content: Appropriate Hallucination Type: None Delusion Type: None Suicidal Ideation: No Homicidal Ideation: No Insight: Poor Judgment: Poor Assessment and Plan - Assessment (1) Paranoid type schizophrenia, chronic state with acute exacerbation Code(s): F20.0 - Paranoid schizophrenia Status: Acute - Plan Plan: Continue current psychotropic medications as ordered. Case discussed with mid- level provider from the hospitalist service. Hospitalist input noted and appreciated. Follow-up EEG and workup as ordered by the hospitalist. Continue Depakote as ordered. Seizure precautions in place. Continue to monitor on the inpatient unit. Continue other care as ordered. Justification for Continued Inpatient Stay: Risk for decompensation in less restrictive environment. Discharge Planning: [facility] referral. Request Healthcare Surrogate/Guardian Advocate?: Yes
[2018-05-14 16:02] LABS: Alanine Aminotransferase 14 U/L (10-53); Albumin 3.2 g/dL (3.4-5.0); Anion Gap 7 meq/L (5-15); Aspartate Aminotransferase 23 U/L (15-37); Blood Urea Nitrogen 14 mg/dL (7-18); Carbon Dioxide 28.4 meq/L (21.0-32.0); Chloride 93 meq/L (98-107); Glomerular Filtration Rate 85 mL/min (>89); Glucose,Random 181 mg/dL (74-106); Potassium 4.3 meq/L (3.5-5.1); Sodium 128 meq/L (136-145)
[2018-05-14 16:04] LABS: Alkaline Phosphatase 56 U/L (45-117); Total Protein 6.6 g/dL (6.4-8.2); Valproic Acid 98 mcg/mL (50-100)
--- NOTE | 2018-05-14 20:17 | MG ---
cc: Noel Sutherland MD ELECTROENCEPHALOGRAM NUMBER: [id number] CLINICAL HISTORY: Seizure at 3 a.m. MEDICATIONS: 1. Risperdal. 2. Depakote. DESCRIPTION: Recording shows diffuse alpha and beta rhythms of 8 Hz, 60 microvolts. Symmetric posterior rhythm is seen. There is 1 phase reversing sharp wave seen at left T3 electrode at epoch 79 on the transverse montage which is present on the bipolar montage. Photic stimulation is performed without any significant posterior driving. IMPRESSION: One left temporal sharp wave is seen and could be a seizure focus for this patient. Otherwise, this was a normal electroencephalogram. A left temporal abnormality should be ruled out. Noel Sutherland MD DJM/jl , 07:11 PM , 07:16 PM
[2018-05-14] MEDS: risperiDONE 2 MG ODT PO SCH (20:54)
--- NOTE | 2018-05-14 21:23 | CT ---
EXAM DATE: 05/14/2018 9:17 PM EST AGE/SEX: 57 years / Female INDICATIONS: Seizures. CLINICAL DATA: This is the patient's initial encounter. Patient reports that signs and symptoms have been present for 1 day and indicates a pain score of 0/10. MEDICAL/SURGICAL HISTORY: Cardiovascular disease. Seizures. None. RADIATION DOSE: 36.81 CTDI (mGy) [place] [facility] [place]. . TECHNIQUE: CT of the head without contrast. Using automated exposure control and adjustment of the mA and/or kV according to patient size, radiation dose was kept as low as reasonably achievable to ob tain optimal diagnostic quality images. DICOM format image data is available electronically for revi ew and comparison. FINDINGS: There is no evidence for intracranial hemorrhage, mass effect, mass lesions, edema, or extra-axial fl uid collections. The visualized bony structures appear intact. The ventricles are normal size for t he patient's age. There are no signs of acute infarction for technique. CONCLUSION: Unremarkable study. . Electronically signed by: Ruthy Porter MD Board Certified Radiologist 05/14/2018 9:21 PM EST
[2018-05-15] MEDS: levETIRAcetam 500 MG Tablet PO SCH ×2 (08:16→20:10)
[2018-05-15] MEDS: Calcium Carbonate 500 MG Tablet PO SCH ×2 (08:16→20:10)
[2018-05-15] MEDS: risperiDONE 1 MG ODT PO SCH ×2 (08:16→20:10)
[2018-05-15] MEDS: Sodium Chloride 1 GM Tablet PO SCH (08:16)
--- NOTE | 2018-05-15 10:44 | P.PNPSY ---
Subjective Remarks: Patient seen and examined. Chart reviewed. Case discussed with nursing staff. No further evidence of altered mental status/seizure, no behavioral disturbance overnight per nursing staff. On my examination today, the patient remained seclusive to room. She has no physical or psychiatric complaints. She is somewhat guarded although there is no josefina paranoia. She remains alert and oriented x3. No side effects from medications. Vital Signs Temp Pulse Resp BP Pulse Ox 05/14/18 22:05 98.7 F 87 19 121/73 100 05/14/18 18:00 99.0 F 99 H 18 102/63 94 L 05/14/18 13:13 97.9 F 78 18 110/70 94 L Intake and Output 05/14/18 05/15/18 05/15/18 22:59 06:59 14:59 Intake Total 1200 / 1200 600 / 600 2160 / 2160 Balance 1200 / 1200 600 / 600 2160 / 2160 Intake: Oral 1200 / 1200 600 / 600 2160 / 2160 Other: # Voids 3 4 Laboratory Results - last 24 hr 05/14/18 05/14/18 15:08 15:08 Sodium 128 L Potassium 4.3 Chloride 93 L Carbon Dioxide 28.4 Anion Gap 7 BUN 14 Creatinine 0.84 Estimated GFR 85 L Random Glucose 181 H Calcium 8.0 L Total Bilirubin 0.2 AST 23 ALT 14 Alkaline Phosphatase 56 Ammonia 33 H Total Protein 6.6 Albumin 3.2 L Valproic Acid 98 Labs reviewed. Depakote level remains within therapeutic range, although level is likely artificially high as this was obtained post dose. Ammonia level slightly elevated but improved versus previous reading. I do not suspect that altered mental status was due to hyperammonemic encephalopathy, nor is there evidence of ongoing encephalopathy now. Impressions Head CT 05/14/18 00:00 CONCLUSION: Unremarkable study. . EEG read as possible left temporal sharp wave. Review of Systems All other systems reviewed negative except as stated in HPI Mental Status Examination Appearance: Appropriate Consciousness: Alert Orientation: Person, Place, Date/Time Motor Activity: Other (No ictal activity noted. No abnormal motor movements noted.) Speech: Unremarkable Language: Adequate Fund of Knowledge: Inadequate Attention and Concentration: Adequate Memory: Unremarkable Mood: Appropriate Affect: Blunt (Tending towards flat) Thought Process & Associations: Intact Thought Content: Appropriate Hallucination Type: None Delusion Type: None Suicidal Ideation: No Homicidal Ideation: No Insight: Poor Judgment: Poor Assessment and Plan - Assessment (1) Paranoid type schizophrenia, chronic state with acute exacerbation Code(s): F20.0 - Paranoid schizophrenia Status: Acute - Plan Plan: Psychotic symptoms appear to be well controlled at present. I will therefore begin to taper oral Risperdal supplementing Invega Sustenna, especially in light of the fact that AMS was likely related to seizure, and antipsychotics can lower seizure threshold. Decrease Risperdal to 1mg BID and monitor for any worsening of psychotic symptoms. Hospitalist input noted and appreciated. I note that Keppra has been added. Continue to monitor on the inpatient unit. Continue other care as ordered. I have continued my discussion with patient regarding transition of care in advance of this provider's departure 05/16. Justification for Continued Inpatient Stay: Complicating condition. High risk for decompensation in less restrictive environment. Medication changes. Discharge Planning: [facility] referral. Request Healthcare Surrogate/Guardian Advocate?: Yes
--- NOTE | 2018-05-15 15:12 | P.PN ---
Subjective Interval history: Follow up for recurrent seizure, Hx of hyponatremia: Pt. seen and examined in dining room, smiling, pleasant. Has been compliant with meds. No seizures reported. States she feels better today, yesterday she was in pain. Has occ. pain to left wrist from old injury. States she was on Keppra before and doctor took her off med before she came to hospital. Pt. is a poor and unreliable historian. Informed that we restarted again and she agrees to continue taking it. Physical Exam Vital signs: Vital Signs 05/14/18 18:00 05/14/18 22:05 Temperature 99.0 F 98.7 F Pulse Rate 99 H 87 Respiratory Rate 18 19 Blood Pressure 102/63 121/73 Pulse Oximetry 94 L 100 Intake & Output 05/14/18 05/15/18 05/15/18 18:59 06:59 18:59 Intake Total 1200 / 1200 600 / 600 2160 / 2160 Balance 1200 / 1200 600 / 600 2160 / 2160 Intake: Oral 1200 / 1200 600 / 600 2160 / 2160 Other: # Voids 3 4 Date of Last Bowel Movement 05/13/18 Narrative: GENERAL: Well-nourished, well-developed adult female in no obvious distress. SKIN: Warm and dry. HEAD: Atraumatic. Normocephalic. CARDIOVASCULAR: Regular rate and rhythm. RESPIRATORY: No accessory muscle use. Clear to auscultation. Breath sounds equal bilaterally. GASTROINTESTINAL: Abdomen soft, non-tender, non- distended. Positive bowel sounds. MUSCULOSKELETAL: Extremities without clubbing, cyanosis, or edema. No obvious deformities. Mild tenderness to left wrist. NEUROLOGICAL: Awake, smiling, oriented x 3. Following commands. Some tremors noted to both hands. Results - Labs CBC & Chem 7: 05/09/18 15:13 05/14/18 15:08 Laboratory Results - last 24 hr 05/14/18 05/14/18 15:08 15:08 Sodium 128 L Potassium 4.3 Chloride 93 L Carbon Dioxide 28.4 Anion Gap 7 BUN 14 Creatinine 0.84 Estimated GFR 85 L Random Glucose 181 H Calcium 8.0 L Total Bilirubin 0.2 AST 23 ALT 14 Alkaline Phosphatase 56 Ammonia 33 H Total Protein 6.6 Albumin 3.2 L Valproic Acid 98 - Imaging Impressions Head CT 12/16/18 00:00 CONCLUSION: Unremarkable study. . Assessment and Plan - Assessment (1) Unspecified psychosis Code(s): F29 - Unspecified psychosis not due to a substance or known physiological condition (2) Paranoid type schizophrenia, chronic state with acute exacerbation Code(s): F20.0 - Paranoid schizophrenia Status: Acute (3) Hypertension Code(s): I10 - Essential (primary) hypertension Status: Acute (4) Seizure disorder Code(s): G40.909 - Epilepsy, unspecified, not intractable, without status epilepticus Status: Acute (5) Diabetes mellitus Code(s): E11.9 - Type 2 diabetes mellitus without complications Status: Acute (6) Acute renal insufficiency Code(s): N28.9 - Disorder of kidney and ureter, unspecified Status: Acute (7) Nausea & vomiting Code(s): R11.2 - Nausea with vomiting, unspecified Status: Acute (8) Viral gastroenteritis Code(s): A08.4 - Viral intestinal infection, unspecified Status: Acute - Plan This patient is a 57 years old -Portuguese female with past medical history of hypertension, mitral valve prolapse, seizure, AKA, hyponatremia, new onset diabetes mellitus, low TSH, paranoid schizophrenia, psychosis and previous psychiatric hospitalization in 2017 with a very similar presentation in which the patient refused to eat, refused to talk and was brought under the Summers act. According to the Summers act patient has not been taking her medication for the past 15 days. Patient was allegedly laying out in the yard and refused to come back in the house according to the family. In the emergency room patient is refusing to eat or drink, refusing blood work and refusing medications. Patient was admitted in the psychiatry for evaluation and treatment of paranoid type schizophrenia in a chronic state with acute exacerbation. [facility] has seen her intermittently through hospitalization for dehydration, PILY, hyponatremia, hypocalcemia, metabolic acidosis. Reconsult for poss recurrent seizure, was found postictal, loss of bladder function. Recurrent seizure, hx of epilepsy and seizure since age 14. Used to follow with Dr. Rose. Had EEG and CT head in 2009 no significant findings. Used to be on mutliple meds including Keppra, Gabapentin, Clonazepam, Depakote and Topamax. During this admission, no home medication list available and pt. had been non- compliant at home -currently on Depakote 500 mg po BID, last level 05/09- -EEG completed, left temporal sharp wave, poss seizure focus -CT head no acute findings -labs reviewed, mild hyponatremia, Na128, ammonia 33. -continue Sodium tabs, add 1500 cc fluid restriction -Ativan PRN seizures -Seizure precautions -will start Keppra 500 mg PO BID and monitor for side effect. D/W Dr. Cespedes , he will adjust psych meds as some of her meds can lower seizure threshold. Hyponatremia, likely chronic Pt. initially refusing to eat, was dehydrated. -Na levels fluctuating, 128 -continue with sodium tabs daily, has not been taking consistently. -1500 cc fluid restriction . Recent Hypocalcemia/hypophosphatemia/elevated PTH/ likely primary hyperparathyroidism -likely r/t kidney disease, dehydration/acid base disturbance -PTH elevated likely in response to low calcium level or vice versa -Continue Os-kashmir Hx of HTN, non compliant taking meds. BP has been stable, no medications started -continue to monitor BP Diabetes mellitus/Type 2 diabetes mellitus without complications -recently diagnosed in 2017, however unknown of patients compliance with medication treatment -HGB A1C 6.2 -currently diet controlled. Paranoid type schizophrenia, chronic state with acute exacerbation/unspecified Psychosis -Management with the Psychiatry Team Will follow tomorrow and see how she is responding to Keppra Code Status: Full code Discussed Condition With: RN, pt, Dr. Edgar Discharge Planning: Per psych team
[2018-05-16] MEDS: risperiDONE 1 MG ODT PO SCH ×2 (08:37→20:28)
[2018-05-16] MEDS: Calcium Carbonate 500 MG Tablet PO SCH ×2 (08:37→20:28)
[2018-05-16] MEDS: levETIRAcetam 500 MG Tablet PO SCH ×2 (08:38→20:28)
[2018-05-16] MEDS: Sodium Chloride 1 GM Tablet PO SCH (08:38)
--- NOTE | 2018-05-16 09:35 | P.PNPSY ---
Subjective Remarks: Patient seen and examined with nurse. Chart reviewed. Case discussed with nursing staff. No behavioral issues noted overnight. No further ictal activity noted. Case discussed in treatment team. Counselor reports that she continues to try to get in contact with it sales representative who can assist with resuming patient's disability, and she plans to escalate this to her debone supervisor. Therapists note that the patient is attending groups and is somewhat more social of late. On my examination today, the patient is seclusive to her room. She reports that she is sleeping well. She denies any hallucinations. Affect is somewhat blunted and irritable. She has noticed no difference with tapering of her Risperdal. Denies side effects from medications. No physical complaints. Vital Signs Temp Pulse Resp BP Pulse Ox 05/15/18 20:00 98.1 F 87 18 135/74 94 L 05/15/18 17:24 97.6 F 85 17 132/60 98 Intake and Output 05/15/18 05/16/18 05/16/18 22:59 06:59 14:59 Intake Total 1680 / 1680 Balance 1680 / 1680 Intake: Oral 1680 / 1680 Labs reviewed. Review of Systems All other systems reviewed negative except as stated in HPI Mental Status Examination Appearance: Appropriate Consciousness: Alert Orientation: Person, Place (At least) Motor Activity: Other (No ictal activity noted. No motor abnormalities noted.) Speech: Unremarkable Language: Adequate Fund of Knowledge: Inadequate Attention and Concentration: Adequate Memory: Unremarkable Mood: Appropriate Affect: Irritable (Mild), Blunt Thought Process & Associations: Intact Thought Content: Appropriate Hallucination Type: None Delusion Type: None Suicidal Ideation: No Homicidal Ideation: No Insight: Poor Judgment: Poor Assessment and Plan - Assessment (1) Paranoid type schizophrenia, chronic state with acute exacerbation Code(s): F20.0 - Paranoid schizophrenia Status: Acute - Plan Plan: Continue decreased dose of Risperdal as ordered. To consider further tapering of this medication. Risperdal is supplementing Invega Sustenna, which is next due 06/05/18. Continue Depakote as ordered. Check BMP in the morning to follow- up on hyponatremia. Continue to monitor on the inpatient unit. Continue other medications and care as ordered. I have discussed with patient that this is my last day at [facility] and that Dr. Medley will be assuming care of her case tomorrow. Signout provided to Dr. Medley. Justification for Continued Inpatient Stay: High risk for decompensation in less restrictive environment. Discharge Planning: State psychiatric hospitalization Request Healthcare Surrogate/Guardian Advocate?: Yes
--- NOTE | 2018-05-16 11:36 | P.PNIM ---
Subjective Interval history: Follow up on patient with seizures. Patient playing bingo in the community room. She does not voice any acute medical complaints or concerns. Discussed with TIFF Ocampo - no seizure activity noted, no adverse events, patient is stable. Physical Exam Vital signs: Last Vital Signs Temp 98.1 F 05/15/18 20:00 Pulse 87 05/15/18 20:00 Resp 18 05/15/18 20:00 BP 135/74 05/15/18 20:00 Pulse Ox 94 L 05/15/18 20:00 Intake & Output 05/14/18 05/15/18 05/16/18 05/17/18 06:59 06:59 06:59 06:59 Intake Total 480 / 480 1800 / 1800 3840 / 3840 Balance 480 / 480 1800 / 1800 3840 / 3840 Narrative: GENERAL: Well-nourished, well-developed female in no obvious distress. Awake and alert. Playing bingo in community room. SKIN: Warm and dry. HEENT: Atraumatic. Normocephalic. EOMI. Sclera anicteric. No nasal drainage. MMM. Airway patent. CARDIOVASCULAR: Regular rate and rhythm. RESPIRATORY: No accessory muscle use. Clear to auscultation. Breath sounds equal bilaterally. GASTROINTESTINAL: Abdomen soft, non-tender, non- distended. Positive bowel sounds. MUSCULOSKELETAL: Extremities without clubbing, cyanosis, or edema. No obvious deformities. Mild tenderness to left wrist. NEUROLOGICAL: Awake and alert. CN II-XII grossly intact. Able to move all extremities spontaneously. PSYCHIATRIC: Calm and cooperative. Results Labs CBC & Chem 7: 05/09/18 15:13 05/14/18 15:08 Assessment and Plan (1) Unspecified psychosis: Code(s): F29 - Unspecified psychosis not due to a substance or known physiological condition Status: Acute (2) Paranoid type schizophrenia, chronic state with acute exacerbation: Code(s): F20.0 - Paranoid schizophrenia Status: Acute (3) Hypertension: Code(s): I10 - Essential (primary) hypertension Status: Acute (4) Seizure disorder: Code(s): G40.909 - Epilepsy, unspecified, not intractable, without status epilepticus Status: Acute (5) Diabetes mellitus: Code(s): E11.9 - Type 2 diabetes mellitus without complications Status: Acute (6) Acute renal insufficiency: Code(s): N28.9 - Disorder of kidney and ureter, unspecified Status: Acute (7) Nausea & vomiting: Code(s): R11.2 - Nausea with vomiting, unspecified Status: Acute (8) Viral gastroenteritis: Code(s): A08.4 - Viral intestinal infection, unspecified Status: Acute Plan 57yo female with schizophrenia admitted under Summers Act to inpatient psychiatry with worsening psychosis: Schizophrenia Acute psychosis Summers Act -management per psychiatric team Recurrent seizures secondary to medication noncompliance secondary to acute psychosis hx of childhood epilepsy since age 14, previously on multiple medications including Keppra, Gabapentin, Clonazepam, Depakote and Topamax Head CT with no acute intracranial findings EEG +left temporal sharp wave, possible seizure focus Depakote level 98 05/14/18 -Continue on Depakote and Keppra -seizure precautions -Ativan prn seizure activity Hyponatremia, chronic, mild, asymptomatic Na level has been fluctuating -continue on 1500cc fluid restrictions -continue on sodium tabs daily -continue to monitor Na level intermittently. If persistently low, could increase dose of sodium tabs to BID. Recent Hypocalcemia/hypophosphatemia/elevated PTH/ likely primary hyperparathyroidism -likely r/t kidney disease, dehydration/acid base disturbance -PTH elevated likely in response to low calcium level or vice versa -Continue Os-kashmir Hx of HTN BP has been stable off of any antihypertensives -continue to monitor BP Diabetes mellitus/Type 2 diabetes mellitus without complications recently diagnosed in 2017, however unknown of patients compliance with medication treatment -HGB A1C 6.2 -currently diet controlled DVT prophylaxis -patient is ambulatory Patient appears stable from hospitalist standpoint. [facility] will sign off. Please reconsult if needed. Progress Note: Quality VTE Deep Vein Thrombosis/Pulmonary Embolism Present on Admission: No _ (1) Unspecified psychosis Qualifiers: Psychosis type: Schizoaffective disorder type: Schizophrenia type: (2) Hypertension Qualifiers: Hypertension type: (3) Diabetes mellitus Qualifiers: Diabetes mellitus type: Diabetes mellitus assisted insulin use: Diabetes mellitus complication status: Diabetes mellitus complication detail: Diabetic retinopathy severity: Proliferative retinopathy type: Diabetes mellitus macular edema: Laterality: Chronic kidney disease stage: (4) Nausea & vomiting Qualifiers: Vomiting type: Vomiting Intractability:
[2018-05-17] MEDS: Calcium Carbonate 500 MG Tablet PO SCH ×2 (09:33→20:56)
[2018-05-17] MEDS: Sodium Chloride 1 GM Tablet PO SCH (09:33)
[2018-05-17] MEDS: levETIRAcetam 500 MG Tablet PO SCH ×2 (09:33→20:56)
[2018-05-17] MEDS: risperiDONE 1 MG ODT PO SCH ×2 (09:33→20:56)
--- NOTE | 2018-05-17 10:26 | P.TTN ---
- Patient Problems Problems: 1. Discharge planning 2. Medication compliance 3. Knowledge deficit 4. Lack of coping skills - Progress Toward Goals Provider Present: Dr. Jeffry Cespedes Provider Input: 05/17/18 No medication change, still on the state wait list. Counselor was in contact with patient's sister regarding SSI. 05/12/2018; per psychiatrist no med change; doctor would like counselor to follow-up with patient's SSI. 05/09/2018; per psychiatrist patient has unpredictable mood, no med change at this time, no aggressive or violent issues. 04/25/2018; no medication change at this time; patient continues to be approprate for State. 04/21/18: No changes to medications. Pt [facility] to be [facility]. Dorothy, counselor, has been requested to make further attempts to contact pt 's son (Lukas Sewell) with goal of determining if there are other options to state hosp. 04/18/18: No changes to medications. Pt continues to be [facility] wait [facility]. 04/11/18: pt has been administered booster of invega sustaina, Risperdal has been discontinued. Pt continues on Depakote. Laina to follow-up with Carolyn, pt's son and with pt's sister in [place] as potential discharge options. Carolyn remains the better of these 2 options. 03/28/2018; patient remains on state waiting list, at this time no medication changes, patient has reportedly not been participating in activities. 03/24/2018; patient has no med adjustment, continues to be a state wait, counselor will look into family placement options. 03/21/2018; patient is stable on current med dosage, she has been place [facility]. 03/14/2018; per doctor, although patient is a State referral, her medications are being adjusted to address patient's behavior. 03/03/18: Pt exhibiting no behaviors, she remains isolative, awaiting [facility] acceptance. 02/21/2018; Patient' s are being titrated Nurse(s) Present: RN Nurse Input: 05/17/18 No behavioral problems on the unit, eating and sleeping. 05/12/2018; per RN patient is eating meals and taking medication with no notificable behavior. 05/09/2018; per RN patient is eating meals and taking medication, no behavior at this time. 04/25/2018; per nurse patient is eating meals and taking medication no behavior; however patient is observed responding to internal stimuli, derail thought process. 03/28/2018; at this time patient is reportedly continuing to take medication, no further reports of nausea, vomiting and diarrhea, patient continuing to eat and drink well. 03/24/2018; patient is taking her meds, eating meals and attending groups/activities. 03/21 patient requires coaching with mood, she is eating and taking her meds. 03/14/2018; patient require coaching with medication and redirection with mood due to aggressive behavior, she is taking her meds and eating meals. 02/21/2018 ; Patient is eating meals and taking medication, require coaching and prompting Psychiatric Counselors Present: Marbin Clancy Jr., [facility], Laina Mo, [facility] Psychiatric Therapist Input: 05/17/18 At times patient will participate one-on- one but no group therapy. 05/12/2018; counselor will follow-up with Janeth with [facility] to inquire about SSI income outcome. 05/09/2018; patient is a state wait pending acceptance. 04/25/2018; Patient is a state wait, patient's son continues to be indecisive with whether or not he is willing to accept patient in his home. 04/21/18: Pt continues to be [facility] wait [facility]. Dorothy counselor, has been requested to make further attempts to contact pt's son (Lukas Sewell) with goal of determining if there are other options to state hosp. 03/28/2008; counselor continues to maintain contact with family, counselor monitoring state wait list for estimated time patient to transfer to state hospital. 03/24/2018; counselor continues to make contact with family members for possible state hospital diversion. Thus far the contact numbers provided by patient has been not been good, (no family return or answer calls) . 03/14/2018; counselor will revisit patient's contact to see if she is placeable with family or friends. 03/14/2018; counselor will staff transfer to [facility] with repair supervisor to continue state wait. As of 03/04/18: counselor is completing state packet is being completed relative limited options for this pt. 02/22/2018; counselor will be contacting patient's NOK to discuss propriate dc planning patient's son (Lukas and patient's sister Marla Sewell Group Spec/RT/OT/NAIK Present: Marnie Cifuentes, NAIK, Juan Guajardo, OT, Cayetano Baugh, NAIK Group Spec/RT/OT/NAIK Input: 05/17/18 Patient will comply with project groups only. Isolatative. 05/12/2018; patient has some group participation. 2017 patient participate with some groups with limited interaction with peers. 04/25/2018; patient attends some groups with no participation. 04/21/18: Pt attends groups occasionally, sporatically. 04/18/18: Pt attends groups occasionally, sporatically. 04/11/18: Pt attends few groups, she is largely unable to tolerate group activities`. 03/24/2018; patient has been participatting with groups and appears to be enaging with peers with positive interaction,. 03/21/2018; patient lacks motivation to participate with groups. 03/14/2018; patient lacks the emotional ability to appropriately participate with groups. 02/21/2018;this is continuing as of 03/03/18; lack of pt attendance or participation. patient has not participate with groups or activities Other Clinican Input: State packet initiated per , counselor as this is pt's best option. Additional Input: 04/21/18: Pt continues to be [facility] wait list. Dorothy, counselor, has been requested to make further attempts to contact pt's son (Lukas Sewell) with goal of determining if there are other options to state hosp. 04/11/18: Laina to follow-up with Carolyn, pt's son and with pt's sister in [place] as potential discharge options. Jamarie remains the better of these 2 options. - Discharge Plan 04/18/18: Pt continues to be [facility] wait list. 04/11/18:Laina to follow-up with Carolyn, pt's son and with pt's sister in [place] as potential discharge options. Jamarie remains the better of these 2 options. - Documentation Teaching Recipient: Patient
--- NOTE | 2018-05-17 14:02 | P.PNPSY ---
Subjective Remarks: Patient seen in the dayroom with floor staff. Chart reviewed. Patient compliant medication. Patient remains somewhat irritable and vigilant with me with poor eye contact question me when I explained that I would be taking over her care from Dr. Cespedes. She does denies suicidality vague about voices at the present time for now continue treatment Review of Systems All other systems reviewed negative except as stated in HPI Mental Status Examination Appearance: Appropriate Consciousness: Alert Orientation: Person, Place (At least) Motor Activity: Other (No ictal activity noted. No motor abnormalities noted.) Speech: Unremarkable Language: Adequate Fund of Knowledge: Inadequate Attention and Concentration: Adequate Memory: Unremarkable Mood: Appropriate, Irritable (Somewhat today with me) Affect: Other (Slight decreased range and intensity) Thought Process & Associations: Intact Thought Content: Appropriate Hallucination Type: None Delusion Type: None Suicidal Ideation: No Suicidal Plan: No Suicidal Intention: No Homicidal Ideation: No Homicidal Plan: No Homicidal Intention: No Insight: Poor Judgment: Poor Assessment and Plan - Assessment (1) Paranoid type schizophrenia, chronic state with acute exacerbation Code(s): F20.0 - Paranoid schizophrenia Status: Acute - Plan Plan: Patient remains vigilant somewhat paranoid and psychotic, though staff states she is somewhat more appropriate today. For now continue treatment no change. Patient remains on the state waiting list Justification for Continued Inpatient Stay: At this time patient with decompensated placed on a lower level of care Discharge Planning: Patient remains in the state weight last Request Healthcare Surrogate/Guardian Advocate?: Yes
[2018-05-18] MEDS: Calcium Carbonate 500 MG Tablet PO SCH ×2 (09:09→20:43)
[2018-05-18] MEDS: levETIRAcetam 500 MG Tablet PO SCH ×2 (09:09→20:43)
[2018-05-18] MEDS: Sodium Chloride 1 GM Tablet PO SCH (09:09)
[2018-05-18] MEDS: risperiDONE 1 MG ODT PO SCH ×2 (09:09→20:43)
--- NOTE | 2018-05-18 14:35 | P.PNPSY ---
Subjective Remarks: Patient seen in day room with nurse Jessica, chart reviewed, patient compliant medication. Patient no behavioral problems at this time. Today she denies voices or visions, denies suicidality. According to the nurse Jessica patient has had a delusion of being since admission. However today patient asked the nurse if she was the nurse said she was not, and patient said "okay " for now continue treatment continue to await word from state hospital placement Review of Systems All other systems reviewed negative except as stated in HPI Mental Status Examination Appearance: Appropriate Consciousness: Alert Orientation: Person, Place (At least) Motor Activity: Other (No ictal activity noted. No motor abnormalities noted.) Speech: Unremarkable Language: Adequate Fund of Knowledge: Inadequate Attention and Concentration: Adequate Memory: Unremarkable Mood: Appropriate, Irritable (Somewhat today with me) Affect: Other (Slight decreased range and intensity) Thought Process & Associations: Intact Thought Content: Appropriate Hallucination Type: None Delusion Type: None Suicidal Ideation: No Suicidal Plan: No Suicidal Intention: No Homicidal Ideation: No Homicidal Plan: No Homicidal Intention: No Insight: Poor Judgment: Poor Assessment and Plan - Assessment (1) Paranoid type schizophrenia, chronic state with acute exacerbation Code(s): F20.0 - Paranoid schizophrenia Status: Acute - Plan Plan: Patient remains vigilant and somewhat paranoid, but will behavior problems, continue to await word from state hospital Justification for Continued Inpatient Stay: At this time patient would decompensate if not place an appropriate level of care Discharge Planning: Continue to await word from state hospital Request Healthcare Surrogate/Guardian Advocate?: Yes
[2018-05-19 07:26] LABS: Anion Gap 7 meq/L (5-15); Blood Urea Nitrogen 14 mg/dL (7-18); Calcium 8.4 mg/dL (8.5-10.1); Carbon Dioxide 31.2 meq/L (21.0-32.0); Chloride 91 meq/L (98-107); Glomerular Filtration Rate Greater Than 89 mL/min (>89); Glucose,Random 71 mg/dL (74-106); Potassium 4.3 meq/L (3.5-5.1); Sodium 129 meq/L (136-145)
[2018-05-19] MEDS: Calcium Carbonate 500 MG Tablet PO SCH ×2 (09:49→21:23)
[2018-05-19] MEDS: Sodium Chloride 1 GM Tablet PO SCH (09:49)
[2018-05-19] MEDS: risperiDONE 1 MG ODT PO SCH ×2 (09:49→21:23)
[2018-05-19] MEDS: levETIRAcetam 500 MG Tablet PO SCH ×2 (09:49→21:23)
--- NOTE | 2018-05-19 10:32 | P.PNPSY ---
Subjective Remarks: Patient seen in day room with nurse Jessica, chart reviewed, patient compliant medication. Patient remains quite vigilant suspicious with some mild thought blocking. Today she states that her son is waiting in the waiting room to take her home. For now continue treatment no change Review of Systems All other systems reviewed negative except as stated in HPI Mental Status Examination Appearance: Appropriate Consciousness: Alert Orientation: Person, Place (At least) Motor Activity: Other (No ictal activity noted. No motor abnormalities noted.) Speech: Unremarkable Language: Adequate Fund of Knowledge: Inadequate Attention and Concentration: Adequate Memory: Unremarkable Mood: Appropriate, Irritable (Somewhat today with me) Affect: Other (Slight decreased range and intensity) Thought Process & Associations: Intact Thought Content: Appropriate, Bizarre thinking Hallucination Type: None Delusion Type: Paranoid Suicidal Ideation: No Suicidal Plan: No Suicidal Intention: No Homicidal Ideation: No Homicidal Plan: No Homicidal Intention: No Insight: Poor Judgment: Poor Assessment and Plan - Assessment (1) Paranoid type schizophrenia, chronic state with acute exacerbation Code(s): F20.0 - Paranoid schizophrenia Status: Acute - Plan Plan: Patient remained psychotic and delusional. Today stating that his son is waiting for her in our lobby to take her home Justification for Continued Inpatient Stay: At this time patient with decompensated placed in a lower level of care Discharge Planning: To be determined patient continues to be on the state referral list Request Healthcare Surrogate/Guardian Advocate?: Yes
[2018-05-19] MEDS: Melatonin 5 MG Tablet PO PRN (21:23)
[2018-05-20] MEDS: Sodium Chloride 1 GM Tablet PO SCH (08:06)
[2018-05-20] MEDS: levETIRAcetam 500 MG Tablet PO SCH ×2 (08:06→20:14)
[2018-05-20] MEDS: risperiDONE 1 MG ODT PO SCH ×2 (08:06→20:14)
[2018-05-20] MEDS: Calcium Carbonate 500 MG Tablet PO SCH ×2 (08:06→20:14)
--- NOTE | 2018-05-20 13:41 | P.PNPSY ---
Subjective Chief Complaint: Follow-up treatment for psychosis Remarks: Patient seen for follow-up, chart reviewed, patient discussed with nursing staff ; we reviewed the patient's mood, thoughts, and behaviors from overnight and this morning. Nursing reports the patient slept approximately 6 hours overnight. She is described as intermittently irritable but generally cooperative with care. The patient was observed sitting quietly in the dayroom and interacting appropriately with peers. She also was observed to have a mild resting tremor worse on the right upper extremity than left upper extremity. The patient told the provider that she supposed to be discharged today and her son is on the way to pick her up. She expressed confusion about why she remained in the hospital. She expressed satisfaction with her current medications and had no other complaints other than being discharged focused. Review of Systems All other systems reviewed negative except as stated in HPI Mental Status Examination Appearance: Appropriate Consciousness: Alert Orientation: Person, Place (At least) Motor Activity: Other (No ictal activity noted. No motor abnormalities noted.) Speech: Unremarkable Language: Adequate Fund of Knowledge: Inadequate Attention and Concentration: Adequate Memory: Unremarkable Mood: Appropriate, Irritable (Somewhat today with me) Affect: Other (Slight decreased range and intensity) Thought Process & Associations: Intact Thought Content: Appropriate, Bizarre thinking Hallucination Type: None Delusion Type: Paranoid Suicidal Ideation: No Suicidal Plan: No Suicidal Intention: No Homicidal Ideation: No Homicidal Plan: No Homicidal Intention: No Insight: Poor Judgment: Poor Assessment and Plan - Assessment (1) Paranoid type schizophrenia, chronic state with acute exacerbation Code(s): F20.0 - Paranoid schizophrenia Status: Acute - Plan Plan: 05/20/2018: Fair response to treatment; patient remained psychotic and delusional but behaviors are appropriate. She repeated her false beliefs from yesterday, stating that her son is waiting for her in our lobby to take her home. Continue inpatient treatment which includes Cogentin 0.5 mg every 12 hours as needed for EPS, Keppra 500 mg twice a day, melatonin 5 mg at bedtime, Depakote 500 mg twice a day, Risperdal M tabs 1 mg twice a day, and Invega Sustenna as ordered. Justification for Continued Inpatient Stay: Patient remains an elevated risk for self-harm by self neglect and will require further inpatient stabilization and preparation of a safe discharge plan. Moving patient to a less restrictive environment at this time may result in decompensation. Request Healthcare Surrogate/Guardian Advocate?: Yes
[2018-05-20] MEDS: Melatonin 5 MG Tablet PO PRN (22:32)
--- NOTE | 2018-05-21 08:55 | P.PNPSY ---
Subjective Chief Complaint: Follow-up treatment for psychosis Remarks: Reviewed electronic record and discussed with nursing staff. Rounded with TIFF Hendrickson. Patient in common area eating breakfast. Nursing reports that her moods has improved since she was moved to the [address] unit. When I engaged her in conversation and asked about her three sons she was smiling and taking about her family. She mentioned that she already had a visit from her son from [place] a few weeks ago. Preoccupied with discharge. Sleeping 6-7 hours . Eating well. Denies SI/HI. Continues to be slightly paranoid but expresses that she feels safe in the new location. Review of Systems All other systems reviewed negative except as stated in HPI Comments: complaining of shoulder pain Mental Status Examination Appearance: Appropriate Consciousness: Alert Orientation: Person, Place (At least) Motor Activity: Other (No ictal activity noted. No motor abnormalities noted.) Speech: Unremarkable Language: Adequate Fund of Knowledge: Inadequate Attention and Concentration: Adequate Memory: Unremarkable Mood: Appropriate Affect: Other (Slight decreased range and intensity) Thought Process & Associations: Intact Thought Content: Appropriate, Bizarre thinking Hallucination Type: None Delusion Type: Paranoid Suicidal Ideation: No Suicidal Plan: No Suicidal Intention: No Homicidal Ideation: No Homicidal Plan: No Homicidal Intention: No Insight: Poor Judgment: Poor Assessment and Plan - Assessment (1) Paranoid type schizophrenia, chronic state with acute exacerbation Code(s): F20.0 - Paranoid schizophrenia Status: Acute - Plan Plan: 05/21/18 continue current treatment plan. 05/20/2018: Continue inpatient treatment which includes Cogentin 0.5 mg every 12 hours as needed for EPS, Keppra 500 mg twice a day, melatonin 5 mg at bedtime, Depakote 500 mg twice a day, Risperdal M tabs 1 mg twice a day, and Invega Sustenna as ordered. Justification for Continued Inpatient Stay: Moving patient to a less restrictive environment may result in her decompensation. Request Healthcare Surrogate/Guardian Advocate?: Yes
[2018-05-21] MEDS: risperiDONE 1 MG ODT PO SCH ×2 (10:13→20:24)
[2018-05-21] MEDS: levETIRAcetam 500 MG Tablet PO SCH ×2 (10:13→20:23)
[2018-05-21] MEDS: Calcium Carbonate 500 MG Tablet PO SCH ×2 (10:13→20:23)
[2018-05-21] MEDS: Sodium Chloride 1 GM Tablet PO SCH (10:13)
[2018-05-22] MEDS: levETIRAcetam 500 MG Tablet PO SCH ×2 (09:40→21:25)
[2018-05-22] MEDS: Calcium Carbonate 500 MG Tablet PO SCH ×2 (09:40→21:25)
[2018-05-22] MEDS: risperiDONE 1 MG ODT PO SCH ×2 (09:40→21:25)
[2018-05-22] MEDS: Sodium Chloride 1 GM Tablet PO SCH (09:40)
--- NOTE | 2018-05-22 13:41 | P.PNPSY ---
Subjective Chief Complaint: Follow-up treatment for psychosis Remarks: Patient seen in the [facility] with nurse Lopez, chart reviewed, patient discussed with nurse. Appears patient had a somewhat argumentative conversation with her sister today. Patient today is somewhat angry and irritable although compliant with medications. She is no significant behavior problems at this time. We continue to await word from [facility] referral Review of Systems All other systems reviewed negative except as stated in HPI Mental Status Examination Appearance: Appropriate Consciousness: Alert Orientation: Person, Place (At least) Motor Activity: Other (No ictal activity noted. No motor abnormalities noted.) Speech: Unremarkable Language: Adequate Fund of Knowledge: Inadequate Attention and Concentration: Adequate Memory: Unremarkable Mood: Irritable, Other (Somewhat restricted) Affect: Other (Decreased range and increased intensity) Thought Process & Associations: Intact Thought Content: Appropriate, Bizarre thinking Hallucination Type: None Delusion Type: Paranoid Suicidal Ideation: No Suicidal Plan: No Suicidal Intention: No Homicidal Ideation: No Homicidal Plan: No Homicidal Intention: No Insight: Poor Judgment: Poor Assessment and Plan - Assessment (1) Paranoid type schizophrenia, chronic state with acute exacerbation Code(s): F20.0 - Paranoid schizophrenia Status: Acute - Plan Plan: Patient remained psychotic paranoid and vigilant. Compliant medication. Continue to await word from [facility] Justification for Continued Inpatient Stay: At this time patient with decompensated placed in a lower level of care Discharge Planning: Await word from [facility] Request Healthcare Surrogate/Guardian Advocate?: Yes
--- NOTE | 2018-05-22 14:25 | P.TTN ---
- Patient Problems Problems: 1. Discharge planning 2. Medication compliance 3. Knowledge deficit 4. Lack of coping skills - Progress Toward Goals Provider Present: Dr. Bailey Medley, Dr. Jeffry Cespedes Provider Input: 05/22/18 No med change, pt is on state wait list. Pt was irritable and argumentative today. 05/17/18 No medication change, still on the state wait list. Counselor was in contact with patient's sister regarding SSI. 05/12/2018; per psychiatrist no med change; doctor would like counselor to follow-up with patient's SSI. 05/09/2018; per psychiatrist patient has unpredictable mood, no med change at this time, no aggressive or violent issues. 04/25/2018; no medication change at this time; patient continues to be approprate for State. 04/21/18: No changes to medications. [facility] be [facility]. Dorothy, counselor, has been requested to make further attempts to contact pt's son (Lukas Sewell) with goal of determining if there are other options to state hosp. 04/18/18: No changes to medications. Pt [facility] to be [facility]. 04/11/18: pt has been administered booster of invega sustaina, Risperdal has been discontinued. Pt continues on Depakote. Laina to follow-up with Carolyn, pt's son and with pt's sister in [place] as potential discharge options. Carolyn remains the better of these 2 options. 03/28/2018; patient remains on state waiting list, at this time no medication changes, patient has reportedly not been participating in activities. 03/24/2018; patient has no med adjustment, continues to be a state wait, counselor will look into family placement options. 03/21/2018; patient is stable on current med dosage, she has been place [facility]. 03/14/2018; per doctor, although patient is a State referral, her medications are being adjusted to address patient's behavior. 03/03/18: Pt exhibiting no behaviors, she remains isolative, awaiting [facility]. 2017; Patient's are being titrated Nurse(s) Present: RN Nurse Input: 05/22/18 Per TIFF nolasco pt has been somewhat irritable and argumentative but med compliant. No sig beh issues. 05/17/18 No behavioral problems on the unit, eating and sleeping. 05/12/2018; per RN patient is eating meals and taking medication with no notificable behavior. 05/09/2018; per RN patient is eating meals and taking medication, no behavior at this time. 04/25/2018; per nurse patient is eating meals and taking medication no behavior; however patient is observed responding to internal stimuli, derail thought process. 03/28/2018; at this time patient is reportedly continuing to take medication, no further reports of nausea, vomiting and diarrhea, patient continuing to eat and drink well. 03/24/2018; patient is taking her meds, eating meals and attending groups/activities. 03/21/2018 patient requires coaching with mood, she is eating and taking her meds. 03/14/2018; patient require coaching with medication and redirection with mood due to aggressive behavior, she is taking her meds and eating meals. 02/21/2018; Patient is eating meals and taking medication, require coaching and prompting Psychiatric Counselors Present: Marbin Clancy Jr., [facility], Laina Mo, [facility], Other Psychiatric Therapist Input: 05/22/18: Pt no longer on 1:1, pt on state wait list as a dc plan. 05/17/18 At times patient will participate one-on-one but no group therapy. 05/12/2018; counselor will follow-up with Janeth with [facility] to inquire about SSI income outcome. 05/09/2018; patient is a state wait pending acceptance. 04/25/2018; Patient is a state wait, patient's son continues to be indecisive with whether or not he is willing to accept patient in his home. 04/21/18: Pt [facility] to be [facility]. Dorothy, counselor, has been requested to make further attempts to contact pt's son ( Lukas Sewell) with goal of determining if there are other options to state hosp. 03/28/2008; counselor continues to maintain contact with family, counselor monitoring state wait list for estimated time patient to transfer to state hospital. 03/24/2018; counselor continues to make contact with family members for possible state hospital diversion. Thus far the contact numbers provided by patient has been not been good, (no family return or answer calls) . 03/14/2018; counselor will revisit patient's contact to see if she is placeable with family or friends. 03/14/2018; counselor will staff transfer to [facility] with char house supervisor to continue state wait. As of 03/04/18: counselor is completing state packet is being completed relative limited options for this pt. 02/22/2018; counselor will be contacting patient's NOK to discuss propriate dc planning patient's son (Lukas and patient's sister Marla Sewell Group Spec/RT/OT/NAIK Present: Marnie Cifuentes, NAIK, Juan Guajardo, OT, Cayetano Baugh, NAIK Group Spec/RT/OT/NAIK Input: 05/22/18: Pt attends select groups and sometimes participates. 05/17/18 Patient will comply with project groups only. Isolatative. 05/12/2018; patient has some group participation. 05/09/2018 patient participate with some groups with limited interaction with peers. 04/25; patient attends some groups with no participation. 04/21/18: Pt attends groups occasionally, sporatically. 04/18/18: Pt attends groups occasionally, sporatically. 04/11/18: Pt attends few groups, she is largely unable to tolerate group activities`. 03/24/2018; patient has been participatting with groups and appears to be enaging with peers with positive interaction,. 2017; patient lacks motivation to participate with groups. 03/14/2018; patient lacks the emotional ability to appropriately participate with groups. 2017;this is continuing as of 03/03/18; lack of pt attendance or participation. patient has not participate with groups or activities Other Clinican Input: State packet initiated per , counselor as this is pt's best option. Additional Input: 04/21/18: Pt [facility] to be [facility]. Dorothy, counselor, has been requested to make further attempts to contact pt's son (Lukas Sewell) with goal of determining if there are other options to state hosp. 04/11/18: Laina to follow-up with Carolyn, pt's son and with pt's sister in [place] as potential discharge options. [facility] remains the better of these 2 options. - Discharge Plan 04/18/18: Pt continues to be [facility]. 04/11/18:Laina to follow-up with Carolyn, pt's son and with pt's sister in [place] as potential discharge options. [facility] remains the better of these 2 options. - Documentation Teaching Recipient: Patient
[2018-05-23] MEDS: levETIRAcetam 500 MG Tablet PO SCH ×2 (09:39→20:39)
[2018-05-23] MEDS: Sodium Chloride 1 GM Tablet PO SCH (09:39)
[2018-05-23] MEDS: risperiDONE 1 MG ODT PO SCH ×2 (09:40→20:39)
[2018-05-23] MEDS: Calcium Carbonate 500 MG Tablet PO SCH ×2 (09:40→20:39)
--- NOTE | 2018-05-23 10:34 | P.PNPSY ---
Subjective Chief Complaint: Follow-up treatment for psychosis Remarks: Patient seen and activities room with nurse Jessica, chart reviewed, patient alert oriented showing some elevated mood today with increased affect she is smiling and pleasant she is compliant with the medication. She denies suicidality voices or visions today. Continue to await word from state hospital placement Review of Systems All other systems reviewed negative except as stated in HPI Mental Status Examination Appearance: Appropriate Consciousness: Alert Orientation: Person, Place (At least) Motor Activity: Other (No ictal activity noted. No motor abnormalities noted.) Speech: Unremarkable Language: Adequate Fund of Knowledge: Inadequate Attention and Concentration: Adequate Memory: Unremarkable Mood: Other (Euthymic to somewhat elevated today) Affect: Other (Decreased range and increased intensity) Thought Process & Associations: Intact Thought Content: Appropriate, Bizarre thinking Hallucination Type: None Delusion Type: Paranoid (Softer today) Suicidal Ideation: No Suicidal Plan: No Suicidal Intention: No Homicidal Ideation: No Homicidal Plan: No Homicidal Intention: No Insight: Poor Judgment: Poor Assessment and Plan - Assessment (1) Paranoid type schizophrenia, chronic state with acute exacerbation Code(s): F20.0 - Paranoid schizophrenia Status: Acute - Plan Plan: Patient is showing some elevated mood today with increased range and intensity of her affect. She does deny voices and suicidality today. Compliant medication. For now continue treatment. Justification for Continued Inpatient Stay: At this time patient with decompensated placed on a lower level of care Discharge Planning: Continue to await word from state hospital placement Request Healthcare Surrogate/Guardian Advocate?: Yes
[2018-05-24] MEDS: risperiDONE 1 MG ODT PO SCH ×2 (08:14→20:30)
[2018-05-24] MEDS: Sodium Chloride 1 GM Tablet PO SCH (08:14)
[2018-05-24] MEDS: levETIRAcetam 500 MG Tablet PO SCH ×2 (08:14→20:30)
[2018-05-24] MEDS: Calcium Carbonate 500 MG Tablet PO SCH ×2 (08:14→20:30)
--- NOTE | 2018-05-24 10:46 | P.PNPSY ---
Subjective Chief Complaint: Follow-up treatment for psychosis Remarks: Patient seen today in her room with nurse Mai, chart reviewed, patient compliant medication patient continues calm and pleasant with me denies voices or visions, denies suicidality. Though there still is some guarding and some mild vigilance. We will recheck Depakote blood level over in a.m. Patient continues to be on the state waiting list Review of Systems All other systems reviewed negative except as stated in HPI Mental Status Examination Appearance: Appropriate Consciousness: Alert Orientation: Person, Place (At least) Motor Activity: Other (No ictal activity noted. No motor abnormalities noted.) Speech: Unremarkable Language: Adequate Fund of Knowledge: Inadequate Attention and Concentration: Adequate Memory: Unremarkable Mood: Other (Euthymic to somewhat elevated today) Affect: Other (Decreased range and increased intensity) Thought Process & Associations: Intact Thought Content: Appropriate Hallucination Type: None Delusion Type: Paranoid (Softer today) Suicidal Ideation: No Suicidal Plan: No Suicidal Intention: No Homicidal Ideation: No Homicidal Plan: No Homicidal Intention: No Insight: Poor Judgment: Poor Assessment and Plan - Assessment (1) Paranoid type schizophrenia, chronic state with acute exacerbation Code(s): F20.0 - Paranoid schizophrenia Status: Acute - Plan Plan: Patient remains somewhat paranoid vigilant psychotic she is improving somewhat. We will recheck Depakote blood level in a.m. Continue to await and state placement Justification for Continued Inpatient Stay: At this time patient with decompensated placed in a lower level of care Discharge Planning: To be determined continue to await state placement Request Healthcare Surrogate/Guardian Advocate?: Yes
--- NOTE | 2018-05-24 12:57 | P.TTN ---
- Patient Problems Problems: 1. Discharge planning 2. Medication compliance 3. Knowledge deficit 4. Lack of coping skills - Progress Toward Goals Provider Present: Dr. Bailey Medley (Dr. Medley is making no med changes at this time.), Dr. Jeffry Cespedes Provider Input: 05/22/18 No med change, pt is on state wait list. Pt was irritable and argumentative today. 05/17/18 No medication change, still on the state wait list. Counselor was in contact with patient's sister regarding SSI. 05/12/2018; per psychiatrist no med change; doctor would like counselor to follow-up with patient's SSI. 05/09/2018; per psychiatrist patient has unpredictable mood, no med change at this time, no aggressive or violent issues. 04/25/2018; no medication change at this time; patient continues to be approprate for State. 04/21/18: No changes to medications. [facility]. Dorothy, counselor, has been requested to make further attempts to contact pt's son (Lukas Sewell) with goal of determining if there are other options to state hosp. 04/18/18: No changes to medications. Pt [facility] to be [facility]. 04/11/18: pt has been administered booster of invega sustaina, Risperdal has been discontinued. Pt continues on Depakote. Laina to follow-up with Carolyn, pt's son and with pt's sister in [place] as potential discharge options. Carolyn remains the better of these 2 options. 03/28/2018; patient remains on state waiting list, at this time no medication changes, patient has reportedly not been participating in activities. 03/24/2018; patient has no med adjustment, continues to be a state wait, counselor will look into family placement options. 03/21/2018; patient is stable on current med dosage, she has been place [facility]. 03/14/2018; per doctor, although patient is a State referral, her medications are being adjusted to address patient's behavior. 03/03/18: Pt exhibiting no behaviors, she remains isolative, awaiting [facility]. 2017; Patient's are being titrated Nurse(s) Present: RN Nurse Input: 05/22/18 Per TIFF nolasco pt has been somewhat irritable and argumentative but med compliant. No sig beh issues. 05/17/18 No behavioral problems on the unit, eating and sleeping. 05/12/2018; per RN patient is eating meals and taking medication with no notificable behavior. 05/09/2018; per RN patient is eating meals and taking medication, no behavior at this time. 04/25/2018; per nurse patient is eating meals and taking medication no behavior; however patient is observed responding to internal stimuli, derail thought process. 03/28/2018; at this time patient is reportedly continuing to take medication, no further reports of nausea, vomiting and diarrhea, patient continuing to eat and drink well. 03/24/2018; patient is taking her meds, eating meals and attending groups/activities. 03/21/2018 patient requires coaching with mood, she is eating and taking her meds. 03/14/2018; patient require coaching with medication and redirection with mood due to aggressive behavior, she is taking her meds and eating meals. 02/21/2018; Patient is eating meals and taking medication, require coaching and prompting Psychiatric Counselors Present: Marbin Clancy Jr., [facility] (Patient will be placed at the [facility] when a bed is available.), Laina Mo, [facility], Other Psychiatric Therapist Input: 05/22/18: Pt no longer on 1:1, pt on state wait list as a dc plan. 05/17/18 At times patient will participate one-on-one but no group therapy. 05/12/2018; counselor will follow-up with [facility] to inquire about SSI income outcome. 05/09/2018; patient is a state wait pending acceptance. 04/25/2018; Patient is a state wait, patient's son continues to be indecisive with whether or not he is willing to accept patient in his home. 04/21/18: Pt [facility] to be [facility]. Dorothy, counselor, has been requested to make further attempts to contact pt's son ( Lukas Sewell) with goal of determining if there are other options to state hosp. 03/28/2008; counselor continues to maintain contact with family, counselor monitoring state wait list for estimated time patient to transfer to state hospital. 03/24/2018; counselor continues to make contact with family members for possible state hospital diversion. Thus far the contact numbers provided by patient has been not been good, (no family return or answer calls) . 03/14/2018; counselor will revisit patient's contact to see if she is placeable with family or friends. 03/14/2018; counselor will staff transfer to [facility] with concrete pouring supervisor to continue state wait. As of 03/04/18: counselor is completing state packet is being completed relative limited options for this pt. 02/22/2018; counselor will be contacting patient's NOK to discuss propriate dc planning patient's son (Lukas and patient's sister Marla Sewell Group Spec/RT/OT/NAIK Present: GUMARO Burger (Patient attends groups and is redirectable.), Juan Guajardo, OT, GUMARO Villalobos Group Spec/RT/OT/NAIK Input: 05/22/18: Pt attends select groups and sometimes participates. 05/17/18 Patient will comply with project groups only. Isolatative. 05/12/2018; patient has some group participation. 05/09/2018 patient participate with some groups with limited interaction with peers. 04/25; patient attends some groups with no participation. 04/21/18: Pt attends groups occasionally, sporatically. 04/18/18: Pt attends groups occasionally, sporatically. 04/11/18: Pt attends few groups, she is largely unable to tolerate group activities`. 03/24/2018; patient has been participatting with groups and appears to be enaging with peers with positive interaction,. 2017; patient lacks motivation to participate with groups. 03/14/2018; patient lacks the emotional ability to appropriately participate with groups. 2017;this is continuing as of 03/03/18; lack of pt attendance or participation. patient has not participate with groups or activities Other Clinican Input: State packet initiated per , counselor as this is pt's best option. Additional Input: 04/21/18: Pt continues to be [facility] wait [facility]. luz marina De La Cruzor, has been requested to make further attempts to contact pt's son (Lukas Sewell) with goal of determining if there are other options to state hosp. 11/13/18: Laina to follow-up with Jamarie, pt's son and with pt's sister in [place] as potential discharge options. Jamarie remains the better of these 2 options. - Discharge Plan 04/18/18: Pt continues to be [facility]. 04/11/18:Laina to follow-up with Jamarie, pt's son and with pt's sister in [place] as potential discharge options. Asifrie remains the better of these 2 options. - Documentation Teaching Recipient: Patient
--- NOTE | 2018-05-24 18:43 | P.PN ---
Subjective Interval history: Reconsult for wheezing, per RN was audible. No resp. distress noted. RT unable to give duoneb. Sats 93% on RA. Pt. received ventolin INH PRN x 1, tolerated well. Now examined in dining room, eating dinner. Has no complaints, no audible wheezing noted. States she uses Proair PRN at home, hx of asthma. Occ sputum, no fever, no chills. Physical Exam Vital signs: Vital Signs 05/24/18 05:27 05/24/18 17:25 Temperature 98.0 F 97.3 F L Pulse Rate 79 112 H Respiratory Rate 18 18 Blood Pressure 101/58 L 131/63 Pulse Oximetry 96 93 L Intake & Output 05/23/18 05/24/18 05/24/18 18:59 06:59 18:59 Other: Date of Last Bowel Movement 05/18/18 Narrative: GENERAL: Well-nourished, well-developed female in no obvious distress. Awake and alert. Playing [employer] in community room. SKIN: Warm and dry. HEENT: Atraumatic. Normocephalic. EOMI. Sclera anicteric. No nasal drainage. MMM. Airway patent. CARDIOVASCULAR: Regular rate and rhythm. RESPIRATORY: No accessory muscle use. Clear to auscultation. Breath sounds equal bilaterally. GASTROINTESTINAL: Abdomen soft, non-tender, non- distended. Positive bowel sounds. MUSCULOSKELETAL: Extremities without clubbing, cyanosis, or edema. No obvious deformities. Mild tenderness to left wrist. NEUROLOGICAL: Awake and alert. CN II-XII grossly intact. Able to move all extremities spontaneously. PSYCHIATRIC: Calm and cooperative. Results - Labs CBC & Chem 7: 05/09/18 15:13 05/19/18 06:25 Assessment and Plan - Assessment (1) Unspecified psychosis Code(s): F29 - Unspecified psychosis not due to a substance or known physiological condition Status: Acute (2) Paranoid type schizophrenia, chronic state with acute exacerbation Code(s): F20.0 - Paranoid schizophrenia Status: Acute (3) Hypertension Code(s): I10 - Essential (primary) hypertension Status: Acute (4) Seizure disorder Code(s): G40.909 - Epilepsy, unspecified, not intractable, without status epilepticus Status: Acute (5) Diabetes mellitus Code(s): E11.9 - Type 2 diabetes mellitus without complications Status: Acute (6) Acute renal insufficiency Code(s): N28.9 - Disorder of kidney and ureter, unspecified Status: Acute (7) Nausea & vomiting Code(s): R11.2 - Nausea with vomiting, unspecified Status: Acute (8) Viral gastroenteritis Code(s): A08.4 - Viral intestinal infection, unspecified Status: Acute - Plan 57yo female with schizophrenia admitted under [facility] to inpatient psychiatry with worsening psychosis: Reconsult today for audible wheezing, hx of asthma. No distress noted during exam. Received Ventolin INH with good response. No fever, no chills -Continue Ventolin PRN -lungs clear, no fever, no further work up for now Schizophrenia Acute psychosis [employer] -management per psychiatric team Recurrent seizures secondary to medication noncompliance secondary to acute psychosis hx of childhood epilepsy since age 14, previously on multiple medications including Keppra, Gabapentin, Clonazepam, Depakote and Topamax Head CT with no acute intracranial findings EEG +left temporal sharp wave, possible seizure focus Depakote level 98 05/14/18 -Continue on Depakote and Keppra -seizure precautions -Ativan prn seizure activity Hyponatremia, chronic, mild, asymptomatic Na level has been fluctuating, 129 on 05/19 -continue on 1500cc fluid restrictions -continue on sodium tabs daily -continue to monitor Na level intermittently. If persistently low, could increase dose of sodium tabs to BID. Recent Hypocalcemia/hypophosphatemia/elevated PTH/ likely primary hyperparathyroidism -likely r/t kidney disease, dehydration/acid base disturbance -PTH elevated likely in response to low calcium level or vice versa -Continue Os-kashmir Hx of HTN BP has been stable off of any antihypertensives -continue to monitor BP Diabetes mellitus/Type 2 diabetes mellitus without complications recently diagnosed in 2017, however unknown of patients compliance with medication treatment -HGB A1C 6.2 -currently diet controlled DVT prophylaxis -patient is ambulatory Patient appears stable from hospitalist standpoint. [facility] will sign off. Please reconsult if needed. Code Status: Full code Discussed Condition With: RN, pt Discharge Planning: Per psych team
[2018-05-24] MEDS: Melatonin 5 MG Tablet PO PRN (21:41)
[2018-05-25] MEDS: risperiDONE 1 MG ODT PO SCH ×2 (08:08→21:15)
[2018-05-25] MEDS: Calcium Carbonate 500 MG Tablet PO SCH ×2 (08:08→21:15)
[2018-05-25] MEDS: levETIRAcetam 500 MG Tablet PO SCH ×2 (08:08→21:15)
[2018-05-25] MEDS: Sodium Chloride 1 GM Tablet PO SCH (08:09)
--- NOTE | 2018-05-25 11:28 | P.PNPSY ---
Subjective Chief Complaint: Follow-up treatment for psychosis Remarks: Patient seen and villanueva with nurse Mai, chart reviewed, patient compliant medication. We continue to await results from lab tests drawn this morning on her Depakote. Patient continues calm pleasant with me with fair eye contact she denies suicidality or homicidality voices or visions staff states they have had no behavioral problems with this lady either. For now continue Review of Systems All other systems reviewed negative except as stated in HPI (At this time patient with deco) Mental Status Examination Appearance: Appropriate Consciousness: Alert Orientation: Person, Place (At least) Motor Activity: Other (No ictal activity noted. No motor abnormalities noted.) Speech: Unremarkable Language: Adequate Fund of Knowledge: Inadequate Attention and Concentration: Adequate Memory: Unremarkable Mood: Other (Somewhat restricted today) Affect: Other (Decreased range and intensity) Thought Process & Associations: Intact, Linear Thought Content: Appropriate Hallucination Type: None Delusion Type: Paranoid (Softer today) Suicidal Ideation: No Suicidal Plan: No Suicidal Intention: No Homicidal Ideation: No Homicidal Plan: No Homicidal Intention: No Insight: Poor Judgment: Poor Assessment and Plan - Assessment (1) Paranoid type schizophrenia, chronic state with acute exacerbation Code(s): F20.0 - Paranoid schizophrenia Status: Acute - Plan Plan: Patient somewhat calmer more appropriate today psychosis is somewhat improved today. She does denies voices today we continue to await word on Depakote blood level drawn this a.m. Justification for Continued Inpatient Stay: At this time patient would decompensated placed in a lower level of care Discharge Planning: To be determined patient continues [facility] State weight list. The perhaps she continues to improve we will consider possible placement with family member Request Healthcare Surrogate/Guardian Advocate?: Yes
[2018-05-26] MEDS: Calcium Carbonate 500 MG Tablet PO SCH ×2 (09:12→20:41)
[2018-05-26] MEDS: Sodium Chloride 1 GM Tablet PO SCH (09:12)
[2018-05-26] MEDS: risperiDONE 1 MG ODT PO SCH ×2 (09:12→20:41)
[2018-05-26] MEDS: levETIRAcetam 500 MG Tablet PO SCH ×2 (09:12→20:41)
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
[2018-05-27] MEDS: risperiDONE 1 MG ODT PO SCH ×2 (09:38→21:31)
[2018-05-27] MEDS: Sodium Chloride 1 GM Tablet PO SCH (09:38)
[2018-05-27] MEDS: Calcium Carbonate 500 MG Tablet PO SCH ×2 (09:38→21:31)
[2018-05-27] MEDS: levETIRAcetam 500 MG Tablet PO SCH ×2 (09:38→21:31)
--- NOTE | 2018-05-27 12:51 | P.PNPSY ---
Subjective Chief Complaint: Follow-up treatment for psychosis Remarks: Reviewed electronic medical records and discussed case with staff. Follow-up was conducted in the day room with TIFF Rondon present. Patient is awaiting state placement. Her nurse reports she has been compliant and cooperative. Patient states she is sleeping and eating well and denies any side effects from the medication. She remains confused stating that she believes she is being discharged Tuesday that her son is waiting for her "out there". Mental Status Examination Appearance: Appropriate Consciousness: Alert Orientation: Person, Place (At least) Motor Activity: Other (No ictal activity noted. No motor abnormalities noted.) Speech: Unremarkable Language: Adequate Fund of Knowledge: Inadequate Attention and Concentration: Adequate Memory: Unremarkable Mood: Other (Somewhat restricted today) Affect: Other (Decreased range and intensity) Thought Process & Associations: Intact, Linear Thought Content: Appropriate Hallucination Type: None Delusion Type: Paranoid (Slight increased vigilance today) Suicidal Ideation: No Suicidal Plan: No Suicidal Intention: No Homicidal Ideation: No Homicidal Plan: No Homicidal Intention: No Insight: Poor Judgment: Poor Assessment and Plan - Assessment (1) Paranoid type schizophrenia, chronic state with acute exacerbation Code(s): F20.0 - Paranoid schizophrenia Status: Acute - Plan Plan: Patient will be reevaluated by the attending psychiatrist. Continue with current treatment plan. Justification for Continued Inpatient Stay: Moving this patient to a less restrictive environment would likely result in decompensation. Request Healthcare Surrogate/Guardian Advocate?: Yes
[2018-05-28] MEDS: levETIRAcetam 500 MG Tablet PO SCH ×2 (08:30→21:26)
[2018-05-28] MEDS: Sodium Chloride 1 GM Tablet PO SCH (08:30)
[2018-05-28] MEDS: risperiDONE 1 MG ODT PO SCH ×2 (08:30→21:26)
[2018-05-28] MEDS: Calcium Carbonate 500 MG Tablet PO SCH ×2 (08:30→21:26)
--- NOTE | 2018-05-28 10:45 | P.PNPSY ---
Subjective Chief Complaint: Follow-up treatment for psychosis Remarks: Reviewed electronic medical records and discussed case with staff. Follow-up was conducted in the patient's room with TIFF Rondon present. Her nurse reports that she has been cooperative and compliant. The patient states that she is sleeping well and eating well. She is euthymic today smiling at this provider. She has no complaints today. Review of Systems All other systems reviewed negative except as stated in HPI Mental Status Examination Appearance: Appropriate Consciousness: Alert Orientation: Person, Place (At least) Motor Activity: Other (No ictal activity noted. No motor abnormalities noted.) Speech: Unremarkable Language: Adequate Fund of Knowledge: Inadequate Attention and Concentration: Adequate Memory: Unremarkable Mood: Other (Somewhat restricted today) Affect: Other (Decreased range and intensity) Thought Process & Associations: Intact, Linear Thought Content: Appropriate Hallucination Type: None Delusion Type: Paranoid (Slight increased vigilance today) Suicidal Ideation: No Suicidal Plan: No Suicidal Intention: No Homicidal Ideation: No Homicidal Plan: No Homicidal Intention: No Insight: Poor Judgment: Poor Assessment and Plan - Assessment (1) Paranoid type schizophrenia, chronic state with acute exacerbation Code(s): F20.0 - Paranoid schizophrenia Status: Acute - Plan Plan: Patient will be reevaluated by the attending psychiatrist. Continue with current treatment plan. Patient remains on the state placement list. Justification for Continued Inpatient Stay: Moving this patient to a less restrictive environment would likely result in decompensation. Request Healthcare Surrogate/Guardian Advocate?: Yes
[2018-05-29] MEDS: risperiDONE 1 MG ODT PO SCH ×2 (08:42→20:55)
[2018-05-29] MEDS: Calcium Carbonate 500 MG Tablet PO SCH ×2 (08:42→20:55)
[2018-05-29] MEDS: Sodium Chloride 1 GM Tablet PO SCH (08:42)
[2018-05-29] MEDS: levETIRAcetam 500 MG Tablet PO SCH ×2 (08:42→20:55)
--- NOTE | 2018-05-29 09:57 | P.PNPSY ---
Subjective Chief Complaint: Follow-up treatment for psychosis Remarks: Patient seen in her room with nurse Damaris, patient angry irritable loud demanding it appears she is showing increased paranoia and vigilance related to her medication taking the nurses giving her the wrong medication. I have checked this and it is not true. Patient is being given the right medication. Chart has been reviewed patient otherwise shows fairly good compliance with medication. We will increase Risperdal to 2 mg twice daily Review of Systems All other systems reviewed negative except as stated in HPI Mental Status Examination Appearance: Appropriate Consciousness: Alert Orientation: Person, Place (At least) Motor Activity: Other (No ictal activity noted. No motor abnormalities noted.) Speech: Unremarkable Language: Adequate Fund of Knowledge: Inadequate Attention and Concentration: Adequate Memory: Unremarkable Mood: Angry, Irritable Affect: Other (Increased range and intensity) Thought Process & Associations: Loose associations Thought Content: Bizarre thinking Hallucination Type: None Delusion Type: Paranoid (Slight increased vigilance today) Suicidal Ideation: No Suicidal Plan: No Suicidal Intention: No Homicidal Ideation: No Homicidal Plan: No Homicidal Intention: No Insight: Poor Judgment: Poor Assessment and Plan - Assessment (1) Paranoid type schizophrenia, chronic state with acute exacerbation Code(s): F20.0 - Paranoid schizophrenia Status: Acute - Plan Plan: Patient increasingly psychotic today please see medication adjustment above Justification for Continued Inpatient Stay: At this time patient with decompensated placed in a lower level of care Discharge Planning: To be determined continue to await for state hospital placement Request Healthcare Surrogate/Guardian Advocate?: Yes
--- NOTE | 2018-05-29 10:03 | P.TTN ---
- Patient Problems Problems: 1. Discharge planning 2. Medication compliance 3. Knowledge deficit 4. Lack of coping skills - Progress Toward Goals Provider Present: Dr. Bailey Medley (Dr. Medley is not titrating any medications at this time, patient remains for further stabilization and will be [facility] when a bed is available.), Dr. Jeffry Cespedes Provider Input: 05/22/18 No med change, pt is on state wait list. Pt was irritable and argumentative today. 05/17/18 No medication change, still on the state wait list. Counselor was in contact with patient's sister regarding SSI. 05/12/2018; per psychiatrist no med change; doctor would like counselor to follow-up with patient's SSI. 05/09/2018; per psychiatrist patient has unpredictable mood, no med change at this time, no aggressive or violent issues. 04/25/2018; no medication change at this time; patient continues to be approprate for State. 04/21/18: No changes to medications. [facility] to be [facility]. Dorothy, counselor, has been requested to make further attempts to contact pt's son (Lukas Sewell) with goal of determining if there are other options to state hosp. 04/18/18: No changes to medications. Pt continues to be [facility]. 04/11/18: pt has been administered booster of invega sustaina, Risperdal has been discontinued. Pt continues on Depakote. Laina to follow-up with Carolyn, pt's son and with pt's sister in [place] as potential discharge options. Carolyn remains the better of these 2 options. 03/28/2018; patient remains on state waiting list, at this time no medication changes, patient has reportedly not been participating in activities. 03/24/2018; patient has no med adjustment, continues to be a state wait, counselor will look into family placement options. 03/21/2018; patient is stable on current med dosage, she has been place [facility]. 03/14/2018; per doctor, although patient is a State referral, her medications are being adjusted to address patient's behavior. 03/03/18: Pt exhibiting no behaviors, she remains isolative, awaiting [facility] acceptance. 2017; Patient's are being titrated Nurse(s) Present: RN Nurse Input: 05/22/18 Per RN gaurav pt has been somewhat irritable and argumentative but med compliant. No sig beh issues. 05/17/18 No behavioral problems on the unit, eating and sleeping. 05/12/2018; per RN patient is eating meals and taking medication with no notificable behavior. 05/09/2018; per RN patient is eating meals and taking medication, no behavior at this time. 04/25/2018; per nurse patient is eating meals and taking medication no behavior; however patient is observed responding to internal stimuli, derail thought process. 03/28/2018; at this time patient is reportedly continuing to take medication, no further reports of nausea, vomiting and diarrhea, patient continuing to eat and drink well. 03/24/2018; patient is taking her meds, eating meals and attending groups/activities. 03/21/2018 patient requires coaching with mood, she is eating and taking her meds. 03/14/2018; patient require coaching with medication and redirection with mood due to aggressive behavior, she is taking her meds and eating meals. 02/21/2018; Patient is eating meals and taking medication, require coaching and prompting Psychiatric Counselors Present: Marbin Clancy Jr., [facility] (Patient will be discharged to the [facility] as soon as possible.), Laina Mo [facility], Other Psychiatric Therapist Input: 05/22/18: Pt no longer on 1:1, pt on state wait list as a dc plan. 05/17/18 At times patient will participate one-on-one but no group therapy. 05/12/2018; counselor will follow-up with Janeth fernandes [facility] to inquire about SSI income outcome. 05/09/2018; patient is a state wait pending acceptance. 04/25/2018; Patient is a state wait, patient's son continues to be indecisive with whether or not he is willing to accept patient in his home. 04/21/18: Pt [facility] to be [facility]. Dorothy, counselor, has been requested to make further attempts to contact pt's son ( Lukas Sewell) with goal of determining if there are other options to state hosp. 03/28/2008; counselor continues to maintain contact with family, counselor monitoring state wait list for estimated time patient to transfer to [facility]. 03/24/2018; counselor continues to make contact with family members for possible [facility] diversion. Thus far the contact numbers provided by patient has been not been good, (no family return or answer calls) . 03/14/2018; counselor will revisit patient's contact to see if she is placeable with family or friends. 03/14/2018; counselor will staff transfer to [facility] with trash collector supervisor to continue state wait. As of 03/04/18: counselor is completing state packet is being completed relative limited options for this pt. 02/22/2018; counselor will be contacting patient's NOK to discuss propriate dc planning patient's son (Lukas and patient's sister Marla Sewell Group Spec/RT/OT/NAIK Present: GUMAOR Burger (Patient attends groups and is redirectable.), Juan Guajardo, OT, GUMARO Villalobos (Patient attends select groups.) Group Spec/RT/OT/NAIK Input: 05/22/18: Pt attends select groups and sometimes participates. 05/17/18 Patient will comply with project groups only. Isolatative. 05/12/2018; patient has some group participation. 05/09/2018 patient participate with some groups with limited interaction with peers. 04/25; patient attends some groups with no participation. 04/21/18: Pt attends groups occasionally, sporatically. 04/18/18: Pt attends groups occasionally, sporatically. 04/11/18: Pt attends few groups, she is largely unable to tolerate group activities`. 03/24/2018; patient has been participatting with groups and appears to be enaging with peers with positive interaction,. 2017; patient lacks motivation to participate with groups. 03/14/2018; patient lacks the emotional ability to appropriately participate with groups. 2017;this is continuing as of 03/03/18; lack of pt attendance or participation. patient has not participate with groups or activities Other Clinican Input: State packet initiated per , counselor as this is pt's best option. Additional Input: 04/21/18: Pt continues to be [facility] wait list. Dorothy, counselor, has been requested to make further attempts to contact pt's son (Lukas Sewell) with goal of determining if there are other options to state hosp. 04/11/18: Laina to follow-up with Carolyn, pt's son and with pt's sister in [place] as potential discharge options. Jamarie remains the better of these 2 options. - Discharge Plan 04/18/18: Pt [facility] to be [facility]. 04/11/18:Laina to follow-up with Carolyn, pt's son and with pt's sister in [place] as potential discharge options. Jamarie remains the better of these 2 options. - Documentation Teaching Recipient: Patient
[2018-05-30] MEDS: Sodium Chloride 1 GM Tablet PO SCH (08:06)
[2018-05-30] MEDS: risperiDONE 1 MG ODT PO SCH ×2 (08:06→20:48)
[2018-05-30] MEDS: levETIRAcetam 500 MG Tablet PO SCH ×2 (08:06→20:48)
[2018-05-30] MEDS: Calcium Carbonate 500 MG Tablet PO SCH ×2 (08:06→20:48)
--- NOTE | 2018-05-30 09:22 | P.PNPSY ---
Subjective Chief Complaint: Follow-up treatment for psychosis Remarks: Patient is seen in her room with nurse Tawanna. Patient lying on the floor on blankets that she had a pillow sleeping she was arousable to angry and irritable when asked why she is sleeping on the floor she said because somewhat he had urinated in the bed. She states that the person was assigned to that room prior a urinated in the bed and also urinated in the water. However the entire unit was deep cleaned just before patient was brought back to the unit yesterday. Patient continues to show marked increased paranoia and anger irritability with little insight. There was an increase in the Resporal yesterday to 2 mg twice daily. Depakote level drawn on 05/26 is 98. For now continue treatment no change continue to await word from state hospital placement Review of Systems All other systems reviewed negative except as stated in HPI Mental Status Examination Appearance: Appropriate Consciousness: Alert Orientation: Person, Place (At least) Motor Activity: Other (No ictal activity noted. No motor abnormalities noted.) Speech: Unremarkable, Pressured (Somewhat) Language: Adequate Fund of Knowledge: Inadequate Attention and Concentration: Adequate (Decreased) Memory: Unremarkable Mood: Angry, Irritable Affect: Other (Increased range and intensity) Thought Process & Associations: Loose associations Thought Content: Bizarre thinking, Delusional (That a patient has been urinating in her bed and urinating in her washable) Hallucination Type: None Delusion Type: Paranoid (Slight increased vigilance today) Suicidal Ideation: No Suicidal Plan: No Suicidal Intention: No Homicidal Ideation: No Homicidal Plan: No Homicidal Intention: No Insight: Poor Judgment: Poor Assessment and Plan - Assessment (1) Paranoid type schizophrenia, chronic state with acute exacerbation Code(s): F20.0 - Paranoid schizophrenia Status: Acute - Plan Plan: Patient remains quite psychotic delusional paranoid, compliant medication. For now continue treatment. Continue to await word from state hospital placement Justification for Continued Inpatient Stay: At this time patient with decompensated placed on a lower level of care Discharge Planning: Continue to await word from state hospital placement Request Healthcare Surrogate/Guardian Advocate?: Yes
[2018-05-31] MEDS: risperiDONE 1 MG ODT PO SCH ×2 (08:55→21:25)
[2018-05-31] MEDS: levETIRAcetam 500 MG Tablet PO SCH ×2 (08:56→21:24)
[2018-05-31] MEDS: Calcium Carbonate 500 MG Tablet PO SCH ×2 (08:56→21:24)
[2018-05-31] MEDS: Sodium Chloride 1 GM Tablet PO SCH (09:00)
--- NOTE | 2018-05-31 09:47 | P.PNPSY ---
Subjective Chief Complaint: Follow-up treatment for psychosis Remarks: Patient is seen today with nurse Stephanie sitting in the dayroom. Chart reviewed. Patient compliant medication. It appears patient slept in her bed last night. Patient today is calm more pleasant, better eye contact, the intense anger and irritability and paranoia have essentially resolved. She states she had a good visit with her sons yesterday. We will continue to await word from state hospital placement. For now continue treatment Review of Systems All other systems reviewed negative except as stated in HPI Mental Status Examination Appearance: Appropriate Consciousness: Alert Orientation: Person, Place (At least) Motor Activity: Normal gait Speech: Unremarkable, Pressured (Slightly) Language: Adequate Fund of Knowledge: Inadequate Attention and Concentration: Adequate (Decreased) Memory: Unremarkable Mood: Irritable, Other (Euthymic) Affect: Other (Good range and intensity) Thought Process & Associations: Loose associations Thought Content: Delusional (Today it appears patient does not believe that her bed and washable have been urinated) Hallucination Type: None Delusion Type: Paranoid (Slight increased vigilance today) Suicidal Ideation: No Suicidal Plan: No Suicidal Intention: No Homicidal Ideation: No Homicidal Plan: No Homicidal Intention: No Insight: Poor Judgment: Poor Assessment and Plan - Assessment (1) Paranoid type schizophrenia, chronic state with acute exacerbation Code(s): F20.0 - Paranoid schizophrenia Status: Acute - Plan Plan: Patient remains somewhat psychotic and delusional though improved today. Compliant medication. Continue to await word from state hospital placement Justification for Continued Inpatient Stay: At this time patient with decompensated placed on a lower level of care Discharge Planning: Continue to await word from state hospital placement Request Healthcare Surrogate/Guardian Advocate?: Yes
[2018-05-31] MEDS: Melatonin 5 MG Tablet PO PRN (21:24)
[2018-06-01] MEDS: Calcium Carbonate 500 MG Tablet PO SCH ×2 (08:02→20:59)
[2018-06-01] MEDS: levETIRAcetam 500 MG Tablet PO SCH ×2 (08:02→20:59)
[2018-06-01] MEDS: Sodium Chloride 1 GM Tablet PO SCH (08:03)
[2018-06-01] MEDS: risperiDONE 1 MG ODT PO SCH ×2 (08:03→20:59)
--- NOTE | 2018-06-01 11:44 | P.PNPSY ---
Subjective Chief Complaint: Follow-up treatment for psychosis Remarks: Patient is seen in day room with floor staff, chart reviewed, patient compliant medication. Patient continues calm cooperative though at times appears a little bit vigilant with staff. However she is no behavior problem. For now continue treatment continue to await word on state hospital placement Review of Systems All other systems reviewed negative except as stated in HPI Mental Status Examination Appearance: Appropriate Consciousness: Alert Orientation: Person, Place (At least) Motor Activity: Normal gait Speech: Unremarkable, Pressured (Slightly) Language: Adequate Fund of Knowledge: Inadequate Attention and Concentration: Adequate (Decreased) Memory: Unremarkable Mood: Irritable, Other (Euthymic) Affect: Other (Good range and intensity) Thought Process & Associations: Loose associations Thought Content: Delusional (Today it appears patient does not believe that her bed and washable have been urinated) Hallucination Type: None Delusion Type: Paranoid (Slight increased vigilance today) Suicidal Ideation: No Suicidal Plan: No Suicidal Intention: No Homicidal Ideation: No Homicidal Plan: No Homicidal Intention: No Insight: Poor Judgment: Poor Assessment and Plan - Assessment (1) Paranoid type schizophrenia, chronic state with acute exacerbation Code(s): F20.0 - Paranoid schizophrenia Status: Acute - Plan Plan: Patient remains somewhat psychotic paranoid and delusional, compliant medication , for now continue treatment Justification for Continued Inpatient Stay: At this time patient with decompensated placed in a lower level of care continue to await word from state hospital placement Discharge Planning: Continue to await word from state hospital placement Request Healthcare Surrogate/Guardian Advocate?: Yes
[2018-06-02] MEDS: risperiDONE 1 MG ODT PO SCH ×2 (08:59→21:53)
[2018-06-02] MEDS: Calcium Carbonate 500 MG Tablet PO SCH ×2 (08:59→21:53)
[2018-06-02] MEDS: levETIRAcetam 500 MG Tablet PO SCH ×2 (08:59→21:53)
[2018-06-02] MEDS: Sodium Chloride 1 GM Tablet PO SCH (08:59)
--- NOTE | 2018-06-02 15:21 | P.PNPSY ---
Subjective Chief Complaint: Follow-up treatment for psychosis Remarks: Patient is seen in day room with nurse Mai, chart reviewed, patient compliant medication. Patient sitting quietly continues calm cooperative with me and appears there is a bed placement date for this patient at the [facility] on 06/07/18. Patient has been told about this and is tolerating the information well they also stated though patient had somewhat bad night needing some redirection and interventions Review of Systems All other systems reviewed negative except as stated in HPI Mental Status Examination Appearance: Appropriate Consciousness: Alert Orientation: Person, Place (At least) Motor Activity: Normal gait Speech: Unremarkable, Pressured (Slightly) Language: Adequate Fund of Knowledge: Inadequate Attention and Concentration: Adequate (Decreased) Memory: Unremarkable Mood: Irritable, Other (Euthymic) Affect: Other (Good range and intensity) Thought Process & Associations: Loose associations Thought Content: Delusional (Today it appears patient does not believe that her bed and washable have been urinated) Hallucination Type: None Delusion Type: Paranoid (Slight increased vigilance today) Suicidal Ideation: No Suicidal Plan: No Suicidal Intention: No Homicidal Ideation: No Homicidal Plan: No Homicidal Intention: No Insight: Poor Judgment: Poor Assessment and Plan - Assessment (1) Paranoid type schizophrenia, chronic state with acute exacerbation Code(s): F20.0 - Paranoid schizophrenia Status: Acute - Plan Plan: Patient remains somewhat psychotic and delusional, though no significant behavior problems she was somewhat irritable last night. There is a bed date now for at the [facility] 06/07/18 Justification for Continued Inpatient Stay: There is a bed available for the patient at the [facility] 06/07/18 Discharge Planning: To [facility] 06/07/18 Request Healthcare Surrogate/Guardian Advocate?: Yes
[2018-06-03] MEDS: Calcium Carbonate 500 MG Tablet PO SCH ×2 (08:25→21:00)
[2018-06-03] MEDS: risperiDONE 1 MG ODT PO SCH ×2 (08:25→21:00)
[2018-06-03] MEDS: levETIRAcetam 500 MG Tablet PO SCH ×2 (08:25→21:00)
[2018-06-03] MEDS: Sodium Chloride 1 GM Tablet PO SCH (08:25)
--- NOTE | 2018-06-03 15:29 | P.PNPSY ---
Subjective Chief Complaint: Follow-up treatment for psychosis Remarks: Patient was seen and case discussed with nursing. Patient continues to improve. She is pleasant and cooperative with exam. Compliant with her medications. She denies any auditory or visual hallucinations. She is looking forward to a discharge. Behaving well per nursing Review of Systems All other systems reviewed negative except as stated in HPI Mental Status Examination Appearance: Appropriate Consciousness: Alert Orientation: Person, Place (At least) Motor Activity: Normal gait Speech: Unremarkable, Pressured (Slightly) Language: Adequate Fund of Knowledge: Inadequate Attention and Concentration: Adequate (Decreased) Memory: Unremarkable Mood: Irritable, Other (Euthymic) Affect: Other (Good range and intensity) Thought Process & Associations: Loose associations, Disorganized Thought Content: Delusional (Today it appears patient does not believe that her bed and washable have been urinated) Hallucination Type: None Delusion Type: Paranoid (Slight increased vigilance today) Suicidal Ideation: No Suicidal Plan: No Suicidal Intention: No Homicidal Ideation: No Homicidal Plan: No Homicidal Intention: No Insight: Poor Judgment: Poor Assessment and Plan - Assessment (1) Paranoid type schizophrenia, chronic state with acute exacerbation Code(s): F20.0 - Paranoid schizophrenia Status: Acute - Plan Plan: Continue current treatment plan Justification for Continued Inpatient Stay: Patient would decompensate in a less restrictive setting Request Healthcare Surrogate/Guardian Advocate?: Yes
[2018-06-03] MEDS: Melatonin 5 MG Tablet PO PRN (21:59)
[2018-06-04] MEDS: risperiDONE 1 MG ODT PO SCH ×2 (08:31→20:13)
[2018-06-04] MEDS: Calcium Carbonate 500 MG Tablet PO SCH ×2 (08:31→20:13)
[2018-06-04] MEDS: Sodium Chloride 1 GM Tablet PO SCH (08:31)
[2018-06-04] MEDS: levETIRAcetam 500 MG Tablet PO SCH ×2 (08:31→20:13)
--- NOTE | 2018-06-04 13:50 | P.PNPSY ---
Subjective Chief Complaint: Follow-up treatment for psychosis Remarks: Reviewed electronic medical records and discussed case with staff. Follow-up was conducted in the patient's room where she was found lying in bed with TIFF Rodriguez present. Patient remains on the state waitlist. She reports that she is okay but seems rather down today. She states, "I am ready to go home". She does claim that she slept well and her appetite's been good. Mental Status Examination Appearance: Appropriate Consciousness: Alert Orientation: Person, Place (At least) Motor Activity: Normal gait Speech: Unremarkable, Pressured (Slightly) Language: Adequate Fund of Knowledge: Inadequate Attention and Concentration: Adequate (Decreased) Memory: Unremarkable Mood: Irritable, Other (Euthymic) Affect: Other (Good range and intensity) Thought Process & Associations: Loose associations, Disorganized Thought Content: Delusional (Today it appears patient does not believe that her bed and washable have been urinated) Hallucination Type: None Delusion Type: Paranoid (Slight increased vigilance today) Suicidal Ideation: No Suicidal Plan: No Suicidal Intention: No Homicidal Ideation: No Homicidal Plan: No Homicidal Intention: No Insight: Poor Judgment: Poor Assessment and Plan - Assessment (1) Paranoid type schizophrenia, chronic state with acute exacerbation Code(s): F20.0 - Paranoid schizophrenia Status: Acute - Plan Plan: Patient will be reevaluated by the attending psychiatrist. Continue with current treatment plan. Justification for Continued Inpatient Stay: Moving this patient to a less restrictive environment would likely result in decompensation. Request Healthcare Surrogate/Guardian Advocate?: Yes
--- NOTE | 2018-06-05 09:17 | P.PNPSY ---
Subjective Chief Complaint: Follow-up treatment for psychosis Remarks: Patient is seen in her room with nurse Rosa Elena, chart reviewed, patient compliant medication. Patient laying in bed calm initially cooperative. Patient is scheduled for transfer to [facility] in 2 days on 06/07 . Patient has been aware of this since last week. However when I reminded her today she became somewhat irritable. We will need to work with this with her. Review of Systems All other systems reviewed negative except as stated in HPI Mental Status Examination Appearance: Appropriate Consciousness: Alert Orientation: Person, Place (At least) Motor Activity: Normal gait Speech: Unremarkable, Pressured (Slightly) Language: Adequate Fund of Knowledge: Inadequate Attention and Concentration: Adequate (Decreased) Memory: Unremarkable Mood: Irritable, Other (Euthymic) Affect: Other (Good range and intensity) Thought Process & Associations: Loose associations, Disorganized Thought Content: Delusional (Today it appears patient does not believe that her bed and washable have been urinated) Hallucination Type: None Delusion Type: Paranoid (Slight increased vigilance today) Suicidal Ideation: No Suicidal Plan: No Suicidal Intention: No Homicidal Ideation: No Homicidal Plan: No Homicidal Intention: No Insight: Poor Judgment: Poor Assessment and Plan - Assessment (1) Paranoid type schizophrenia, chronic state with acute exacerbation Code(s): F20.0 - Paranoid schizophrenia Status: Acute - Plan Plan: Patient remains psychotic delusional somewhat paranoid also somewhat confused. Compliant medication. Patient is scheduled for discharge HPC transferred to [facility] on Wednesday 06/07 Justification for Continued Inpatient Stay: Patient to be transferred to [facility] 06/07 Discharge Planning: Patient to be transferred to [facility] 06/07 Request Healthcare Surrogate/Guardian Advocate?: Yes
[2018-06-05] MEDS: Paliperidone Inj 234 MG/1.5 ML Syringe IM SCH (09:26)
[2018-06-05] MEDS: risperiDONE 1 MG ODT PO SCH ×2 (09:27→20:32)
[2018-06-05] MEDS: Sodium Chloride 1 GM Tablet PO SCH (09:27)
[2018-06-05] MEDS: levETIRAcetam 500 MG Tablet PO SCH ×2 (09:27→20:32)
[2018-06-05] MEDS: Calcium Carbonate 500 MG Tablet PO SCH ×2 (09:27→20:32)
[2018-06-06 06:25] VITALS: RESP 16
[2018-06-06] MEDS: risperiDONE 1 MG ODT PO SCH ×2 (08:51→20:12)
[2018-06-06] MEDS: Calcium Carbonate 500 MG Tablet PO SCH ×2 (08:51→20:12)
[2018-06-06] MEDS: Sodium Chloride 1 GM Tablet PO SCH (08:51)
[2018-06-06] MEDS: levETIRAcetam 500 MG Tablet PO SCH ×2 (08:51→20:12)
--- NOTE | 2018-06-06 13:06 | P.DSPSY ---
Psychiatry Discharge Summary Inpatient Psychiatric care?: Yes Advance Directives: No Mental Health Advance Directive: No Health Care Proxy: No - Admission Admission Date: February 16, 2018 14:13 - Admission Diagnosis (1) Paranoid type schizophrenia, chronic state with acute exacerbation Code(s): F20.0 - Paranoid schizophrenia Brief History: The patient is a 57-year-old woman, domiciled alone, , unemployed, past psychiatric history of psychosis, 1 previous psychiatric hospitalization in [place] in 2017, documentation review, also admitted in 2009 under the care of Dr. Medley, both time with a very similar presentation in which the patient refused to eat and to talk, this time she is brought under [place] by PD. According to the [place] the patient has not been taking her medications for the past 15 days. The patient allegedly had been laying out in the yard. The patient states that family members had refused to allow her to come back in the house. She did not want to lay on the porch because someone had defecated on the porch earlier as well as there is been history of bedbugs. The patient states that she has received several insect bites to arms and legs from being outside. She states that she has been outside for several days. Patient is very reluctant to answer questions. At some point the patient refuses to talk to me. In spite of my insistence the patient does not open her mouth. The patient has been isolated in the ER, not talking with the nurses, she has refused her food. She also has refused medications. Past psychiatric history: The patient denies any history of psychiatric illness. She denies any history of psychiatric admissions or suicide attempts. Family history: The patient denies any family history of mental illness. Chemical dependency history: The patient denies any history of abuse of drugs or alcohol. Social history: The patient reports that she lives alone. She is . She has 3 sons. She is reportedly college-educated. She does not work and is on disability for epilepsy. She denies any or legal history other than the legal history prior to her presentation here. She denies any access to guns or firearms. Tobacco Use In Past 30 Days: No How Often Do You Have a Drink Containing Alcohol: Monthly or less Hospital Course: Patient's hospital course was fairly uneventful. Her paranoia and psychosis voices did persist with minimal response to medication to the point where the treatment team felt patient needed extended care thus a referral was made to the [facility]. Patient also was retained through [place] [facility] during the process. More recently patient is shown cooperation with the medication though she has had episodes of paranoia irritability and anger. As of today patient remains paranoid vigilant and somewhat irritable. Though she is aware of the transfer tomorrow to the [facility]. I am this agreeable to that. Thus patient will be discharged tomorrow to [facility] continue her scheduled meds Rx times 1 month, follow-up treatment team at that facility - Discharge Discharge Date: 06/07/18 - Discharge Diagnosis (1) Paranoid type schizophrenia, chronic state with acute exacerbation Diagnosis: Principal Code(s): F20.0 - Paranoid schizophrenia Status: Acute Discharge Disposition: Psychiatric Facility - Discharge Instructions Discharge Diet: Regular Diet Activities You Can Perform: Regular- No Restrictions - Discharge Time > 30 minutes Mental Status Examination Appearance: Appropriate Consciousness: Alert Orientation: Person, Place (At least) Motor Activity: Normal gait Speech: Unremarkable, Pressured (Slightly) Language: Adequate Fund of Knowledge: Inadequate Attention and Concentration: Adequate (Decreased) Memory: Unremarkable Mood: Irritable, Other (Euthymic) Affect: Other (Good range and intensity) Thought Process & Associations: Loose associations, Disorganized Thought Content: Delusional (Today it appears patient does not believe that her bed and washable have been urinated) Hallucination Type: None Delusion Type: Paranoid (Slight increased vigilance today) Suicidal Ideation: No Suicidal Plan: No Suicidal Intention: No Homicidal Ideation: No Homicidal Plan: No Homicidal Intention: No Insight: Poor Judgment: Poor Discharge/Advance Care Plan - Results Vital Signs: Last Vital Signs Temp 97.1 F L 06/06/18 06:00 Pulse 72 06/06/18 06:00 Resp 16 06/06/18 06:00 BP 92/54 L 06/06/18 06:00 Pulse Ox 96 06/05/18 17:12 Lab Results: Laboratory Results Hemoglobin A1c 6.2 % (4.3-6.0) H 02/18/18 06:40 Triglycerides 77 mg/dL (42-150) 02/18/18 06:40 Cholesterol 162 mg/dL (120-200) 02/18/18 06:40 LDL Cholesterol, Calc 92 mg/dL (0-99) 02/18/18 06:40 HDL Cholesterol 54.8 mg/dL (40.0-60.0) 02/18/18 06:40 TSH 0.172 uIU/mL (0.358-3.740) L 02/18/18 06:40 Free T4 1.23 ng/dL (0.76-1.46) 02/18/18 06:40 Valproic Acid 98 mcg/mL (50-100) 05/26/18 07:33 Summary of Procedures: None done Imaging: ITS Impressions Hip X-Ray 05/11/18 00:00 CONCLUSION: No evidence of recent bony injury. Head CT 05/14/18 00:00 CONCLUSION: Unremarkable study. . Pending Results: None - Medications Number of antipsychotic medications at discharge: 2 Appropriate use of more than 1 antipsychotic med: Doc plan:prev multi med use- monotherapy taper/cross-taper in progress (This patient received the Invega Sustenna may taper off the oral antipsychotics) - Discharge Care Plan Goals to Promote Your Health: * To prevent worsening of your condition and complications * To maintain your health at the optimal level Directions to Meet Your Goals: Take your medications as prescribed Follow your dietary instruction Follow activity as directed Keep your appointments as scheduled Take your immunizations and boosters as scheduled If your symptoms worsen call your PCP, if no PCP go to Urgent Care Center or Emergency Room For 20/12 questions related to your inpatient stay or results of tests pending at discharge, please contact Dr. Shahab Medley MD at Smoking is Dangerous to Your Health. Avoid second hand smoking
[2018-06-07 05:05] VITALS: BP 103/57; PULSE 73; TEMP 97.6; O2SAT 97
[2018-06-07] MEDS: Calcium Carbonate 500 MG Tablet PO SCH (08:07)
[2018-06-07] MEDS: risperiDONE 1 MG ODT PO SCH (08:07)
[2018-06-07] MEDS: levETIRAcetam 500 MG Tablet PO SCH (08:07)
[2018-06-07] MEDS: Sodium Chloride 1 GM Tablet PO SCH (08:07)
== END 2018-06-07 08:10 | DRG 885 ==
LOC: NEPJ 00:44 → NEDA 14:13 → H4EA 14:49 → H250 03-03 14:10 → H260 05-19 12:59 → H250 05-29 09:49 → H260 05-29 10:45 → H250 05-29 10:51
PROVIDERS: ADMIT Psychiatry & Neurology Psychiatry; ATTEND Psychiatry & Neurology Psychiatry
DX: Z91.14 Patient's other noncompliance with medication regimen; N17.9 Acute kidney failure, unspecified; R21 Rash and other nonspecific skin eruption; E86.0 Dehydration; Z78.1 Physical restraint status; S80.861A Insect bite (nonvenomous), right lower leg, initial encounter; E21.0 Primary hyperparathyroidism; E87.2 Acidosis; F94.0 Selective mutism; E87.1 Hypo-osmolality and hyponatremia; L29.9 Pruritus, unspecified; E87.5 Hyperkalemia; W57.XXXA Bitten or stung by nonvenomous insect and other nonvenomous arthropods, initial encounter; L85.3 Xerosis cutis; Z91.19 Patient's noncompliance with other medical treatment and regimen; S40.861A Insect bite (nonvenomous) of right upper arm, initial encounter; E11.9 Type 2 diabetes mellitus without complications; R54 Age-related physical debility; S40.862A Insect bite (nonvenomous) of left upper arm, initial encounter; E87.6 Hypokalemia; S80.862A Insect bite (nonvenomous), left lower leg, initial encounter; G40.909 Epilepsy, unspecified, not intractable, without status epilepticus; I34.1 Nonrheumatic mitral (valve) prolapse; J45.909 Unspecified asthma, uncomplicated; R32 Unspecified urinary incontinence; F20.0 Paranoid schizophrenia; I10 Essential (primary) hypertension; A08.4 Viral intestinal infection, unspecified
CPT/HCPCS: 70450; 73502; 80048; 80053; 80061; 80164; 80185; 80307; 82140; 82272; 82550; 82552; 82607; 82652; 82948; 82962; 83036; 83735; 83970; 84100; 84132; 84155; 84439; 84443; 84702; 84703; 85025; 85027; 93005; 95819; 97162; 97530; 99285; C9204; J2426; J3486; J3490; J7042